=== PATIENT | female | born 1950 | race Caucasian/White ===

== ENCOUNTER 2018-01-30 15:59 | Inpatient (IN) | payer MEDICARE, BC ==
[2018-01-30] MEDS ORDERED: ALBUTEROL NEBULIZED 2.5 MG/3 ML INHALATION STA (16:13)
[2018-01-30] MEDS ORDERED: IPRATROPIUM 0.5 MG/2.5 ML NEBU INHALATION STA (16:13)
[2018-01-30] MEDS ORDERED: methylPREDNISolone SOD SUCCI 125 MG/2 ML VIAL IV STA (16:13)
--- NOTE | 2018-01-30 16:20 | ED ---
General Adult HPI - General Stated complaint: PANTERA Time Seen by Provider: 01/30/18 16:12 Source: patient, family, EMS, RN notes reviewed, old records reviewed - History of Present Illness Initial comments: 67-year-old female history of COPD on home oxygen. Patient has had worsening cough and dyspnea since this morning at approximately 4 AM. She's had a productive cough. According to her she's had a pulse ox in the high 70s low 80s throughout the day today. Patient denies chest pain. Denies fever or chills. Denies abdominal pain nausea vomit. Denies lower extremity swelling. - Related Data Home Medications Medication Instructions Recorded Confirmed Albuterol Nebulized [Ventolin 2.5 mg INHALATION RT-BID PRN 08/05/13 01/30/18 Nebulized] Albuterol Sulfate [Proair Hfa] 2 puff INHALATION RT-Q6H PRN 08/05/13 01/30/18 Pantoprazole Sodium [Protonix] 40 mg PO DAILY 08/05/13 01/30/18 Sertraline [Zoloft] 150 mg PO DAILY 08/05/13 01/30/18 ALPRAZolam [Xanax] 0.5 mg PO QID PRN 01/30/18 01/30/18 Budesonide/Formoterol Fumarate 2 puff INHALATION RT-DAILY 01/30/18 01/30/18 [Symbicort 160-4.5 Mcg Inhaler] Tiotropium [place] [Spiriva] 1 puff INHALATION RT-DAILY 01/30/18 01/30/18 Allergies Allergy/AdvReac Type Severity Reaction Status Date / Time adhesive AdvReac Unknown Verified 01/30/18 17:15 bupropion HCl AdvReac Unknown Verified 01/30/18 17:15 [From Wellbutrin] Review of Systems ROS Statement: Those systems with pertinent positive or pertinent negative responses have been documented in the HPI. ROS Other: All systems not noted in ROS Statement are negative. Past Medical History Past Medical History: COPD, Fibromyalgia, GERD/Reflux, Osteoarthritis (OA), Pneumonia, Thyroid Disorder Additional Past Medical History / Comment(s): history of empyema requiring VATS and surgical decorticationon the right side, INCONT OF URINE, HIATAL HERNIA, rheumatalgia, GE reflux,osteoarthritis, previous bouts of pneumonia isrequiring decorticationand the second bout of pneumonia in 2013 complicated by ARDS, compression fracture of the T-spine status post kyphoplasty. History of Any Multi-Drug Resistant Organisms: None Reported Past Surgical History: Back Surgery, Hysterectomy Additional Past Surgical History / Comment(s): X3 BACK SX -FUSIONS( HX FX VERTEBRE), SX TO REMOVE EMPYEMA via a VATS and decortication. She has also had multiple bronchoscopies in the past. She has also received lumbar epidural steroid injection under fluoroscopic guidance. Past Anesthesia/Blood Transfusion Reactions: Motion Sickness Additional Past Anesthesia/Blood Transfusion Reaction / Comment(s): BLOOD TRANSFUSION Past Psychological History: Anxiety, Depression Smoking Status: Former smoker Past Alcohol Use History: None Reported Additional Past Alcohol Use History / Comment(s): STARTED SMOKING AT AGE 15. SMOKED UPWARDS TO 2 PPD, QUIT 2011. NO ETOH OR DRUGS, HAS 02 AT HOME. PT LIVES WITH IN OWN HOME. Past Drug Use History: None Reported - Past Family History Father Family Medical History: Diabetes Mellitus Additional Family Medical History / Comment(s): AGE 61 THATS ALL PT KNOWS Mother Family Medical History: Cancer, Dementia Additional Family Medical History / Comment(s): AGE 80, RECTAL CA General Exam General appearance: alert, in no apparent distress Head exam: Present: atraumatic, normocephalic Eye exam: Present: normal appearance, PERRL ENT exam: Present: mucous membranes dry Neck exam: Present: normal inspection. Absent: tenderness, meningismus Respiratory exam: Present: respiratory distress. Absent: wheezes, decreased breath sounds, prolonged expiratory Cardiovascular Exam: Present: normal rhythm, tachycardia GI/Abdominal exam: Present: soft. Absent: distended, tenderness, guarding Extremities exam: Present: normal inspection, normal capillary refill. Absent: pedal edema, calf tenderness Neurological exam: Present: alert, oriented X3, CN II-XII intact. Absent: motor sensory deficit Psychiatric exam: Present: normal affect, normal mood Skin exam: Present: warm, dry, intact, pallor. Absent: cyanosis, diaphoretic Course Vital Signs 01/30/18 01/30/18 01/30/18 16:06 16:17 16:25 Temperature 98.8 F Pulse Rate 112 H 109 H Respiratory 32 H 30 H 32 H Rate Blood Pressure 100/61 O2 Sat by Pulse 83 L Oximetry 01/30/18 01/30/18 01/30/18 16:28 16:30 16:42 Temperature Pulse Rate 110 H 110 H 115 H Respiratory 26 H Rate Blood Pressure 100/61 O2 Sat by Pulse 95 Oximetry 01/30/18 01/30/18 01/30/18 16:50 17:00 17:30 Temperature Pulse Rate 116 H 118 H 109 H Respiratory Rate Blood Pressure 82/68 83/52 O2 Sat by Pulse 97 97 Oximetry EKG Findings - EKG Comments: EKG Findings:: EKG: Sinus tachycardia with PVC, rate of 110, CT interval 166, QRS duration 78, QTC 434 baseline secondary to tremor and artifact, no definitive signs of ischemia Medical Decision Making - Medical Decision Making 67-year-old female presenting with respiratory distress, history of COPD. Patient has bilateral wheezing, rhonchi and decreased breath sounds. Initial oxygen saturation is 79-82%. She is placed on BiPAP. Given albuterol, Atrovent , steroids, magnesium, and IV fluids. X-ray shows left lung pneumonia, this encompasses the entire left lung. Patient is significantly improved with BiPAP. Case is discussed with Dr. Sierra, and admitting physician Dr. Dinero. Dr. Sierra recommend CABG, patient will be placed in ICU for close monitoring. - Lab Data Result diagrams: 01/30/18 16:00 01/30/18 16:00 Lab Results 01/30/18 01/30/18 01/30/18 Range/Units 16:00 16:00 16:00 WBC 10.4 (3.8-10.6) k/uL RBC 3.48 L (3.80-5.40) m/uL Hgb 9.1 L (11.4-16.0) gm/dL Hct 29.3 L (34.0-46.0) % MCV 84.3 (80.0-100.0) fL MCH 26.3 (25.0-35.0) pg MCHC 31.2 (31.0-37.0) g/dL RDW 16.6 H (11.5-15.5) % Plt Count 216 (150-450) k/uL Neutrophils % (Manual) 67 % Band Neutrophils % 25 % Lymphocytes % (Manual) 8 % Neutrophils # (Manual) 9.50 H (1.3-7.7) k/uL Lymphocytes # (Manual) 0.83 L (1.0-4.8) k/uL Nucleated RBCs 0 (0-0) /100 WBC Manual Slide Review Performed Hypochromasia Moderate Anisocytosis Slight PT (9.0-12.0) sec INR (<1.2) APTT (22.0-30.0) sec Sodium 138 (137-145) mmol/L Potassium 4.9 (3.5-5.1) mmol/L Chloride 106 (98-107) mmol/L Carbon Dioxide 24 (22-30) mmol/L Anion Gap 8 mmol/L BUN 26 H (7-17) mg/dL Creatinine 1.14 H (0.52-1.04) mg/dL Est GFR (CKD-EPI)AfAm 57 (>60 ml/min/1.73 sqM) Est GFR (CKD-EPI)NonAf 50 (>60 ml/min/1.73 sqM) Glucose 122 H (74-99) mg/dL Plasma Lactic Acid [place] (0.7-2.0) mmol/L Calcium 8.9 (8.4-10.2) mg/dL Magnesium 1.9 (1.6-2.3) mg/dL Total Bilirubin 0.4 (0.2-1.3) mg/dL AST 24 (14-36) U/L ALT 8 L (9-52) U/L Alkaline Phosphatase 59 (38-126) U/L Total Creatine Kinase 71 (30-135) U/L CK-MB (CK-2) 1.4 (0.0-2.4) ng/mL CK-MB (CK-2) Rel Index 2.0 Troponin I <0.012 (0.000-0.034) ng/mL NT-Pro-B Natriuret Pep pg/mL Total Protein 7.0 (6.3-8.2) g/dL Albumin 3.8 (3.5-5.0) g/dL 01/30/18 01/30/18 01/30/18 Range/Units 16:00 16:00 16:00 WBC (3.8-10.6) k/uL RBC (3.80-5.40) m/uL Hgb (11.4-16.0) gm/dL Hct (34.0-46.0) % MCV (80.0-100.0) fL MCH (25.0-35.0) pg MCHC (31.0-37.0) g/dL RDW (11.5-15.5) % Plt Count (150-450) k/uL Neutrophils % (Manual) % Band Neutrophils % % Lymphocytes % (Manual) % Neutrophils # (Manual) (1.3-7.7) k/uL Lymphocytes # (Manual) (1.0-4.8) k/uL Nucleated RBCs (0-0) /100 WBC Manual Slide Review Hypochromasia Anisocytosis PT 10.5 (9.0-12.0) sec INR 1.1 (<1.2) APTT 23.2 (22.0-30.0) sec Sodium (137-145) mmol/L Potassium (3.5-5.1) mmol/L Chloride (98-107) mmol/L Carbon Dioxide (22-30) mmol/L Anion Gap mmol/L BUN (7-17) mg/dL Creatinine (0.52-1.04) mg/dL Est GFR (CKD-EPI)AfAm (>60 ml/min/1.73 sqM) Est GFR (CKD-EPI)NonAf (>60 ml/min/1.73 sqM) Glucose (74-99) mg/dL Plasma Lactic Acid [place] 3.4 H* (0.7-2.0) mmol/L Calcium (8.4-10.2) mg/dL Magnesium (1.6-2.3) mg/dL Total Bilirubin (0.2-1.3) mg/dL AST (14-36) U/L ALT (9-52) U/L Alkaline Phosphatase (38-126) U/L Total Creatine Kinase (30-135) U/L CK-MB (CK-2) (0.0-2.4) ng/mL CK-MB (CK-2) Rel Index Troponin I (0.000-0.034) ng/mL NT-Pro-B Natriuret Pep 651 pg/mL Total Protein (6.3-8.2) g/dL Albumin (3.5-5.0) g/dL Critical Care Time Critical Care Time: Yes Total Critical Care Time: 35 Disposition Clinical Impression: Acute exacerbation of chronic obstructive airways disease, Community acquired pneumonia Disposition: ADMITTED IP TO THIS HOSP Condition: Serious Is patient prescribed a controlled substance at d/c from ED?: No Referrals: Neri Bar DO [Primary Care Provider] - 1-2 days Time of Disposition: 17:48 Decision to Admit Reason: Admit from EC Decision Date: 01/30/18 Decision Time: 17:48
[2018-01-30] MEDS ORDERED: AZITHROMYCIN 500 MG in SODIUM CHLORIDE 0.9% 250 ML IVPB STA (16:34)
[2018-01-30 16:48] LABS: INR 1.1 (<1.2); Partial Thromboplastin Time 23.2 sec (22.0-30.0); Prothrombin Time 10.5 sec (9.0-12.0)
[2018-01-30 16:49] LABS: Albumin 3.8 g/dL (3.5-5.0); Calcium 8.9 mg/dL (8.4-10.2); Magnesium 1.9 mg/dL (1.6-2.3); Potassium 4.9 mmol/L (3.5-5.1); Total Bilirubin 0.4 mg/dL (0.2-1.3)
--- NOTE | 2018-01-30 16:49 | XR ---
EXAMINATION TYPE: XR chest 1V portable DATE OF EXAM: 01/30/2018 COMPARISON: 04/18/2017 HISTORY: Difficulty breathing TECHNIQUE: Single frontal view of the chest is obtained. FINDINGS: There is extensive coarse interstitial infiltrates throughout the lungs. This is worse on the left side. Heart is slightly enlarged. Pulmonary vascularity is difficult to evaluate because of extensive lung disease. IMPRESSION: Advanced pulmonary fibrosis. There is superimposed acute pneumonia in the left lung.
[2018-01-30 16:54] LABS: Creatine Kinase 71 U/L (30-135)
[2018-01-30 16:57] LABS: Anisocytosis Slight; HCT 29.3 % (34.0-46.0); HGB 9.1 gm/dL (11.4-16.0); Hypochromasia Moderate; MCH 26.3 pg (25.0-35.0); MCHC 31.2 g/dL (31.0-37.0); MCV 84.3 fL (80.0-100.0); Mean Platelet Volume 7.8; Platelet Count 216 k/uL (150-450); RBC 3.48 m/uL (3.80-5.40); RDW 16.6 % (11.5-15.5); WBC 10.4 k/uL (3.8-10.6)
[2018-01-30 17:05] LABS: Creatine Kinase MB 1.4 ng/mL (0.0-2.4); Troponin I <0.012 ng/mL (0.000-0.034)
[2018-01-30 17:19] LABS: Band Neutrophils % 25 %; Lymphocytes # (M) 0.83 k/uL (1.0-4.8); Neutrophils % (M) 67 %; Nucleated Red Blood Cells 0 /100 WBC (0-0); Total Cells Counted 100
[2018-01-30] MEDS ORDERED: MAGNESIUM SULFATE-D5W PMX 1 GM in DEXTROSE/WATER 1 100ML.BAG IVPB ONE (17:22)
[2018-01-30] MEDS ORDERED: SODIUM CHLORIDE 0.9% 1,000 ML IV ONE ×2 (17:22→17:41)
[2018-01-30] MEDS ORDERED: SODIUM CHLORIDE 0.9% 500 ML 500 ML IV ONE (17:38)
[2018-01-30] MEDS ORDERED: ALBUTEROL NEBULIZED 2.5 MG/3 ML INHALATION PRN (17:38)
[2018-01-30] MEDS ORDERED: IPRATROPIUM-ALBUTEROL 3 ML NEB INHALATION PRN (17:38)
[2018-01-30] MEDS ORDERED: cefTRIAXone 2,000 MG in SODIUM CHLORIDE 0.9% 100 ML IVPB SCH (19:00)
[2018-01-30 19:17] LABS: Glucose,Whole Blood 163 mg/dL (75-99)
[2018-01-30] MEDS ORDERED: IPRATROPIUM-ALBUTEROL 3 ML NEB INHALATION SCH (20:00)
[2018-01-30 20:03] LABS: ABG Base Excess -3.2 mmol/L; ABG HCO3 22 mmol/L (21-25); ABG Oxygen Saturation 92.7 % (94-97); ABG PCO2 39 mmHg (35-45); ABG PH 7.37 (7.35-7.45); ABG PO2 64 mmHg (83-108); ABG TCO2 23 mmol/L (19-24)
[2018-01-30] MEDS: SODIUM CHLORIDE 0.9% 1,000 ML IV SCH (20:29)
[2018-01-30] MEDS ORDERED: INSULIN ASPART 100 UNIT/ML 1 ML 10 ML VIAL SQ SCH (21:00)
[2018-01-30] MEDS: IPRATROPIUM-ALBUTEROL 3 ML NEB INHALATION SCH (21:04)
[2018-01-30] MEDS: guaiFENesin 600 MG TABLET.ER PO SCH (21:56)
[2018-01-30] MEDS: ENOXAPARIN 40 MG/0.4 ML SYRINGE SQ SCH (22:19)
[2018-01-30] MEDS ORDERED: NOREPINEPHRINE 4 MG in SODIUM CHLORIDE 0.9% 250 ML IV SCH (22:45)
--- NOTE | 2018-01-30 23:41 | HP ---
HISTORY AND PHYSICAL DATE OF ADMISSION: 01/30/2018 DATE OF SERVICE: 01/30/2018 PRESENTING COMPLAINT: Short of breath, cough. HISTORY OF PRESENTING COMPLAINT: This is a 67-year-old patient who follows with Dr. Bar as her family doctor and Dr. Sierra as her stores naval. Chronic stable medical conditions include fibromyalgia, GERD, osteoarthritis, hypothyroid, hiatal hernia, urinary incontinence. Patient has underlying COPD and is on home oxygen 4 L. For 2 days patient has been becoming increasingly short of breath, with cough and greenish yellow sputum, weak, tired, very short of breath. She presented to the ER, found to have multilobar pneumonia, was started on IV antibiotics, bronchodilators, and also put on a BiPAP. Patient's daughter is at the bedside. Patient is very short of breath at rest. REVIEW OF SYSTEMS: CONSTITUTIONAL: Weak, tired. HEENT: None. RESPIRATORY: As above. CARDIOVASCULAR: None. GASTROINTESTINAL: Heartburn. GENITOURINARY: Urinary incontinence. DERMATOLOGICAL: None. HEMATOLOGICAL: None. LYMPHATICS: None. PSYCHIATRY: Some anxiety, depression. NEUROLOGICAL: None. PAST MEDICAL HISTORY: 1. COPD. 2. Fibromyalgia. 3. GERD. 4. Osteoarthritis. 5. Pneumonia. 6. Hypothyroid. 7. Empyema requiring VATS and surgical decortication on the right side. 8. Urinary incontinence. 9. Hiatal hernia. 10.ARDS. 11.Compression fracture of T-spine followed by kyphoplasty. PAST SURGICAL HISTORY: 1. Back surgery. 2. Hysterectomy. 3. Vertebral fusion. 4. VATS procedure with empyema. PSYCH HISTORY: Anxiety, depression. SOCIAL HISTORY: Patient started smoking at the age of 15, smoked 1 to 2 packs a day, stopped in 2011. No alcohol. Has home oxygen at 3 to 4 L. . FAMILY HISTORY: Diabetes. HOME MEDICATIONS: 1. Symbicort 160/4.5 two puffs daily. 2. Xanax 0.5 p.o. q.i.d. p.r.n. 3. ProAir 2 puffs q.6 p.r.n. 4. Ventolin 2.5 b.i.d. p.r.n. 5. Spiriva 1 puff daily. 6. Zoloft 150 mg p.o. daily. 7. Protonix 40 mg p.o. daily. ALLERGIES: ADHESIVE, WELLBUTRIN. PHYSICAL EXAMINATION: Temperature 98.8, pulse 110, respiration 30, blood pressure 100/61, pulse ox 83% on BiPAP. GENERAL APPEARANCE: Average build. Lying in bed, very short of breath at rest. EYES: Pupils equal. Conjunctivae normal. HEENT: External appearance of nose and ears normal. Oral cavity unable to assess. Awaiting BiPAP. NECK: JVD unable to assess. Mass not palpable. RESPIRATORY: Effort increased. Accessory muscles are working. Patient is not able to speak in full sentences. LUNGS: Diminished breath sounds. Bilateral crackles and expiratory wheezing. CARDIOVASCULAR: First and second sounds normal. No edema. ABDOMEN: Soft, non-tender. Liver and spleen not palpable. LYMPHATIC: No lymph node palpable in neck or axillae. PSYCHIATRY: Alert and oriented x3. Mood and affect anxious-appearing. NEUROLOGICAL: Pupils equal. Cranial nerves grossly intact. Power and sensation grossly intact. INVESTIGATIONS: White count 10.4, hemoglobin 9.1, platelets 216, potassium 4.9, BUN 26, creatinine 1.14. Troponin negative. ProBNP 651. Chest x-ray shows multilobar infiltrates. ASSESSMENT: 1. Multilobar pneumonia. Suspect gram-negative organism causing acute hypoxic respiratory failure requiring BiPAP. 2. Chronic hypoxic respiratory failure from underlying chronic obstructive pulmonary disease. 3. Acute chronic obstructive pulmonary disease exacerbation in an ex-smoker. 4. Primary osteoarthritis in multiple joints, bilateral. 5. Gastroesophageal reflux disease. 6. Anxiety and depression not otherwise specified. PLAN: Patient is started on bronchodilators every 4 hours, inhaled steroids. Will add Perforomist, BiPAP. Will also add Mucinex. Sputum will be sent for Gram stain and culture. Patient is also put on IV ceftriaxone, IV steroids. Dr. Sierra was consulted. Care was discussed with the patient and her daughter at the bedside. Prognosis is guarded. Patient will be admitted to the intensive care unit. MMODL / IJN: [id number] /
[2018-01-30] MEDS: LEVOFLOXACIN 500MG-D5W PMX 500 MG in DEXTROSE/WATER 1 100ML.BAG IVPB SCH (23:48)
[2018-01-30] MEDS: methylPREDNISolone SOD SUCCI 125 MG/2 ML VIAL IV SCH (23:53)
[2018-01-31] MEDS: IPRATROPIUM-ALBUTEROL 3 ML NEB INHALATION SCH ×7 (00:37→23:02)
[2018-01-31] MEDS ORDERED: NALOXONE 0.4 MG/ML 1 ML VIAL IV PRN (02:07)
[2018-01-31 02:27] LABS: Glucose,Whole Blood 165 mg/dL (75-99)
[2018-01-31] MEDS: INSULIN ASPART 100 UNIT/ML 1 ML 10 ML VIAL SQ SCH ×5 (02:41→21:54)
[2018-01-31 05:03] LABS: Anion Gap 9 mmol/L; Blood Urea Nitrogen 25 mg/dL (7-17); Calcium 7.8 mg/dL (8.4-10.2); Carbon Dioxide 18 mmol/L (22-30); Chloride 111 mmol/L (98-107); Glucose 121 mg/dL (74-99); Magnesium 2.3 mg/dL (1.6-2.3); Phosphorus 3.2 mg/dL (2.5-4.5); Potassium 4.7 mmol/L (3.5-5.1); Sodium 138 mmol/L (137-145)
[2018-01-31 05:26] LABS: Anisocytosis Slight; Hypochromasia Marked; MCH 26.5 pg (25.0-35.0); MCHC 30.7 g/dL (31.0-37.0); MCV 86.4 fL (80.0-100.0); Mean Platelet Volume 7.8; Platelet Count 177 k/uL (150-450); RBC 2.78 m/uL (3.80-5.40); RDW 16.4 % (11.5-15.5); WBC 11.5 k/uL (3.8-10.6)
[2018-01-31 05:38] LABS: HGB 7.4 gm/dL (11.4-16.0)
[2018-01-31] MEDS: methylPREDNISolone SOD SUCCI 125 MG/2 ML VIAL IV SCH ×4 (05:53→23:09)
[2018-01-31] MEDS: SODIUM CHLORIDE 0.9% 1,000 ML IV SCH ×2 (05:55→20:43)
[2018-01-31] MEDS: BUDESONIDE 1 MG/2 ML NEBU INHALATION SCH ×2 (07:11→18:54)
[2018-01-31] MEDS: FORMOTEROL FUMARATE 20 MCG/2 ML NEBU INHALATION SCH ×2 (07:11→18:54)
[2018-01-31 07:12] LABS: Band Neutrophils % 51 %; Lymphocytes # (M) 0.12 k/uL (1.0-4.8); Metamyelocytes # (M) 0.12 k/uL (0); Metamyelocytes % 1 %; Monocytes # (M) 0.12 k/uL (0-1.0); Neutrophils % (M) 46 %; Nucleated Red Blood Cells 0 /100 WBC (0-0); Total Cells Counted 100
[2018-01-31 07:13] LABS: Large Platelets Present; Poikilocytosis (M) Present
[2018-01-31 07:38] LABS: Glucose,Whole Blood 135 mg/dL (75-99)
--- NOTE | 2018-01-31 08:27 | XR ---
EXAMINATION TYPE: XR chest 1V DATE OF EXAM: 01/31/2018 HISTORY: Shortness of breath. COMPARISON: 01/30/2018 TECHNIQUE: Single view of the chest is submitted. FINDINGS: Demonstrated are scattered senescent parenchymal change. Scattered reticulonodular infiltrates persist the left greater than right. Underlying pulmonary fibro sis. The heart is stable. Hilar and mediastinal structures are within normal limits. Degenerative changes are seen of the dorsal spine. IMPRESSION: 1. Stable chest
[2018-01-31] MEDS: ALPRAZolam 0.5 MG TAB PO PRN ×3 (08:45→21:43)
[2018-01-31 08:53] LABS: Glucose,Whole Blood 191 mg/dL (75-99)
[2018-01-31] MEDS: PANTOPRAZOLE 40 MG TABLET PO SCH (09:02)
[2018-01-31] MEDS: PIPERACILLIN-TAZOBACTAM 3.375 GM in SODIUM CHLORIDE 0.9% 100 ML IVPB SCH ×2 (09:09→21:37)
[2018-01-31] MEDS: ENOXAPARIN 40 MG/0.4 ML SYRINGE SQ SCH (09:19)
--- NOTE | 2018-01-31 09:58 | P.CNPUL ---
History of Present Illness Consult date: 01/31/18 Reason for consult: pneumonia History of present illness: 67-year-old female patient with known history of advanced COPD and chronic hypoxic respiratory failure, oxygen dependent, was feeling poorly over the past few days and the patient presented to the emergency department having worsening cough, shortness of breath and she was obviously desaturating and her pulse ox was in the low 70s at time of arrival to the emergency department. Denies having any pleuritic chest pain. Denies having any fever or chills. No nausea. No vomiting. No mentation. No swelling in lower extremities. In the ED, the patient a chest x-ray that showed extensive left lung pneumonia/ consolidation. The patient's was placed on a BiPAP. The patient was given a combination of bronchodilators and systemic steroids. She was given Rocephin and Zithromax. Following that the patient was admitted to the intensive care unit. Her white cell count was at 10.4. Creatinine was 1.1. The patient had lactic acid level of 3.4. In the ICU, the patient continued to be on a BiPAP. Her antibiotics were switched to a combination of Zosyn and Levaquin. He was kept on a combination of bronchodilators and systemic steroids. She also received IV fluids and currently she is on 75 mL an hour. She is on normal saline infusion. Her subsequent lactic acid level is up to 4.0. The patient was given a total of 2 and a half liters of IV fluid in the form of normal saline. The patient was placed on a BiPAP at a pressure of 10/5 with an FiO2 of 50%. She is also on 2 mics of the levo fed for hemodynamic support. She is producing good urine output in the order of 30-40 mL an hour. She is a bit anxious. An attempt was done to take her off the BiPAP this morning yet she failed due to desaturation the patient had a BiPAP back This patient has advanced oxygen-dependent COPD and she is typically on feeds of oxygen by nasal cannula. She has a complicated history of COPD and recurrent pneumonias. Back in 2010, the patient extensive right lung pneumonia that was Again by empyema requiring decortication. The patient another bout of pneumonia 2012 during which she was intubated and placed on a mechanical ventilator and she had ARDS. Since then she had quit smoking. She has been maintained on a combination of Spiriva, Symbicort and a distal solution as needed basis and she is also on prior rescue inhaler when necessary. She has chronic anxiety and depression. She is on a combination of Zoloft and Xanax in addition. Her condition is been progressively getting more debilitated. The patient's easily periodically in the office. She also has compression fractures of the thoracic spine and she has been seen by spine surgery and she is on a candidate for any surgical intervention this point in time. Review of Systems Constitutional: no fever, no night sweats, no significant weight gain, no significant weight loss, no exercise intolerance, lethargy (fatigued and sleepy) Eyes Eyes: no dry eyes, no vision change, no irritation ENMT Ears: no difficulty hearing, no ear pain Nose: no frequent nosebleeds, no nose problems, sinus problems (coongested) Mouth/Throat: no sore throat, no bleeding gums, no snoring, no mouth ulcers, no teeth problems, dry mouth Cardiovascular Cardiovascular: no chest pain, no arm pain on exertion, no shortness of breath when lying down, no palpitations, no known heart murmur, shortness of breath when walking Respiratory Respiratory: Increased shortness of breath, cough and congestion and hypoxemia as noted. The patient has also chronic exertional dyspnea and she is oxygen dependent. Gastrointestinal Gastrointestinal: no abdominal pain, no nausea, no vomiting, no constipation, normal appetite, no diarrhea, not vomiting blood, no dyspepsia, no GERD Genitourinary Genitourinary: no incontinence, no difficulty urinating, no hematuria, no increased frequency Musculoskeletal Musculoskeletal: no muscle aches, no muscle weakness, no swelling in the extremities, arthralgias/joint pain, back pain (compression fracture of the spine) Integumentary Skin: no abnormal mole, no jaundice, no rashes, no laceration Neurologic Neurologic: no loss of consciousness, no weakness, no numbness, no seizures, no dizziness, no migraines, no headaches, no tremor Psychiatric Psych: no depression, no sleep disturbances, feeling safe in a relationship, no alcohol abuse, no anxiety, no hallucinations, no suicidal thoughts Endocrine Endocrine: There is increased fatigue and tiredness and the patient's been feeling very sick. Hematologic/Lymphatic Hematologic/Lymphatic no swollen glands, no bruising, no excessive bleeding Allergic/Immunologic Allergy/Immunologic: no runny nose, no sinus pressure, no itching, no hives, no frequent sneezing Past Medical History Past Medical History: COPD, Fibromyalgia, GERD/Reflux, Osteoarthritis (OA), Pneumonia, Thyroid Disorder Additional Past Medical History / Comment(s): COPD, chronic hypoxic arrest 30 failure, fibromyalgia, acid reflux, hypothyroidism, osteoarthritis, compression fracture of the T-spine, previous kyphoplasty, previous history of recurrent pneumonias requiring decortication for empyema and previous history of ARDS secondary to pneumonia, hiatal hernia, generalized anxiety disorder/depression History of Any Multi-Drug Resistant Organisms: None Reported Past Surgical History: Back Surgery, Hysterectomy Additional Past Surgical History / Comment(s): X3 BACK SX -FUSIONS( HX FX VERTEBRE), SX TO REMOVE EMPYEMA via a VATS and decortication. She has also had multiple bronchoscopies in the past. She has also received lumbar epidural steroid injection under fluoroscopic guidance. Past Anesthesia/Blood Transfusion Reactions: Motion Sickness Additional Past Anesthesia/Blood Transfusion Reaction / Comment(s): BLOOD TRANSFUSION Past Psychological History: Anxiety, Depression Smoking Status: Former smoker Past Alcohol Use History: None Reported Additional Past Alcohol Use History / Comment(s): STARTED SMOKING AT AGE 15. SMOKED UPWARDS TO 2 PPD, QUIT 2011. NO ETOH OR DRUGS, HAS 02 AT HOME. PT LIVES WITH IN OWN HOME. Past Drug Use History: None Reported - Past Family History Father Family Medical History: Diabetes Mellitus Additional Family Medical History / Comment(s): AGE 61 THATS ALL PT KNOWS Mother Family Medical History: Cancer, Dementia Additional Family Medical History / Comment(s): AGE 80, RECTAL CA Medications and Allergies Home Medications Medication Instructions Recorded Confirmed Type Albuterol Nebulized [Ventolin 2.5 mg INHALATION RT-BID PRN 08/05/13 01/30/18 History Nebulized] Albuterol Sulfate [Proair Hfa] 2 puff INHALATION RT-Q6H PRN 08/05/13 01/30/18 History Pantoprazole Sodium [Protonix] 40 mg PO DAILY 08/05/13 01/30/18 History Sertraline [Zoloft] 150 mg PO DAILY 08/05/13 01/30/18 History ALPRAZolam [Xanax] 0.5 mg PO QID PRN 01/30/18 01/30/18 History Budesonide/Formoterol Fumarate 2 puff INHALATION RT-DAILY 01/30/18 01/30/18 History [Symbicort 160-4.5 Mcg Inhaler] Tiotropium [place] [Spiriva] 1 puff INHALATION RT-DAILY 01/30/18 01/30/18 History Allergies Allergy/AdvReac Type Severity Reaction Status Date / Time adhesive AdvReac Unknown Verified 01/30/18 17:15 bupropion HCl AdvReac Unknown Verified 01/30/18 17:15 [From Wellbutrin] Physical Exam Vitals: Vital Signs Temp Pulse Resp BP Pulse Ox 01/31/18 07:35 81 01/31/18 07:25 80 01/31/18 07:16 78 01/31/18 07:00 82 26 H 99/63 97 01/31/18 06:30 78 25 H 104/62 96 01/31/18 06:00 77 23 104/58 97 01/31/18 05:30 78 25 H 96/65 96 01/31/18 05:00 80 27 H 89/49 97 01/31/18 04:30 81 26 H 97/59 97 01/31/18 04:00 98.9 F 81 25 H 96/53 97 01/31/18 03:30 83 26 H 81/58 96 01/31/18 03:00 84 25 H 104/79 96 01/31/18 02:30 86 22 96/68 97 01/31/18 02:00 85 24 95/63 96 01/31/18 01:30 86 26 H 87/60 95 01/31/18 01:00 85 24 90/58 97 01/31/18 00:48 84 01/31/18 00:39 84 01/31/18 00:30 84 25 H 94/64 95 01/31/18 00:01 98.9 F 86 26 H 86/59 95 01/30/18 23:30 85 22 98/61 95 01/30/18 23:03 84 26 H 83/64 95 01/30/18 23:00 85 26 H 86/62 95 01/30/18 22:30 90 25 H 81/50 94 L 01/30/18 22:00 89 25 H 80/53 95 01/30/18 21:30 96 63 H 83/45 92 L 01/30/18 21:18 91 01/30/18 21:08 90 01/30/18 21:00 89 25 H 93 L 01/30/18 20:32 90 24 93 L 01/30/18 19:00 105 H 30 H 136/82 01/30/18 18:30 108 H 116/78 01/30/18 18:00 110 H 99/89 01/30/18 17:30 109 H 83/52 97 01/30/18 17:00 118 H 82/68 97 01/30/18 16:50 116 H 01/30/18 16:42 115 H 01/30/18 16:30 110 H 26 H 100/61 95 01/30/18 16:28 110 H 01/30/18 16:25 32 H 01/30/18 16:17 98.8 F 109 H 30 H 100/61 83 L 01/30/18 16:06 112 H 32 H Intake and Output 01/30/18 01/31/18 01/31/18 22:59 06:59 14:59 Intake Total 100 742.250 75 Output Total 190 395 40 Balance -90 347.250 35 Intake: IV 100 700 75 Levofloxacin 500Mg-D5w 100 Pmx 500 mg In Dextrose/ Water 1 100ml.bag @ 100 mls/hr IVPB Q24H [facility] Rx#: [id number] Sodium Chloride 0.9% 1, 600 75 000 ml @ 75 mls/hr IV . [id number] [facility] Rx#:[id number] cefTRIAXone 2,000 mg In 100 Sodium Chloride 0.9% 100 ml @ 100 mls/hr IVPB Q24HR [facility] Rx#:[id number] Intake, IV Titration 42.250 Amount Norepinephrine 4 mg In 42.250 Sodium Chloride 0.9% 250 ml @ Titrate IV .Q0M [facility] Rx#:[id number] Output: Urine 190 395 40 Other: Voiding Method Indwelling Catheter Indwelling Catheter Weight 59.2 kg 59.2 kg Constitutional General Appearance: well nourished, well developed, appears stated age Level of Distress: chronically ill, currently she is short of breath and she is having respiratory distress even at rest Ambulation: ambulating normally ENMT Nasal Mucosa: normal, no discharge, pink and moist (nasal septal deviation) Septum: deviated to the right Turbinates: normal turbinate Lips, Teeth, and Gums: normal lips, normal dentition, normal gums Oral Mucosa: no ulcer, no mass, no pallor, moist, no cyanosis, no inflammation, no swelling, no rash, no leukoplakia Tongue: no erythema, no lesions, no enlargement, no swelling, no deviation Posterior pharynx: no enlargement, no erythema, no exudate, no white patches, no ulcers, no mass Neck Neck: supple, trachea midline, no masses, Full ROM Thyroid: no enlargement, non-tender, no nodules Jugular Veins: normal jugular venous pressure Lungs Respiratory effort: dyspneic Inspection: normal chest wall expansion, normal curve, no deformity, no tenderness, no swelling Auscultation: no rales/crackles, no rhonchi, decreased breath sounds,bilateral, midlung uriostegui, wheezing,expiratory,bilaterally,midlung uriostegui Cardiovascular Precordial Exam: non displaced focal PMI, no heaves, no precordial thrills Heart Rate And Rhythm: normal heart rate and rhythm Heart Sounds: normal s1, no physiologically split S2, no pericardial friction rub, no gallop, no click Systolic Murmur: no systolic murmurs Observation/Palpation of peripheral vascular system: no cyanosis, no edema, normal dorsalis pedis, normal posterior tibialis Abdomen Inspection and Palpation: soft, non-distended, no tenderness, no masses Liver: non-tender, no hepatomegaly Spleen: non-tender, no splenomegaly Bowel Sounds: normal, no abdominal bruits Lymphatic: no cervical LAD, no supraclavicular LAD Musculoskeletal: Motor Strength and Tone: normal motor strength, normal bulk, normal tone Gait and Station: normal gait Joints, Bones, and Muscles: normal movement of all extremities, no bony abnormalities, no contractures, no malalignment, no tenderness Extremities Inspection/Palpation of digits and nails: no clubbing, no cyanosis, no petechiae , no infection, no nodular lesions, no ischemia, no edema Skin Inspection and palpation: no rash, no lesions, no jaundice, normal turgor Neurologic Mental Status/Orientation: oriented to person, oriented to place, oriented to problem/situation, oriented to time Mood/Affect: normal mood, normal affect Results - Laboratory Findings CBC and BMP: 01/31/18 04:31 01/31/18 04:31 ABG ABG pH 7.37 (7.35-7.45) 01/30/18 20:07 ABG pCO2 39 mmHg (35-45) 01/30/18 20:07 ABG pO2 64 mmHg (83-108) L 01/30/18 20:07 ABG O2 Saturation 92.7 % (94-97) L 01/30/18 20:07 PT/INR, D-dimer PT 10.5 sec (9.0-12.0) 01/30/18 16:00 INR 1.1 (<1.2) 01/30/18 16:00 Abnormal lab findings: Abnormal Labs 01/30/18 01/30/18 01/30/18 16:00 16:00 16:00 WBC RBC 3.48 L Hgb 9.1 L Hct 29.3 L MCHC RDW 16.6 H Neutrophils # (Manual) 9.50 H Lymphocytes # (Manual) 0.83 L Metamyelocytes # (Man) ABG pO2 ABG O2 Saturation Chloride Carbon Dioxide BUN 26 H Creatinine 1.14 H Glucose 122 H POC Glucose (mg/dL) Plasma Lactic Acid Kevyn 3.4 H* Calcium ALT 8 L 01/30/18 01/30/18 01/30/18 19:14 20:07 20:11 WBC RBC Hgb Hct MCHC RDW Neutrophils # (Manual) Lymphocytes # (Manual) Metamyelocytes # (Man) ABG pO2 64 L ABG O2 Saturation 92.7 L Chloride Carbon Dioxide BUN Creatinine Glucose POC Glucose (mg/dL) 163 H Plasma Lactic Acid Kevyn 3.9 H* Calcium ALT 01/31/18 01/31/18 01/31/18 02:02 04:31 04:31 WBC 11.5 H RBC 2.78 L Hgb 7.4 L D Hct 24.0 L MCHC 30.7 L RDW 16.4 H Neutrophils # (Manual) 11.10 H Lymphocytes # (Manual) 0.12 L Metamyelocytes # (Man) 0.12 H ABG pO2 ABG O2 Saturation Chloride Carbon Dioxide BUN Creatinine Glucose POC Glucose (mg/dL) 165 H Plasma Lactic Acid Kevyn 2.7 H* Calcium ALT 01/31/18 01/31/18 01/31/18 04:31 07:35 08:48 WBC RBC Hgb Hct MCHC RDW Neutrophils # (Manual) Lymphocytes # (Manual) Metamyelocytes # (Man) ABG pO2 ABG O2 Saturation Chloride 111 H Carbon Dioxide 18 L BUN 25 H Creatinine Glucose 121 H POC Glucose (mg/dL) 135 H Plasma Lactic Acid Kevyn 4.0 H* Calcium 7.8 L ALT 01/31/18 08:49 WBC RBC Hgb Hct MCHC RDW Neutrophils # (Manual) Lymphocytes # (Manual) Metamyelocytes # (Man) ABG pO2 ABG O2 Saturation Chloride Carbon Dioxide BUN Creatinine Glucose POC Glucose (mg/dL) 191 H Plasma Lactic Acid Kevyn Calcium ALT - Diagnostic Findings Chest x-ray: image reviewed Assessment and Plan Plan: Assessment 1 acute left lung pneumonia with secondary respiratory distress and hypoxic history failure. The patient is currently BiPAP dependent at the pressure of 10 /5 cm of water and FiO2 of 50%. She is also covered with broad-spectrum antibiotics. 2 hypotension, likely secondary to pneumonia/septic shock. 3 lactic acidosis secondary to pneumonia/septic shock 4 severe COPD with chronic hypoxic respiratory failure maintained on oxygen 3 L per minute nasal cannula 5 history of recurrent pneumonias with previous history of empyema and previous history of ARDS as complications of pneumonias 6 fibromyalgia 7 compression fracture of the thoracic spine previous kyphoplasty 8 chronic generalized anxiety disorder/depression 9 acute lactic acidosis secondary to pneumonia Plan Continue IV fluids. The patient is currently on 75 mL an hour. The patient has been resuscitated more than 3 L of IV fluids. The patient will be kept on norepinephrine infusion for now at 2 mics to support her blood pressure. Continue Zosyn and Levaquin. Influenza screen. Sputum Gram stain and culture. Blood culture. Daily chest x-rays. BiPAP for respiratory support at a pressure of 10/5 with an FiO2 of 50%. Monitor the lactic acid level. Monitored hemodynamics. Monitor gout, the patient because in ICU for now. Lovenox for DVT prophylaxis. We'll continue to follow.
[2018-01-31 12:05] LABS: Glucose,Whole Blood 120 mg/dL (75-99)
[2018-01-31] MEDS: guaiFENesin 600 MG TABLET.ER PO SCH ×2 (12:11→21:37)
[2018-01-31] MEDS: SERTRALINE 50 MG TAB PO SCH (12:23)
[2018-01-31 16:53] LABS: Glucose,Whole Blood 166 mg/dL (75-99)
[2018-01-31 17:06] LABS: Hemoglobin A1C 5.2 % (4.0-6.0)
[2018-01-31] MEDS ORDERED: ACETAMINOPHEN IV (For NPO) 1,000 MG in EMPTY BAG 1 BAG IVPB ONE (18:05)
[2018-01-31 21:54] LABS: Glucose,Whole Blood 190 mg/dL (75-99)
[2018-01-31] MEDS: SODIUM BICARBONATE TAB 650 MG TAB PO SCH (23:05)
[2018-01-31] MEDS: LEVOFLOXACIN 500MG-D5W PMX 500 MG in DEXTROSE/WATER 1 100ML.BAG IVPB SCH (23:09)
--- NOTE | 2018-02-01 01:03 | PN ---
PROGRESS NOTE DATE OF SERVICE: 01/31/2018. PRESENTING COMPLAINT: Short of breath. INTERVAL HISTORY: This patient was admitted with multilobar pneumonia, hypoxia, and acute COPD exacerbation. Remains on the BiPAP. Oral intake has been low. Remains in the ICU though does feel a shade better than yesterday. Tired and run down. at the bedside. Being followed by Pulmonary. The patient is in the ICU. Remains on IV antibiotics bronchodilators, steroids. Sputum production is coming down. REVIEW OF SYSTEMS: Done for constitutional, cardiovascular, GI, pulmonary; relevant findings as above. CURRENT MEDICATIONS: Reviewed that include DuoNeb, IV Levaquin, IV Solu-Medrol, IV Zosyn, did get Levophed. PHYSICAL EXAMINATION: Temperature 98.9, pulse 89, respirations 20, blood pressure 108/79, pulse ox 97% on BiPAP. GENERAL APPEARANCE: Lying in bed, tired-appearing, BiPAP in place. EYES: Pupils equal. Conjunctivae normal. NECK: JVD unable to assess. Mass not palpable. Respiratory effort increased. Accessory muscles are working. Not able to speak in full sentences. LUNGS: Diminished breath sounds, prolonged expiration and wheezing. Sounds no edema. ABDOMEN: Soft, nontender. Liver and spleen not palpable. PSYCHIATRY: Alert and oriented x3. Mood and affect anxious-appearing. NEUROLOGICAL: Moving all 4 limbs. INVESTIGATIONS: White count 9.5, hemoglobin 7.4, platelets 177,000, potassium 25, creatinine 0.76. Lactic acid 4. ASSESSMENT: 1. Multilobar pneumonia suspect gram-negative organism causing severe acute hypoxic respiratory failure requiring BiPAP, slow to respond. 2. Chronic hypoxic respiratory failure from underlying chronic obstructive pulmonary disease. 3. Acute chronic obstructive pulmonary disease exacerbation in an ex-smoker with pneumonia. 4. Primary osteoarthritis in multiple joints, bilateral. 5. Gastroesophageal reflux disease. 6. Anxiety, depression, not otherwise specified. 7. Lactic acidosis due to pneumonia. 8. Normocytic anemia cause undetermined. 9. Metabolic acidosis. PLAN: Continue patient on bronchodilators, IV steroids, IV antibiotics. Care was discussed with the at the bedside. Remains on a BiPAP. We will also add some sodium bicarb tablets. Prognosis guarded. Follow closely. MMODL / IJN: [id number] /
[2018-02-01 02:58] LABS: Glucose,Whole Blood 101 mg/dL (75-99)
[2018-02-01] MEDS: IPRATROPIUM-ALBUTEROL 3 ML NEB INHALATION SCH ×6 (03:03→23:03)
[2018-02-01] MEDS: INSULIN ASPART 100 UNIT/ML 1 ML 10 ML VIAL SQ SCH ×5 (03:09→21:04)
[2018-02-01 05:52] LABS: Anisocytosis Slight; Basophils % (A) 0 %; Eosinophils % (A) 0 %; HCT 21.9 % (34.0-46.0); Hypochromasia Marked; Lymphocytes # (A) 0.2 k/uL (1.0-4.8); Lymphocytes % (A) 3 %; MCH 27.2 pg (25.0-35.0); MCHC 31.5 g/dL (31.0-37.0); MCV 86.5 fL (80.0-100.0); Mean Platelet Volume 8.1; Monocytes # (A) 0.1 k/uL (0-1.0); Monocytes % (A) 2 %; Neutrophils # (A) 7.1 k/uL (1.3-7.7); Neutrophils % (A) 95 %; Platelet Count 164 k/uL (150-450); RBC 2.53 m/uL (3.80-5.40); RDW 17.1 % (11.5-15.5); WBC 7.5 k/uL (3.8-10.6)
[2018-02-01] MEDS: FORMOTEROL FUMARATE 20 MCG/2 ML NEBU INHALATION SCH ×2 (05:56→18:51)
[2018-02-01] MEDS: BUDESONIDE 1 MG/2 ML NEBU INHALATION SCH ×2 (05:56→18:51)
--- NOTE | 2018-02-01 06:02 | XR ---
EXAMINATION TYPE: XR chest 1V DATE OF EXAM: 02/01/2018 HISTORY: copd, pulmonary fibrosis. REFERENCE: Previous study dated 01/31/2018. FINDINGS: The lungs are overinflated. Heart size upper limits of normal. There are stable findings of pulmonary fibrosis. Patchy opacity at the left lung base is unchanged. I could not exclude superimpo sed pneumonia. IMPRESSION: 1. COPD. 2. PULMONARY FIBROSIS. 3. I COULD NOT EXCLUDE SOME SUPERIMPOSED LEFT BASILAR PNEUMONIA.
[2018-02-01] MEDS: methylPREDNISolone SOD SUCCI 125 MG/2 ML VIAL IV SCH ×4 (06:07→23:36)
[2018-02-01 06:13] LABS: HGB 6.9 gm/dL (11.4-16.0)
[2018-02-01 06:20] LABS: Anion Gap 7 mmol/L; Blood Urea Nitrogen 24 mg/dL (7-17); Calcium 8.5 mg/dL (8.4-10.2); Carbon Dioxide 20 mmol/L (22-30); Chloride 114 mmol/L (98-107); Glucose 99 mg/dL (74-99); Magnesium 2.5 mg/dL (1.6-2.3); Phosphorus 3.8 mg/dL (2.5-4.5); Potassium 4.3 mmol/L (3.5-5.1); Sodium 141 mmol/L (137-145)
[2018-02-01] MEDS: ALPRAZolam 0.5 MG TAB PO PRN (06:29)
[2018-02-01 06:36] LABS: Glucose,Whole Blood 133 mg/dL (75-99)
[2018-02-01 06:54] LABS: Glucose,Whole Blood 154 mg/dL (75-99)
[2018-02-01] MEDS: ENOXAPARIN 40 MG/0.4 ML SYRINGE SQ SCH (09:06)
[2018-02-01] MEDS: PANTOPRAZOLE 40 MG TABLET PO SCH (09:06)
[2018-02-01] MEDS: SODIUM BICARBONATE TAB 650 MG TAB PO SCH ×3 (09:06→21:15)
[2018-02-01] MEDS: PIPERACILLIN-TAZOBACTAM 3.375 GM in SODIUM CHLORIDE 0.9% 100 ML IVPB SCH ×2 (09:06→21:14)
[2018-02-01] MEDS: SERTRALINE 50 MG TAB PO SCH (09:06)
[2018-02-01] MEDS: guaiFENesin 600 MG TABLET.ER PO SCH ×2 (09:06→21:14)
[2018-02-01] MEDS: SODIUM CHLORIDE 0.9% 1,000 ML IV SCH ×2 (09:07→21:15)
[2018-02-01] MEDS ORDERED: ACETAMINOPHEN IV (For NPO) 1,000 MG in EMPTY BAG 1 BAG IVPB PRN (11:11)
[2018-02-01 11:38] LABS: Glucose,Whole Blood 108 mg/dL (75-99)
[2018-02-01] MEDS: ALPRAZolam 0.5 MG TAB PO SCH ×3 (11:58→21:15)
--- NOTE | 2018-02-01 16:31 | P.PN ---
Subjective Progress Note Date: 02/01/18 67-year-old female patient with known history of advanced COPD and chronic hypoxic respiratory failure, oxygen dependent, was feeling poorly over the past few days and the patient presented to the emergency department having worsening cough, shortness of breath and she was obviously desaturating and her pulse ox was in the low 70s at time of arrival to the emergency department. Denies having any pleuritic chest pain. Denies having any fever or chills. No nausea. No vomiting. No mentation. No swelling in lower extremities. In the ED, the patient a chest x-ray that showed extensive left lung pneumonia/ consolidation. The patient's was placed on a BiPAP. The patient was given a combination of bronchodilators and systemic steroids. She was given Rocephin and Zithromax. Following that the patient was admitted to the intensive care unit. Her white cell count was at 10.4. Creatinine was 1.1. The patient had lactic acid level of 3.4. In the ICU, the patient continued to be on a BiPAP. Her antibiotics were switched to a combination of Zosyn and Levaquin. He was kept on a combination of bronchodilators and systemic steroids. She also received IV fluids and currently she is on 75 mL an hour. She is on normal saline infusion. Her subsequent lactic acid level is up to 4.0. The patient was given a total of 2 and a half liters of IV fluid in the form of normal saline. The patient was placed on a BiPAP at a pressure of 10/5 with an FiO2 of 50%. She is also on 2 mics of the levo fed for hemodynamic support. She is producing good urine output in the order of 30-40 mL an hour. She is a bit anxious. An attempt was done to take her off the BiPAP this morning yet she failed due to desaturation the patient had a BiPAP back This patient has advanced oxygen-dependent COPD and she is typically on feeds of oxygen by nasal cannula. She has a complicated history of COPD and recurrent pneumonias. Back in 2010, the patient extensive right lung pneumonia that was Again by empyema requiring decortication. The patient another bout of pneumonia 2012 during which she was intubated and placed on a mechanical ventilator and she had ARDS. Since then she had quit smoking. She has been maintained on a combination of Spiriva, Symbicort and a distal solution as needed basis and she is also on prior rescue inhaler when necessary. She has chronic anxiety and depression. She is on a combination of Zoloft and Xanax in addition. Her condition is been progressively getting more debilitated. The patient's easily periodically in the office. She also has compression fractures of the thoracic spine and she has been seen by spine surgery and she is on a candidate for any surgical intervention this point in time. On 02/01/2018 the patient's condition essentially unchanged compared to yesterday. She still short of breath via much BiPAP dependent at a pressure of 10/5 with an FiO2 of 50%. Earlier this morning she was tried on a nasal cannula however she became quite anxious and panicky. Based on that she was placed back on the BiPAP machine. Her chest x-ray still unchanged with bilateral pulmonary infiltrates left more than right. She remains in the same antibiotic coverage. She is on examination Zosyn and Levaquin. She'll IV Solu- Medrol. She is also on bronchodilators around the clock. As for the anxiety treatment, the patient a combination of Zoloft and Xanax and she is less panicky and anxious compared to yesterday. No fever. No chills. The white cell count was at 7.5. Earlier this morning her hemoglobin came back at 6.9 and she did not demonstrate any signs of bleeding. She was given a unit of packed RBC. Renal function is within normal limits. Objective - Vital Signs Vital signs: Vital Signs Temp 98.1 F 02/01/18 13:33 Pulse 83 02/01/18 16:07 Resp 29 H 02/01/18 15:00 BP 136/53 02/01/18 15:00 Pulse Ox 94 L 02/01/18 15:00 Intake & Output 01/31/18 02/01/18 02/01/18 18:59 06:59 18:59 Intake Total 829.561 703 4529 Output Total 495 620 402 Balance 334.125 355 608 Weight 65.8 kg Intake: IV 630.0 975 600 Levofloxacin 500Mg-D5w 330.0 75 Pmx 500 mg In Dextrose/ Water 1 100ml.bag @ 100 mls/hr IVPB Q24H [facility] Rx#: [id number] Sodium Chloride 0.9% 1, 300 975 525 000 ml @ 75 mls/hr IV . [id number] [facility] Rx#:[id number] Intake, IV Titration 169.125 100 Amount Norepinephrine 4 mg In 86.625 Sodium Chloride 0.9% 250 ml @ Titrate IV .Q0M [facility] Rx#:[id number] Piperacillin-Tazobactam 3 82.5 100 .375 gm In Sodium Chloride 0.9% 100 ml @ 25 mls/hr IVPB Q12HR [facility] Rx #:[id number] Oral 30 Blood Product 310 Rc As-1 Unit 310 [id number] Output: Urine 495 620 402 Other: Voiding Method Indwelling Catheter Indwelling Catheter Indwelling Catheter - Exam Constitutional General Appearance: well nourished, well developed, appears stated age Level of Distress: chronically ill, currently she is short of breath and she is having respiratory distress even at rest Ambulation: ambulating normally ENMT Nasal Mucosa: normal, no discharge, pink and moist (nasal septal deviation) Septum: deviated to the right Turbinates: normal turbinate Lips, Teeth, and Gums: normal lips, normal dentition, normal gums Oral Mucosa: no ulcer, no mass, no pallor, moist, no cyanosis, no inflammation, no swelling, no rash, no leukoplakia Tongue: no erythema, no lesions, no enlargement, no swelling, no deviation Posterior pharynx: no enlargement, no erythema, no exudate, no white patches, no ulcers, no mass Neck Neck: supple, trachea midline, no masses, Full ROM Thyroid: no enlargement, non-tender, no nodules Jugular Veins: normal jugular venous pressure Lungs Respiratory effort: dyspneic Inspection: normal chest wall expansion, normal curve, no deformity, no tenderness, no swelling Auscultation: no rales/crackles, no rhonchi, decreased breath sounds,bilateral, midlung uriostegui, wheezing,expiratory,bilaterally,midlung uriostegui Cardiovascular Precordial Exam: non displaced focal PMI, no heaves, no precordial thrills Heart Rate And Rhythm: normal heart rate and rhythm Heart Sounds: normal s1, no physiologically split S2, no pericardial friction rub, no gallop, no click Systolic Murmur: no systolic murmurs Observation/Palpation of peripheral vascular system: no cyanosis, no edema, normal dorsalis pedis, normal posterior tibialis Abdomen Inspection and Palpation: soft, non-distended, no tenderness, no masses Liver: non-tender, no hepatomegaly Spleen: non-tender, no splenomegaly Bowel Sounds: normal, no abdominal bruits Lymphatic: no cervical LAD, no supraclavicular LAD Musculoskeletal: Motor Strength and Tone: normal motor strength, normal bulk, normal tone Gait and Station: normal gait Joints, Bones, and Muscles: normal movement of all extremities, no bony abnormalities, no contractures, no malalignment, no tenderness Extremities Inspection/Palpation of digits and nails: no clubbing, no cyanosis, no petechiae , no infection, no nodular lesions, no ischemia, no edema Skin Inspection and palpation: no rash, no lesions, no jaundice, normal turgor - Labs CBC & Chem 7: 02/01/18 04:52 02/01/18 04:52 Labs: Abnormal Lab Results - Last 24 Hours (Table) 01/31/18 01/31/18 02/01/18 Range/Units 16:50 21:51 02:54 RBC (3.80-5.40) m/uL Hgb (11.4-16.0) gm/dL Hct (34.0-46.0) % RDW (11.5-15.5) % Lymphocytes # (1.0-4.8) k/uL Chloride (98-107) mmol/L Carbon Dioxide (22-30) mmol/L BUN (7-17) mg/dL POC Glucose (mg/dL) 166 H 190 H 101 H (75-99) mg/dL Magnesium (1.6-2.3) mg/dL Crossmatch 02/01/18 02/01/18 02/01/18 Range/Units 04:52 04:52 06:33 RBC 2.53 L (3.80-5.40) m/uL Hgb 6.9 L* (11.4-16.0) gm/dL Hct 21.9 L (34.0-46.0) % RDW 17.1 H (11.5-15.5) % Lymphocytes # 0.2 L (1.0-4.8) k/uL Chloride 114 H (98-107) mmol/L Carbon Dioxide 20 L (22-30) mmol/L BUN 24 H (7-17) mg/dL POC Glucose (mg/dL) 133 H (75-99) mg/dL Magnesium 2.5 H (1.6-2.3) mg/dL Crossmatch 02/01/18 02/01/18 02/01/18 Range/Units 06:51 07:45 11:33 RBC (3.80-5.40) m/uL Hgb (11.4-16.0) gm/dL Hct (34.0-46.0) % RDW (11.5-15.5) % Lymphocytes # (1.0-4.8) k/uL Chloride (98-107) mmol/L Carbon Dioxide (22-30) mmol/L BUN (7-17) mg/dL POC Glucose (mg/dL) 154 H 108 H (75-99) mg/dL Magnesium (1.6-2.3) mg/dL Crossmatch See Detail Microbiology - Last 24 Hours (Table) 01/30/18 16:00 Blood Culture - Preliminary Blood No Growth after 24 hours Assessment and Plan Plan: Assessment 1 acute left lung pneumonia with secondary respiratory distress and hypoxic history failure. The patient is currently BiPAP dependent at the pressure of 10 /5 cm of water and FiO2 of 50%. She is also covered with broad-spectrum antibiotics. Over the past 24 hours, there is limited improvement in her condition. She remains BiPAP dependent. Chest x-ray shows no significant improvement and the patient is still better pulmonary infiltrates. She remains on a combination of Zosyn and Levaquin addition to IV Solu-Medrol and she is BiPAP dependent at this point. She is hemodynamically stable and she is off pressors. Hemoglobin has dropped down to 6.9 and the patient be given a unit of packed RBC. 2 hypotension, likely secondary to pneumonia/septic shock, was resuscitated and she is currently off pressors 3 lactic acidosis secondary to pneumonia/septic shock, most recent lactic acid level is at 4.0 and a follow-up will be obtained. 4 severe COPD with chronic hypoxic respiratory failure maintained on oxygen 3 L per minute nasal cannula 5 history of recurrent pneumonias with previous history of empyema and previous history of ARDS as complications of pneumonias 6 fibromyalgia 7 compression fracture of the thoracic spine previous kyphoplasty 8 chronic generalized anxiety disorder/depression 9 acute lactic acidosis secondary to pneumonia 8 acute anemia on top of chronic anemia/anemia of chronic disease. There is no evidence of any bleeding in hemoglobin from today is down to 6.9, probably dilutional. We'll proceed with a transfusion with 2 units of packed RBC. Plan Continue IV fluids. The patient is currently on 75 mL an hour. The patient has been resuscitated more than 3 L of IV fluids. Continue same antibiotic coverage. Transfused with a unit of packed RBC. The patient is currently off pressors. Continue the BiPAP for respiratory support. Influenza screen is negative. Legionella urine antigen has been sent. We'll continue to follow. She is quite anxious. Continue Zoloft. Continue Xanax. We'll continue to follow and will consider weaning her down to high flow oxygen with the next 24 hours.
[2018-02-01 16:37] LABS: Glucose,Whole Blood 118 mg/dL (75-99)
[2018-02-01] MEDS: HYDROcodone/APAP 5-325MG 1 EACH TAB PO PRN (18:29)
[2018-02-01 21:05] LABS: Glucose,Whole Blood 116 mg/dL (75-99)
[2018-02-01] MEDS: ZOLPIDEM 10 MG TAB PO SCH (21:15)
[2018-02-01] MEDS: LEVOFLOXACIN 500MG-D5W PMX 500 MG in DEXTROSE/WATER 1 100ML.BAG IVPB SCH (23:36)
[2018-02-02] MEDS: IPRATROPIUM-ALBUTEROL 3 ML NEB INHALATION SCH ×6 (03:05→23:33)
[2018-02-02 04:24] LABS: Anisocytosis Slight; Basophils % (A) 0 %; Eosinophils % (A) 0 %; HCT 24.4 % (34.0-46.0); HGB 7.7 gm/dL (11.4-16.0); Hypochromasia Marked; Lymphocytes # (A) 0.3 k/uL (1.0-4.8); Lymphocytes % (A) 5 %; MCH 26.5 pg (25.0-35.0); MCHC 31.7 g/dL (31.0-37.0); MCV 83.6 fL (80.0-100.0); Monocytes # (A) 0.1 k/uL (0-1.0); Monocytes % (A) 2 %; Neutrophils # (A) 5.2 k/uL (1.3-7.7); Neutrophils % (A) 92 %; Platelet Count 153 k/uL (150-450); Poikilocytosis Slight; RBC 2.92 m/uL (3.80-5.40); RDW 18.3 % (11.5-15.5); WBC 5.7 k/uL (3.8-10.6)
[2018-02-02] MEDS: INSULIN ASPART 100 UNIT/ML 1 ML 10 ML VIAL SQ SCH ×5 (04:25→20:56)
[2018-02-02 04:41] LABS: Anion Gap 7 mmol/L; Blood Urea Nitrogen 29 mg/dL (7-17); Calcium 8.4 mg/dL (8.4-10.2); Carbon Dioxide 21 mmol/L (22-30); Chloride 116 mmol/L (98-107); Glucose 106 mg/dL (74-99); Magnesium 2.3 mg/dL (1.6-2.3); Phosphorus 3.7 mg/dL (2.5-4.5); Potassium 3.9 mmol/L (3.5-5.1); Sodium 144 mmol/L (137-145)
[2018-02-02 05:42] LABS: Glucose,Whole Blood 119 mg/dL (75-99)
--- NOTE | 2018-02-02 06:18 | XR ---
EXAMINATION TYPE: XR chest 1V DATE OF EXAM: 02/02/2018 HISTORY: copd, pulmonary fibrosis. REFERENCE: Previous study dated 02/01/2018. FINDINGS: There are coarse interstitial markings present bilaterally. The heart is mildly enlarged. T here is a small right pleural effusion. There is some confluent airspace disease in the left lung bas e. IMPRESSION: 1. NO SIGNIFICANT INTERVAL CHANGE IN THE APPEARANCE OF THE CHEST. 2. MILD CARDIOMEGALY. 3. COARSE INTERSTITIAL FIBROSIS. 4. I COULD NOT EXCLUDE SOME DEGREE OF SUPERIMPOSED PULMONARY EDEMA.
[2018-02-02] MEDS ORDERED: Potassium Replacement Protocol 1 EACH MISC MISCELLANE PRN ×2 (06:36→17:01)
[2018-02-02] MEDS: methylPREDNISolone SOD SUCCI 125 MG/2 ML VIAL IV SCH ×3 (06:52→17:09)
[2018-02-02] MEDS ORDERED: POTASSIUM CHLORIDE ER 20 MEQ TAB.ER PO SCH ×2 (07:00→18:00)
[2018-02-02 07:20] LABS: Glucose,Whole Blood 114 mg/dL (75-99)
--- NOTE | 2018-02-02 07:53 | PN ---
PROGRESS NOTE DATE OF SERVICE: 02/01/18. PRESENTING COMPLAINT: Short of breath. INTERVAL HISTORY: Patient admitted with multilobar pneumonia, septic shock, hypoxia, COPD exacerbation. The patient is now off pressors. Remains on the BiPAP. Feels a teeny mini better she states. at the bedside. Remains in the ICU. Weak, tired. REVIEW OF SYSTEMS: Done for constitutional, cardiovascular, GI, pulmonary; relevant findings as above. CURRENT MEDICATIONS: Reviewed that include DuoNeb, IV Levaquin, IV Solu-Medrol, off pressors, IV Zosyn, IV fluids. PHYSICAL EXAMINATION: Temperature 98.1, pulse 56, respirations 26, blood pressure 120/80, pulse ox 95% on BiPAP 50%. GENERAL APPEARANCE: Lying in bed, tired-appearing, short of breath. EYES: Pupils equal. Conjunctivae normal. HEENT: External appearance of nose and ears normal. Oral cavity unable to assess. NECK: JVD unable to assess. Mass not palpable. RESPIRATORY: Effort increased. Accessory muscles are working. Not able to speak in full sentences. LUNGS: Diminished breath sounds, prolonged expiration wheezing. CARDIOVASCULAR: First and second sounds, no edema. ABDOMEN: Soft, nontender. Liver and spleen not palpable. PSYCHIATRY: Alert and oriented x3. Mood and affect anxious. INVESTIGATIONS: White count 7.5, hemoglobin 6.9, potassium 4.3, BUN 24, creatinine 0.73. Chest x-ray film, personally reviewed by me shows bilateral infiltrates. ASSESSMENT: 1. Multilobar pneumonia suspect gram-negative organism causing severe acute hypoxic respiratory failure requiring BiPAP, slow to respond. 2. Chronic hypoxic respiratory failure from underlying chronic obstructive pulmonary disease. 3. Hypertensive shock requiring pressors on presentation. 4. Acute chronic obstructive pulmonary disease exacerbation in an ex-smoker with pneumonia. 5. Primary osteoarthritis multiple joints bilateral. 6. Gastroesophageal reflux disease. 7. Anxiety, depression, not otherwise specified. 8. Lactic acidosis due to pneumonia. 9. Normocytic anemia cause undetermined. 10.Metabolic acidosis. 11.Further drop of hemoglobin, dropped to below 7 with one unit of blood. No evidence of gastrointestinal bleed except for blood draws. Care was discussed with the . The patient has remained significantly short of breath. Continue with antibiotics, steroids. Follow. MMODL / IJN: [id number] /
[2018-02-02] MEDS: BUDESONIDE 1 MG/2 ML NEBU INHALATION SCH ×2 (07:54→20:16)
[2018-02-02] MEDS: FORMOTEROL FUMARATE 20 MCG/2 ML NEBU INHALATION SCH ×2 (07:54→20:16)
[2018-02-02] MEDS: SERTRALINE 50 MG TAB PO SCH (08:33)
[2018-02-02] MEDS: PANTOPRAZOLE 40 MG TABLET PO SCH (08:34)
[2018-02-02] MEDS: guaiFENesin 600 MG TABLET.ER PO SCH ×2 (08:34→20:48)
[2018-02-02] MEDS: SODIUM BICARBONATE TAB 650 MG TAB PO SCH ×3 (08:34→20:49)
[2018-02-02] MEDS: ALPRAZolam 0.5 MG TAB PO SCH ×4 (08:34→20:49)
[2018-02-02] MEDS: HYDROcodone/APAP 5-325MG 1 EACH TAB PO PRN ×2 (08:34→14:31)
[2018-02-02] MEDS: ENOXAPARIN 40 MG/0.4 ML SYRINGE SQ SCH (08:38)
[2018-02-02] MEDS ORDERED: FUROSEMIDE 10 MG/ML 2 ML VIAL IV ONE (09:38)
[2018-02-02] MEDS: PIPERACILLIN-TAZOBACTAM 3.375 GM in SODIUM CHLORIDE 0.9% 100 ML IVPB SCH ×2 (09:51→20:49)
--- NOTE | 2018-02-02 10:44 | CT ---
EXAMINATION TYPE: CT angio chest DATE OF EXAM: 02/02/2018 10:35 AM COMPARISON: Previous study dated 03/03/2013 at HISTORY: PANTERA, COPD CT DLP: 231.9 mGycm Automated exposure control for dose reduction was used. CONTRAST: CTA scan of the thorax is performed with IV Contrast, patient injected with 100 mL of Isovue 370, pul monary embolism protocol. . FINDINGS: There are severe changes of emphysema throughout both lungs. There is honeycombing present in the lower lobes bilaterally and there is coarse interstitial fibrosis. There is no significant axi llary or internal mammary adenopathy. There is some minimal mediastinal and hilar adenopathy. No path ologically enlarged lymph nodes are seen. There is no evidence of pulmonary embolus. The aorta is normal in size without evidence of dissection. The heart is not enlarged. There is a moderate to large sliding hiatal hernia present. Visualized portions of the upper abdomen are unremarkable. There are multiple old wedge compression fractures in the mid dorsal spine and there have been previo us kyphoplasties. IMPRESSION: 1. THIS EXAMINATION IS NEGATIVE FOR PULMONARY EMBOLUS. 2. FINDINGS CONSISTENT WITH END-STAGE LUNG. 3. MODERATE TO LARGE SLIDING HIATAL HERNIA. 4. DEGENERATIVE CHANGE WITHIN THE SPINE AND MULTIPLE WEDGE COMPRESSION FRACTURES WHICH APPEAR OLD.
[2018-02-02 12:21] LABS: Glucose,Whole Blood 111 mg/dL (75-99)
[2018-02-02] MEDS: SODIUM CHLORIDE 0.9% 1,000 ML IV SCH (13:13)
--- NOTE | 2018-02-02 13:47 | P.PN ---
Subjective Progress Note Date: 02/02/18 67-year-old female patient with known history of advanced COPD and chronic hypoxic respiratory failure, oxygen dependent, was feeling poorly over the past few days and the patient presented to the emergency department having worsening cough, shortness of breath and she was obviously desaturating and her pulse ox was in the low 70s at time of arrival to the emergency department. Denies having any pleuritic chest pain. Denies having any fever or chills. No nausea. No vomiting. No mentation. No swelling in lower extremities. In the ED, the patient a chest x-ray that showed extensive left lung pneumonia/ consolidation. The patient's was placed on a BiPAP. The patient was given a combination of bronchodilators and systemic steroids. She was given Rocephin and Zithromax. Following that the patient was admitted to the intensive care unit. Her white cell count was at 10.4. Creatinine was 1.1. The patient had lactic acid level of 3.4. In the ICU, the patient continued to be on a BiPAP. Her antibiotics were switched to a combination of Zosyn and Levaquin. He was kept on a combination of bronchodilators and systemic steroids. She also received IV fluids and currently she is on 75 mL an hour. She is on normal saline infusion. Her subsequent lactic acid level is up to 4.0. The patient was given a total of 2 and a half liters of IV fluid in the form of normal saline. The patient was placed on a BiPAP at a pressure of 10/5 with an FiO2 of 50%. She is also on 2 mics of the levo fed for hemodynamic support. She is producing good urine output in the order of 30-40 mL an hour. She is a bit anxious. An attempt was done to take her off the BiPAP this morning yet she failed due to desaturation the patient had a BiPAP back This patient has advanced oxygen-dependent COPD and she is typically on feeds of oxygen by nasal cannula. She has a complicated history of COPD and recurrent pneumonias. Back in 2010, the patient extensive right lung pneumonia that was Again by empyema requiring decortication. The patient another bout of pneumonia 2012 during which she was intubated and placed on a mechanical ventilator and she had ARDS. Since then she had quit smoking. She has been maintained on a combination of Spiriva, Symbicort and a distal solution as needed basis and she is also on prior rescue inhaler when necessary. She has chronic anxiety and depression. She is on a combination of Zoloft and Xanax in addition. Her condition is been progressively getting more debilitated. The patient's easily periodically in the office. She also has compression fractures of the thoracic spine and she has been seen by spine surgery and she is on a candidate for any surgical intervention this point in time. On 02/01/2018 the patient's condition essentially unchanged compared to yesterday. She still short of breath via much BiPAP dependent at a pressure of 10/5 with an FiO2 of 50%. Earlier this morning she was tried on a nasal cannula however she became quite anxious and panicky. Based on that she was placed back on the BiPAP machine. Her chest x-ray still unchanged with bilateral pulmonary infiltrates left more than right. She remains in the same antibiotic coverage. She is on examination Zosyn and Levaquin. She'll IV Solu- Medrol. She is also on bronchodilators around the clock. As for the anxiety treatment, the patient a combination of Zoloft and Xanax and she is less panicky and anxious compared to yesterday. No fever. No chills. The white cell count was at 7.5. Earlier this morning her hemoglobin came back at 6.9 and she did not demonstrate any signs of bleeding. She was given a unit of packed RBC. Renal function is within normal limits. On 02/03/2008 and a significant lesion for a follow-up. No major improvement in her overall pulmonary status. Still on BiPAP at a pressure of 10/5 cm of water and FiO2 of 50%. Unable to get her off the BiPAP. Chest x-ray findings are essentially unchanged. Based on that, I ordered a CT angios the chest in reviewing the films shows no evidence of any pulmonary embolism. The patient has end-stage lung disease with severe emphysema throughout the lung uriostegui bilaterally and chronic scarring in the lung bases with some limited honeycombing. There may be some areas of interstitial pneumonias superimposed on top of chronic lung disease. Today's level is at 7.7. She is afebrile. She is hemodynamically stable. No signs of any significant fluid overload. No altered mentation. She remains on examination Zosyn and Levaquin. She is on IV Solu Medrol. She is on DuoNeb nebulized treatments on the clock. No nausea. No vomiting. She is anxious and she is on a combination of Zoloft and Xanax. The patient was started also on Mccune for chronic pain and compression fracture of the spine. No agitation. is at the bedside. Objective - Vital Signs Vital signs: Vital Signs Temp 98.4 F 02/02/18 12:00 Pulse 87 02/02/18 13:00 Resp 21 02/02/18 13:00 BP 128/84 02/02/18 13:00 Pulse Ox 92 L 02/02/18 13:00 Intake & Output 02/01/18 02/02/18 02/02/18 18:59 06:59 18:59 Intake Total 1310 1125 385 Output Total 040 524 5620 Balance 743 685 -1315 Weight 67.4 kg Intake: IV 900 1025 385 Levofloxacin 500Mg-D5w 75 100 Pmx 500 mg In Dextrose/ Water 1 100ml.bag @ 100 mls/hr IVPB Q24H [facility] Rx#: [id number] Piperacillin-Tazobactam 3 100 100 .375 gm In Sodium Chloride 0.9% 100 ml @ 25 mls/hr IVPB Q12HR [facility] Rx #:[id number] Sodium Chloride 0.9% 1, 825 825 285 000 ml @ 20 mls/hr IV . Q24H [facility] Rx#:[id number] Intake, IV Titration 100 Amount Piperacillin-Tazobactam 3 100 .375 gm In Sodium Chloride 0.9% 100 ml @ 25 mls/hr IVPB Q12HR [facility] Rx #:[id number] Oral 100 Blood Product 310 Rc As-1 Unit 310 [id number] Output: Urine 453 949 3177 Other: Voiding Method Indwelling Catheter Indwelling Catheter Indwelling Catheter - Exam Constitutional General Appearance: well nourished, well developed, appears stated age Level of Distress: chronically ill, currently she is short of breath and she is having respiratory distress even at rest Ambulation: ambulating normally ENMT Nasal Mucosa: normal, no discharge, pink and moist (nasal septal deviation) Septum: deviated to the right Turbinates: normal turbinate Lips, Teeth, and Gums: normal lips, normal dentition, normal gums Oral Mucosa: no ulcer, no mass, no pallor, moist, no cyanosis, no inflammation, no swelling, no rash, no leukoplakia Tongue: no erythema, no lesions, no enlargement, no swelling, no deviation Posterior pharynx: no enlargement, no erythema, no exudate, no white patches, no ulcers, no mass Neck Neck: supple, trachea midline, no masses, Full ROM Thyroid: no enlargement, non-tender, no nodules Jugular Veins: normal jugular venous pressure Lungs Respiratory effort: dyspneic Inspection: normal chest wall expansion, normal curve, no deformity, no tenderness, no swelling Auscultation: no rales/crackles, no rhonchi, decreased breath sounds,bilateral, midlung uriostegui, wheezing,expiratory,bilaterally,midlung uriostegui Cardiovascular Precordial Exam: non displaced focal PMI, no heaves, no precordial thrills Heart Rate And Rhythm: normal heart rate and rhythm Heart Sounds: normal s1, no physiologically split S2, no pericardial friction rub, no gallop, no click Systolic Murmur: no systolic murmurs Observation/Palpation of peripheral vascular system: no cyanosis, no edema, normal dorsalis pedis, normal posterior tibialis Abdomen Inspection and Palpation: soft, non-distended, no tenderness, no masses Liver: non-tender, no hepatomegaly Spleen: non-tender, no splenomegaly Bowel Sounds: normal, no abdominal bruits Lymphatic: no cervical LAD, no supraclavicular LAD Musculoskeletal: Motor Strength and Tone: normal motor strength, normal bulk, normal tone Gait and Station: normal gait Joints, Bones, and Muscles: normal movement of all extremities, no bony abnormalities, no contractures, no malalignment, no tenderness Extremities Inspection/Palpation of digits and nails: no clubbing, no cyanosis, no petechiae , no infection, no nodular lesions, no ischemia, no edema Skin Inspection and palpation: no rash, no lesions, no jaundice, normal turgor - Labs CBC & Chem 7: 02/02/18 04:05 02/02/18 04:05 Labs: Abnormal Lab Results - Last 24 Hours (Table) 02/01/18 02/01/18 02/02/18 Range/Units 16:23 21:03 04:05 RBC 2.92 L (3.80-5.40) m/uL Hgb 7.7 L (11.4-16.0) gm/dL Hct 24.4 L (34.0-46.0) % RDW 18.3 H (11.5-15.5) % Lymphocytes # 0.3 L (1.0-4.8) k/uL Chloride (98-107) mmol/L Carbon Dioxide (22-30) mmol/L BUN (7-17) mg/dL Glucose (74-99) mg/dL POC Glucose (mg/dL) 118 H 116 H (75-99) mg/dL 02/02/18 02/02/18 02/02/18 Range/Units 04:05 05:40 07:18 RBC (3.80-5.40) m/uL Hgb (11.4-16.0) gm/dL Hct (34.0-46.0) % RDW (11.5-15.5) % Lymphocytes # (1.0-4.8) k/uL Chloride 116 H (98-107) mmol/L Carbon Dioxide 21 L (22-30) mmol/L BUN 29 H (7-17) mg/dL Glucose 106 H (74-99) mg/dL POC Glucose (mg/dL) 119 H 114 H (75-99) mg/dL 02/02/18 Range/Units 12:18 RBC (3.80-5.40) m/uL Hgb (11.4-16.0) gm/dL Hct (34.0-46.0) % RDW (11.5-15.5) % Lymphocytes # (1.0-4.8) k/uL Chloride (98-107) mmol/L Carbon Dioxide (22-30) mmol/L BUN (7-17) mg/dL Glucose (74-99) mg/dL POC Glucose (mg/dL) 111 H (75-99) mg/dL Microbiology - Last 24 Hours (Table) 01/30/18 16:00 Blood Culture - Preliminary Blood No Growth after 48 hours Assessment and Plan Plan: Assessment 1 acute left lung pneumonia with secondary respiratory distress and hypoxic history failure. This patient has severe end-stage lung disease with diffuse emphysema and chronic scarring in lung bases bilaterally related to a previous ARDS. There is also a superimposed interstitial pneumonia mainly in the left lung. The patient is currently in acute respiratory failure requiring BiPAP on a continuous basis for respiratory support. Cultures of been negative. The patient on broad-spectrum antibiotics and steroids. The patient is also on bronchodilators. 2 hypotension, likely secondary to pneumonia/septic shock, was resuscitated and she is currently off pressors 3 lactic acidosis secondary to pneumonia/septic shock, most recent lactic acid level is at 4.0 and a lactic acid has normalized. 4 severe COPD with chronic hypoxic respiratory failure maintained on oxygen 3-4 L per minute nasal cannula 5 history of recurrent pneumonias with previous history of empyema and previous history of ARDS as complications of pneumonias 6 fibromyalgia 7 compression fracture of the thoracic spine previous kyphoplasty, currently on Mccune 8 chronic generalized anxiety disorder/depression, currently on a combination of Zoloft and Xanax 9 acute lactic acidosis secondary to pneumonia, improved and lactic acid level of normalized 8 acute anemia on top of chronic anemia/anemia of chronic disease. There is no evidence of any bleeding in hemoglobin from today is down to 7.7 Plan The patient will be kept on the same treatment. CAT scan of the chest was noted. This may take a long time and the patient may have a prolonged and slow wean off the BiPAP. I am concerned that she may also get worse and she may end up being intubated on mechanical ventilator. We'll continue the same treatment course with the understanding that her long-term prognosis poor. We'll monitor the hemoglobin. Continue BiPAP for respiratory support. May try high flow oxygen and later stage.
[2018-02-02 17:23] LABS: Glucose,Whole Blood 170 mg/dL (75-99)
[2018-02-02] MEDS: ZOLPIDEM 10 MG TAB PO SCH (20:49)
[2018-02-02 20:51] LABS: Glucose,Whole Blood 100 mg/dL (75-99)
--- NOTE | 2018-02-03 00:02 | PN ---
PROGRESS NOTE DATE OF SERVICE: 02/02/2018. PRESENT COMPLAINT: Short of breath. INTERVAL HISTORY: This is a patient admitted with multilobar pneumonitis, pneumonia, septic shock, hypoxia, COPD exacerbation, remains on a BiPAP. A bit anxious. CT scan was ordered earlier today. I did discuss with the patient and the at the bedside. I told the patient to prop herself, which is better for breathing next. REVIEW OF SYSTEMS: Done for constitutional, cardiovascular, GI, pulmonary; relevant findings as above. CURRENT MEDICATIONS: Reviewed, include DuoNeb, Levaquin, IV Solu-Medrol, IV Zosyn. PHYSICAL EXAMINATION: Temperature 97.6, pulse 80, respiratory rate 23, blood pressure 108/93, pulse ox 96% on BiPAP. GENERAL APPEARANCE: Lying in bed, short of breath. EYES: Pupils equal. Conjunctivae normal. HEENT: External nose and ears normal. Oral cavity unable to assess. NECK: JVD unable to assess. Mass not palpable. RESPIRATORY: Effort increased. Accessory muscles are working. Patient not able to speak in full sentences. LUNGS: Diminished breath sounds, bilateral crackles. CARDIOVASCULAR: 1st and 2nd sounds normal. No edema. ABDOMEN: Soft, nontender. Liver and spleen not palpable. PSYCHIATRY: Alert and oriented x3. Mood and affect anxious-appearing. INVESTIGATIONS: White count 5.7, hemoglobin 7.7, potassium 3.9, BUN 29, creatinine 0.73. CT scan of the chest reviewed with Dr. Sierra, there is fibrosis and honeycombing. ASSESSMENT: 1. Multilobar pneumonia, suspect gram-negative organism causing acute hypoxic respiratory failure requiring BiPAP, slow to respond. 2. Bilateral honeycombing and pulmonary fibrosis, probably from prior ARDS. 3. Chronic hypoxic respiratory failure, underlying chronic obstructive pulmonary disease and pulmonary fibrosis. 4. Hypotensive shock requiring pressors on presentation. 5. Acute chronic obstructive pulmonary disease exacerbation in an ex-smoker with pneumonitis. 6. Primary osteoarthritis multiple joints bilateral. 7. Gastroesophageal reflux disease. 8. Anxiety and depression not otherwise specified. 9. Lactic acidosis due to pneumonia. 10.Normocytic anemia, cause undetermined. 11.Metabolic acidosis. PLAN: Care was discussed with the . Then discussed the CT scan with Dr. Sierra. Prognosis guarded. Hopefully patient is able to be switched to oral antibiotics by tomorrow and steroids can be cut back. His prognosis is guarded. MMODL / IJN: [id number] /
[2018-02-03] MEDS: methylPREDNISolone SOD SUCCI 125 MG/2 ML VIAL IV SCH ×4 (01:12→17:39)
[2018-02-03] MEDS: LEVOFLOXACIN 500MG-D5W PMX 500 MG in DEXTROSE/WATER 1 100ML.BAG IVPB SCH (01:12)
[2018-02-03 01:45] LABS: Glucose,Whole Blood 129 mg/dL (75-99)
[2018-02-03] MEDS: INSULIN ASPART 100 UNIT/ML 1 ML 10 ML VIAL SQ SCH ×5 (02:07→22:08)
[2018-02-03] MEDS: IPRATROPIUM-ALBUTEROL 3 ML NEB INHALATION SCH ×6 (03:24→23:06)
[2018-02-03] MEDS: HYDROcodone/APAP 5-325MG 1 EACH TAB PO PRN ×4 (04:01→22:10)
[2018-02-03 05:58] LABS: Anisocytosis Slight; Basophils % (A) 0 %; Eosinophils % (A) 0 %; HCT 24.7 % (34.0-46.0); HGB 7.9 gm/dL (11.4-16.0); Hypochromasia Moderate; Lymphocytes # (A) 0.4 k/uL (1.0-4.8); Lymphocytes % (A) 8 %; MCH 26.4 pg (25.0-35.0); MCHC 32.1 g/dL (31.0-37.0); MCV 82.3 fL (80.0-100.0); Microcytosis Slight; Monocytes # (A) 0.2 k/uL (0-1.0); Monocytes % (A) 4 %; Neutrophils # (A) 3.7 k/uL (1.3-7.7); Neutrophils % (A) 86 %; Platelet Count 165 k/uL (150-450); Poikilocytosis Slight; RDW 18.3 % (11.5-15.5); WBC 4.2 k/uL (3.8-10.6)
[2018-02-03 06:12] LABS: Anion Gap 7 mmol/L; Blood Urea Nitrogen 29 mg/dL (7-17); Calcium 8.6 mg/dL (8.4-10.2); Carbon Dioxide 26 mmol/L (22-30); Chloride 108 mmol/L (98-107); Glucose 104 mg/dL (74-99); Magnesium 2.1 mg/dL (1.6-2.3); Phosphorus 4.1 mg/dL (2.5-4.5); Potassium 3.9 mmol/L (3.5-5.1); Sodium 141 mmol/L (137-145)
[2018-02-03] MEDS ORDERED: POTASSIUM CHLORIDE ER 20 MEQ TAB.ER PO SCH (07:00)
[2018-02-03] MEDS: ALPRAZolam 0.5 MG TAB PO SCH ×4 (07:19→22:10)
[2018-02-03] MEDS: FORMOTEROL FUMARATE 20 MCG/2 ML NEBU INHALATION SCH ×2 (07:30→19:19)
[2018-02-03] MEDS: BUDESONIDE 1 MG/2 ML NEBU INHALATION SCH ×2 (07:30→19:19)
[2018-02-03 07:32] LABS: Glucose,Whole Blood 122 mg/dL (75-99)
--- NOTE | 2018-02-03 08:18 | XR ---
EXAMINATION TYPE: XR chest 1V DATE OF EXAM: 02/03/2018 HISTORY: Shortness of breath. COMPARISON: None. TECHNIQUE: Single view of the chest is submitted. FINDINGS: Demonstrated are scattered senescent parenchymal change. There is no evidence for focal infiltrate. Pulmonary fibrosis again noted. Small right-sided pleural effusion. Linear atelectasis noted. The heart is stable. Hilar and mediastinal structures are within normal limits. Degenerative changes are seen of the dorsal spine. IMPRESSION: 1. Pulmonary fibrosis without evidence for focal consolidation at this time. Small right-sided pleur al effusion identified.
[2018-02-03] MEDS: SERTRALINE 50 MG TAB PO SCH (08:59)
[2018-02-03] MEDS: guaiFENesin 600 MG TABLET.ER PO SCH ×2 (09:00→20:14)
[2018-02-03] MEDS: PANTOPRAZOLE 40 MG TABLET PO SCH (09:00)
[2018-02-03] MEDS: ENOXAPARIN 40 MG/0.4 ML SYRINGE SQ SCH (09:00)
[2018-02-03] MEDS: PIPERACILLIN-TAZOBACTAM 3.375 GM in SODIUM CHLORIDE 0.9% 100 ML IVPB SCH (09:01)
[2018-02-03 11:58] LABS: Glucose,Whole Blood 135 mg/dL (75-99)
[2018-02-03] MEDS: SODIUM BICARBONATE TAB 650 MG TAB PO SCH ×3 (12:06→22:10)
[2018-02-03] MEDS: METHYL SALICYLATE/MENTHOL CREAM 5 OZ TOPICAL SCH ×3 (12:13→22:10)
--- NOTE | 2018-02-03 12:33 | P.PN ---
Subjective Progress Note Date: 02/03/18 Principal diagnosis: Acute on chronic hypoxic respiratory failure secondary to acute left lung pneumonia superimposed on interstitial lung disease/pulmonary fibrosis. 67-year-old female patient with known history of advanced COPD and chronic hypoxic respiratory failure, oxygen dependent, was feeling poorly over the past few days and the patient presented to the emergency department having worsening cough, shortness of breath and she was obviously desaturating and her pulse ox was in the low 70s at time of arrival to the emergency department. Denies having any pleuritic chest pain. Denies having any fever or chills. No nausea. No vomiting. No mentation. No swelling in lower extremities. In the ED, the patient a chest x-ray that showed extensive left lung pneumonia/ consolidation. The patient's was placed on a BiPAP. The patient was given a combination of bronchodilators and systemic steroids. She was given Rocephin and Zithromax. Following that the patient was admitted to the intensive care unit. Her white cell count was at 10.4. Creatinine was 1.1. The patient had lactic acid level of 3.4. In the ICU, the patient continued to be on a BiPAP. Her antibiotics were switched to a combination of Zosyn and Levaquin. He was kept on a combination of bronchodilators and systemic steroids. She also received IV fluids and currently she is on 75 mL an hour. She is on normal saline infusion. Her subsequent lactic acid level is up to 4.0. The patient was given a total of 2 and a half liters of IV fluid in the form of normal saline. The patient was placed on a BiPAP at a pressure of 10/5 with an FiO2 of 50%. She is also on 2 mics of the levo fed for hemodynamic support. She is producing good urine output in the order of 30-40 mL an hour. She is a bit anxious. An attempt was done to take her off the BiPAP this morning yet she failed due to desaturation the patient had a BiPAP back This patient has advanced oxygen-dependent COPD and she is typically on feeds of oxygen by nasal cannula. She has a complicated history of COPD and recurrent pneumonias. Back in 2010, the patient extensive right lung pneumonia that was Again by empyema requiring decortication. The patient another bout of pneumonia 2012 during which she was intubated and placed on a mechanical ventilator and she had ARDS. Since then she had quit smoking. She has been maintained on a combination of Spiriva, Symbicort and a distal solution as needed basis and she is also on prior rescue inhaler when necessary. She has chronic anxiety and depression. She is on a combination of Zoloft and Xanax in addition. Her condition is been progressively getting more debilitated. The patient's easily periodically in the office. She also has compression fractures of the thoracic spine and she has been seen by spine surgery and she is on a candidate for any surgical intervention this point in time. On 02/01/2018 the patient's condition essentially unchanged compared to yesterday. She still short of breath via much BiPAP dependent at a pressure of 10/5 with an FiO2 of 50%. Earlier this morning she was tried on a nasal cannula however she became quite anxious and panicky. Based on that she was placed back on the BiPAP machine. Her chest x-ray still unchanged with bilateral pulmonary infiltrates left more than right. She remains in the same antibiotic coverage. She is on examination Zosyn and Levaquin. She'll IV Solu- Medrol. She is also on bronchodilators around the clock. As for the anxiety treatment, the patient a combination of Zoloft and Xanax and she is less panicky and anxious compared to yesterday. No fever. No chills. The white cell count was at 7.5. Earlier this morning her hemoglobin came back at 6.9 and she did not demonstrate any signs of bleeding. She was given a unit of packed RBC. Renal function is within normal limits. On 02/03/2008 and a significant lesion for a follow-up. No major improvement in her overall pulmonary status. Still on BiPAP at a pressure of 10/5 cm of water and FiO2 of 50%. Unable to get her off the BiPAP. Chest x-ray findings are essentially unchanged. Based on that, I ordered a CT angios the chest in reviewing the films shows no evidence of any pulmonary embolism. The patient has end-stage lung disease with severe emphysema throughout the lung uriostegui bilaterally and chronic scarring in the lung bases with some limited honeycombing. There may be some areas of interstitial pneumonias superimposed on top of chronic lung disease. Today's level is at 7.7. She is afebrile. She is hemodynamically stable. No signs of any significant fluid overload. No altered mentation. She remains on examination Zosyn and Levaquin. She is on IV Solu Medrol. She is on DuoNeb nebulized treatments on the clock. No nausea. No vomiting. She is anxious and she is on a combination of Zoloft and Xanax. The patient was started also on [place] for chronic pain and compression fracture of the spine. No agitation. is at the bedside. Reevaluated again on 02/03/2018, patient remains on high flow airvo, felt better with high flow rather than BiPAP. Chest x-ray continues to show significant lung disease, and again suspect some component of pneumonitis involving the left lung. Patient is known to have end-stage COPD plus pulmonary fibrosis related to previous ARDS, and in addition to all of this were dealing with extensive left-sided pneumonia. Remains on antibiotics in the form of Zosyn and Levaquin, she is also on IV Solu-Medrol, and updrafts. He has mostly significant pain related to her compression fractures. is at bedside, touch bases on CODE STATUS, patient does not want to be on life support machine. Hence she is DO NOT RESUSCITATE, DO NOT INTUBATE. CBC continues to show relatively low hemoglobin of 7.9. Electrolytes and the a profile are normal. Objective - Vital Signs Vital signs: Vital Signs Temp 98.0 F 02/03/18 08:00 Pulse 74 02/03/18 12:14 Resp 19 02/03/18 10:00 BP 135/82 02/03/18 10:00 Pulse Ox 91 L 02/03/18 10:00 Intake & Output 02/02/18 02/03/18 02/03/18 18:59 06:59 18:59 Intake Total 485 960 135 Output Total 2111 1034 400 Balance -1626 -74 -265 Weight 67.8 kg 67.8 kg Intake: IV 485 460 75 Levofloxacin 500Mg-D5w 100 Pmx 500 mg In Dextrose/ Water 1 100ml.bag @ 100 mls/hr IVPB Q24H [facility] Rx#: [id number] Piperacillin-Tazobactam 3 100 100 75 .375 gm In Sodium Chloride 0.9% 100 ml @ 25 mls/hr IVPB Q12HR [facility] Rx #:[id number] Sodium Chloride 0.9% 1, 385 260 000 ml @ 20 mls/hr IV . Q24H [facility] Rx#:[id number] Oral 500 60 Output: Urine 2111 1034 400 Other: Voiding Method Indwelling Catheter Indwelling Catheter Indwelling Catheter - Exam Physical Exam: Revealed a 67-year-old, frail looking, chronically ill, on airvo flow is at 60 L/m. Head: Slightly cushingoid, atraumatic, normocephalic. HEENT:[Neck is supple.] [No neck masses.] [No thyromegaly.] [No JVD.] Chest: [Crackles at the bases, no rhonchi no wheezes. More so on the left side..] Cardiac Exam: [Normal S1 and S2, no S3 gallop, no murmur.] Abdomen: [Soft, nontender, no megaly, no rebound, no guarding, normal bowel sounds.] Extremities: [No clubbing, no edema, no cyanosis.] Neurological Exam: [No focal neurologic deficit.] Psychiatric: Normal mood, affect and mental status examination. Skin: No rashes. - Labs CBC & Chem 7: 02/03/18 05:28 02/03/18 05:28 Labs: Abnormal Lab Results - Last 24 Hours (Table) 02/02/18 02/02/18 02/03/18 Range/Units 17:20 20:50 01:41 RBC (3.80-5.40) m/uL Hgb (11.4-16.0) gm/dL Hct (34.0-46.0) % RDW (11.5-15.5) % Lymphocytes # (1.0-4.8) k/uL Chloride (98-107) mmol/L BUN (7-17) mg/dL Glucose (74-99) mg/dL POC Glucose (mg/dL) 170 H 100 H 129 H (75-99) mg/dL 02/03/18 02/03/18 02/03/18 Range/Units 05:28 05:28 07:16 RBC 3.00 L (3.80-5.40) m/uL Hgb 7.9 L (11.4-16.0) gm/dL Hct 24.7 L (34.0-46.0) % RDW 18.3 H (11.5-15.5) % Lymphocytes # 0.4 L (1.0-4.8) k/uL Chloride 108 H (98-107) mmol/L BUN 29 H (7-17) mg/dL Glucose 104 H (74-99) mg/dL POC Glucose (mg/dL) 122 H (75-99) mg/dL 02/03/18 Range/Units 11:55 RBC (3.80-5.40) m/uL Hgb (11.4-16.0) gm/dL Hct (34.0-46.0) % RDW (11.5-15.5) % Lymphocytes # (1.0-4.8) k/uL Chloride (98-107) mmol/L BUN (7-17) mg/dL Glucose (74-99) mg/dL POC Glucose (mg/dL) 135 H (75-99) mg/dL Microbiology - Last 24 Hours (Table) 01/30/18 16:00 Blood Culture - Preliminary Blood No Growth after 72 hours Assessment and Plan Assessment: Impression: 1 acute on chronic hypoxic respiratory failure, multifactorial, secondary to end -stage COPD, chronic interstitial lung disease, related to previous ARDS, left sided pneumonia/community-acquired, 2 acute septic shock secondary to pneumonia off pressors at present. 3 severe underlying COPD and chronic hypoxic respiratory failure. 4 lactic acidosis secondary to sepsis and septic shock 5 fibromyalgia 6 compression fracture of thoracic spine had previous kyphoplasty, remains on narcotics for pain control. 7 chronic anemia secondary to chronic disease. 8 generalized anxiety disorder and history of depression. Recommendation: Continue present supportive care measures, discussed and reviewed with the patient and her the CT of the chest, discussed the oxygen flow, discussed CODE STATUS, and clearly both wish no intubation and no mechanical ventilation. In the meantime the patient could be transferred to medical surgical floor, no need for telemetry, will continue to follow. Overall prognosis remains extremely poor and guarded. In the meantime continue antibiotics, steroids, bronchodilators, GI and DVT prophylaxis. Patient is presently on Zosyn, and Levaquin. She is also on methylprednisolone 60 every 6. And on updrafts. He remains on Lovenox, living is on Protonix, and all her meds were reviewed and discussed. Time with Patient: Less than 30
[2018-02-03 17:25] LABS: Glucose,Whole Blood 173 mg/dL (75-99)
[2018-02-03] MEDS: SODIUM CHLORIDE 0.9% 1,000 ML IV SCH (17:38)
[2018-02-03] MEDS: ZOLPIDEM 10 MG TAB PO SCH (20:15)
--- NOTE | 2018-02-03 20:57 | PN ---
PROGRESS NOTE DATE OF SERVICE: February 03, 2018. PRESENTING COMPLAINT: Short of breath. INTERVAL HISTORY: The patient admitted with multilobar pneumonitis, pneumonia, septic shock, hypoxia, COPD exacerbation. Has been on BiPAP, though. Overall feeling a bit better. CT scan did confirm honeycomb and pulmonary fibrosis. at the bedside. Was in ICU this morning when I saw her. REVIEW OF SYSTEMS: Done for constitutional, cardiovascular, GI, pulmonary, relevant findings as above. CURRENT MEDICATIONS: Reviewed that include DuoNeb, Levaquin, IV Zosyn, IV Solu-Medrol. PHYSICAL EXAMINATION: VITAL SIGNS: Temperature 98, pulse 54, respiration 19, blood pressure 138/87, pulse ox 96 percent on high-flow nasal cannula. GENERAL APPEARANCE: Lying in bed, less short of breath. EYES: Pupils equal. Conjunctivae normal. HEENT: External appearance of nose and ears normal. Oral cavity unable to assess. NECK: JVD unable to assess. Mass not palpable. LUNGS: Decreased breath sounds. Some crackles. CARDIOVASCULAR: First and second sounds normal. No edema. ABDOMEN: Soft, nontender. Liver and spleen not palpable. PSYCHIATRY: Alert and oriented x3. Mood and affect less anxious-appearing. INVESTIGATIONS: White count 4.2, hemoglobin 7.9, potassium 3.9, BUN 29, creatinine 0.75. ASSESSMENT: 1. Multilobar pneumonia suspect gram-negative organism causing acute hypoxic respiratory failure requiring BiPAP. 2. Bilateral honeycombing and pulmonary fibrosis, probably from prior ARDS. 3. Chronic hypoxic respiratory failure underlying chronic obstructive pulmonary disease and pulmonary fibrosis. 4. Hypertensive shock requiring pressors on presentation. 5. Acute chronic obstructive pulmonary disease exacerbation in an ex-smoker pneumonitis. 6. Primary osteoarthritis multiple joints bilateral. 7. Gastroesophageal reflux disease. 8. Anxiety, depression not otherwise specified. 9. Lactic acid related to pneumonia. 10.Normocytic anemia, cause undetermined. 11.Metabolic acidosis. 12.CODE STATUS: DNR. PLAN: Did discuss the care with the patient's . Do understand the lung function is rather deteriorated. The patient has responded from initial presentation. The patient will cut back on the steroids. The patient has been afebrile and can be switched over to p.o. antibiotics. MMODL / IJN: [id number] /
[2018-02-03 21:12] LABS: Glucose,Whole Blood 104 mg/dL (75-99)
[2018-02-03] MEDS: LEVOFLOXACIN 750 MG TAB PO SCH (22:10)
[2018-02-04] MEDS: methylPREDNISolone SOD SUCCI 40 MG/ML 1 ML VIAL IV SCH ×4 (01:30→23:01)
[2018-02-04] MEDS: IPRATROPIUM-ALBUTEROL 3 ML NEB INHALATION SCH ×5 (03:24→20:34)
[2018-02-04 05:41] LABS: Anisocytosis Slight; Basophils % (A) 0 %; Eosinophils % (A) 1 %; HCT 25.6 % (34.0-46.0); HGB 8.3 gm/dL (11.4-16.0); Hypochromasia Slight; Lymphocytes # (A) 0.4 k/uL (1.0-4.8); Lymphocytes % (A) 9 %; MCH 26.5 pg (25.0-35.0); MCHC 32.6 g/dL (31.0-37.0); MCV 81.4 fL (80.0-100.0); Mean Platelet Volume 8.1; Microcytosis Slight; Monocytes # (A) 0.3 k/uL (0-1.0); Monocytes % (A) 7 %; Neutrophils # (A) 3.3 k/uL (1.3-7.7); Neutrophils % (A) 81 %; Platelet Count 148 k/uL (150-450); RBC 3.14 m/uL (3.80-5.40); RDW 17.5 % (11.5-15.5)
[2018-02-04] MEDS: INSULIN ASPART 100 UNIT/ML 1 ML 10 ML VIAL SQ SCH ×4 (05:50→22:50)
[2018-02-04 05:58] LABS: Anion Gap 8 mmol/L; Blood Urea Nitrogen 30 mg/dL (7-17); Calcium 8.4 mg/dL (8.4-10.2); Carbon Dioxide 27 mmol/L (22-30); Chloride 105 mmol/L (98-107); Glucose 95 mg/dL (74-99); Phosphorus 4.2 mg/dL (2.5-4.5); Sodium 140 mmol/L (137-145)
[2018-02-04] MEDS: BUDESONIDE 1 MG/2 ML NEBU INHALATION SCH ×2 (06:54→20:34)
[2018-02-04] MEDS: FORMOTEROL FUMARATE 20 MCG/2 ML NEBU INHALATION SCH ×2 (06:54→20:34)
[2018-02-04 06:59] LABS: Glucose,Whole Blood 118 mg/dL (75-99)
[2018-02-04] MEDS: ALPRAZolam 0.5 MG TAB PO SCH ×3 (07:35→18:47)
[2018-02-04] MEDS: HYDROcodone/APAP 5-325MG 1 EACH TAB PO PRN ×3 (07:35→22:54)
[2018-02-04] MEDS: SERTRALINE 50 MG TAB PO SCH (07:37)
[2018-02-04] MEDS: guaiFENesin 600 MG TABLET.ER PO SCH ×2 (07:37→22:49)
[2018-02-04] MEDS: PANTOPRAZOLE 40 MG TABLET PO SCH (07:37)
[2018-02-04] MEDS: ENOXAPARIN 40 MG/0.4 ML SYRINGE SQ SCH (07:39)
--- NOTE | 2018-02-04 07:43 | XR ---
EXAMINATION TYPE: XR chest 1V DATE OF EXAM: 02/04/2018 CLINICAL HISTORY: Difficulty breathing progress study. COPD and pulmonary fibrosis. TECHNIQUE: Single AP portable upright view of the chest is obtained. COMPARISON: Chest x-ray from one day earlier and older chest x-rays. CTA chest from 2 days ago. FINDINGS: There is background advanced chronic emphysematous change with bilateral chronic interstit ial fibrosis redemonstrated. Increasing reticular opacity left suprahilar region is felt to reflect d eveloping interstitial edema background chronic fibrosis. No large pleural effusion or pneumothorax i s seen bilaterally. Cardiac silhouette size is stable and enlarged. Retrocardiac opacity consistent w ith moderate to large size hiatal hernia is redemonstrated. Osseous structures are intact. IMPRESSION: Suspect developing mild interstitial edema on background of cardiomegaly and advanced chr onic emphysematous change and bilateral pulmonary parenchymal fibrosis. Correlate for developing CHF exacerbation.
[2018-02-04] MEDS: SODIUM BICARBONATE TAB 650 MG TAB PO SCH ×3 (09:00→22:50)
[2018-02-04] MEDS: METHYL SALICYLATE/MENTHOL CREAM 5 OZ TOPICAL SCH ×3 (09:00→17:59)
[2018-02-04 11:38] LABS: Glucose,Whole Blood 102 mg/dL (75-99)
--- NOTE | 2018-02-04 12:05 | P.PN ---
Subjective Progress Note Date: 02/04/18 Principal diagnosis: Acute on chronic hypoxic respiratory failure secondary to acute left lung pneumonia superimposed on interstitial lung disease/pulmonary fibrosis. 67-year-old female patient with known history of advanced COPD and chronic hypoxic respiratory failure, oxygen dependent, was feeling poorly over the past few days and the patient presented to the emergency department having worsening cough, shortness of breath and she was obviously desaturating and her pulse ox was in the low 70s at time of arrival to the emergency department. Denies having any pleuritic chest pain. Denies having any fever or chills. No nausea. No vomiting. No mentation. No swelling in lower extremities. In the ED, the patient a chest x-ray that showed extensive left lung pneumonia/ consolidation. The patient's was placed on a BiPAP. The patient was given a combination of bronchodilators and systemic steroids. She was given Rocephin and Zithromax. Following that the patient was admitted to the intensive care unit. Her white cell count was at 10.4. Creatinine was 1.1. The patient had lactic acid level of 3.4. In the ICU, the patient continued to be on a BiPAP. Her antibiotics were switched to a combination of Zosyn and Levaquin. He was kept on a combination of bronchodilators and systemic steroids. She also received IV fluids and currently she is on 75 mL an hour. She is on normal saline infusion. Her subsequent lactic acid level is up to 4.0. The patient was given a total of 2 and a half liters of IV fluid in the form of normal saline. The patient was placed on a BiPAP at a pressure of 10/5 with an FiO2 of 50%. She is also on 2 mics of the levo fed for hemodynamic support. She is producing good urine output in the order of 30-40 mL an hour. She is a bit anxious. An attempt was done to take her off the BiPAP this morning yet she failed due to desaturation the patient had a BiPAP back This patient has advanced oxygen-dependent COPD and she is typically on feeds of oxygen by nasal cannula. She has a complicated history of COPD and recurrent pneumonias. Back in 2010, the patient extensive right lung pneumonia that was Again by empyema requiring decortication. The patient another bout of pneumonia 2012 during which she was intubated and placed on a mechanical ventilator and she had ARDS. Since then she had quit smoking. She has been maintained on a combination of Spiriva, Symbicort and a distal solution as needed basis and she is also on prior rescue inhaler when necessary. She has chronic anxiety and depression. She is on a combination of Zoloft and Xanax in addition. Her condition is been progressively getting more debilitated. The patient's easily periodically in the office. She also has compression fractures of the thoracic spine and she has been seen by spine surgery and she is on a candidate for any surgical intervention this point in time. On 02/01/2018 the patient's condition essentially unchanged compared to yesterday. She still short of breath via much BiPAP dependent at a pressure of 10/5 with an FiO2 of 50%. Earlier this morning she was tried on a nasal cannula however she became quite anxious and panicky. Based on that she was placed back on the BiPAP machine. Her chest x-ray still unchanged with bilateral pulmonary infiltrates left more than right. She remains in the same antibiotic coverage. She is on examination Zosyn and Levaquin. She'll IV Solu- Medrol. She is also on bronchodilators around the clock. As for the anxiety treatment, the patient a combination of Zoloft and Xanax and she is less panicky and anxious compared to yesterday. No fever. No chills. The white cell count was at 7.5. Earlier this morning her hemoglobin came back at 6.9 and she did not demonstrate any signs of bleeding. She was given a unit of packed RBC. Renal function is within normal limits. On 02/03/2008 and a significant lesion for a follow-up. No major improvement in her overall pulmonary status. Still on BiPAP at a pressure of 10/5 cm of water and FiO2 of 50%. Unable to get her off the BiPAP. Chest x-ray findings are essentially unchanged. Based on that, I ordered a CT angios the chest in reviewing the films shows no evidence of any pulmonary embolism. The patient has end-stage lung disease with severe emphysema throughout the lung uriostegui bilaterally and chronic scarring in the lung bases with some limited honeycombing. There may be some areas of interstitial pneumonias superimposed on top of chronic lung disease. Today's level is at 7.7. She is afebrile. She is hemodynamically stable. No signs of any significant fluid overload. No altered mentation. She remains on examination Zosyn and Levaquin. She is on IV Solu Medrol. She is on DuoNeb nebulized treatments on the clock. No nausea. No vomiting. She is anxious and she is on a combination of Zoloft and Xanax. The patient was started also on [place] for chronic pain and compression fracture of the spine. No agitation. is at the bedside. Reevaluated again on 02/03/2018, patient remains on high flow airvo, felt better with high flow rather than BiPAP. Chest x-ray continues to show significant lung disease, and again suspect some component of pneumonitis involving the left lung. Patient is known to have end-stage COPD plus pulmonary fibrosis related to previous ARDS, and in addition to all of this were dealing with extensive left-sided pneumonia. Remains on antibiotics in the form of Zosyn and Levaquin, she is also on IV Solu-Medrol, and updrafts. He has mostly significant pain related to her compression fractures. is at bedside, touch bases on CODE STATUS, patient does not want to be on life support machine. Hence she is DO NOT RESUSCITATE, DO NOT INTUBATE. CBC continues to show relatively low hemoglobin of 7.9. Electrolytes and the a profile are normal. Reevaluated today on 02/04/2018, remains on high flow oxygen, airvo at 5 0 L/m. Patient is feeling better clinically, and her chest x-ray is surprisingly showing some improvement in her left sided pneumonia. However she continues to have significant fibrotic changes in both lungs especially in the left lung. Symptoms [place] the patient is feeling better. All labs were reviewed including basic metabolic profile and CBC. Hemoglobin is 8.3. Patient remains on antibiotics, steroids, and bronchodilators. Pain seems to be also better controlled from her compression fracture of the spine. is at bedside, and discussed her condition again. Patient clearly wishes to be DO NOT RESUSCITATE. Objective - Vital Signs Vital signs: Vital Signs Temp 98.0 F 02/03/18 20:00 Pulse 70 02/04/18 11:03 Resp 15 02/04/18 05:00 BP 154/96 02/04/18 05:00 Pulse Ox 95 02/04/18 05:11 Intake & Output 02/03/18 02/04/18 02/04/18 18:59 06:59 18:59 Intake Total 260 80 Output Total 1050 800 Balance -790 -720 Weight 67.8 kg Intake: IV 200 80 Piperacillin-Tazobactam 3 100 .375 gm In Sodium Chloride 0.9% 100 ml @ 25 mls/hr IVPB Q12HR [facility] Rx #:[id number] Sodium Chloride 0.9% 1, 100 80 000 ml @ 20 mls/hr IV . Q24H [facility] Rx#:[id number] Oral 60 Output: Urine 1050 800 Other: Voiding Method Indwelling Catheter Indwelling Catheter Indwelling Catheter - Exam Physical Exam: Revealed a 67-year-old, frail looking, chronically ill, on airvo flow is at 60 L/m. Head: Slightly cushingoid, atraumatic, normocephalic. HEENT:[Neck is supple.] [No neck masses.] [No thyromegaly.] [No JVD.] Chest: [Crackles at the bases, no rhonchi no wheezes. More so on the left side..] Cardiac Exam: [Normal S1 and S2, no S3 gallop, no murmur.] Abdomen: [Soft, nontender, no megaly, no rebound, no guarding, normal bowel sounds.] Extremities: [Positive clubbing, no edema, no cyanosis.] Neurological Exam: [No focal neurologic deficit.] Psychiatric: Normal mood, affect and mental status examination. Skin: No rashes. - Labs CBC & Chem 7: 02/04/18 04:22 02/04/18 04:22 Labs: Abnormal Lab Results - Last 24 Hours (Table) 02/03/18 02/03/18 02/04/18 Range/Units 17:04 21:11 04:22 RBC 3.14 L (3.80-5.40) m/uL Hgb 8.3 L (11.4-16.0) gm/dL Hct 25.6 L (34.0-46.0) % RDW 17.5 H (11.5-15.5) % Plt Count 148 L (150-450) k/uL Lymphocytes # 0.4 L (1.0-4.8) k/uL BUN (7-17) mg/dL POC Glucose (mg/dL) 173 H 104 H (75-99) mg/dL 02/04/18 02/04/1802/04/18 Range/Units 04:22 06:57 11:37 RBC (3.80-5.40) m/uL Hgb (11.4-16.0) gm/dL Hct (34.0-46.0) % RDW (11.5-15.5) % Plt Count (150-450) k/uL Lymphocytes # (1.0-4.8) k/uL BUN 30 H (7-17) mg/dL POC Glucose (mg/dL) 118 H 102 H (75-99) mg/dL Microbiology - Last 24 Hours (Table) 01/30/18 16:00 Blood Culture - Preliminary Blood No Growth after 96 hours Assessment and Plan Assessment: Impression: 1 acute on chronic hypoxic respiratory failure, multifactorial, secondary to end -stage COPD, chronic interstitial lung disease, related to previous ARDS, left sided pneumonia/community-acquired, 2 acute septic shock secondary to pneumonia off pressors at present. 3 severe underlying COPD and chronic hypoxic respiratory failure. 4 lactic acidosis secondary to sepsis and septic shock 5 fibromyalgia 6 compression fracture of thoracic spine had previous kyphoplasty, remains on narcotics for pain control. 7 chronic anemia secondary to chronic disease. 8 generalized anxiety disorder and history of depression. Recommendation: Continue present supportive care measures, continue antibiotics , bronchodilators, steroids, GI and DVT prophylaxis, will transfer are the ICU to a medical bed, continue oxygen at a high flow, patient wishes to be DO NOT RESUSCITATE CODE STATUS. feels also the same. Time with Patient: Less than 30
[2018-02-04 17:12] LABS: Glucose,Whole Blood 88 mg/dL (75-99)
[2018-02-04 20:03] LABS: Glucose,Whole Blood 137 mg/dL (75-99)
[2018-02-04] MEDS: LEVOFLOXACIN 750 MG TAB PO SCH (22:50)
[2018-02-04] MEDS: ZOLPIDEM 10 MG TAB PO SCH (22:50)
--- NOTE | 2018-02-04 23:57 | PN ---
PROGRESS NOTE DATE OF SERVICE: 02/04/2018. PRESENTING COMPLAINT: Short of breath. INTERVAL HISTORY: The patient with multilobar pneumonitis/pneumonia, septic shock, hypoxia, COPD exacerbation, had been on BiPAP, now on high-flow oxygen. Breathing is better. Tolerating a diet better. Patient has underlying honeycombing and pulmonary fibrosis with poor pulmonary reserve. The patient remains in the ICU this morning. Did tolerate some diet. Has been reluctant to be out of bed. REVIEW OF SYSTEMS: Done for constitutional, cardiovascular, GI, pulmonary; relevant findings as above. CURRENT MEDICATIONS: Reviewed, that include p.o. Levaquin, IV Solu-Medrol. PHYSICAL EXAMINATION: Temperature 97.8, pulse 55, respirations 18, blood pressure 115/82, pulse ox 95 percent on high-flow nasal cannula. GENERAL: Lying in bed, more perky today. EYES: Pupils equal. Conjunctivae normal. HEENT: External nose and ears normal. Oral cavity unable to assess. NECK: JVD unable to assess. Mass not palpable. Respiratory effort increased. LUNGS: Some crackles. CARDIOVASCULAR: 1st and 2nd heart sounds. No edema. ABDOMEN: Soft, nontender. Liver and spleen not palpable. PSYCHIATRY: Alert and oriented x3. Mood and affect slightly anxious-appearing. INVESTIGATIONS: White count 4, hemoglobin 8.3, potassium 4, BUN 30, creatinine 0.70. ASSESSMENT: 1. Multilobar pneumonia suspect gram-negative organism causing acute hypoxic respiratory failure. Patient requiring BiPAP, now on high-flow oxygen, with clinical response. 2. Bilateral honeycombing and pulmonary fibrosis, probably from prior ARDS. 3. Chronic hypoxic respiratory failure, underlying chronic obstructive pulmonary disease and pulmonary fibrosis. 4. Hypotensive shock requiring pressors on presentation. 5. Acute chronic obstructive pulmonary disease exacerbation in an ex-smoker. 6. Primary osteoarthritis multiple joints bilateral. 7. Gastroesophageal reflux disease. 8. Anxiety and depression, not otherwise specified with anxiety somewhat uncontrolled. 9. Lactic acid-related pneumonia. 10.Normocytic anemia, cause undetermined. 11.Metabolic acidosis. 12.CODE STATUS: DNR. PLAN: I had a lengthy talk with the patient and . I explained that the patient has to be out of bed at least and sit up. The patient has very poor pulmonary reserve. Overall prognosis is guarded. They do understand the same. Continue current medication and treatment plan. For patient anxiety, we will stop the Zoloft, start the patient on Paxil. Also give a heating pad for the back pain. Did speak with nurse to get the patient up in the bed and hopefully sit up in a chair. KATALINA / REMI: [id number] /
[2018-02-05] MEDS: IPRATROPIUM-ALBUTEROL 3 ML NEB INHALATION SCH ×7 (00:27→23:39)
[2018-02-05 02:02] LABS: Glucose,Whole Blood 107 mg/dL (75-99)
[2018-02-05] MEDS: ALPRAZolam 0.5 MG TAB PO SCH ×5 (04:15→21:14)
[2018-02-05] MEDS: INSULIN ASPART 100 UNIT/ML 1 ML 10 ML VIAL SQ SCH ×5 (04:25→21:09)
[2018-02-05] MEDS: METHYL SALICYLATE/MENTHOL CREAM 5 OZ TOPICAL SCH ×6 (04:25→21:25)
[2018-02-05] MEDS: HYDROcodone/APAP 5-325MG 1 EACH TAB PO PRN ×2 (05:05→18:34)
[2018-02-05 06:59] LABS: Glucose,Whole Blood 122 mg/dL (75-99)
[2018-02-05] MEDS: FORMOTEROL FUMARATE 20 MCG/2 ML NEBU INHALATION SCH ×2 (07:44→19:02)
[2018-02-05] MEDS: BUDESONIDE 1 MG/2 ML NEBU INHALATION SCH ×2 (07:44→19:02)
[2018-02-05] MEDS: ENOXAPARIN 40 MG/0.4 ML SYRINGE SQ SCH (08:21)
[2018-02-05] MEDS: methylPREDNISolone SOD SUCCI 40 MG/ML 1 ML VIAL IV SCH ×3 (08:21→21:17)
[2018-02-05] MEDS: guaiFENesin 600 MG TABLET.ER PO SCH ×2 (08:21→21:16)
[2018-02-05] MEDS: PANTOPRAZOLE 40 MG TABLET PO SCH (08:21)
[2018-02-05] MEDS: PARoxetine 20 MG TAB PO SCH (08:21)
[2018-02-05] MEDS: SODIUM BICARBONATE TAB 650 MG TAB PO SCH ×2 (08:21→17:13)
[2018-02-05] MEDS: SODIUM CHLORIDE 0.9% 1,000 ML IV SCH (08:22)
[2018-02-05 11:23] LABS: Glucose,Whole Blood 103 mg/dL (75-99)
--- NOTE | 2018-02-05 13:24 | P.PN ---
Subjective Progress Note Date: 02/05/18 Principal diagnosis: Acute on chronic hypoxic respiratory failure secondary to acute left lung pneumonia imposed on interstitial lung disease/pulmonary fibrosis 67-year-old female patient with known history of advanced COPD and chronic hypoxic respiratory failure, oxygen dependent, was feeling poorly over the past few days and the patient presented to the emergency department having worsening cough, shortness of breath and she was obviously desaturating and her pulse ox was in the low 70s at time of arrival to the emergency department. Denies having any pleuritic chest pain. Denies having any fever or chills. No nausea. No vomiting. No mentation. No swelling in lower extremities. In the ED, the patient a chest x-ray that showed extensive left lung pneumonia/ consolidation. The patient's was placed on a BiPAP. The patient was given a combination of bronchodilators and systemic steroids. She was given Rocephin and Zithromax. Following that the patient was admitted to the intensive care unit. Her white cell count was at 10.4. Creatinine was 1.1. The patient had lactic acid level of 3.4. In the ICU, the patient continued to be on a BiPAP. Her antibiotics were switched to a combination of Zosyn and Levaquin. He was kept on a combination of bronchodilators and systemic steroids. She also received IV fluids and currently she is on 75 mL an hour. She is on normal saline infusion. Her subsequent lactic acid level is up to 4.0. The patient was given a total of 2 and a half liters of IV fluid in the form of normal saline. The patient was placed on a BiPAP at a pressure of 10/5 with an FiO2 of 50%. She is also on 2 mics of the levo fed for hemodynamic support. She is producing good urine output in the order of 30-40 mL an hour. She is a bit anxious. An attempt was done to take her off the BiPAP this morning yet she failed due to desaturation the patient had a BiPAP back This patient has advanced oxygen-dependent COPD and she is typically on feeds of oxygen by nasal cannula. She has a complicated history of COPD and recurrent pneumonias. Back in 2010, the patient extensive right lung pneumonia that was Again by empyema requiring decortication. The patient another bout of pneumonia 2012 during which she was intubated and placed on a mechanical ventilator and she had ARDS. Since then she had quit smoking. She has been maintained on a combination of Spiriva, Symbicort and a distal solution as needed basis and she is also on prior rescue inhaler when necessary. She has chronic anxiety and depression. She is on a combination of Zoloft and Xanax in addition. Her condition is been progressively getting more debilitated. The patient's easily periodically in the office. She also has compression fractures of the thoracic spine and she has been seen by spine surgery and she is on a candidate for any surgical intervention this point in time. On 02/01/2018 the patient's condition essentially unchanged compared to yesterday. She still short of breath via much BiPAP dependent at a pressure of 10/5 with an FiO2 of 50%. Earlier this morning she was tried on a nasal cannula however she became quite anxious and panicky. Based on that she was placed back on the BiPAP machine. Her chest x-ray still unchanged with bilateral pulmonary infiltrates left more than right. She remains in the same antibiotic coverage. She is on examination Zosyn and Levaquin. She'll IV Solu- Medrol. She is also on bronchodilators around the clock. As for the anxiety treatment, the patient a combination of Zoloft and Xanax and she is less panicky and anxious compared to yesterday. No fever. No chills. The white cell count was at 7.5. Earlier this morning her hemoglobin came back at 6.9 and she did not demonstrate any signs of bleeding. She was given a unit of packed RBC. Renal function is within normal limits. On 02/03/2008 and a significant lesion for a follow-up. No major improvement in her overall pulmonary status. Still on BiPAP at a pressure of 10/5 cm of water and FiO2 of 50%. Unable to get her off the BiPAP. Chest x-ray findings are essentially unchanged. Based on that, I ordered a CT angios the chest in reviewing the films shows no evidence of any pulmonary embolism. The patient has end-stage lung disease with severe emphysema throughout the lung uriostegui bilaterally and chronic scarring in the lung bases with some limited honeycombing. There may be some areas of interstitial pneumonias superimposed on top of chronic lung disease. Today's level is at 7.7. She is afebrile. She is hemodynamically stable. No signs of any significant fluid overload. No altered mentation. She remains on examination Zosyn and Levaquin. She is on IV Solu Medrol. She is on DuoNeb nebulized treatments on the clock. No nausea. No vomiting. She is anxious and she is on a combination of Zoloft and Xanax. The patient was started also on [place] for chronic pain and compression fracture of the spine. No agitation. is at the bedside. Reevaluated again on 02/03/2018, patient remains on high flow airvo, felt better with high flow rather than BiPAP. Chest x-ray continues to show significant lung disease, and again suspect some component of pneumonitis involving the left lung. Patient is known to have end-stage COPD plus pulmonary fibrosis related to previous ARDS, and in addition to all of this were dealing with extensive left-sided pneumonia. Remains on antibiotics in the form of Zosyn and Levaquin, she is also on IV Solu-Medrol, and updrafts. He has mostly significant pain related to her compression fractures. is at bedside, touch bases on CODE STATUS, patient does not want to be on life support machine. Hence she is DO NOT RESUSCITATE, DO NOT INTUBATE. CBC continues to show relatively low hemoglobin of 7.9. Electrolytes and the a profile are normal. Reevaluated today on 02/04/2018, remains on high flow oxygen, airvo at 5 0 L/m. Patient is feeling better clinically, and her chest x-ray is surprisingly showing some improvement in her left sided pneumonia. However she continues to have significant fibrotic changes in both lungs especially in the left lung. Symptoms [place] the patient is feeling better. All labs were reviewed including basic metabolic profile and CBC. Hemoglobin is 8.3. Patient remains on antibiotics, steroids, and bronchodilators. Pain seems to be also better controlled from her compression fracture of the spine. is at bedside, and discussed her condition again. Patient clearly wishes to be DO NOT RESUSCITATE. On 02/05/2018 patient remains on AIRVO at 55 liters, and FiO2 of 50%. Lung sounds reveal scattered crackles, significant chest congestion, no cough, or phlegm production. No fever or chills, blood cultures are negative. Yesterday' s chest x-ray showed some mild interstitial edema, chronic emphysematous changes , and bilateral pulmonary parenchymal fibrosis. Patient continues on antibiotic coverage in the form of Levaquin. She is on IV steroids, and nebulized bronchodilators. Try to wean the oxygen Objective - Vital Signs Vital signs: Vital Signs Temp 97.4 F L 02/05/18 12:16 Pulse 73 02/05/18 12:16 Resp 20 02/05/18 12:16 BP 134/80 02/05/18 12:16 Pulse Ox 93 L 02/05/18 12:16 Intake & Output 02/04/18 02/05/18 02/05/18 18:59 06:59 18:59 Intake Total 1240 240 Output Total 500 600 Balance 740 -360 Weight 62.6 kg 62.6 kg Intake: IV 240 Sodium Chloride 0.9% 1, 240 000 ml @ 20 mls/hr IV . Q24H [facility] Rx#:[id number] Oral 1000 240 Output: Urine 500 600 Other: Voiding Method Indwelling Catheter Indwelling Catheter # Bowel Movements 1 - Exam Physical Exam: Revealed a 67-year-old, frail looking, chronically ill, on airvo flow is at 60 L/m. Head: Slightly cushingoid, atraumatic, normocephalic. HEENT:[Neck is supple.] [No neck masses.] [No thyromegaly.] [No JVD.] Chest: [Crackles at the bases, no rhonchi no wheezes. More so on the left side..] Cardiac Exam: [Normal S1 and S2, no S3 gallop, no murmur.] Abdomen: [Soft, nontender, no megaly, no rebound, no guarding, normal bowel sounds.] Extremities: [Positive clubbing, no edema, no cyanosis.] Neurological Exam: [No focal neurologic deficit.] Psychiatric: Normal mood, affect and mental status examination. Skin: No rashes. - Labs CBC & Chem 7: 02/04/18 04:22 02/04/18 04:22 Labs: Abnormal Lab Results - Last 24 Hours (Table) 02/04/18 02/05/18 02/05/18 Range/Units 20:01 02:00 06:57 POC Glucose (mg/dL) 137 H 107 H 122 H (75-99) mg/dL 02/05/18 Range/Units 11:23 POC Glucose (mg/dL) 103 H (75-99) mg/dL Microbiology - Last 24 Hours (Table) 01/30/18 16:00 Blood Culture - Preliminary Blood No Growth after 120 hours Assessment and Plan Plan: 1 acute on chronic hypoxic respiratory failure, multifactorial, secondary to end -stage COPD, chronic interstitial lung disease, related to previous ARDS, left sided pneumonia/community-acquired, 2 acute septic shock secondary to pneumonia off pressors at present. 3 severe underlying COPD and chronic hypoxic respiratory failure. 4 lactic acidosis secondary to sepsis and septic shock 5 fibromyalgia 6 compression fracture of thoracic spine had previous kyphoplasty, remains on narcotics for pain control. 7 chronic anemia secondary to chronic disease. 8 generalized anxiety disorder and history of depression. Plan: Continue current medical treatment, continue IV steroids, antibiotics, nebulized bronchodilators. Wean FiO2, increase activity as tolerated, certainly negative, patient is afebrile, satting dyspnea, she was able to get up and walk to the bathroom with assistance. we'll continue to follow I performed a history & physical examination of the patient and discussed their management with my nurse practitioner, Daphne Flower. I reviewed the nurse practitioner's note and agree with the documented findings and plan of care. Lung sounds are positive for diffuse crackles. The findings and the impression was discussed with the patient. I attest to the documentation by the nurse practitioner. Time with Patient: Less than 30
[2018-02-05 13:57] VITALS: BMI 26.0
[2018-02-05 17:25] LABS: Glucose,Whole Blood 126 mg/dL (75-99)
--- NOTE | 2018-02-05 19:32 | PN ---
PROGRESS NOTE DATE OF SERVICE: 02/05/2018. PRESENTING COMPLAINT: Shortness of breath. INTERVAL HISTORY: Patient admitted with multilobar pneumonitis/pneumonia, septic shock, hypoxia, COPD exacerbation. Was on BiPAP, now is on high-flow oxygen. Continues to feel better, sitting up on a chair. Had been very anxious. Her Zoloft was switched to Paxil. Patient is tolerating some diet. Patient also has underlying honeycombing and pulmonary fibrosis. More chirpy. The patient's brother is visiting him. Sitting up on a chair. REVIEW OF SYSTEMS: Done for constitutional, cardiovascular, GI, pulmonary; relevant findings as above. CURRENT MEDICATIONS: Reviewed that include DuoNeb, p.o. Levaquin and IV Solu-Medrol. PHYSICAL EXAMINATION: VITAL SIGNS: Temperature 97.4, pulse 93, respiratory 20, blood pressure 132/80, pulse ox 93 percent on high-flow oxygen. GENERAL APPEARANCE: Sitting up in a chair, more awake. EYES: Pupils equal. Conjunctivae normal. HEENT: External appearance of nose and ears normal. Oral cavity normal. NECK: JVD unable to assess. Mass not palpable. PULMONARY: Respiratory effort increased. LUNGS: Bilateral crackles. CARDIOVASCULAR: First and second sounds. No edema. ABDOMEN: Soft, nontender. Liver and spleen not palpable. PSYCHIATRY: Alert and oriented x3. Mood and affect slightly anxious. INVESTIGATIONS: Accu-Cheks are noted. ASSESSMENT: 1. Multilobar pneumonia suspect gram-negative organism causing acute hypoxic respiratory failure. The patient on the BiPAP on high-flow oxygen with clinical response. 2. Bilateral honeycombing and pulmonary fibrosis from prior history of ARDS. 3. Chronic hypoxic respiratory failure, underlying COPD and pulmonary fibrosis. 4. Hypertensive shock requiring pressors on presentation. 5. Acute chronic obstructive pulmonary disease exacerbation in an ex-smoker. 6. Primary osteoarthritis multiple joints bilateral. 7. Gastroesophageal reflux disease. 8. Anxiety, depression not otherwise specified. 9. Lactic acid from pneumonia. 10.Normocytic anemia cause unknown. 11.Metabolic acidosis. 12.CODE STATUS: DNR. PLAN: Overall patient doing better. Prognosis is guarded because of advanced pulmonary fibrosis and poorly pulmonary reserves. Prognosis is guarded. Therefore, attempts are being made to bring down the patient's oxygenation. The patient is able to take a few steps. Follow. MMODL / IJN: [id number] /
[2018-02-05 20:54] LABS: Glucose,Whole Blood 89 mg/dL (75-99)
[2018-02-05] MEDS: ZOLPIDEM 5 MG TAB PO SCH (21:15)
[2018-02-05] MEDS: LEVOFLOXACIN 750 MG TAB PO SCH (21:16)
[2018-02-06] MEDS: SODIUM BICARBONATE TAB 650 MG TAB PO SCH ×4 (01:22→20:44)
[2018-02-06 02:04] LABS: Glucose,Whole Blood 104 mg/dL (75-99)
[2018-02-06] MEDS: IPRATROPIUM-ALBUTEROL 3 ML NEB INHALATION SCH ×5 (03:52→20:03)
[2018-02-06] MEDS: INSULIN ASPART 100 UNIT/ML 1 ML 10 ML VIAL SQ SCH ×5 (04:33→20:39)
[2018-02-06 07:19] LABS: Glucose,Whole Blood 93 mg/dL (75-99)
[2018-02-06] MEDS: BUDESONIDE 1 MG/2 ML NEBU INHALATION SCH ×2 (07:40→20:03)
[2018-02-06] MEDS: FORMOTEROL FUMARATE 20 MCG/2 ML NEBU INHALATION SCH ×2 (07:40→20:03)
[2018-02-06 07:51] LABS: Anion Gap 6 mmol/L; Blood Urea Nitrogen 21 mg/dL (7-17); Calcium 8.2 mg/dL (8.4-10.2); Carbon Dioxide 33 mmol/L (22-30); Chloride 103 mmol/L (98-107); Glucose 84 mg/dL (74-99); Potassium 4.1 mmol/L (3.5-5.1); Sodium 142 mmol/L (137-145)
[2018-02-06] MEDS: ALPRAZolam 0.5 MG TAB PO SCH ×4 (08:17→20:38)
[2018-02-06] MEDS: HYDROcodone/APAP 5-325MG 1 EACH TAB PO PRN ×2 (08:17→16:46)
[2018-02-06] MEDS: guaiFENesin 600 MG TABLET.ER PO SCH ×2 (08:18→20:38)
[2018-02-06] MEDS: PANTOPRAZOLE 40 MG TABLET PO SCH (08:18)
[2018-02-06] MEDS: PARoxetine 20 MG TAB PO SCH (08:18)
[2018-02-06] MEDS: ENOXAPARIN 40 MG/0.4 ML SYRINGE SQ SCH (08:19)
[2018-02-06] MEDS: methylPREDNISolone SOD SUCCI 40 MG/ML 1 ML VIAL IV SCH ×2 (08:19→20:38)
[2018-02-06] MEDS: METHYL SALICYLATE/MENTHOL CREAM 5 OZ TOPICAL SCH ×4 (08:19→20:44)
[2018-02-06 11:16] LABS: Glucose,Whole Blood 113 mg/dL (75-99)
--- NOTE | 2018-02-06 13:49 | P.PN ---
Subjective Progress Note Date: 02/06/18 Principal diagnosis: Acute on chronic hypoxic respiratory failure secondary to an acute left lung pneumonia superimposed on interstitial lung disease/pulmonary fibrosis 67-year-old female patient with known history of advanced COPD and chronic hypoxic respiratory failure, oxygen dependent, was feeling poorly over the past few days and the patient presented to the emergency department having worsening cough, shortness of breath and she was obviously desaturating and her pulse ox was in the low 70s at time of arrival to the emergency department. Denies having any pleuritic chest pain. Denies having any fever or chills. No nausea. No vomiting. No mentation. No swelling in lower extremities. In the ED, the patient a chest x-ray that showed extensive left lung pneumonia/ consolidation. The patient's was placed on a BiPAP. The patient was given a combination of bronchodilators and systemic steroids. She was given Rocephin and Zithromax. Following that the patient was admitted to the intensive care unit. Her white cell count was at 10.4. Creatinine was 1.1. The patient had lactic acid level of 3.4. In the ICU, the patient continued to be on a BiPAP. Her antibiotics were switched to a combination of Zosyn and Levaquin. He was kept on a combination of bronchodilators and systemic steroids. She also received IV fluids and currently she is on 75 mL an hour. She is on normal saline infusion. Her subsequent lactic acid level is up to 4.0. The patient was given a total of 2 and a half liters of IV fluid in the form of normal saline. The patient was placed on a BiPAP at a pressure of 10/5 with an FiO2 of 50%. She is also on 2 mics of the levo fed for hemodynamic support. She is producing good urine output in the order of 30-40 mL an hour. She is a bit anxious. An attempt was done to take her off the BiPAP this morning yet she failed due to desaturation the patient had a BiPAP back This patient has advanced oxygen-dependent COPD and she is typically on feeds of oxygen by nasal cannula. She has a complicated history of COPD and recurrent pneumonias. Back in 2010, the patient extensive right lung pneumonia that was Again by empyema requiring decortication. The patient another bout of pneumonia 2012 during which she was intubated and placed on a mechanical ventilator and she had ARDS. Since then she had quit smoking. She has been maintained on a combination of Spiriva, Symbicort and a distal solution as needed basis and she is also on prior rescue inhaler when necessary. She has chronic anxiety and depression. She is on a combination of Zoloft and Xanax in addition. Her condition is been progressively getting more debilitated. The patient's easily periodically in the office. She also has compression fractures of the thoracic spine and she has been seen by spine surgery and she is on a candidate for any surgical intervention this point in time. On 02/01/2018 the patient's condition essentially unchanged compared to yesterday. She still short of breath via much BiPAP dependent at a pressure of 10/5 with an FiO2 of 50%. Earlier this morning she was tried on a nasal cannula however she became quite anxious and panicky. Based on that she was placed back on the BiPAP machine. Her chest x-ray still unchanged with bilateral pulmonary infiltrates left more than right. She remains in the same antibiotic coverage. She is on examination Zosyn and Levaquin. She'll IV Solu- Medrol. She is also on bronchodilators around the clock. As for the anxiety treatment, the patient a combination of Zoloft and Xanax and she is less panicky and anxious compared to yesterday. No fever. No chills. The white cell count was at 7.5. Earlier this morning her hemoglobin came back at 6.9 and she did not demonstrate any signs of bleeding. She was given a unit of packed RBC. Renal function is within normal limits. On 02/03/2008 and a significant lesion for a follow-up. No major improvement in her overall pulmonary status. Still on BiPAP at a pressure of 10/5 cm of water and FiO2 of 50%. Unable to get her off the BiPAP. Chest x-ray findings are essentially unchanged. Based on that, I ordered a CT angios the chest in reviewing the films shows no evidence of any pulmonary embolism. The patient has end-stage lung disease with severe emphysema throughout the lung uriostegui bilaterally and chronic scarring in the lung bases with some limited honeycombing. There may be some areas of interstitial pneumonias superimposed on top of chronic lung disease. Today's level is at 7.7. She is afebrile. She is hemodynamically stable. No signs of any significant fluid overload. No altered mentation. She remains on examination Zosyn and Levaquin. She is on IV Solu Medrol. She is on DuoNeb nebulized treatments on the clock. No nausea. No vomiting. She is anxious and she is on a combination of Zoloft and Xanax. The patient was started also on [place] for chronic pain and compression fracture of the spine. No agitation. is at the bedside. Reevaluated again on 02/03/2018, patient remains on high flow airvo, felt better with high flow rather than BiPAP. Chest x-ray continues to show significant lung disease, and again suspect some component of pneumonitis involving the left lung. Patient is known to have end-stage COPD plus pulmonary fibrosis related to previous ARDS, and in addition to all of this were dealing with extensive left-sided pneumonia. Remains on antibiotics in the form of Zosyn and Levaquin, she is also on IV Solu-Medrol, and updrafts. He has mostly significant pain related to her compression fractures. is at bedside, touch bases on CODE STATUS, patient does not want to be on life support machine. Hence she is DO NOT RESUSCITATE, DO NOT INTUBATE. CBC continues to show relatively low hemoglobin of 7.9. Electrolytes and the a profile are normal. Reevaluated today on 02/04/2018, remains on high flow oxygen, airvo at 5 0 L/m. Patient is feeling better clinically, and her chest x-ray is surprisingly showing some improvement in her left sided pneumonia. However she continues to have significant fibrotic changes in both lungs especially in the left lung. Symptoms [place]te the patient is feeling better. All labs were reviewed including basic metabolic profile and CBC. Hemoglobin is 8.3. Patient remains on antibiotics, steroids, and bronchodilators. Pain seems to be also better controlled from her compression fracture of the spine. is at bedside, and discussed her condition again. Patient clearly wishes to be DO NOT RESUSCITATE. On 02/05/2018 patient remains on AIRVO at 55 liters, and FiO2 of 50%. Lung sounds reveal scattered crackles, significant chest congestion, no cough, or phlegm production. No fever or chills, blood cultures are negative. Yesterday' s chest x-ray showed some mild interstitial edema, chronic emphysematous changes , and bilateral pulmonary parenchymal fibrosis. Patient continues on antibiotic coverage in the form of Levaquin. She is on IV steroids, and nebulized bronchodilators. Try to wean the oxygen The patient is seen again today 02/06/2018 in follow-up on the oncology unit. She is currently awake and alert in no acute distress. She's getting stronger each day. She is still requiring the AirVo currently at 45 L and FiO2 of 45%. She does get tired at times and intermittently is using the BiPAP as well. Blood cultures reveal no growth. Sodium 142. Potassium 4.1. Bicarb 33. Creatinine 0.69. Objective - Vital Signs Vital signs: Vital Signs Temp 97 F L 02/06/18 12:51 Pulse 75 02/06/18 12:51 Resp 20 02/06/18 12:51 BP 109/66 02/06/18 12:51 Pulse Ox 96 02/06/18 12:51 Intake & Output 02/05/18 02/06/18 02/06/18 18:59 06:59 18:59 Intake Total 150 Balance 150 Weight 62.6 kg 62.6 kg Intake: Oral 150 Other: Voiding Method Bedside Commode Bedside Commode Bedside Commode # Voids 1 1 # Bowel Movements 1 - Exam GENERAL EXAM: Alert, fairly comfortable in no apparent distress. Continues to alternate between the AirVo and the BiPAP. HEAD: Normocephalic. EYES: Normal reaction of pupils, equal size. NOSE: Clear with pink turbinates. THROAT: No erythema or exudates. NECK: No masses, no JVD. CHEST: No chest wall deformity. LUNGS: Equal air entry with bilateral end expiratory wheeze, diminished throughout.. CVS: S1 and S2 normal with no audible murmur, regular rhythm. ABDOMEN: No hepatosplenomegaly, normal bowel sounds, no guarding or rigidity. SPINE: No scoliosis or deformity SKIN: No rashes CENTRAL NERVOUS SYSTEM: No focal deficits, tone is normal in all 4 extremities. EXTREMITIES: There is no peripheral edema. No clubbing, no cyanosis. Peripheral pulses are intact. - Labs CBC & Chem 7: 02/04/18 04:22 02/06/18 07:23 Labs: Abnormal Lab Results - Last 24 Hours (Table) 02/05/18 02/06/18 02/06/18 Range/Units 17:23 02:03 07:23 Carbon Dioxide 33 H (22-30) mmol/L BUN 21 H (7-17) mg/dL POC Glucose (mg/dL) 126 H 104 H (75-99) mg/dL Calcium 8.2 L (8.4-10.2) mg/dL 02/06/18 Range/Units 11:15 Carbon Dioxide (22-30) mmol/L BUN (7-17) mg/dL POC Glucose (mg/dL) 113 H (75-99) mg/dL Calcium (8.4-10.2) mg/dL Microbiology - Last 24 Hours (Table) 01/30/18 16:00 Blood Culture - Final Blood No Growth after 144 hours Assessment and Plan Assessment: Impression: 1 acute on chronic hypoxic respiratory failure, multifactorial, secondary to end -stage COPD, chronic interstitial lung disease, related to previous ARDS, left sided pneumonia/community-acquired, 2 acute septic shock secondary to pneumonia off pressors at present. 3 severe underlying COPD and chronic hypoxic respiratory failure. 4 lactic acidosis secondary to sepsis and septic shock 5 fibromyalgia 6 compression fracture of thoracic spine had previous kyphoplasty, remains on narcotics for pain control. 7 chronic anemia secondary to chronic disease. 8 generalized anxiety disorder and history of depression. Plan: The patient was seen and evaluated by Dr. Plaza. She is improving slowly. Continuing to decrease the FiO2 as tolerated. Increase her activity as tolerated. Continue current medications. We'll continue to follow. I, the cosigning physician, performed a history & physical examination of the patient. Lungs sounds with bilateral end expiratory wheeze diminished. Maintaining good O2 saturations in the 90s on 45% FiO2 at 40 L per AirVo. I discussed the assessment and plan of care with my nurse practitioner, Kendra Kamara. I attest to the above note as dictated by her.
[2018-02-06] MEDS ORDERED: FUROSEMIDE 10 MG/ML 4 ML VIAL IV STA (15:55)
[2018-02-06 16:50] LABS: Glucose,Whole Blood 111 mg/dL (75-99)
[2018-02-06] MEDS: LEVOFLOXACIN 750 MG TAB PO SCH (20:38)
[2018-02-06] MEDS: ZOLPIDEM 5 MG TAB PO SCH (20:38)
[2018-02-06 21:07] LABS: Glucose,Whole Blood 77 mg/dL (75-99)
--- NOTE | 2018-02-06 23:18 | PN ---
PROGRESS NOTE DATE OF SERVICE: 02/06/2018 This 67-year-old woman who was admitted with shortness of breath and multilobar pneumonia. The patient is being closely monitored at this time. The patient is on broad IV antibiotics. The most recent chest x-ray which was done yesterday showed suspected changes edema and background cardiomegaly. also an issue. PAST MEDICAL HISTORY: Past medical reviewed. REVIEW OF SYSTEMS: CARDIOVASCULAR: No angina. RESPIRATORY: As mentioned earlier. GI: As mentioned earlier. CURRENT MEDICATIONS: 1. [place] 5 mg. 2. Ventolin. 3. DuoNeb q.i.d. and p.r.n. 4. Pulmicort. 5. Lovenox. 6. Perforomist. 7. Mucinex. 8. Low-dose Levaquin. 9. Solu-Medrol 40 IV. 10.Narcan. 11.Protonix. 12.Multivitamins. 13.Ambien. PHYSICAL EXAMINATION: Alert and oriented. Pulse 75, blood pressure 109/67, respirations 20, temperature 97.7, pulse ox 96% on BiPAP. HEENT: Conjunctivae normal. Oral mucosa. NECK: No jugular venous distention. No lymph node enlargement. CARDIOVASCULAR: S1, S2. RESPIRATORY: Diminished breath sounds at the bases. Bilateral scattered rhonchi , no crackles. ABDOMEN: Soft, nontender. LEGS: No swelling. NERVOUS SYSTEM: No focal deficits. LAB STUDIES: At this time shows WBC 4, hemoglobin is 8.2, sodium 142, potassium 4.1. ASSESSMENT: 1. Multilobar pneumonia with possibly gram-negative organisms with acute hypoxic respiratory failure on BiPAP and also on high-flow oxygen. 2. Rule out congestive heart failure. 3. Bilateral honeycombing and pulmonary fibrosis and prior history of ARDS. 4. Chronic hypoxic respiratory failure. 5. Underlying COPD, pulmonary fibrosis. 6. Hypotensive shock, recurrent process on presentation. 7. Chronic obstructive pulmonary disease acute exacerbation. 8. Primary DJD of multiple joints. 9. GERD. 10.Anxiety, depression. 11.Lactic acidosis. 12.Normocytic anemia. 13.NO CODE, NO CPR, NO VENT. RECOMMENDATION: Recommend to continue current management, continue symptomatic treatment. Otherwise, we will monitor the patient closely. Continue with current medications. I would also order a BNP and 2D echo if it is not done previously. Otherwise continue to monitor. The prognosis is guarded because of multiple complex medical issues. See orders for details. Continue the rest of medications including antibiotics, steroids and bronchodilators. MMODL / IJN: [id number] / SCOTT
[2018-02-07] MEDS: IPRATROPIUM-ALBUTEROL 3 ML NEB INHALATION SCH ×7 (02:01→23:08)
[2018-02-07] MEDS: INSULIN ASPART 100 UNIT/ML 1 ML 10 ML VIAL SQ SCH ×5 (02:57→23:25)
[2018-02-07 02:59] LABS: Glucose,Whole Blood 125 mg/dL (75-99)
[2018-02-07] MEDS: ALPRAZolam 0.5 MG TAB PO SCH ×5 (03:24→21:25)
[2018-02-07] MEDS: HYDROcodone/APAP 5-325MG 1 EACH TAB PO PRN ×2 (03:26→17:52)
[2018-02-07 07:04] LABS: Glucose,Whole Blood 99 mg/dL (75-99)
[2018-02-07] MEDS: FORMOTEROL FUMARATE 20 MCG/2 ML NEBU INHALATION SCH ×2 (07:37→19:12)
[2018-02-07] MEDS: BUDESONIDE 1 MG/2 ML NEBU INHALATION SCH ×2 (07:37→19:12)
[2018-02-07 07:47] LABS: Anisocytosis Slight; Basophils % (A) 0 %; Eosinophils % (A) 1 %; HGB 10.4 gm/dL (11.4-16.0); Hypochromasia Slight; Lymphocytes # (A) 1.1 k/uL (1.0-4.8); Lymphocytes % (A) 24 %; MCH 26.3 pg (25.0-35.0); MCHC 31.6 g/dL (31.0-37.0); MCV 83.3 fL (80.0-100.0); Mean Platelet Volume 8.1; Monocytes # (A) 0.3 k/uL (0-1.0); Monocytes % (A) 6 %; Neutrophils # (A) 3.1 k/uL (1.3-7.7); Neutrophils % (A) 67 %; Platelet Count 171 k/uL (150-450); RBC 3.96 m/uL (3.80-5.40); WBC 4.6 k/uL (3.8-10.6)
[2018-02-07 08:01] LABS: Anion Gap 7 mmol/L; Blood Urea Nitrogen 22 mg/dL (7-17); Calcium 8.3 mg/dL (8.4-10.2); Carbon Dioxide 32 mmol/L (22-30); Chloride 100 mmol/L (98-107); Glucose 75 mg/dL (74-99); Potassium 3.9 mmol/L (3.5-5.1); Sodium 139 mmol/L (137-145)
[2018-02-07] MEDS: SODIUM BICARBONATE TAB 650 MG TAB PO SCH ×3 (08:22→21:24)
[2018-02-07] MEDS: PANTOPRAZOLE 40 MG TABLET PO SCH (08:22)
[2018-02-07] MEDS: ENOXAPARIN 40 MG/0.4 ML SYRINGE SQ SCH (08:22)
[2018-02-07] MEDS: guaiFENesin 600 MG TABLET.ER PO SCH ×2 (08:22→21:24)
[2018-02-07] MEDS: PARoxetine 20 MG TAB PO SCH (08:22)
[2018-02-07] MEDS: METHYL SALICYLATE/MENTHOL CREAM 5 OZ TOPICAL SCH ×4 (08:23→21:25)
[2018-02-07] MEDS: methylPREDNISolone SOD SUCCI 40 MG/ML 1 ML VIAL IV SCH ×2 (08:23→21:24)
[2018-02-07 11:19] LABS: Glucose,Whole Blood 148 mg/dL (75-99)
--- NOTE | 2018-02-07 15:52 | P.PN ---
Subjective Progress Note Date: 02/07/18 Principal diagnosis: Acute on chronic hypoxic respiratory failure secondary to acute left lung pneumonia imposed on interstitial lung disease/pulmonary fibrosis 67-year-old female patient with known history of advanced COPD and chronic hypoxic respiratory failure, oxygen dependent, was feeling poorly over the past few days and the patient presented to the emergency department having worsening cough, shortness of breath and she was obviously desaturating and her pulse ox was in the low 70s at time of arrival to the emergency department. Denies having any pleuritic chest pain. Denies having any fever or chills. No nausea. No vomiting. No mentation. No swelling in lower extremities. In the ED, the patient a chest x-ray that showed extensive left lung pneumonia/ consolidation. The patient's was placed on a BiPAP. The patient was given a combination of bronchodilators and systemic steroids. She was given Rocephin and Zithromax. Following that the patient was admitted to the intensive care unit. Her white cell count was at 10.4. Creatinine was 1.1. The patient had lactic acid level of 3.4. In the ICU, the patient continued to be on a BiPAP. Her antibiotics were switched to a combination of Zosyn and Levaquin. He was kept on a combination of bronchodilators and systemic steroids. She also received IV fluids and currently she is on 75 mL an hour. She is on normal saline infusion. Her subsequent lactic acid level is up to 4.0. The patient was given a total of 2 and a half liters of IV fluid in the form of normal saline. The patient was placed on a BiPAP at a pressure of 10/5 with an FiO2 of 50%. She is also on 2 mics of the levo fed for hemodynamic support. She is producing good urine output in the order of 30-40 mL an hour. She is a bit anxious. An attempt was done to take her off the BiPAP this morning yet she failed due to desaturation the patient had a BiPAP back This patient has advanced oxygen-dependent COPD and she is typically on feeds of oxygen by nasal cannula. She has a complicated history of COPD and recurrent pneumonias. Back in 2010, the patient extensive right lung pneumonia that was Again by empyema requiring decortication. The patient another bout of pneumonia 2012 during which she was intubated and placed on a mechanical ventilator and she had ARDS. Since then she had quit smoking. She has been maintained on a combination of Spiriva, Symbicort and a distal solution as needed basis and she is also on prior rescue inhaler when necessary. She has chronic anxiety and depression. She is on a combination of Zoloft and Xanax in addition. Her condition is been progressively getting more debilitated. The patient's easily periodically in the office. She also has compression fractures of the thoracic spine and she has been seen by spine surgery and she is on a candidate for any surgical intervention this point in time. On 02/01/2018 the patient's condition essentially unchanged compared to yesterday. She still short of breath via much BiPAP dependent at a pressure of 10/5 with an FiO2 of 50%. Earlier this morning she was tried on a nasal cannula however she became quite anxious and panicky. Based on that she was placed back on the BiPAP machine. Her chest x-ray still unchanged with bilateral pulmonary infiltrates left more than right. She remains in the same antibiotic coverage. She is on examination Zosyn and Levaquin. She'll IV Solu- Medrol. She is also on bronchodilators around the clock. As for the anxiety treatment, the patient a combination of Zoloft and Xanax and she is less panicky and anxious compared to yesterday. No fever. No chills. The white cell count was at 7.5. Earlier this morning her hemoglobin came back at 6.9 and she did not demonstrate any signs of bleeding. She was given a unit of packed RBC. Renal function is within normal limits. On 02/03/2008 and a significant lesion for a follow-up. No major improvement in her overall pulmonary status. Still on BiPAP at a pressure of 10/5 cm of water and FiO2 of 50%. Unable to get her off the BiPAP. Chest x-ray findings are essentially unchanged. Based on that, I ordered a CT angios the chest in reviewing the films shows no evidence of any pulmonary embolism. The patient has end-stage lung disease with severe emphysema throughout the lung uriostegui bilaterally and chronic scarring in the lung bases with some limited honeycombing. There may be some areas of interstitial pneumonias superimposed on top of chronic lung disease. Today's level is at 7.7. She is afebrile. She is hemodynamically stable. No signs of any significant fluid overload. No altered mentation. She remains on examination Zosyn and Levaquin. She is on IV Solu Medrol. She is on DuoNeb nebulized treatments on the clock. No nausea. No vomiting. She is anxious and she is on a combination of Zoloft and Xanax. The patient was started also on [place] for chronic pain and compression fracture of the spine. No agitation. is at the bedside. Reevaluated again on 02/03/2018, patient remains on high flow airvo, felt better with high flow rather than BiPAP. Chest x-ray continues to show significant lung disease, and again suspect some component of pneumonitis involving the left lung. Patient is known to have end-stage COPD plus pulmonary fibrosis related to previous ARDS, and in addition to all of this were dealing with extensive left-sided pneumonia. Remains on antibiotics in the form of Zosyn and Levaquin, she is also on IV Solu-Medrol, and updrafts. He has mostly significant pain related to her compression fractures. is at bedside, touch bases on CODE STATUS, patient does not want to be on life support machine. Hence she is DO NOT RESUSCITATE, DO NOT INTUBATE. CBC continues to show relatively low hemoglobin of 7.9. Electrolytes and the a profile are normal. Reevaluated today on 02/04/2018, remains on high flow oxygen, airvo at 5 0 L/m. Patient is feeling better clinically, and her chest x-ray is surprisingly showing some improvement in her left sided pneumonia. However she continues to have significant fibrotic changes in both lungs especially in the left lung. Symptoms [place] the patient is feeling better. All labs were reviewed including basic metabolic profile and CBC. Hemoglobin is 8.3. Patient remains on antibiotics, steroids, and bronchodilators. Pain seems to be also better controlled from her compression fracture of the spine. is at bedside, and discussed her condition again. Patient clearly wishes to be DO NOT RESUSCITATE. On 02/05/2018 patient remains on AIRVO at 55 liters, and FiO2 of 50%. Lung sounds reveal scattered crackles, significant chest congestion, no cough, or phlegm production. No fever or chills, blood cultures are negative. Yesterday' s chest x-ray showed some mild interstitial edema, chronic emphysematous changes , and bilateral pulmonary parenchymal fibrosis. Patient continues on antibiotic coverage in the form of Levaquin. She is on IV steroids, and nebulized bronchodilators. Try to wean the oxygen On 02/07/2018 patient seen in follow-up on medical surgical floor. In no acute distress, still requiring AIRVO, currently at 30 l/min, and Fio2 40%. Afebrile , hemodynamically stable, no worsening dyspnea, remains on IV Solu-Medrol 40 mg every 12 hours, and antibiotics. Clinically she is improving, we'll continue to wean FiO2, cultures remain negative. Today's blood work has been reviewed, showed a PVC of 4.6, hemoglobin of 10.4, electrolytes and renal profile are relatively unremarkable. Objective - Vital Signs Vital signs: Vital Signs Temp 97.4 F L 02/07/18 13:20 Pulse 100 02/07/18 13:20 Resp 20 02/07/18 13:20 BP 113/58 02/07/18 13:20 Pulse Ox 100 02/07/18 13:20 Intake & Output 02/06/18 02/07/18 02/07/18 18:59 06:59 18:59 Intake Total 300 450 Balance 300 450 Weight 62.6 kg Intake: Oral 300 450 Other: Voiding Method Bedside Commode Bedside Commode Bedside Commode # Voids 2 2 2 # Bowel Movements 1 - Exam Physical Exam: Revealed a 67-year-old, frail looking, chronically ill, on airvo flow is at 60 L/m. Head: Slightly cushingoid, atraumatic, normocephalic. HEENT:[Neck is supple.] [No neck masses.] [No thyromegaly.] [No JVD.] Chest: [Crackles at the bases, no rhonchi no wheezes. More so on the left side..] Cardiac Exam: [Normal S1 and S2, no S3 gallop, no murmur.] Abdomen: [Soft, nontender, no megaly, no rebound, no guarding, normal bowel sounds.] Extremities: [Positive clubbing, no edema, no cyanosis.] Neurological Exam: [No focal neurologic deficit.] Psychiatric: Normal mood, affect and mental status examination. Skin: No rashes. - Labs CBC & Chem 7: 02/07/18 07:18 02/07/18 07:18 Labs: Abnormal Lab Results - Last 24 Hours (Table) 02/06/18 02/07/1818 Range/Units 16:48 02:56 07:18 Hgb 10.4 L (11.4-16.0) gm/dL Hct 33.0 L (34.0-46.0) % RDW 18.0 H (11.5-15.5) % Carbon Dioxide (22-30) mmol/L BUN (7-17) mg/dL POC Glucose (mg/dL) 111 H 125 H (75-99) mg/dL Calcium (8.4-10.2) mg/dL 02/07/18 02/07/18 Range/Units 07:18 11:16 Hgb (11.4-16.0) gm/dL Hct (34.0-46.0) % RDW (11.5-15.5) % Carbon Dioxide 32 H (22-30) mmol/L BUN 22 H (7-17) mg/dL POC Glucose (mg/dL) 148 H (75-99) mg/dL Calcium 8.3 L (8.4-10.2) mg/dL Assessment and Plan Plan: 1 acute on chronic hypoxic respiratory failure, multifactorial, secondary to end -stage COPD, chronic interstitial lung disease, related to previous ARDS, left sided pneumonia/community-acquired, 2 acute septic shock secondary to pneumonia off pressors at present. 3 severe underlying COPD and chronic hypoxic respiratory failure. 4 lactic acidosis secondary to sepsis and septic shock 5 fibromyalgia 6 compression fracture of thoracic spine had previous kyphoplasty, remains on narcotics for pain control. 7 chronic anemia secondary to chronic disease. 8 generalized anxiety disorder and history of depression. Plan: Continue current medical treatment, continue IV steroids, antibiotics, nebulized bronchodilators. No fever, no chills, no worsening dyspnea, no chest pain no chest congestion or chest wall tenderness. Increase activity as tolerated, a switch to 15 L high flow later on today, continue to follow. I performed a history & physical examination of the patient and discussed their management with my nurse practitioner, diminished breath sounds. The findings and the impression was discussed with the patient. I attest to the documentation by the nurse practitioner. Time with Patient: Less than 30
--- NOTE | 2018-02-07 17:06 | ECHOF ---
Referral Reason:chf MEASUREMENTS -------- HEIGHT: 154.9 cm WEIGHT: 62.6 kg BP: 102/63 IVSd: 1.1 cm (0.6 - 1.1) LVIDd: 3.2 cm (3.9 - 5.3) LVPWd: 1.1 cm (0.6 - 1.1) IVSs: 1.1 cm LVIDs: 1.9 cm LVPWs: 1.1 cm LAESV Index (A-L): 21.22 ml/m Ao Diam: 3.1 cm (2.0 - 3.7) AV Cusp: 1.5 cm (1.5 - 2.6) LA Diam: 2.6 cm (2.7 - 3.8) MV E Dom: 0.84 m/s MV DecT: 299 ms MV A Dom: 0.89 m/s MV E/A Ratio: 0.93 RAP: 5.00 mmHg RVSP: 9.45 mmHg FINDINGS -------- Sinus rhythm. This was a technically adequate study. The left ventricular size is normal. There is borderline concentric left ventricular hypertrophy. Overall left ventricular systolic function is normal with, an EF between 55 - 60 %. The right ventricle is normal in size and function. Normal LA size by volume 22+/-6 ml/m2. The right atrium is normal in size. The aortic valve is trileaflet, and appears structurally normal. No aortic stenosis or regurgitation. The mitral valve is normal. Mild mitral regurgitation is present. Trace tricuspid regurgitation present. Right ventricular systolic pressure is normal at < 35 mmHg. The pulmonic valve was not well visualized. The aortic root size is normal. Normal inferior vena cava with normal inspiratory collapse consistent with estimated right atrial pre ssure of 5 mmHg. There is no pericardial effusion. CONCLUSIONS -------- 1. Sinus rhythm. 2. This was a technically adequate study. 3. The left ventricular size is normal. 4. There is borderline concentric left ventricular hypertrophy. 5. Overall left ventricular systolic function is normal with, an EF between 55 - 60 %. 6. Normal LA size by volume 22+/-6 ml/m2. 7. The aortic valve is trileaflet, and appears structurally normal. No aortic stenosis or regurgitati on. 8. Mild mitral regurgitation is present. 9. Trace tricuspid regurgitation present. 10. Right ventricular systolic pressure is normal at < 35 mmHg. 11. The pulmonic valve was not well visualized. 12. The aortic root size is normal. 13. There is no pericardial effusion. WARE SERVER: Wilmer Pichardo RDCS
[2018-02-07 17:42] LABS: Glucose,Whole Blood 103 mg/dL (75-99)
--- NOTE | 2018-02-07 20:04 | PN ---
PROGRESS NOTE DATE OF SERVICE: 02/07/2018 This 67-year-old woman was admitted with shortness of breath and multilobar pneumonia. She is being closely monitored. The patient is on high-flow oxygen at this time. A 2D echo with Doppler was done which showed ejection fraction about 55% to 60% and no significant valvular abnormalities. No chest pain. No palpitations. No fever. On exam, alert and oriented x3. The pulse is 80, blood pressure 113/58, respiration 20, temperature 97.4, pulse ox 100% on high-flow nasal cannula. HEENT: Conjunctivae normal. Oral mucosa moist. NECK: No jugular venous distention. No carotid bruit. No lymph node enlargement. CARDIOVASCULAR SYSTEM: S1, S2 muffled. RESPIRATORY SYSTEM: Breath sounds diminished at the bases. A few scattered rhonchi and crackles. ABDOMEN: Soft, non-tender. NERVOUS SYSTEM: No focal deficit. LABS: WBC 4.6, hemoglobin 10.4, glucose 148. ASSESSMENT: 1. Multilobar pneumonia with possibly gram-negative organisms with acute hypoxic respiratory failure, on BiPAP and also on high-flow oxygen. 2. Bilateral honeycombing and pulmonary fibrosis with prior history of acute respiratory distress syndrome. 3. Congestive heart failure unlikely. 4. Chronic hypoxic respiratory failure. 5. Underlying chronic obstructive pulmonary disease, pulmonary fibrosis. 6. Hypotensive shock on presentation. 7. Chronic obstructive pulmonary disease, acute exacerbation. 8. History of degenerative joint disease in multiple joints. 9. Gastroesophageal reflux disease. 10.Anxiety, depression. 11.Lactic acidosis. 12.Normocytic anemia. 13.NO CODE, NO CPR, NO VENT. RECOMMENDATIONS AND DISCUSSION: I recommend to continue current medications, continue with the monitoring, symptomatic treatment. Otherwise, 2D echo noted. Ejection fraction is normal. The patient is feeling much better at this time. I would recommend continuing with current medication. BNP is only 1800. Further recommendations to follow. I will repeat a chest x-ray in the morning and re-evaluate. MMODL / IJN: [id number] /
[2018-02-07 20:33] LABS: Glucose,Whole Blood 123 mg/dL (75-99)
[2018-02-07] MEDS: LEVOFLOXACIN 750 MG TAB PO SCH (21:24)
[2018-02-07] MEDS: ZOLPIDEM 5 MG TAB PO SCH (21:25)
[2018-02-08] MEDS: IPRATROPIUM-ALBUTEROL 3 ML NEB INHALATION SCH ×5 (03:34→20:15)
[2018-02-08 03:51] LABS: Glucose,Whole Blood 118 mg/dL (75-99)
[2018-02-08] MEDS: INSULIN ASPART 100 UNIT/ML 1 ML 10 ML VIAL SQ SCH ×5 (04:00→21:30)
[2018-02-08] MEDS: HYDROcodone/APAP 5-325MG 1 EACH TAB PO PRN (06:40)
[2018-02-08] MEDS: ALPRAZolam 0.5 MG TAB PO SCH ×4 (06:42→21:31)
[2018-02-08 07:27] LABS: Anisocytosis Slight; Basophils % (A) 0 %; Eosinophils % (A) 0 %; HCT 33.7 % (34.0-46.0); HGB 10.5 gm/dL (11.4-16.0); Hypochromasia Slight; Lymphocytes # (A) 0.8 k/uL (1.0-4.8); Lymphocytes % (A) 18 %; MCHC 31.1 g/dL (31.0-37.0); MCV 83.6 fL (80.0-100.0); Mean Platelet Volume 8.1; Monocytes # (A) 0.3 k/uL (0-1.0); Monocytes % (A) 6 %; Neutrophils # (A) 3.2 k/uL (1.3-7.7); Neutrophils % (A) 74 %; Platelet Count 154 k/uL (150-450); RBC 4.03 m/uL (3.80-5.40); RDW 18.3 % (11.5-15.5); WBC 4.4 k/uL (3.8-10.6)
[2018-02-08 07:30] LABS: Glucose,Whole Blood 105 mg/dL (75-99)
--- NOTE | 2018-02-08 07:32 | XR ---
EXAMINATION TYPE: XR chest 1V portable DATE OF EXAM: 02/08/2018 CLINICAL HISTORY: Difficulty breathing and CHF progress study. TECHNIQUE: Single AP portable upright view of the chest is obtained. COMPARISON: Chest x-ray from 4 days earlier and older studies. CTA chest from 6 days ago. FINDINGS: Cardiac silhouette size is stable and within normal limits. Retrocardiac opacity consisten t with moderate size hiatal hernia is again seen. Chronic emphysematous change with reticular interst itial fibrosis bilaterally is redemonstrated bilaterally. Improved reticular interstitial opacities b ilaterally are present. No new suspicious focal airspace opacity, pleural effusion, or pneumothorax i s present. Osseous structures remain demineralized. Right-sided volume loss with mediastinal shift is redemonstrated. IMPRESSION: Advanced emphysematous change and bilateral parenchymal fibrosis without acute infiltrate . Interval resolution of mild bilateral interstitial edema noted.
[2018-02-08 07:51] LABS: Anion Gap 7 mmol/L; Blood Urea Nitrogen 22 mg/dL (7-17); Calcium 8.6 mg/dL (8.4-10.2); Carbon Dioxide 32 mmol/L (22-30); Chloride 101 mmol/L (98-107); Glucose 95 mg/dL (74-99); Potassium 4.2 mmol/L (3.5-5.1); Sodium 140 mmol/L (137-145)
[2018-02-08] MEDS: BUDESONIDE 1 MG/2 ML NEBU INHALATION SCH ×2 (09:19→20:15)
[2018-02-08] MEDS: FORMOTEROL FUMARATE 20 MCG/2 ML NEBU INHALATION SCH ×2 (09:20→20:15)
[2018-02-08] MEDS: SODIUM BICARBONATE TAB 650 MG TAB PO SCH ×3 (10:21→21:32)
[2018-02-08] MEDS: guaiFENesin 600 MG TABLET.ER PO SCH ×2 (10:21→21:30)
[2018-02-08] MEDS: PARoxetine 20 MG TAB PO SCH (10:21)
[2018-02-08] MEDS: ENOXAPARIN 40 MG/0.4 ML SYRINGE SQ SCH (10:21)
[2018-02-08] MEDS: PANTOPRAZOLE 40 MG TABLET PO SCH (10:21)
[2018-02-08] MEDS: methylPREDNISolone SOD SUCCI 40 MG/ML 1 ML VIAL IV SCH ×2 (10:22→21:31)
[2018-02-08] MEDS: METHYL SALICYLATE/MENTHOL CREAM 5 OZ TOPICAL SCH ×4 (10:22→21:32)
[2018-02-08 11:30] LABS: Glucose,Whole Blood 100 mg/dL (75-99)
--- NOTE | 2018-02-08 14:27 | P.PN ---
Subjective Progress Note Date: 02/08/18 Principal diagnosis: Acute on chronic hypoxic respiratory failure secondary to an acute left lung pneumonia superimposed on interstitial lung disease/pulmonary fibrosis 67-year-old female patient with known history of advanced COPD and chronic hypoxic respiratory failure, oxygen dependent, was feeling poorly over the past few days and the patient presented to the emergency department having worsening cough, shortness of breath and she was obviously desaturating and her pulse ox was in the low 70s at time of arrival to the emergency department. Denies having any pleuritic chest pain. Denies having any fever or chills. No nausea. No vomiting. No mentation. No swelling in lower extremities. In the ED, the patient a chest x-ray that showed extensive left lung pneumonia/ consolidation. The patient's was placed on a BiPAP. The patient was given a combination of bronchodilators and systemic steroids. She was given Rocephin and Zithromax. Following that the patient was admitted to the intensive care unit. Her white cell count was at 10.4. Creatinine was 1.1. The patient had lactic acid level of 3.4. In the ICU, the patient continued to be on a BiPAP. Her antibiotics were switched to a combination of Zosyn and Levaquin. He was kept on a combination of bronchodilators and systemic steroids. She also received IV fluids and currently she is on 75 mL an hour. She is on normal saline infusion. Her subsequent lactic acid level is up to 4.0. The patient was given a total of 2 and a half liters of IV fluid in the form of normal saline. The patient was placed on a BiPAP at a pressure of 10/5 with an FiO2 of 50%. She is also on 2 mics of the levo fed for hemodynamic support. She is producing good urine output in the order of 30-40 mL an hour. She is a bit anxious. An attempt was done to take her off the BiPAP this morning yet she failed due to desaturation the patient had a BiPAP back This patient has advanced oxygen-dependent COPD and she is typically on feeds of oxygen by nasal cannula. She has a complicated history of COPD and recurrent pneumonias. Back in 2010, the patient extensive right lung pneumonia that was Again by empyema requiring decortication. The patient another bout of pneumonia 2012 during which she was intubated and placed on a mechanical ventilator and she had ARDS. Since then she had quit smoking. She has been maintained on a combination of Spiriva, Symbicort and a distal solution as needed basis and she is also on prior rescue inhaler when necessary. She has chronic anxiety and depression. She is on a combination of Zoloft and Xanax in addition. Her condition is been progressively getting more debilitated. The patient's easily periodically in the office. She also has compression fractures of the thoracic spine and she has been seen by spine surgery and she is on a candidate for any surgical intervention this point in time. On 02/01/2018 the patient's condition essentially unchanged compared to yesterday. She still short of breath via much BiPAP dependent at a pressure of 10/5 with an FiO2 of 50%. Earlier this morning she was tried on a nasal cannula however she became quite anxious and panicky. Based on that she was placed back on the BiPAP machine. Her chest x-ray still unchanged with bilateral pulmonary infiltrates left more than right. She remains in the same antibiotic coverage. She is on examination Zosyn and Levaquin. She'll IV Solu- Medrol. She is also on bronchodilators around the clock. As for the anxiety treatment, the patient a combination of Zoloft and Xanax and she is less panicky and anxious compared to yesterday. No fever. No chills. The white cell count was at 7.5. Earlier this morning her hemoglobin came back at 6.9 and she did not demonstrate any signs of bleeding. She was given a unit of packed RBC. Renal function is within normal limits. On 02/03/2008 and a significant lesion for a follow-up. No major improvement in her overall pulmonary status. Still on BiPAP at a pressure of 10/5 cm of water and FiO2 of 50%. Unable to get her off the BiPAP. Chest x-ray findings are essentially unchanged. Based on that, I ordered a CT angios the chest in reviewing the films shows no evidence of any pulmonary embolism. The patient has end-stage lung disease with severe emphysema throughout the lung uriostegui bilaterally and chronic scarring in the lung bases with some limited honeycombing. There may be some areas of interstitial pneumonias superimposed on top of chronic lung disease. Today's level is at 7.7. She is afebrile. She is hemodynamically stable. No signs of any significant fluid overload. No altered mentation. She remains on examination Zosyn and Levaquin. She is on IV Solu Medrol. She is on DuoNeb nebulized treatments on the clock. No nausea. No vomiting. She is anxious and she is on a combination of Zoloft and Xanax. The patient was started also on [place] for chronic pain and compression fracture of the spine. No agitation. is at the bedside. Reevaluated again on 02/03/2018, patient remains on high flow airvo, felt better with high flow rather than BiPAP. Chest x-ray continues to show significant lung disease, and again suspect some component of pneumonitis involving the left lung. Patient is known to have end-stage COPD plus pulmonary fibrosis related to previous ARDS, and in addition to all of this were dealing with extensive left-sided pneumonia. Remains on antibiotics in the form of Zosyn and Levaquin, she is also on IV Solu-Medrol, and updrafts. He has mostly significant pain related to her compression fractures. is at bedside, touch bases on CODE STATUS, patient does not want to be on life support machine. Hence she is DO NOT RESUSCITATE, DO NOT INTUBATE. CBC continues to show relatively low hemoglobin of 7.9. Electrolytes and the a profile are normal. Reevaluated today on 02/04/2018, remains on high flow oxygen, airvo at 5 0 L/m. Patient is feeling better clinically, and her chest x-ray is surprisingly showing some improvement in her left sided pneumonia. However she continues to have significant fibrotic changes in both lungs especially in the left lung. Symptoms [place] the patient is feeling better. All labs were reviewed including basic metabolic profile and CBC. Hemoglobin is 8.3. Patient remains on antibiotics, steroids, and bronchodilators. Pain seems to be also better controlled from her compression fracture of the spine. is at bedside, and discussed her condition again. Patient clearly wishes to be DO NOT RESUSCITATE. On 02/05/2018 patient remains on AIRVO at 55 liters, and FiO2 of 50%. Lung sounds reveal scattered crackles, significant chest congestion, no cough, or phlegm production. No fever or chills, blood cultures are negative. Yesterday' s chest x-ray showed some mild interstitial edema, chronic emphysematous changes , and bilateral pulmonary parenchymal fibrosis. Patient continues on antibiotic coverage in the form of Levaquin. She is on IV steroids, and nebulized bronchodilators. Try to wean the oxygen The patient is seen again today 02/06/2018 in follow-up on the oncology unit. She is currently awake and alert in no acute distress. She's getting stronger each day. She is still requiring the AirVo currently at 45 L and FiO2 of 45%. She does get tired at times and intermittently is using the BiPAP as well. Blood cultures reveal no growth. Sodium 142. Potassium 4.1. Bicarb 33. Creatinine 0.69. On 02/07/2018 patient seen in follow-up on medical surgical floor. In no acute distress, still requiring AIRVO, currently at 30 l/min, and Fio2 40%. Afebrile , hemodynamically stable, no worsening dyspnea, remains on IV Solu-Medrol 40 mg every 12 hours, and antibiotics. Clinically she is improving, we'll continue to wean FiO2, cultures remain negative. Today's blood work has been reviewed, showed a PVC of 4.6, hemoglobin of 10.4, electrolytes and renal profile are relatively unremarkable. The patient is seen again today 02/08/2018 in follow-up on the oncology unit. She is awake and alert in no acute distress. She is getting stronger every day. She's been up ambulating with assistance. She is now down to 10 L high flow nasal cannula. Currently off the AirVo. Today's chest x-ray shows advanced emphysematous change and bilateral parenchymal fibrosis without acute infiltrate. There is been interval resolution of the mild bilateral interstitial edema. Blood culture reveals no growth. White count 4.4. Hemoglobin 10.5. Creatinine 0.76. Objective - Vital Signs Vital signs: Vital Signs Temp 98 F 02/08/18 12:45 Pulse 85 02/08/18 13:10 Resp 17 02/08/18 12:45 BP 115/64 02/08/18 12:45 Pulse Ox 98 02/08/18 12:45 Intake & Output 02/07/18 02/08/18 02/08/18 18:59 06:59 18:59 Intake Total 450 Balance 450 Weight 62.6 kg Intake: Oral 450 Other: Voiding Method Bedside Commode # Voids 2 3 2 # Bowel Movements 1 - Exam GENERAL EXAM: Alert, fairly comfortable in no apparent distress. Currently off the AirVo and the BiPAP. On 10 L high flow nasal cannula now. HEAD: Normocephalic. EYES: Normal reaction of pupils, equal size. NOSE: Clear with pink turbinates. THROAT: No erythema or exudates. NECK: No masses, no JVD. CHEST: No chest wall deformity. LUNGS: Equal air entry with bilateral end expiratory wheeze, diminished throughout. CVS: S1 and S2 normal with no audible murmur, regular rhythm. ABDOMEN: No hepatosplenomegaly, normal bowel sounds, no guarding or rigidity. SPINE: No scoliosis or deformity SKIN: No rashes CENTRAL NERVOUS SYSTEM: No focal deficits, tone is normal in all 4 extremities. EXTREMITIES: There is no peripheral edema. No clubbing, no cyanosis. Peripheral pulses are intact. - Labs CBC & Chem 7: 02/08/18 06:25 02/08/18 06:25 Labs: Abnormal Lab Results - Last 24 Hours (Table) 02/07/18 02/07/18 02/08/18 Range/Units 17:30 20:28 03:40 Hgb (11.4-16.0) gm/dL Hct (34.0-46.0) % RDW (11.5-15.5) % Lymphocytes # (1.0-4.8) k/uL Carbon Dioxide (22-30) mmol/L BUN (7-17) mg/dL POC Glucose (mg/dL) 103 H 123 H 118 H (75-99) mg/dL 02/08/18 02/08/18 02/08/18 Range/Units 06:25 06:25 07:29 Hgb 10.5 L (11.4-16.0) gm/dL Hct 33.7 L (34.0-46.0) % RDW 18.3 H (11.5-15.5) % Lymphocytes # 0.8 L (1.0-4.8) k/uL Carbon Dioxide 32 H (22-30) mmol/L BUN 22 H (7-17) mg/dL POC Glucose (mg/dL) 105 H (75-99) mg/dL 02/08/18 Range/Units 11:29 Hgb (11.4-16.0) gm/dL Hct (34.0-46.0) % RDW (11.5-15.5) % Lymphocytes # (1.0-4.8) k/uL Carbon Dioxide (22-30) mmol/L BUN (7-17) mg/dL POC Glucose (mg/dL) 100 H (75-99) mg/dL Assessment and Plan Assessment: Impression: 1 acute on chronic hypoxic respiratory failure, multifactorial, secondary to end -stage COPD, chronic interstitial lung disease, related to previous ARDS, left sided pneumonia/community-acquired, 2 acute septic shock secondary to pneumonia off pressors at present. 3 severe underlying COPD and chronic hypoxic respiratory failure. 4 lactic acidosis secondary to sepsis and septic shock 5 fibromyalgia 6 compression fracture of thoracic spine had previous kyphoplasty, remains on narcotics for pain control. 7 chronic anemia secondary to chronic disease. 8 generalized anxiety disorder and history of depression. Plan: The patient was seen and evaluated by Dr. Plaza. Chest x-ray and labs reviewed. X-ray is improving. Clinically she is improving. Continuing to decrease the FiO2 as tolerated and she is currently at 10 L high flow nasal cannula. Increase her activity as tolerated. Continue current medications. We 'll continue to follow. I, the cosigning physician, performed a history & physical examination of the patient. Lungs sounds with bilateral end expiratory wheeze diminished. Maintaining good O2 saturations in the 90s on 10 L high flow nasal cannula. I discussed the assessment and plan of care with my nurse practitioner, Kendra Kamara. I attest to the above note as dictated by her.
[2018-02-08 17:12] LABS: Glucose,Whole Blood 145 mg/dL (75-99)
[2018-02-08 20:15] LABS: Glucose,Whole Blood 142 mg/dL (75-99)
--- NOTE | 2018-02-08 20:47 | PN ---
PROGRESS NOTE DATE OF SERVICE: 02/08/2018 This 67-year-old woman was admitted with multilobar pneumonia, also is on high- flow oxygen. The oxygen has been tapered. No chest pain. No palpitations. No fever. EXAM: Alert and oriented x3. Pulse is 84, blood pressure 170/81, respiration 17, temperature 97.4, pulse ox 98% on 2 L high flow nasal cannula. HEENT: Conjunctivae normal. Oral mucosa moist. NECK: No jugular venous distention. No carotid bruit. No lymph node enlargement. Cardiovascular: S1, S2 muffled. Respiratory: Breath sounds diminished in the bases. A few scattered rhonchi and crackles. Abdomen is soft, nontender. No mass palpable. Legs are no edema. No swelling. Central nervous system: No focal deficits. LABS: WBC 4.2, hemoglobin 10.5. Glucose is 145. ASSESSMENT: 1. Multilobar pneumonia with possibly gram-negative organisms with acute hypoxic respiratory failure on BiPAP, also on high-flow oxygen. 2. Bilateral honeycombing and pulmonary fibrosis with prior history of ARDS. 3. Congestive heart failure, unlikely. 4. Chronic hypoxic respiratory failure. 5. Underlying chronic obstructive pulmonary disease, pulmonary fibrosis, hypovolemic shock on presentation. 6. Chronic obstructive pulmonary disease acute exacerbation. 7. History of degenerative joint disease. 8. History of gastroesophageal reflux disease. 9. History of anxiety, depression. 10.Lactic acidosis. 11.Normocytic anemia. 12.NO CODE, NO CPR, NO VENT. RECOMMENDATIONS AND DISCUSSION: Recommend to continue current medications, continue to monitor. Symptomatic treatment. Otherwise at this time, we will continue to monitor. 2D echo with Doppler is reported as normal. Ejection fraction 50-60 percent. We will continue to monitor and once the oxygen is tapered off the patient could be discharged home. We will follow closely with Dr. Plaza. Further recommendations to follow. MMODL / IJN: [id number] / MTDD
[2018-02-08 21:23] VITALS: RESP 16
[2018-02-08] MEDS: LEVOFLOXACIN 750 MG TAB PO SCH (21:31)
[2018-02-08] MEDS: ZOLPIDEM 5 MG TAB PO SCH (21:31)
[2018-02-09] MEDS: IPRATROPIUM-ALBUTEROL 3 ML NEB INHALATION SCH ×4 (00:18→11:30)
[2018-02-09 02:05] LABS: Glucose,Whole Blood 154 mg/dL (75-99)
[2018-02-09] MEDS: INSULIN ASPART 100 UNIT/ML 1 ML 10 ML VIAL SQ SCH ×3 (02:08→11:54)
[2018-02-09 06:29] VITALS: BP 99/67; TEMP 97.8
[2018-02-09 07:23] LABS: Glucose,Whole Blood 103 mg/dL (75-99)
[2018-02-09] MEDS: FORMOTEROL FUMARATE 20 MCG/2 ML NEBU INHALATION SCH (07:49)
[2018-02-09] MEDS: BUDESONIDE 1 MG/2 ML NEBU INHALATION SCH (07:49)
[2018-02-09] MEDS: METHYL SALICYLATE/MENTHOL CREAM 5 OZ TOPICAL SCH ×2 (08:09→11:59)
[2018-02-09] MEDS: PANTOPRAZOLE 40 MG TABLET PO SCH (08:14)
[2018-02-09] MEDS: PARoxetine 20 MG TAB PO SCH (08:14)
[2018-02-09] MEDS: guaiFENesin 600 MG TABLET.ER PO SCH (08:14)
[2018-02-09] MEDS: SODIUM BICARBONATE TAB 650 MG TAB PO SCH (08:14)
[2018-02-09] MEDS: ENOXAPARIN 40 MG/0.4 ML SYRINGE SQ SCH (08:14)
[2018-02-09] MEDS: methylPREDNISolone SOD SUCCI 40 MG/ML 1 ML VIAL IV SCH (08:15)
[2018-02-09] MEDS: ALPRAZolam 0.5 MG TAB PO SCH ×2 (08:17→12:13)
[2018-02-09 08:31] LABS: Anisocytosis Slight; Basophils % (A) 0 %; Eosinophils % (A) 0 %; HCT 34.5 % (34.0-46.0); HGB 10.8 gm/dL (11.4-16.0); Hypochromasia Marked; Lymphocytes # (A) 1.2 k/uL (1.0-4.8); Lymphocytes % (A) 19 %; MCH 26.8 pg (25.0-35.0); MCHC 31.4 g/dL (31.0-37.0); MCV 85.4 fL (80.0-100.0); Monocytes # (A) 0.5 k/uL (0-1.0); Monocytes % (A) 7 %; Neutrophils # (A) 4.7 k/uL (1.3-7.7); Neutrophils % (A) 72 %; Platelet Count 166 k/uL (150-450); RBC 4.04 m/uL (3.80-5.40); RDW 18.1 % (11.5-15.5); WBC 6.6 k/uL (3.8-10.6)
[2018-02-09 09:14] LABS: Anion Gap 10 mmol/L; Blood Urea Nitrogen 19 mg/dL (7-17); Calcium 8.8 mg/dL (8.4-10.2); Carbon Dioxide 27 mmol/L (22-30); Chloride 104 mmol/L (98-107); Glucose 83 mg/dL (74-99); Potassium 4.4 mmol/L (3.5-5.1); Sodium 141 mmol/L (137-145)
[2018-02-09 11:26] LABS: Glucose,Whole Blood 101 mg/dL (75-99)
[2018-02-09 11:33] VITALS: PULSE 82
[2018-02-09] MEDS ORDERED: predniSONE 10 MG TAB PO SCH (11:45)
--- NOTE | 2018-02-09 14:31 | P.PN ---
Subjective Progress Note Date: 02/09/18 Principal diagnosis: Acute on chronic hypoxic respiratory failure secondary to acute left lung pneumonia superimposed on interstitial lung disease/pulmonary fibrosis. 67-year-old female patient with known history of advanced COPD and chronic hypoxic respiratory failure, oxygen dependent, was feeling poorly over the past few days and the patient presented to the emergency department having worsening cough, shortness of breath and she was obviously desaturating and her pulse ox was in the low 70s at time of arrival to the emergency department. Denies having any pleuritic chest pain. Denies having any fever or chills. No nausea. No vomiting. No mentation. No swelling in lower extremities. In the ED, the patient a chest x-ray that showed extensive left lung pneumonia/ consolidation. The patient's was placed on a BiPAP. The patient was given a combination of bronchodilators and systemic steroids. She was given Rocephin and Zithromax. Following that the patient was admitted to the intensive care unit. Her white cell count was at 10.4. Creatinine was 1.1. The patient had lactic acid level of 3.4. In the ICU, the patient continued to be on a BiPAP. Her antibiotics were switched to a combination of Zosyn and Levaquin. He was kept on a combination of bronchodilators and systemic steroids. She also received IV fluids and currently she is on 75 mL an hour. She is on normal saline infusion. Her subsequent lactic acid level is up to 4.0. The patient was given a total of 2 and a half liters of IV fluid in the form of normal saline. The patient was placed on a BiPAP at a pressure of 10/5 with an FiO2 of 50%. She is also on 2 mics of the levo fed for hemodynamic support. She is producing good urine output in the order of 30-40 mL an hour. She is a bit anxious. An attempt was done to take her off the BiPAP this morning yet she failed due to desaturation the patient had a BiPAP back This patient has advanced oxygen-dependent COPD and she is typically on feeds of oxygen by nasal cannula. She has a complicated history of COPD and recurrent pneumonias. Back in 2010, the patient extensive right lung pneumonia that was Again by empyema requiring decortication. The patient another bout of pneumonia 2012 during which she was intubated and placed on a mechanical ventilator and she had ARDS. Since then she had quit smoking. She has been maintained on a combination of Spiriva, Symbicort and a distal solution as needed basis and she is also on prior rescue inhaler when necessary. She has chronic anxiety and depression. She is on a combination of Zoloft and Xanax in addition. Her condition is been progressively getting more debilitated. The patient's easily periodically in the office. She also has compression fractures of the thoracic spine and she has been seen by spine surgery and she is on a candidate for any surgical intervention this point in time. On 02/09/2018, patient is doing well, she is done on 5 L nasal cannula, and this is basically what she takes at home. Her saturations are in the high 90s on 5 L, patient would like to go home. Hence I have cleared the patient to be discharged home today. Patient is relatively asymptomatic and she tells me that she is definitely back and may be better than her baseline. Objective - Vital Signs Vital signs: Vital Signs Temp 97.8 F 02/09/18 05:00 Pulse 82 02/09/18 11:41 Resp 16 02/09/18 05:00 BP 99/67 02/09/18 05:00 Pulse Ox 95 02/09/18 05:00 Intake & Output 02/08/18 02/09/18 02/09/18 18:59 06:59 18:59 Intake Total 75 Balance 75 Intake: Oral 75 Other: Voiding Method Bedside Commode Bedside Commode Bedside Commode # Voids 2 1 4 - Exam Physical Exam: Revealed a 67-year-old, frail looking, on 5 L nasal cannula, in no distress. Head: Slightly cushingoid, atraumatic, normocephalic. HEENT:[Neck is supple.] [No neck masses.] [No thyromegaly.] [No JVD.] Chest: [Clear breath sounds bilaterally, minimal crackles at the left base, no rhonchi no wheezes. Cardiac Exam: [Normal S1 and S2, no S3 gallop, no murmur.] Abdomen: [Soft, nontender, no megaly, no rebound, no guarding, normal bowel sounds.] Extremities: [Positive clubbing, no edema, no cyanosis.] Neurological Exam: [No focal neurologic deficit.] Psychiatric: Normal mood, affect and mental status examination. Skin: No rashes. - Labs CBC & Chem 7: 02/09/18 07:45 02/09/18 07:45 Labs: Abnormal Lab Results - Last 24 Hours (Table) 02/08/18 02/08/18 02/09/18 Range/Units 17:11 20:14 02:02 Hgb (11.4-16.0) gm/dL RDW (11.5-15.5) % BUN (7-17) mg/dL POC Glucose (mg/dL) 145 H 142 H 154 H (75-99) mg/dL 02/09/18 02/09/18 02/09/18 Range/Units 07:22 07:45 07:45 Hgb 10.8 L (11.4-16.0) gm/dL RDW 18.1 H (11.5-15.5) % BUN 19 H (7-17) mg/dL POC Glucose (mg/dL) 103 H (75-99) mg/dL 02/09/18 Range/Units 11:24 Hgb (11.4-16.0) gm/dL RDW (11.5-15.5) % BUN (7-17) mg/dL POC Glucose (mg/dL) 101 H (75-99) mg/dL Assessment and Plan Assessment: 1 acute on chronic hypoxic respiratory failure, multifactorial, secondary to end -stage COPD, chronic interstitial lung disease, related to previous ARDS, left sided pneumonia/community-acquired, 2 acute septic shock secondary to pneumonia off pressors at present. 3 severe underlying COPD and chronic hypoxic respiratory failure. 4 lactic acidosis secondary to sepsis and septic shock 5 fibromyalgia 6 compression fracture of thoracic spine had previous kyphoplasty, remains on narcotics for pain control. 7 chronic anemia secondary to chronic disease. 8 generalized anxiety disorder and history of depression. Recommendation: Patient is doing much better today, she is back to her baseline on 5 L of oxygen, asymptomatic, O2 saturation is in the mid 90s, hence I will clear the patient for discharge today and follow-up with Dr. Sierra next week. Time with Patient: Less than 30
--- NOTE | 2018-02-09 14:42 | DS ---
DISCHARGE SUMMARY DATE OF SERVICE: 02/09/2018 FINAL DIAGNOSES: 1. Multilobar pneumonia with possibly gram-negative organisms with acute hypoxic respiratory failure status post BiPAP and also high-flow oxygen. 2. Bilateral honeycombing and pulmonary fibrosis with prior history of ARDS. 3. Congestive heart failure, unlikely. 4. Chronic hypoxic respiratory failure. 5. Underlying COPD, pulmonary fibrosis, and hypovolemic shock on presentation. 6. Chronic obstructive pulmonary disease acute exacerbation. 7. History of degenerative joint disease. 8. History of gastroesophageal reflux disease. 9. History of anxiety, depression. 10.Lactic acidosis. 11.Normocytic anemia. 12.NO CODE, NO CPR, NO VENT. DISCHARGE DISPOSITION: The patient will be discharged in stable condition with guarded prognosis. HISTORY OF PRESENT ILLNESS: This 67-year-old woman with a past multiple medical problems, being followed by Dr. Bar in the outpatient setting was admitted with multilobar pneumonia, respiratory failure, multiple medical issues as mentioned, treated with bronchodilators, antibiotics. Patient improved significantly. Dr. Plaza saw the patient. On exam, vital signs stable. Cardiovascular: S1, S2. Respirations: A few scattered rhonchi. Abdomen is soft. Central nervous system: No focal deficits. The patient has been tapered off the high-flow oxygen. The patient will be discharged in stable condition. DISCHARGE ADVICE AND MEDICATIONS: 1. Diet is cardiac diet. 2. Follow up with Dr. Bar in 2-3 days. 3. Follow up with Dr. Plaza as advised. MEDICATIONS: Medications are as follows: 1. Albuterol updrafts q.i.d. and p.r.n. 2. Xanax 0.5 p.o. q.i.d. 3. Symbicort 160/4.5 2 puffs daily. 4. Protonix 40 mg. 5. Zoloft 150 mg p.o. daily. 6. Spiriva 1 puff daily. 7. Ventolin p.r.n. 8. Mucinex 1200 mg p.o. b.i.d. 9. Levaquin 750 mg q.h.s. 10.Prednisone is 40 mg daily for 3 days, 30 for 3 days, 20 for three days, 10 for three days and stop. MMODL / IJN: [id number] /
--- NOTE | 2018-02-10 13:11 | CDI ---
Last Revision, February 2017 Documentation Clarification Form Date: 02/10/18 From: BÁRBARA Hyde Phone: If you have question, contact Tamra De La Garza at [phone] M-F 8:30 am to 6pm Admit Date: 01/30/2018 5:38:00 PM Patient Name: Rachana Zamarripa Visit Number: [id number] Discharge Date: 02/09/18 ATTENTION: The Clinical Documentation Specialists (CDI) and [facility] Coding Staff appreciate your assistance in clarifying documentation. Please respond to the clarification below the line at the bottom and electronically sign. The CDI & [facility] Coding staff will review the response and follow-up if needed. Please note: Queries are made part of the Legal Health Record. If you have any questions, please contact the author of this message via ITS. Dave Brenner MD Conflicting documentation has been found in the medical record. Sepsis and septic shock are documented throughout the account, starting on the consult from 01/31, hypotension, likely secondary to pneumonia/septic shock; lactic acidosis secondary to pneumonia/septic shock Neither sepsis nor septic shock are documented though on the discharge summary nor on your final progress note dated 02/08. The shock instead is documented as hypovolemic. Final progress note from Dr. Plaza states acute septic shock secondary to pneumonia. Vitals on admission: T98.8, P 112, RR 32, BP 100/61, WBC 10.4, Lactic acidosis In your opinion what is the most clinically appropriate diagnosis for this patient? Sepsis/septic shock, ruled in and POA Sepsis/septic shock ruled in and not POA Sepsis/septic shock ruled out Other explanation of clinical findings Unable to determine (no explanation for clinical findings) pneumonia with acute septic shock and severe sepsis MTDD
== END 2018-02-09 14:40 | disposition home or self-care (01) | DRG 871 ==
LOC: EC 15:59 → 2SICU 17:38 → 3NMEDONC 02-04 19:53
PROVIDERS: ADMIT Hospitalist; ATTEND Hospitalist
PROC: 5A09557 Assistance with Respiratory Ventilation, Greater than 96 Consecutive Hours, Continuous Positive Airway Pressure (ICD-10-PCS; principal; 2018-01-30)
DX: A41.50 Gram-negative sepsis, unspecified (principal); R65.21 Severe sepsis with septic shock; J96.21 Acute and chronic respiratory failure with hypoxia; J15.6 Pneumonia due to other Gram-negative bacteria; J44.0 Chronic obstructive pulmonary disease with (acute) lower respiratory infection; J44.1 Chronic obstructive pulmonary disease with (acute) exacerbation; E87.2 Acidosis; M79.7 Fibromyalgia; F32.9 Major depressive disorder, single episode, unspecified; F41.1 Generalized anxiety disorder; D63.8 Anemia in other chronic diseases classified elsewhere; E03.9 Hypothyroidism, unspecified; J84.10 Pulmonary fibrosis, unspecified; Z66 Do not resuscitate; K21.9 Gastro-esophageal reflux disease without esophagitis; K44.9 Diaphragmatic hernia without obstruction or gangrene; R32 Unspecified urinary incontinence; M15.9 Polyosteoarthritis, unspecified; Z87.891 Personal history of nicotine dependence; Z87.01 Personal history of pneumonia (recurrent); Z99.81 Dependence on supplemental oxygen; Z90.710 Acquired absence of both cervix and uterus; Z98.1 Arthrodesis status; Z79.899 Other long term (current) drug therapy; Z79.51 Long term (current) use of inhaled steroids; Z98.890 Other specified postprocedural states; Z83.3 Family history of diabetes mellitus; Z80.0 Family history of malignant neoplasm of digestive organs; Z88.8 Allergy status to other drugs, medicaments and biological substances; Z91.048 Other nonmedicinal substance allergy status
CPT/HCPCS: 36415; 36600; 51702; 71045; 71275; 80048; 80053; 82550; 82553; 82805; 83036; 83605; 83735; 83880; 84100; 84132; 84484; 85025; 85610; 85730; 86850; 86900; 86901; 86920; 87040; 87449; 87502; 93005; 93306; 94640; 94660; 94760; 96365; 96367; 96375; 99291

== ENCOUNTER 2018-05-29 14:03 | Inpatient (IN) | payer MEDICARE, BC ==
[2018-05-29] MEDS ORDERED: SODIUM CHLORIDE 0.9% 1,000 ML IV STA (14:07)
[2018-05-29] MEDS ORDERED: ALBUTEROL NEBULIZED 2.5 MG/3 ML INHALATION STA (14:07)
[2018-05-29] MEDS ORDERED: IPRATROPIUM 0.5 MG/2.5 ML NEBU INHALATION STA (14:07)
[2018-05-29] MEDS ORDERED: methylPREDNISolone SOD SUCCI 125 MG/2 ML VIAL IV STA (14:07)
[2018-05-29] MEDS ORDERED: cefTRIAXone IN SWFI 1,000 MG/10 ML SYRINGE IVP STA (14:10)
--- NOTE | 2018-05-29 14:31 | ED ---
General Adult HPI - General Stated complaint: Altered mental status Time Seen by Provider: 05/29/18 14:04 Source: patient, EMS, RN notes reviewed, old records reviewed Mode of arrival: EMS Limitations: no limitations - History of Present Illness Initial comments: 67-year-old female history of COPD on home oxygen presents with increased lethargy, confusion. Patient was noted yesterday evening to be in her normal state of health by her daughter. Found this morning to be somewhat lethargic, pale, dehydrated. She's had significant diarrhea over the past 12 hours. She does report some episodes of vomiting. History is somewhat limited given the patient's initial presentation. She denies any chest pain. She does report some moderate dyspnea and cough. She reports chronic low back pain which is unchanged in character. Further history will be obtained from the patient's daughter. - Related Data Home Medications Medication Instructions Recorded Confirmed Albuterol Sulfate [Proair Hfa] 2 puff INHALATION RT-Q6H PRN 08/05/13 05/29/18 Sertraline [Zoloft] 200 mg PO DAILY 08/05/13 05/29/18 ALPRAZolam [Xanax] 0.5 mg PO QID PRN 01/30/18 05/29/18 Budesonide/Formoterol Fumarate 2 puff INHALATION RT-DAILY 01/30/18 05/29/18 [Symbicort 160-4.5 Mcg Inhaler] Tiotropium [place] [Spiriva] 1 puff INHALATION RT-DAILY 01/30/18 05/29/18 Albuterol Nebulized [Ventolin 2.5 mg INHALATION RT-Q6H PRN 05/29/18 05/29/18 Nebulized] Hydrocodone/Acetaminophen [Coleman 1 tab PO Q6H PRN 05/29/18 05/29/18 10-325] predniSONE See Taper PO DIRECTED 05/29/18 05/29/18 Allergies Allergy/AdvReac Type Severity Reaction Status Date / Time adhesive AdvReac Unknown Verified 05/29/18 15:37 bupropion HCl AdvReac Unknown Verified 05/29/18 15:37 [From Wellbutrin] Review of Systems ROS Statement: Those systems with pertinent positive or pertinent negative responses have been documented in the HPI. ROS Other: All systems not noted in ROS Statement are negative. Past Medical History Past Medical History: COPD, Fibromyalgia, GERD/Reflux, Osteoarthritis (OA), Pneumonia, Thyroid Disorder Additional Past Medical History / Comment(s): COPD, chronic hypoxic arrest 30 failure, fibromyalgia, acid reflux, hypothyroidism, osteoarthritis, compression fracture of the T-spine, previous kyphoplasty, previous history of recurrent pneumonias requiring decortication for empyema and previous history of ARDS secondary to pneumonia, hiatal hernia, generalized anxiety disorder/depression History of Any Multi-Drug Resistant Organisms: None Reported Past Surgical History: Back Surgery, Hysterectomy Additional Past Surgical History / Comment(s): X3 BACK SX -FUSIONS( HX FX VERTEBRE), SX TO REMOVE EMPYEMA via a VATS and decortication. She has also had multiple bronchoscopies in the past. She has also received lumbar epidural steroid injection under fluoroscopic guidance. Past Anesthesia/Blood Transfusion Reactions: Motion Sickness Additional Past Anesthesia/Blood Transfusion Reaction / Comment(s): BLOOD TRANSFUSION Past Psychological History: Anxiety, Depression Smoking Status: Former smoker Past Alcohol Use History: None Reported Past Drug Use History: None Reported - Past Family History Father Family Medical History: Diabetes Mellitus Additional Family Medical History / Comment(s): AGE 61 THATS ALL PT KNOWS Mother Family Medical History: Cancer, Dementia Additional Family Medical History / Comment(s): AGE 80, RECTAL [place] General Exam Limitations: no limitations General appearance: lethargic, in distress Head exam: Present: atraumatic, normocephalic Eye exam: Present: PERRL, EOMI. Absent: periorbital swelling, periorbital tenderness ENT exam: Present: mucous membranes dry Neck exam: Present: normal inspection, full ROM. Absent: tenderness, meningismus Respiratory exam: Present: respiratory distress, wheezes, rhonchi, chest wall tenderness, decreased breath sounds Cardiovascular Exam: Present: normal rhythm, tachycardia GI/Abdominal exam: Present: soft. Absent: distended, tenderness, guarding, rebound, rigid Extremities exam: Present: normal inspection, normal capillary refill. Absent: pedal edema Neurological exam: Present: alert, oriented X3. Absent: motor sensory deficit Skin exam: Present: warm, pallor. Absent: cyanosis, diaphoretic Course Vital Signs 05/29/18 05/29/18 05/29/18 14:13 14:30 14:49 Temperature 97.3 F L Pulse Rate 104 H 102 H 102 H Respiratory 26 H Rate Blood Pressure 86/43 94/46 O2 Sat by Pulse 97 96 Oximetry 05/29/18 15:00 Temperature Pulse Rate 87 Respiratory Rate Blood Pressure 100/69 O2 Sat by Pulse 92 L Oximetry - Reevaluation(s) Reevaluation #1: 05/29/18 16:02 Patient reevaluated, vital signs improved, she is alert, nonfocal neurologic exam, responded to IV fluids and bronchodilators. EKG Findings - EKG Comments: EKG Findings:: EKG: Normal sinus rhythm, rate of 100, there is some artifact in V3 and fine tremor, no definitive signs of ischemia, no ST segment elevation, MO interval 174, QRS duration 80, QTc 469 Medical Decision Making - Medical Decision Making 59-year-old female presenting with lethargy, confusion, moderate respiratory distress and complaining of vomiting and diarrhea. Patient appears quite ill on initial evaluation, patient will, very dry mucous membranes, moderate respiratory distress with decreased air entry, wheezing bilaterally. Workup and treatment is initiated emergency department. Patient has chest x-ray which shows ulnar fibrosis, U IP, COPD. She has significantly elevated white blood cell count 24.6, hemoglobin is 10.3, creatinine is double from baseline of 1.32. Lactic acid normal 1.9. Venous pH is 7.32. She is influenza negative. Urinalysis shows 31 red cells, 6 white cells. She has a mild troponin elevation 0.145, no complaint of chest pain, EKG is nonischemic. Maureen is likely related to demand and hypoxia rather than acute [place]. This level will be trended. C. difficile has been ordered, all awaiting stool sample given the history of significant diarrhea. She will be continued on IV hydration, given IV antibiotics and will be admitted for close monitoring. Case discussed with Dr. Gordon, and Dr. Bhatia, will be admitted to the ICU. - Lab Data Result diagrams: 05/29/18 14:30 05/29/18 14:30 Lab Results 05/29/18 05/29/18 05/29/18 Range/Units 14:30 14:30 14:30 WBC 24.6 H (3.8-10.6) k/uL RBC 3.58 L (3.80-5.40) m/uL Hgb 10.3 L (11.4-16.0) gm/dL Hct 32.5 L (34.0-46.0) % MCV 90.8 (80.0-100.0) fL MCH 28.8 (25.0-35.0) pg MCHC 31.7 (31.0-37.0) g/dL RDW 15.5 (11.5-15.5) % Plt Count 176 (150-450) k/uL Neutrophils % (Manual) 76 % Band Neutrophils % 19 % Lymphocytes % (Manual) 3 % Monocytes % (Manual) 2 % Metamyelocytes % 1 % Neutrophils # (Manual) 23.30 H (1.3-7.7) k/uL Lymphocytes # (Manual) 0.74 L (1.0-4.8) k/uL Monocytes # (Manual) 0.49 (0-1.0) k/uL Metamyelocytes # (Man) 0.25 H (0) k/uL Nucleated RBCs 0 (0-0) /100 WBC Manual Slide Review Performed Hypochromasia Slight PT 11.2 (9.0-12.0) sec INR 1.1 (<1.2) APTT 23.7 (22.0-30.0) sec VBG pH (7.31-7.41) VBG pCO2 (37-51) mmHg VBG HCO3 (24-28) mmol/L Sodium 140 (137-145) mmol/L Potassium 4.1 (3.5-5.1) mmol/L Chloride 106 (98-107) mmol/L Carbon Dioxide 25 (22-30) mmol/L Anion Gap 9 mmol/L BUN 19 H (7-17) mg/dL Creatinine 1.32 H (0.52-1.04) mg/dL Est GFR (CKD-EPI)AfAm 48 (>60 ml/min/1.73 sqM) Est GFR (CKD-EPI)NonAf 42 (>60 ml/min/1.73 sqM) Glucose 107 H (74-99) mg/dL Plasma Lactic Acid Kevyn (0.7-2.0) mmol/L Calcium 8.4 (8.4-10.2) mg/dL Magnesium 1.6 (1.6-2.3) mg/dL Total Bilirubin 0.7 (0.2-1.3) mg/dL AST 19 (14-36) U/L ALT 14 (9-52) U/L Alkaline Phosphatase 78 (38-126) U/L Troponin I (0.000-0.034) ng/mL Total Protein 6.1 L (6.3-8.2) g/dL Albumin 3.3 L (3.5-5.0) g/dL Urine Color Urine Appearance (Clear) Urine pH (5.0-8.0) Ur Specific [place] (1.001-1.035) Urine Protein (Negative) Urine Glucose (UA) (Negative) Urine Ketones (Negative) Urine Blood (Negative) Urine Nitrite (Negative) Urine Bilirubin (Negative) Urine Urobilinogen (<2.0) mg/dL Ur Leukocyte Esterase (Negative) Urine RBC (0-5) /hpf Urine WBC (0-5) /hpf Ur Squamous Epith Cells (0-4) /hpf Urine Bacteria (None) /hpf Hyaline Casts (0-2) /lpf Urine Mucus (None) /hpf Influenza Type A RNA (Not Detectd) Influenza Type B (PCR) (Not Detectd) 05/29/18 05/29/18 05/29/18 Range/Units 14:30 14:30 14:30 WBC (3.8-10.6) k/uL RBC (3.80-5.40) m/uL Hgb (11.4-16.0) gm/dL Hct (34.0-46.0) % MCV (80.0-100.0) fL MCH (25.0-35.0) pg MCHC (31.0-37.0) g/dL RDW (11.5-15.5) % Plt Count (150-450) k/uL Neutrophils % (Manual) % Band Neutrophils % % Lymphocytes % (Manual) % Monocytes % (Manual) % Metamyelocytes % % Neutrophils # (Manual) (1.3-7.7) k/uL Lymphocytes # (Manual) (1.0-4.8) k/uL Monocytes # (Manual) (0-1.0) k/uL Metamyelocytes # (Man) (0) k/uL Nucleated RBCs (0-0) /100 WBC Manual Slide Review Hypochromasia PT (9.0-12.0) sec INR (<1.2) APTT (22.0-30.0) sec VBG pH 7.32 (7.31-7.41) VBG pCO2 50 (37-51) mmHg VBG HCO3 25 (24-28) mmol/L Sodium (137-145) mmol/L Potassium (3.5-5.1) mmol/L Chloride (98-107) mmol/L Carbon Dioxide (22-30) mmol/L Anion Gap mmol/L BUN (7-17) mg/dL Creatinine (0.52-1.04) mg/dL Est GFR (CKD-EPI)AfAm (>60 ml/min/1.73 sqM) Est GFR (CKD-EPI)NonAf (>60 ml/min/1.73 sqM) Glucose (74-99) mg/dL Plasma Lactic Acid Kevyn 1.9 (0.7-2.0) mmol/L Calcium (8.4-10.2) mg/dL Magnesium (1.6-2.3) mg/dL Total Bilirubin (0.2-1.3) mg/dL AST (14-36) U/L ALT (9-52) U/L Alkaline Phosphatase (38-126) U/L Troponin I 0.145 H* (0.000-0.034) ng/mL Total Protein (6.3-8.2) g/dL Albumin (3.5-5.0) g/dL Urine Color Urine Appearance (Clear) Urine pH (5.0-8.0) Ur Specific [place] (1.001-1.035) Urine Protein (Negative) Urine Glucose (UA) (Negative) Urine Ketones (Negative) Urine Blood (Negative) Urine Nitrite (Negative) Urine Bilirubin (Negative) Urine Urobilinogen (<2.0) mg/dL Ur Leukocyte Esterase (Negative) Urine RBC (0-5) /hpf Urine WBC (0-5) /hpf Ur Squamous Epith Cells (0-4) /hpf Urine Bacteria (None) /hpf Hyaline Casts (0-2) /lpf Urine Mucus (None) /hpf Influenza Type A RNA (Not Detectd) Influenza Type B (PCR) (Not Detectd) 05/29/18 05/29/18 Range/Units 14:30 14:45 WBC (3.8-10.6) k/uL RBC (3.80-5.40) m/uL Hgb (11.4-16.0) gm/dL Hct (34.0-46.0) % MCV (80.0-100.0) fL MCH (25.0-35.0) pg MCHC (31.0-37.0) g/dL RDW (11.5-15.5) % Plt Count (150-450) k/uL Neutrophils % (Manual) % Band Neutrophils % % Lymphocytes % (Manual) % Monocytes % (Manual) % Metamyelocytes % % Neutrophils # (Manual) (1.3-7.7) k/uL Lymphocytes # (Manual) (1.0-4.8) k/uL Monocytes # (Manual) (0-1.0) k/uL Metamyelocytes # (Man) (0) k/uL Nucleated RBCs (0-0) /100 WBC Manual Slide Review Hypochromasia PT (9.0-12.0) sec INR (<1.2) APTT (22.0-30.0) sec VBG pH (7.31-7.41) VBG pCO2 (37-51) mmHg VBG HCO3 (24-28) mmol/L Sodium (137-145) mmol/L Potassium (3.5-5.1) mmol/L Chloride (98-107) mmol/L Carbon Dioxide (22-30) mmol/L Anion Gap mmol/L BUN (7-17) mg/dL Creatinine (0.52-1.04) mg/dL Est GFR (CKD-EPI)AfAm (>60 ml/min/1.73 sqM) Est GFR (CKD-EPI)NonAf (>60 ml/min/1.73 sqM) Glucose (74-99) mg/dL Plasma Lactic Acid Kevyn (0.7-2.0) mmol/L Calcium (8.4-10.2) mg/dL Magnesium (1.6-2.3) mg/dL Total Bilirubin (0.2-1.3) mg/dL AST (14-36) U/L ALT (9-52) U/L Alkaline Phosphatase (38-126) U/L Troponin I (0.000-0.034) ng/mL Total Protein (6.3-8.2) g/dL Albumin (3.5-5.0) g/dL Urine Color Light Red Urine Appearance Cloudy H (Clear) Urine pH 5.5 (5.0-8.0) Ur Specific [place] 1.018 (1.001-1.035) Urine Protein 1+ H (Negative) Urine Glucose (UA) Negative (Negative) Urine Ketones Negative (Negative) Urine Blood Trace H (Negative) Urine Nitrite Negative (Negative) Urine Bilirubin Negative (Negative) Urine Urobilinogen 3.0 (<2.0) mg/dL Ur Leukocyte Esterase Trace H (Negative) Urine RBC 31 H (0-5) /hpf Urine WBC 6 H (0-5) /hpf Ur Squamous Epith Cells 1 (0-4) /hpf Urine Bacteria Occasional H (None) /hpf Hyaline Casts 168 H (0-2) /lpf Urine Mucus Few H (None) /hpf Influenza Type A RNA Not Detected (Not Detectd) Influenza Type B (PCR) Not Detected (Not Detectd) Critical Care Time Critical Care Time: Yes Total Critical Care Time: 35 Disposition Clinical Impression: Acute exacerbation of chronic obstructive airways disease, Pulmonary fibrosis, Dehydration Disposition: ADMITTED IP TO THIS [facility] Condition: Stable Is patient prescribed a controlled substance at d/c from ED?: No Referrals: Neri Bar DO [Primary Care Provider] - 1-2 days Decision to Admit Reason: Admit from EC Decision Date: 05/29/18 Decision Time: 16:05
[2018-05-29 14:46] LABS: HCT 32.5 % (34.0-46.0); HGB 10.3 gm/dL (11.4-16.0); Hypochromasia Slight; MCH 28.8 pg (25.0-35.0); MCHC 31.7 g/dL (31.0-37.0); MCV 90.8 fL (80.0-100.0); Mean Platelet Volume 7.3; Platelet Count 176 k/uL (150-450); RBC 3.58 m/uL (3.80-5.40); RDW 15.5 % (11.5-15.5); WBC 24.6 k/uL (3.8-10.6)
[2018-05-29 14:52] LABS: VBG PH 7.32 (7.31-7.41)
[2018-05-29 14:56] LABS: Albumin 3.3 g/dL (3.5-5.0); Calcium 8.4 mg/dL (8.4-10.2); Magnesium 1.6 mg/dL (1.6-2.3); Potassium 4.1 mmol/L (3.5-5.1); Total Bilirubin 0.7 mg/dL (0.2-1.3); Total Protein 6.1 g/dL (6.3-8.2)
[2018-05-29 14:58] LABS: INR 1.1 (<1.2); Partial Thromboplastin Time 23.7 sec (22.0-30.0); Prothrombin Time 11.2 sec (9.0-12.0)
[2018-05-29] MEDS ORDERED: SODIUM CHLORIDE 0.9% 500 ML 500 ML IV ONE (14:59)
[2018-05-29 15:21] LABS: Band Neutrophils % 19 %; Lymphocytes # (M) 0.74 k/uL (1.0-4.8); Metamyelocytes # (M) 0.25 k/uL (0); Metamyelocytes % 1 %; Monocytes # (M) 0.49 k/uL (0-1.0); Neutrophils % (M) 76 %; Nucleated Red Blood Cells 0 /100 WBC (0-0); Total Cells Counted 200
[2018-05-29 15:26] LABS: Appearance,Urine Cloudy (Clear); Bacteria,Urine Occasional /hpf; Bilirubin,Urine Negative (Negative); Blood,Urine Trace (Negative); Color,Urine Light Red; Glucose,Urine (UA) Negative (Negative); Hyaline Casts,Urine 168 /lpf (0-2); Ketones,Urine Negative (Negative); Leukocyte Esterase,Urine Trace (Negative); Mucus,Urine Few /hpf; Nitrite,Urine Negative (Negative); PH, Urine 5.5 (5.0-8.0); Protein,Urine 1+ (Negative); RBC,Urine 31 /hpf (0-5); Specific Gravity,Urine 1.018 (1.001-1.035); Squamous Epithelial Cell,Urine 1 /hpf (0-4); WBC,Urine 6 /hpf (0-5)
--- NOTE | 2018-05-29 15:29 | XR ---
Abdomen HISTORY: Altered mental status, weakness and diarrhea Frontal view the abdomen submitted. No comparisons Vertebral plasty change is present at L1. L2 and L3 show compression deformities. Bone mineralization is decreased. Interstitial changes are noted at the lung bases. There is no evident bowel obstructio n or pneumoperitoneum. Injection granuloma suspected in the left gluteal region. Probable vascular ca lcifications within the pelvis. Pubic ramus fractures of indeterminate age are present on the right. IMPRESSION: Nonobstructive bowel gas pattern. Osteoporotic fractures as described. Interstitial lung disease.
--- NOTE | 2018-05-29 15:35 | XR ---
EXAMINATION TYPE: XR chest 1V portable DATE OF EXAM: 05/29/2018 Comparison: 02/08/2018 and 03/26/2018 Clinical History: 67-year-old female difficulty in breathing, altered mental status Findings: Rightward patient rotation ultrasound and normal cardiothymic mediastinal contours. Heart borderline enlarged. Diffuse coarse interstitial markings more confluent along the periphery and lung bases, inc reased from prior. Impression: Suspect underlying mixed advanced pulmonary fibrosis and COPD. Worsening interstitial changes could r epresent acute exacerbation of UIP, superimposed pneumonia, or interstitial pulmonary edema. Further clinical correlation recommended.
[2018-05-29] MEDS ORDERED: ASPIRIN 325 MG TAB PO STA (15:51)
[2018-05-29] MEDS ORDERED: AZITHROMYCIN 500 MG in SODIUM CHLORIDE 0.9% 250 ML IVPB STA (15:52)
[2018-05-29] MEDS ORDERED: IPRATROPIUM-ALBUTEROL 3 ML NEB INHALATION PRN (15:58)
[2018-05-29] MEDS ORDERED: ALBUTEROL NEBULIZED 2.5 MG/3 ML INHALATION PRN (16:01)
[2018-05-29] MEDS ORDERED: VANCOMYCIN IV PER PHARMACY 1 EACH MISC MISCELLANE PRN (16:01)
[2018-05-29] MEDS ORDERED: VANCOMYCIN 1,000 MG in SODIUM CHLORIDE 0.9% 250 ML IVPB ONE (16:15)
[2018-05-29] MEDS ORDERED: CEFEPIME 2 GM in SODIUM CHLORIDE 0.9% 100 ML IVPB ONE (16:30)
[2018-05-29] MEDS: SODIUM CHLORIDE 0.9% 1,000 ML IV SCH (16:50)
[2018-05-29 17:32] LABS: Glucose,Whole Blood 113 mg/dL (75-99)
[2018-05-29] MEDS: methylPREDNISolone SOD SUCCI 125 MG/2 ML VIAL IV SCH ×2 (17:44→23:22)
[2018-05-29] MEDS ORDERED: NALOXONE 0.4 MG/ML 1 ML VIAL IV PRN (18:38)
[2018-05-29] MEDS: ALPRAZolam 0.25 MG TAB PO PRN (21:01)
[2018-05-29] MEDS: MAGNESIUM SULFATE-D5W PMX 1 GM in DEXTROSE/WATER 1 100ML.BAG IVPB SCH ×2 (21:01→22:31)
[2018-05-29] MEDS: IPRATROPIUM-ALBUTEROL 3 ML NEB INHALATION SCH (21:36)
[2018-05-29] MEDS: HEPARIN SODIUM,PORCINE 5,000 UNIT/ML 1 ML VIAL SQ SCH (23:22)
[2018-05-30] MEDS: methylPREDNISolone SOD SUCCI 125 MG/2 ML VIAL IV SCH ×3 (05:10→17:19)
[2018-05-30] MEDS: SODIUM CHLORIDE 0.9% 1,000 ML IV SCH ×2 (05:11→12:31)
[2018-05-30 05:22] LABS: Basophils % (A) 0 %; Eosinophils % (A) 0 %; HCT 28.6 % (34.0-46.0); HGB 8.9 gm/dL (11.4-16.0); Hypochromasia Moderate; Lymphocytes # (A) 0.3 k/uL (1.0-4.8); Lymphocytes % (A) 2 %; MCH 28.7 pg (25.0-35.0); MCHC 31.3 g/dL (31.0-37.0); MCV 91.9 fL (80.0-100.0); Mean Platelet Volume 7.6; Monocytes # (A) 0.2 k/uL (0-1.0); Monocytes % (A) 1 %; Neutrophils % (A) 96 %; Platelet Count 129 k/uL (150-450); RBC 3.11 m/uL (3.80-5.40); RDW 15.3 % (11.5-15.5); WBC 15.6 k/uL (3.8-10.6)
[2018-05-30 05:39] LABS: Anion Gap 7 mmol/L; Blood Urea Nitrogen 21 mg/dL (7-17); Calcium 7.9 mg/dL (8.4-10.2); Carbon Dioxide 21 mmol/L (22-30); Chloride 112 mmol/L (98-107); Glucose 108 mg/dL (74-99); Magnesium 2.7 mg/dL (1.6-2.3); Phosphorus 3.3 mg/dL (2.5-4.5); Potassium 4.1 mmol/L (3.5-5.1); Sodium 140 mmol/L (137-145)
[2018-05-30] MEDS ORDERED: VANCOMYCIN 1,000 MG in SODIUM CHLORIDE 0.9% 250 ML IVPB SCH ×2 (06:00→18:00)
[2018-05-30] MEDS: IPRATROPIUM-ALBUTEROL 3 ML NEB INHALATION SCH ×4 (07:28→19:19)
[2018-05-30] MEDS: ALPRAZolam 0.25 MG TAB PO PRN ×2 (08:24→12:30)
[2018-05-30] MEDS: PANTOPRAZOLE 40 MG/10 ML VIAL IV SCH (08:25)
[2018-05-30] MEDS: HEPARIN SODIUM,PORCINE 5,000 UNIT/ML 1 ML VIAL SQ SCH ×2 (08:25→17:19)
[2018-05-30] MEDS: HYDROcodone/APAP 5-325MG 1 EACH TAB PO PRN ×2 (08:27→15:11)
--- NOTE | 2018-05-30 09:50 | XR ---
EXAMINATION TYPE: XR chest 1V DATE OF EXAM: 05/30/2018 COMPARISON: 05/29/2018 HISTORY: Shortness of breath. TECHNIQUE: Single frontal view of the chest is obtained. FINDINGS: There is diffuse reticular pattern in a peripheral basilar predominance suggesting fibrosi s. Diffuse interstitial prominence has improved in the upper lungs from the prior of 05/29/2018 theref ore component of fluid overload is also suspected. Supporting this there is a trace right pleural eff usion. Cardiac silhouette is nonenlarged. IMPRESSION: Slightly improved upper lobe reticular pattern suggesting there was a component of fluid overload with urinary residual trace right pleural effusion. However pulmonary fibrosis and underlyi ng COPD are again suspected.
--- NOTE | 2018-05-30 10:35 | P.CNPUL ---
History of Present Illness Consult date: 05/30/18 Requesting physician: Karen Bhatia Reason for consult: dyspnea Chief complaint: Acute on chronic hypercapnic respiratory failure History of present illness: This is a 67-year-old patient with past medical history of severe COPD with chronic hypercapnic respiratory failure, recurrent pneumonias and history of empyema and ARDS, fibromyalgia, compression fractures of the thoracic spine with previous kyphoplasty, generalized anxiety, depression, who was brought into the emergency department on 05/29/2018 with increased lethargy, confusion. Patient states she was in her usual state of health, feeling well today, she thinks her dog may have was a disconnection of the oxygen tubing, and HER-2 desaturate, she felt increasingly short of breath, started experiencing severe distress with any exertion, remembers picking up the phone to call for help, and does not remember how she was brought into the hospital. She denied any fever or chills, likely she did have some episodes of vomiting. Denied any chest pain, denied any phlegm production, or coughing. He wears 4 L of oxygen at home, and occasionally she has to increase it to 6 L. Chest x-ray showed underlying mixed advanced pulmonary fibrosis and COPD, worsening interstitial changes, that could represent interstitial pulmonary edema, or superimposed pneumonia or exacerbation of UIP. Patient has been afebrile, influenza screen was negative, she was placed on BiPAP support with pressures of 10 and 5 and FiO2 of 40%. White blood cell count was 24.6, hemoglobin is 10.3, in relation profile was within normal limits, electrolytes were within normal limits, BUN is 19 and creatinine is 1.32. There was mild elevation of troponins, at 0.145, and 0.073, urinalysis showed trace leukocyte esterase, some red and white blood cells, and occasional bacteria, suggesting possibility of underlying urinary tract infection. Patient was started on antibiotic in the form of Zithromax and Rocephin initially, then was given a dose of IV cefepime and vancomycin, IV steroids have been started, and nebulized bronchodilators, patient was given a 2 to half liter fluid bolus, current IV is infusing at a rate of 100 ML per hour, no vasopressor support, no fever or chills, patient remains on BiPAP support this morning in the intensive care unit, fairly comfortable, lung sounds reveal coarse scattered crackles, but no significant rhonchi or wheezing. No cough or chest congestion, we will try giving patient a trial of nasal cannula, today's lab work has been reviewed, and showed white blood cell count is 15.6, hemoglobin is 8.9, sodium is 140, potassium is 4.1, chloride is 112, CO2 was 21, BUN is 21 and creatinine 0.61. Review of Systems All systems: negative Constitutional: Denies chills, Denies fever Eyes: denies blurred vision, denies pain Ears, nose, mouth and throat: Denies headache, Denies sore throat Cardiovascular: Denies chest pain, Denies shortness of breath Respiratory: Reports dyspnea, Reports home oxygen, Reports respiratory infections, Denies cough Gastrointestinal: Denies abdominal pain, Denies diarrhea, Denies nausea, Denies vomiting Genitourinary: Denies dysuria, Denies hematuria Musculoskeletal: Denies myalgias Integumentary: Denies pruritus, Denies rash Neurological: Reports change in mentation, Denies numbness, Denies weakness Psychiatric: Denies anxiety, Denies depression Endocrine: Denies fatigue, Denies weight change Past Medical History Past Medical History: COPD, Fibromyalgia, GERD/Reflux, Osteoarthritis (OA), Pneumonia, Thyroid Disorder Additional Past Medical History / Comment(s): COPD, chronic hypoxic arrest 30 failure, fibromyalgia, acid reflux, hypothyroidism, osteoarthritis, compression fracture of the T-spine, previous kyphoplasty, previous history of recurrent pneumonias requiring decortication for empyema and previous history of ARDS secondary to pneumonia, hiatal hernia, generalized anxiety disorder/depression History of Any Multi-Drug Resistant Organisms: None Reported Past Surgical History: Back Surgery, Hysterectomy Additional Past Surgical History / Comment(s): X3 BACK SX -FUSIONS( HX FX VERTEBRE), SX TO REMOVE EMPYEMA via a VATS and decortication. She has also had multiple bronchoscopies in the past. She has also received lumbar epidural steroid injection under fluoroscopic guidance. Past Anesthesia/Blood Transfusion Reactions: Motion Sickness Additional Past Anesthesia/Blood Transfusion Reaction / Comment(s): BLOOD TRANSFUSION Past Psychological History: Anxiety, Depression Smoking Status: Current every day smoker Past Alcohol Use History: None Reported Additional Past Alcohol Use History / Comment(s): STARTED SMOKING AT AGE 15. SMOKED UPWARDS TO 2 PPD, NO ETOH OR DRUGS, HAS 02 AT HOME. PT LIVES WITH IN OWN HOME. Past Drug Use History: None Reported - Past Family History Father Family Medical History: Diabetes Mellitus Additional Family Medical History / Comment(s): AGE 61 THATS ALL PT KNOWS Mother Family Medical History: Cancer, Dementia Additional Family Medical History / Comment(s): AGE 80, RECTAL CA Medications and Allergies Home Medications Medication Instructions Recorded Confirmed Type Albuterol Sulfate [Proair Hfa] 2 puff INHALATION RT-Q6H PRN 08/05/13 05/29/18 History Sertraline [Zoloft] 200 mg PO DAILY 08/05/13 05/29/18 History ALPRAZolam [Xanax] 0.5 mg PO QID PRN 01/30/18 05/29/18 History Budesonide/Formoterol Fumarate 2 puff INHALATION RT-DAILY 01/30/18 05/29/18 History [Symbicort 160-4.5 Mcg Inhaler] Tiotropium [place] [Spiriva] 1 puff INHALATION RT-DAILY 01/30/18 05/29/18 History Albuterol Nebulized [Ventolin 2.5 mg INHALATION RT-Q6H PRN 05/29/18 05/29/18 History Nebulized] Hydrocodone/Acetaminophen [[place] 1 tab PO Q6H PRN 05/29/18 05/29/18 History 10-325] predniSONE See Taper PO DIRECTED 05/29/18 05/29/18 History Allergies Allergy/AdvReac Type Severity Reaction Status Date / Time adhesive AdvReac Unknown Verified 05/29/18 15:37 bupropion HCl AdvReac Unknown Verified 05/29/18 15:37 [From Wellbutrin] Physical Exam Vitals: Vital Signs Temp Pulse Resp BP Pulse Ox 05/30/18 09:00 76 39 H 110/72 98 05/30/18 08:10 80 05/30/18 08:00 98.6 F 71 22 103/74 100 05/30/18 07:29 73 05/30/18 07:00 70 22 97/73 97 05/30/18 06:00 74 19 102/70 99 05/30/18 05:00 67 22 109/63 98 05/30/18 04:00 97.1 F L 66 20 94/62 98 05/30/18 03:00 65 21 95/60 97 05/30/18 02:00 67 21 104/64 96 05/30/18 01:00 69 22 93/62 97 05/30/18 00:00 97.9 F 70 23 88/57 97 05/29/18 23:00 72 24 99/59 96 05/29/18 22:12 72 25 H 99/59 96 05/29/18 22:00 74 26 H 99/66 96 05/29/18 21:30 73 25 H 99/66 92 L 05/29/18 21:00 74 24 103/56 91 L 05/29/18 20:30 77 29 H 103/56 88 L 05/29/18 20:00 97.6 F 78 28 H 85/62 89 L 05/29/18 19:30 80 26 H 85/62 91 L 05/29/18 19:00 80 33 H 98/59 94 L 05/29/18 18:30 83 34 H 98/59 94 L 05/29/18 18:00 80 23 101/67 94 L 05/29/18 17:30 97.9 F 82 22 101/67 98 05/29/18 17:00 81 103/74 93 L 05/29/18 16:30 86 94/58 91 L 05/29/18 16:00 83 97/62 94 L 05/29/18 15:30 96 90/51 96 05/29/18 15:00 87 100/69 92 L 05/29/18 14:49 102 H 05/29/18 14:30 102 H 94/46 96 05/29/18 14:13 97.3 F L 104 H 26 H 86/43 97 Intake and Output 05/29/18 05/30/18 05/30/18 22:59 06:59 14:59 Intake Total 1100 800 300 Output Total 195 269 100 Balance 905 531 200 Intake: IV 500 800 300 Magnesium Sulfate-D5w Pmx 200 1 gm In Dextrose/Water 1 100ml.bag @ 100 mls/hr IVPB Q1H [facility] Rx#: [id number] Sodium Chloride 0.9% 1, 300 800 300 000 ml @ 100 mls/hr IV . Q10H [facility] Rx#:[id number] Intake, IV Titration 600 Amount Azithromycin 500 mg In 250 Sodium Chloride 0.9% 250 ml @ 250 mls/hr IVPB ONCE STA Rx#:[id number] Cefepime 2 gm In Sodium 100 Chloride 0.9% 100 ml @ 200 mls/hr IVPB ONCE ONE Rx#:[id number] Vancomycin 1,000 mg In 250 Sodium Chloride 0.9% 250 ml @ 125 mls/hr IVPB Q16H [facility] Rx#:[id number] Output: Urine 195 269 100 Other: Voiding Method Indwelling Catheter Indwelling Catheter Indwelling Catheter Weight 55.2 kg GENERAL EXAM: Alert, pleasant, 67-year-old white female, on BiPAP support, pressures of 10 and 5, and FiO2 of 40%, comfortable in no apparent distress. HEAD: Normocephalic/atraumatic. EYES: Normal reaction of pupils, equal size. Conjunctiva pink, sclera white. NOSE: Clear with pink turbinates. THROAT: No erythema or exudates. NECK: No masses, no JVD, no thyroid enlargement, no adenopathy. CHEST: No chest wall deformity. Symmetrical expansion. LUNGS: Equal air entry with coarse crackles bilaterally at posterior bases CVS: Regular rate and rhythm, normal S1 and S2, no gallops, no murmurs, no rubs ABDOMEN: Soft, nontender. No hepatosplenomegaly, normal bowel sounds, no guarding or rigidity. EXTREMITIES: No clubbing, no edema, no cyanosis, 2+ pulses and upper and lower extremities. MUSCULOSKELETAL: Muscle strength and tone normal. SPINE: No scoliosis or deformity SKIN: No rashes CENTRAL NERVOUS SYSTEM: Alert and oriented -3. No focal deficits, tone is normal in all 4 extremities. PSYCHIATRIC: Alert and oriented -3. Appropriate affect. Intact judgment and insight. Results - Laboratory Findings CBC and BMP: 05/30/18 04:39 05/30/18 04:39 PT/INR, D-dimer PT 11.2 sec (9.0-12.0) 05/29/18 14:30 INR 1.1 (<1.2) 05/29/18 14:30 Abnormal lab findings: Abnormal Labs 05/29/18 05/29/18 05/29/18 14:30 14:30 14:30 WBC 24.6 H RBC 3.58 L Hgb 10.3 L Hct 32.5 L Plt Count Neutrophils # Neutrophils # (Manual) 23.30 H Lymphocytes # Lymphocytes # (Manual) 0.74 L Metamyelocytes # (Man) 0.25 H Chloride Carbon Dioxide BUN 19 H Creatinine 1.32 H Glucose 107 H POC Glucose (mg/dL) Calcium Magnesium Troponin I 0.145 H* Total Protein 6.1 L Albumin 3.3 L Urine Appearance Urine Protein Urine Blood Ur Leukocyte Esterase Urine RBC Urine WBC Urine Bacteria Hyaline Casts Urine Mucus 05/29/18 05/29/18 05/29/18 14:45 17:30 20:28 WBC RBC Hgb Hct Plt Count Neutrophils # Neutrophils # (Manual) Lymphocytes # Lymphocytes # (Manual) Metamyelocytes # (Man) Chloride Carbon Dioxide BUN Creatinine Glucose POC Glucose (mg/dL) 113 H Calcium Magnesium Troponin I 0.073 H* Total Protein Albumin Urine Appearance Cloudy H Urine Protein 1+ H Urine Blood Trace H Ur Leukocyte Esterase Trace H Urine RBC 31 H Urine WBC 6 H Urine Bacteria Occasional H Hyaline Casts 168 H Urine Mucus Few H 05/30/18 05/30/18 04:39 04:39 WBC 15.6 H RBC 3.11 L Hgb 8.9 L Hct 28.6 L Plt Count 129 L Neutrophils # 15.0 H Neutrophils # (Manual) Lymphocytes # 0.3 L Lymphocytes # (Manual) Metamyelocytes # (Man) Chloride 112 H Carbon Dioxide 21 L BUN 21 H Creatinine Glucose 108 H POC Glucose (mg/dL) Calcium 7.9 L Magnesium 2.7 H Troponin I Total Protein Albumin Urine Appearance Urine Protein Urine Blood Ur Leukocyte Esterase Urine RBC Urine WBC Urine Bacteria Hyaline Casts Urine Mucus - Diagnostic Findings Chest x-ray: report reviewed, image reviewed Assessment and Plan Plan: Assessment: #1. Acute on chronic hypoxic respiratory failure, in the chest x-ray showed diffuse interstitial changes, possibly representing pulmonary fibrosis, superimposed pneumonia cannot entirely be ruled out, or interstitial pulmonary edema. 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 Possible underlying urinary tract infection, #3. Mild elevation of troponins, be related to hypoxemic respiratory failure, or sepsis #4. Acute kidney injury #5. Mental status changes, lethargy and confusion, likely related to acute hypoxemic respiratory failure, and possibility of underlying sepsis, improved #6. Advanced COPD, with the chronic hypoxemic respiratory failure patient wears 4-6 L of oxygen at home #7. Previous episodes of pneumonia, with empyema, and ARDs #8. Fibromyalgia #9. Osteoarthritis, hyperthyroidism, GERD/reflux, ex-smoker Plan: We will start the patient on IV Zosyn, will discontinue cefepime and vancomycin, sputum for culture, we'll give the patient to trial on nasal cannula, her mentation has improved, she is awake and alert, oriented 3, no acute distress, afebrile, and influenza screen was negative, and she stable. No worsening shortness of breath or chest pain. Chest x-ray has been reviewed with Dr. Gordon, and compared to previous chest x-rays, patient does have chronic interstitial changes likely related to post-ARDS pulmonary fibrosis, doubt pneumonia, but cannot entirely rule it out, we'll send a pro-calcitonin level, continue with antibiotic coverage, and breathing treatments. GI and DVT prophylaxis, will continue to follow I performed a history & physical examination of the patient and discussed their management with my nurse practitioner, Daphne Flower. I reviewed the nurse practitioner's note and agree with the documented findings and plan of care. Lung sounds are positive for coarse bibasilar crackles at posterior bases. The findings and the impression was discussed with the patient. I attest to the documentation by the nurse practitioner. Time with Patient: Greater than 30
--- NOTE | 2018-05-30 11:03 | P.HPIM ---
History of Present Illness H&P Date: 05/29/18 Chief Complaint: Altered mentation Patient is a 67-year-old female with a known history of COPD on home oxygen 4 L by nasal cannula., pulmonary fibrosis, chronic hypoxic respiratory failure, GERD, hypothyroidism, compression fracture of the spine and previous kyphoplasty history of recurrent pneumonias requiring decortication for empyema and previous history of ARDS secondary to pneumonia and generalized anxiety/depression was brought to the hospital by her family due to lethargic and confusion. Apparently patient has been sitting on the toilet for almost 3 hours and unable to get up and felt very weak. Patient was also having difficulty breathing. Patient was found by the visiting nurse and EMS was called. Patient denied any complaints of chest pain. No cough or sputum production. Denied any fever or chills. Patient is confused by the time she came to the hospital and could not provide much history. As per the family patient felt very well yesterday and was even walking her dog. Patient denied any complaints of back pain or neck pain. Patient was babbling and incoherent by the time family found her. Patient did have vomiting and diuresed all over as per family. Most of the history was taken from the family at bedside and medical records. EKG showed normal sinus rhythm Chest x-ray showed suspect underlying mixed advanced pulmonary fibrosis and COPD. Worsening interstitial changes could represent acute exacerbation of UIP, superimposed pneumonia or interstitial pulmonary edema KUB x-ray showed nonspecific bowel gas pattern. Patient was given a dose of vancomycin and cefepime while in the ER. Patient was started on IV steroids and breathing treatments. Patient is being transferred to MICU since patient may require BiPAP.. WBC is 24.6 hemoglobin 10.3, potassium 4.1, BNP 19 and creatinine 1.32 Review of Systems Constitutional: Patient denies any fever or chills . He does have generalized weakness and confusion. loss. Abdomen: Patient does have vomiting. No diarrhea. No abdominal pain.. Cardiovascular: Patient denies any chest pain or short of breath no palpitations. Respiratory: No cough or sputum production. Patient does have shortness of breath Neurologic: Patient denied any numbness or tingling headache. Musculoskeletal: Patient denies any complaints of joint swelling or deformity. Complete review of systems could not be obtained from the patient. Past Medical History Past Medical History: COPD, Fibromyalgia, GERD/Reflux, Osteoarthritis (OA), Pneumonia, Thyroid Disorder Additional Past Medical History / Comment(s): COPD, chronic hypoxic arrest 30 failure, fibromyalgia, acid reflux, hypothyroidism, osteoarthritis, compression fracture of the T-spine, previous kyphoplasty, previous history of recurrent pneumonias requiring decortication for empyema and previous history of ARDS secondary to pneumonia, hiatal hernia, generalized anxiety disorder/depression History of Any Multi-Drug Resistant Organisms: None Reported Past Surgical History: Back Surgery, Hysterectomy Additional Past Surgical History / Comment(s): X3 BACK SX -FUSIONS( HX FX VERTEBRE), SX TO REMOVE EMPYEMA via a VATS and decortication. She has also had multiple bronchoscopies in the past. She has also received lumbar epidural steroid injection under fluoroscopic guidance. Past Anesthesia/Blood Transfusion Reactions: Motion Sickness Additional Past Anesthesia/Blood Transfusion Reaction / Comment(s): BLOOD TRANSFUSION Past Psychological History: Anxiety, Depression Smoking Status: Current every day smoker Past Alcohol Use History: None Reported Additional Past Alcohol Use History / Comment(s): STARTED SMOKING AT AGE 15. SMOKED UPWARDS TO 2 PPD, NO ETOH OR DRUGS, HAS 02 AT HOME. PT LIVES WITH IN OWN HOME. Past Drug Use History: None Reported - Past Family History Father Family Medical History: Diabetes Mellitus Additional Family Medical History / Comment(s): AGE 61 THATS ALL PT KNOWS Mother Family Medical History: Cancer, Dementia Additional Family Medical History / Comment(s): AGE 80, RECTAL CA Medications and Allergies Home Medications Medication Instructions Recorded Confirmed Type Albuterol Sulfate [Proair Hfa] 2 puff INHALATION RT-Q6H PRN 08/05/13 05/29/18 History Sertraline [Zoloft] 200 mg PO DAILY 08/05/13 05/29/18 History ALPRAZolam [Xanax] 0.5 mg PO QID PRN 01/30/18 05/29/18 History Budesonide/Formoterol Fumarate 2 puff INHALATION RT-DAILY 01/30/18 05/29/18 History [Symbicort 160-4.5 Mcg Inhaler] Tiotropium [place] [Spiriva] 1 puff INHALATION RT-DAILY 01/30/18 05/29/18 History Albuterol Nebulized [Ventolin 2.5 mg INHALATION RT-Q6H PRN 05/29/18 05/29/18 History Nebulized] Hydrocodone/Acetaminophen [[place] 1 tab PO Q6H PRN 05/29/18 05/29/18 History 10-325] predniSONE See Taper PO DIRECTED 05/29/18 05/29/18 History Allergies Allergy/AdvReac Type Severity Reaction Status Date / Time adhesive AdvReac Unknown Verified 05/29/18 15:37 bupropion HCl AdvReac Unknown Verified 05/29/18 15:37 [From Wellbutrin] Physical Exam Vitals: Vital Signs Temp Pulse Resp BP Pulse Ox 05/29/18 19:00 80 33 H 98/59 94 L 05/29/18 18:30 83 34 H 98/59 94 L 05/29/18 18:00 80 23 101/67 94 L 05/29/18 17:30 97.9 F 82 22 101/67 98 05/29/18 17:00 81 103/74 93 L 05/29/18 16:30 86 94/58 91 L 05/29/18 16:00 83 97/62 94 L 05/29/18 15:30 96 90/51 96 05/29/18 15:00 87 100/69 92 L 05/29/18 14:49 102 H 05/29/18 14:30 102 H 94/46 96 05/29/18 14:13 97.3 F L 104 H 26 H 86/43 97 Intake and Output 05/29/18 05/29/18 05/29/18 06:59 14:59 22:59 Intake Total 600 Output Total 95 Balance 505 Intake: Intake, IV Titration 600 Amount Azithromycin 500 mg In 250 Sodium Chloride 0.9% 250 ml @ 250 mls/hr IVPB ONCE STA Rx#:[id number] Cefepime 2 gm In Sodium 100 Chloride 0.9% 100 ml @ 200 mls/hr IVPB ONCE ONE Rx#:[id number] Vancomycin 1,000 mg In 250 Sodium Chloride 0.9% 250 ml @ 125 mls/hr IVPB Q16H [facility] Rx#:[id number] Output: Urine 95 Other: Weight 54.431 kg PHYSICAL EXAMINATION: Patient is lying in the bed comfortably, no acute distress, awake alert but confused and lethargic. HEENT: Normocephalic. Neck is supple. Pupils reactive. Nostrils clear. Oral cavity is moist. Ears reveal no drainage. Neck reveals no JVD, carotid bruits, or thyromegaly. CHEST EXAMINATION: Trachea is central. Symmetrical expansion. Bilateral diminished air entry and minimal crackles. Nonlabored breathing.. CARDIAC: Normal S1, S2 with no gallops. No murmurs ABDOMEN: Soft. Bowel sounds normal. No organomegaly. No abdominal bruits. Extremities: reveal no edema. No clubbing or cyanosis Neurologically awake, alert, oriented x3 with well-coordinated movements. No gross focal deficits noted. Confused and lethargic. Skin: No rash or skin lesions. Psychiatric: Coperative. Cannot be assessed completely. Musculoskeletal: No joint swelling or deformity. Normal range of motion. Results CBC & Chem 7: 05/30/18 04:39 05/30/18 04:39 Labs: Abnormal Lab Results - Last 24 Hours (Table) 05/29/18 05/29/18 05/29/18 Range/Units 14:30 14:30 14:30 WBC 24.6 H (3.8-10.6) k/uL RBC 3.58 L (3.80-5.40) m/uL Hgb 10.3 L (11.4-16.0) gm/dL Hct 32.5 L (34.0-46.0) % Neutrophils # (Manual) 23.30 H (1.3-7.7) k/uL Lymphocytes # (Manual) 0.74 L (1.0-4.8) k/uL Metamyelocytes # (Man) 0.25 H (0) k/uL BUN 19 H (7-17) mg/dL Creatinine 1.32 H (0.52-1.04) mg/dL Glucose 107 H (74-99) mg/dL POC Glucose (mg/dL) (75-99) mg/dL Troponin I 0.145 H* (0.000-0.034) ng/mL Total Protein 6.1 L (6.3-8.2) g/dL Albumin 3.3 L (3.5-5.0) g/dL Urine Appearance (Clear) Urine Protein (Negative) Urine Blood (Negative) Ur Leukocyte Esterase (Negative) Urine RBC (0-5) /hpf Urine WBC (0-5) /hpf Urine Bacteria (None) /hpf Hyaline Casts (0-2) /lpf Urine Mucus (None) /hpf 05/29/18 05/29/18 Range/Units 14:45 17:30 WBC (3.8-10.6) k/uL RBC (3.80-5.40) m/uL Hgb (11.4-16.0) gm/dL Hct (34.0-46.0) % Neutrophils # (Manual) (1.3-7.7) k/uL Lymphocytes # (Manual) (1.0-4.8) k/uL Metamyelocytes # (Man) (0) k/uL BUN (7-17) mg/dL Creatinine (0.52-1.04) mg/dL Glucose (74-99) mg/dL POC Glucose (mg/dL) 113 H (75-99) mg/dL Troponin I (0.000-0.034) ng/mL Total Protein (6.3-8.2) g/dL Albumin (3.5-5.0) g/dL Urine Appearance Cloudy H (Clear) Urine Protein 1+ H (Negative) Urine Blood Trace H (Negative) Ur Leukocyte Esterase Trace H (Negative) Urine RBC 31 H (0-5) /hpf Urine WBC 6 H (0-5) /hpf Urine Bacteria Occasional H (None) /hpf Hyaline Casts 168 H (0-2) /lpf Urine Mucus Few H (None) /hpf Thrombosis Risk Factor Assmnt - DVT/VTE Prophylaxis DVT/VTE Prophylaxis: Pharmacologic Prophylaxis ordered - Choose All That Apply Each Factor Represents 1 point: Abnormal pulmonary function (COPD), Medical pt on bed rest Each Risk Factor Represents 2 Points: Age 61-74 years, Patient confined to bed Thrombosis Risk Factor Assessment Total Risk Factor Score: 6 Thrombosis Risk Factor Assessment Level: High Risk Assessment and Plan Assessment: Acute on chronic hypoxic respiratory failure due to COPD exacerbation with underlying pulmonary fibrosis along with underlying pneumonia cannot be excluded Altered mental status /. Possible metabolic and toxic encephalopathy. secondary to hypoxemic respiratory failure along with narcotic pain medications and benzodiazepines . mildly elevated troponin likely due to above Possible urinary tract infection Acute kidney injury most likely prerenal Chronic hypoxic respiratory failure COPD on 4 L home oxygen Previous history of recurrent pneumonias requiring decortication for empyema and previous history of ARDS secondary to pneumonia Generalized anxiety/depression Hiatal hernia Fibromyalgia Osteoarthritis GERD Hypothyroidism Nicotine addiction ongoing DVT prophylaxis with heparin subcu Plan: Patient was given antibiotics in the form of vancomycin and cefepime in the ER. Continue with current antibiotics. Continue with IV steroids and DuoNeb's. Will hold [place] 10 and Xanax which she is taking at home Follow-up culture reports. Gentle hydration. Continue with home medications and patient is being transferred to MICU. Further conditions based on the clinical course. Continue with DVT prophylaxis. Time with Patient: Greater than 30
[2018-05-30 11:48] VITALS: BMI 23.0
[2018-05-30] MEDS: PIPERACILLIN-TAZOBACTAM 3.375 GM in SODIUM CHLORIDE 0.9% 100 ML IVPB SCH ×2 (12:30→17:20)
[2018-05-30] MEDS: SYMBICORT 160-4.5 MCG INHALER INHALATION SCH (19:22)
--- NOTE | 2018-05-31 00:06 | P.PN ---
Subjective Progress Note Date: 05/30/18 Principal diagnosis: Acute hypoxemic respiratory failure Pulmonary fibrosis Possible pneumonia Patient is a 67-year-old female with a known history of COPD on home oxygen 4 L by nasal cannula., pulmonary fibrosis, chronic hypoxic respiratory failure, GERD, hypothyroidism, compression fracture of the spine and previous kyphoplasty history of recurrent pneumonias requiring decortication for empyema and previous history of ARDS secondary to pneumonia and generalized anxiety/depression was brought to the hospital by her family due to lethargic and confusion. Apparently patient has been sitting on the toilet for almost 3 hours and unable to get up and felt very weak. Patient was also having difficulty breathing. Patient was found by the visiting nurse and EMS was called. Patient denied any complaints of chest pain. No cough or sputum production. Denied any fever or chills. Patient is confused by the time she came to the hospital and could not provide much history. As per the family patient felt very well yesterday and was even walking her dog. Patient denied any complaints of back pain or neck pain. Patient was babbling and incoherent by the time family found her. Patient did have vomiting and diuresed all over as per family. Most of the history was taken from the family at bedside and medical records. EKG showed normal sinus rhythm Chest x-ray showed suspect underlying mixed advanced pulmonary fibrosis and COPD. Worsening interstitial changes could represent acute exacerbation of UIP, superimposed pneumonia or interstitial pulmonary edema KUB x-ray showed nonspecific bowel gas pattern. Patient was given a dose of vancomycin and cefepime while in the ER. Patient was started on IV steroids and breathing treatments. Patient is being transf erred to MICU since patient may require BiPAP.. WBC is 24.6 hemoglobin 10.3, potassium 4.1, BNP 19 and creatinine 1.32 3 2018 Patient says that her breathing status is much better today. patient is otherwise more awake and oriented. Her and is saturating well on nausea cannula. They will function improved with creatinine level is 0.6 and improving leukocytosis as well. Patient is currently on antibiotics in the form of Zosyn. Troponin is trending down. No fever no chills. Patient is being continued on IV steroids and DuoNeb's and antibiotics. Pulmonary is following. Current medications reviewed. Objective - Vital Signs Vital signs: Vital Signs Temp 97.6 F 05/30/18 20:00 Pulse 87 05/30/18 21:00 Resp 26 H 05/30/18 21:00 BP 107/63 05/30/18 21:00 Pulse Ox 85 L 05/30/18 21:00 Intake & Output 05/30/18 05/30/18 05/31/18 06:59 18:59 06:59 Intake Total 1400 1100 300 Output Total 399 415 180 Balance 1001 685 120 Weight 55.2 kg 55.2 kg Intake: IV 1300 1100 300 Magnesium Sulfate-D5w Pmx 200 1 gm In Dextrose/Water 1 100ml.bag @ 100 mls/hr IVPB Q1H [facility] Rx#: [id number] Sodium Chloride 0.9% 1, 1100 1100 300 000 ml @ 100 mls/hr IV . Q10H [facility] Rx#:[id number] Intake, IV Titration 100 Amount Cefepime 2 gm In Sodium 100 Chloride 0.9% 100 ml @ 200 mls/hr IVPB ONCE ONE Rx#:[id number] Output: Urine 399 415 180 Other: Voiding Method Indwelling Catheter Indwelling Catheter - Exam PHYSICAL EXAMINATION: Patient is lying in the bed comfortably, no acute distress, awake alert and oriented.. HEENT: Normocephalic. Neck is supple. Pupils reactive. Nostrils clear. Oral cavity is moist. Ears reveal no drainage. Neck reveals no JVD, carotid bruits, or thyromegaly. CHEST EXAMINATION: Trachea is central. Symmetrical expansion. Bilateral scattered rhonchi/crackles and diminished air entry overall. CARDIAC: Normal S1, S2 with no gallops. No murmurs ABDOMEN: Soft. Bowel sounds normal. No organomegaly. No abdominal bruits. Extremities: reveal no edema. No clubbing or cyanosis Neurologically awake, alert, oriented x3 with well-coordinated movements. No focal deficits noted Skin: No rash or skin lesions. Psychiatric: Coperative. Nonsuicidal Musculoskeletal: No joint swelling or deformity. Normal range of motion. - Labs CBC & Chem 7: 05/30/18 04:39 05/30/18 04:39 Labs: Abnormal Lab Results - Last 24 Hours (Table) 05/30/18 05/30/18 05/30/18 Range/Units 04:39 04:39 04:39 WBC 15.6 H (3.8-10.6) k/uL RBC 3.11 L (3.80-5.40) m/uL Hgb 8.9 L (11.4-16.0) gm/dL Hct 28.6 L (34.0-46.0) % Plt Count 129 L (150-450) k/uL Neutrophils # 15.0 H (1.3-7.7) k/uL Lymphocytes # 0.3 L (1.0-4.8) k/uL Chloride 112 H (98-107) mmol/L Carbon Dioxide 21 L (22-30) mmol/L BUN 21 H (7-17) mg/dL Glucose 108 H (74-99) mg/dL Calcium 7.9 L (8.4-10.2) mg/dL Magnesium 2.7 H (1.6-2.3) mg/dL Procalcitonin 12.12 H (0.02-0.09) ng/mL Microbiology - Last 24 Hours (Table) 05/29/18 14:30 Blood Culture - Preliminary Blood No Growth after 24 hours Assessment and Plan Assessment: Acute on chronic hypoxic respiratory failure due to COPD exacerbation with underlying pulmonary fibrosis along with underlying pneumonia cannot be excluded Altered mental status/Possible metabolic and toxic encephalopathy.secondary to hypoxemic respiratory failure along with narcotic pain medications and benzodiazepines.Improved. mildly elevated troponin likely due to above. Trending down. Unlikely ACS. Possible urinary tract infection Acute kidney injury most likely prerenal. Resolved Chronic hypoxic respiratory failure COPD on 4 L home oxygen Previous history of recurrent pneumonias requiring decortication for empyema and previous history of ARDS secondary to pneumonia Generalized anxiety/depression Hiatal hernia Fibromyalgia Osteoarthritis GERD Hypothyroidism Nicotine addiction ongoing DVT prophylaxis with heparin subcu Plan: Patient was given antibiotics in the form of vancomycin and cefepime in the ER. Change to Zosyn currently.. Continue with IV steroids and DuoNeb's. Will hold [place] 10 and continue with Xanax at 0.25 mg twice a day which she is taking at home Follow-up culture reports. Gentle hydration. Continue with home medications.. Further conditions based on the clinical course. Continue with DVT prophylaxis. Time with Patient: Greater than 30
[2018-05-31] MEDS: methylPREDNISolone SOD SUCCI 125 MG/2 ML VIAL IV SCH ×4 (00:25→18:41)
[2018-05-31] MEDS: HYDROcodone/APAP 5-325MG 1 EACH TAB PO PRN ×3 (00:25→23:35)
[2018-05-31] MEDS: ALPRAZolam 0.25 MG TAB PO PRN ×2 (00:25→06:34)
[2018-05-31] MEDS: SODIUM CHLORIDE 0.9% 1,000 ML IV SCH ×3 (00:25→11:31)
[2018-05-31] MEDS: HEPARIN SODIUM,PORCINE 5,000 UNIT/ML 1 ML VIAL SQ SCH ×3 (00:26→16:35)
[2018-05-31] MEDS: PIPERACILLIN-TAZOBACTAM 3.375 GM in SODIUM CHLORIDE 0.9% 100 ML IVPB SCH ×3 (00:26→16:35)
[2018-05-31 06:21] LABS: Basophils % (A) 0 %; Eosinophils % (A) 0 %; HCT 24.9 % (34.0-46.0); Hypochromasia Moderate; Lymphocytes # (A) 0.2 k/uL (1.0-4.8); Lymphocytes % (A) 2 %; MCH 29.9 pg (25.0-35.0); MCHC 32.2 g/dL (31.0-37.0); MCV 92.6 fL (80.0-100.0); Mean Platelet Volume 8.2; Monocytes # (A) 0.2 k/uL (0-1.0); Monocytes % (A) 2 %; Neutrophils # (A) 10.2 k/uL (1.3-7.7); Neutrophils % (A) 96 %; Platelet Count 106 k/uL (150-450); RBC 2.69 m/uL (3.80-5.40); RDW 15.8 % (11.5-15.5); WBC 10.7 k/uL (3.8-10.6)
[2018-05-31 06:35] LABS: Anion Gap 6 mmol/L; Blood Urea Nitrogen 20 mg/dL (7-17); Calcium 7.7 mg/dL (8.4-10.2); Carbon Dioxide 22 mmol/L (22-30); Chloride 114 mmol/L (98-107); Glucose 117 mg/dL (74-99); Magnesium 2.7 mg/dL (1.6-2.3); Phosphorus 3.5 mg/dL (2.5-4.5); Potassium 3.8 mmol/L (3.5-5.1); Sodium 142 mmol/L (137-145)
--- NOTE | 2018-05-31 06:36 | XR ---
EXAMINATION TYPE: XR chest 1V DATE OF EXAM: 05/31/2018 HISTORY: pneumonia. REFERENCE: Previous study dated 05/30/2018. FINDINGS: There is coarse interstitial fibrosis present bilaterally. No definite superimposed pneumon ia or edema is identified. There is a small right pleural effusion. Heart size upper limits of normal . IMPRESSION: NO SIGNIFICANT INTERVAL CHANGE IN APPEARANCE OF THE CHEST.
[2018-05-31] MEDS ORDERED: Potassium Replacement Protocol 1 EACH MISC MISCELLANE PRN (07:04)
[2018-05-31] MEDS: SYMBICORT 160-4.5 MCG INHALER INHALATION SCH ×2 (07:51→20:37)
[2018-05-31] MEDS: IPRATROPIUM-ALBUTEROL 3 ML NEB INHALATION SCH ×4 (07:51→20:36)
[2018-05-31] MEDS ORDERED: POTASSIUM CHLORIDE ER 20 MEQ TAB.ER PO SCH (08:00)
[2018-05-31] MEDS: PANTOPRAZOLE 40 MG/10 ML VIAL IV SCH (08:19)
[2018-05-31] MEDS ORDERED: FUROSEMIDE 10 MG/ML 4 ML VIAL IV STA (10:40)
[2018-05-31] MEDS: ALPRAZolam 0.5 MG TAB PO PRN ×2 (11:27→23:35)
--- NOTE | 2018-05-31 11:40 | P.PN ---
Subjective Progress Note Date: 05/31/18 Principal diagnosis: Acute on chronic hypercapnic respiratory failure The patient is seen today in follow-up in the intensive care unit. She is currently awake and alert. She is somewhat anxious and depressed. Her is an inpatient at [facility] and had a lung procedure and she is quite worried. She does have a history of severe oxygen dependent chronic obstructive pulmonary disease with chronic hypercapnic respiratory failure and follows with Dr. Sierra in our office for the same. She has been utilizing the BiPAP throughout the evening with settings of 10/5 and 40%. Currently she is on nasal cannula at 6 L/m with O2 saturations in the high 80s low 90s. She has a 0.9 normal saline at 100 ML's per hour. She will receive Lasix 40 mg IVP 1. Chest x-ray shows coarse interstitial fibrosis bilaterally without any acute pneumonia or pulmonary edema identified. We'll culture reveals no growth. White count 10.7. Hemoglobin 8.0. Creatinine 0.65. She remains on DuoNeb inhalations, Symbicort, IV Solu-Medrol. Objective - Vital Signs Vital signs: Vital Signs Temp 997.6 F H 05/31/18 08:00 Pulse 74 05/31/18 10:00 Resp 21 05/31/18 10:00 BP 129/82 05/31/18 10:00 Pulse Ox 96 05/31/18 10:00 Intake & Output 05/30/18 05/31/18 05/31/18 18:59 06:59 18:59 Intake Total 1100 975 450 Output Total 415 455 80 Balance 685 520 370 Weight 55.2 kg 54.7 kg Intake: IV 1100 975 400 Piperacillin-Tazobactam 3 75 .375 gm In Sodium Chloride 0.9% 100 ml @ 25 mls/hr IVPB Q8HR [facility] Rx# :[id number] Sodium Chloride 0.9% 1, 1100 900 400 000 ml @ 100 mls/hr IV . Q10H [facility] Rx#:[id number] Intake, IV Titration 50 Amount Piperacillin-Tazobactam 3 50 .375 gm In Sodium Chloride 0.9% 100 ml @ 25 mls/hr IVPB Q8HR [facility] Rx# :[id number] Output: Urine 415 455 80 Other: Voiding Method Indwelling Catheter Indwelling Catheter - Exam GENERAL EXAM: Alert, fairly comfortable in no apparent distress. Anxious. On 6 L nasal cannula HEAD: Normocephalic. EYES: Normal reaction of pupils, equal size. NOSE: Clear with pink turbinates. THROAT: No erythema or exudates. NECK: No masses, no JVD. CHEST: No chest wall deformity. LUNGS: Equal air entry with coarse crackles in the posterior bases. Diminished. CVS: S1 and S2 normal with no audible murmur, regular rhythm. ABDOMEN: No hepatosplenomegaly, normal bowel sounds, no guarding or rigidity. SPINE: No scoliosis or deformity SKIN: No rashes CENTRAL NERVOUS SYSTEM: No focal deficits, tone is normal in all 4 extremities. EXTREMITIES: There is no peripheral edema. No clubbing, no cyanosis. Peripheral pulses are intact. - Labs CBC & Chem 7: 05/31/18 06:03 05/31/18 06:03 Labs: Abnormal Lab Results - Last 24 Hours (Table) 05/30/18 05/31/18 05/31/18 Range/Units 04:39 06:03 06:03 WBC 10.7 H (3.8-10.6) k/uL RBC 2.69 L (3.80-5.40) m/uL Hgb 8.0 L (11.4-16.0) gm/dL Hct 24.9 L (34.0-46.0) % RDW 15.8 H (11.5-15.5) % Plt Count 106 L (150-450) k/uL Neutrophils # 10.2 H (1.3-7.7) k/uL Lymphocytes # 0.2 L (1.0-4.8) k/uL Chloride 114 H (98-107) mmol/L BUN 20 H (7-17) mg/dL Glucose 117 H (74-99) mg/dL Calcium 7.7 L (8.4-10.2) mg/dL Magnesium 2.7 H (1.6-2.3) mg/dL Procalcitonin 12.12 H (0.02-0.09) ng/mL Microbiology - Last 24 Hours (Table) 05/29/18 14:30 Blood Culture - Preliminary Blood No Growth after 24 hours Assessment and Plan Assessment: Assessment: #1. Acute on chronic hypoxic respiratory failure, in the chest x-ray showed diffuse interstitial changes, possibly representing pulmonary fibrosis, superimposed pneumonia cannot entirely be ruled out, or interstitial pulmonary edema. 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 Possible underlying urinary tract infection, #3. Mild elevation of troponins, be related to hypoxemic respiratory failure, or sepsis #4. Acute kidney injury #5. Mental status changes, lethargy and confusion, likely related to acute hypoxemic respiratory failure, and possibility of underlying sepsis, improved #6. Advanced COPD, with the chronic hypoxemic respiratory failure patient wears 4-6 L of oxygen at home #7. Previous episodes of pneumonia, with empyema, and ARDs #8. Fibromyalgia #9. Osteoarthritis, hyperthyroidism, GERD/reflux, ex-smoker Plan: The patient was seen and evaluated by Dr. Gordon. She is breathing a bit easier today as compared to yesterday. Currently off the BiPAP. We'll continue with the current treatment plan. She remains on IV Zosyn. Continue bronchodilators and IV Solu-Medrol. Lasix 40 mg IV push times one. Decreased the 0.9 normal saline at 50 MLS per hour. Reorder her Xanax and Zoloft. Continue to monitor her closely here in the intensive care unit. Critical care time 36 minutes. I, the cosigning physician, performed a history & physical examination of the patient. Lungs sounds with coarse crackles in the bilateral posterior bases. Maintaining good O2 saturations in the 90s on liters high flow nasal cannula alternating with BiPAP. I discussed the assessment and plan of care with my nurse practitioner, Kendra Kamara. I attest to the above note as dictated by her. Time with Patient: Greater than 30
--- NOTE | 2018-05-31 23:49 | P.PN ---
Subjective Progress Note Date: 05/31/18 Principal diagnosis: Acute hypoxemic respiratory failure Pulmonary fibrosis Possible pneumonia Patient is a 67-year-old female with a known history of COPD on home oxygen 4 L by nasal cannula., pulmonary fibrosis, chronic hypoxic respiratory failure, GERD, hypothyroidism, compression fracture of the spine and previous kyphoplasty history of recurrent pneumonias requiring decortication for empyema and previous history of ARDS secondary to pneumonia and generalized anxiety/depression was brought to the hospital by her family due to lethargic and confusion. Apparently patient has been sitting on the toilet for almost 3 hours and unable to get up and felt very weak. Patient was also having difficulty breathing. Patient was found by the visiting nurse and EMS was called. Patient denied any complaints of chest pain. No cough or sputum production. Denied any fever or chills. Patient is confused by the time she came to the hospital and could not provide much history. As per the family patient felt very well yesterday and was even walking her dog. Patient denied any complaints of back pain or neck pain. Patient was babbling and incoherent by the time family found her. Patient did have vomiting and diuresed all over as per family. Most of the history was taken from the family at bedside and medical records. EKG showed normal sinus rhythm Chest x-ray showed suspect underlying mixed advanced pulmonary fibrosis and COPD. Worsening interstitial changes could represent acute exacerbation of UIP, superimposed pneumonia or interstitial pulmonary edema KUB x-ray showed nonspecific bowel gas pattern. Patient was given a dose of vancomycin and cefepime while in the ER. Patient was started on IV steroids and breathing treatments. Patient is being transf erred to MICU since patient may require BiPAP.. WBC is 24.6 hemoglobin 10.3, potassium 4.1, BNP 19 and creatinine 1.32 05 30 2018 Patient says that her breathing status is much better today. patient is otherwise more awake and oriented. Her and is saturating well on nausea cannula. They will function improved with creatinine level is 0.6 and improving leukocytosis as well. Patient is currently on antibiotics in the form of Zosyn. Troponin is trending down. No fever no chills. Patient is being continued on IV steroids and DuoNeb's and antibiotics. Pulmonary is following. 05/31/2018 Patient remained in the MICU. Still requiring BiPAP yesterday evening and last night. Currently patient is on high flow oxygen mask cannula. Patient was given a dose of IV Lasix. Chest x-ray showed no changes compared to previous study. Patient is being continued on IV steroids and DuoNeb's. WBC count is 10.7 and creatinine 0.65. No fever no chills. Current medications reviewed. Objective - Vital Signs Vital signs: Vital Signs Temp 97.6 F 05/31/18 08:00 Pulse 70 05/31/18 20:52 Resp 28 H 05/31/18 19:00 BP 114/67 05/31/18 19:00 Pulse Ox 95 05/31/18 20:41 Intake & Output 05/31/18 05/31/18 06/01/18 06:59 18:59 06:59 Intake Total 975 1000 75 Output Total 455 2080 70 Balance 520 -1080 5 Weight 54.7 kg Intake: IV 975 950 75 Piperacillin-Tazobactam 3 75 150 25 .375 gm In Sodium Chloride 0.9% 100 ml @ 25 mls/hr IVPB Q8HR [facility] Rx# :[id number] Sodium Chloride 0.9% 1, 900 800 50 000 ml @ 100 mls/hr IV . Q10H [facility] Rx#:[id number] Intake, IV Titration 50 Amount Piperacillin-Tazobactam 3 50 .375 gm In Sodium Chloride 0.9% 100 ml @ 25 mls/hr IVPB Q8HR [facility] Rx# :[id number] Output: Urine 455 2080 70 Other: Voiding Method Indwelling Catheter Indwelling Catheter - Exam PHYSICAL EXAMINATION: Patient is lying in the bed comfortably, no acute distress, awake alert and oriented.. HEENT: Normocephalic. Neck is supple. Pupils reactive. Nostrils clear. Oral cavity is moist. Ears reveal no drainage. Neck reveals no JVD, carotid bruits, or thyromegaly. CHEST EXAMINATION: Trachea is central. Symmetrical expansion. Bilateral scattered rhonchi/crackles and diminished air entry overall. CARDIAC: Normal S1, S2 with no gallops. No murmurs ABDOMEN: Soft. Bowel sounds normal. No organomegaly. No abdominal bruits. Extremities: reveal no edema. No clubbing or cyanosis Neurologically awake, alert, oriented x3 with well-coordinated movements. No focal deficits noted Skin: No rash or skin lesions. Psychiatric: Coperative. Nonsuicidal Musculoskeletal: No joint swelling or deformity. Normal range of motion. - Labs CBC & Chem 7: 05/31/18 06:03 05/31/18 06:03 Labs: Abnormal Lab Results - Last 24 Hours (Table) 05/31/18 05/31/18 Range/Units 06:03 06:03 WBC 10.7 H (3.8-10.6) k/uL RBC 2.69 L (3.80-5.40) m/uL Hgb 8.0 L (11.4-16.0) gm/dL Hct 24.9 L (34.0-46.0) % RDW 15.8 H (11.5-15.5) % Plt Count 106 L (150-450) k/uL Neutrophils # 10.2 H (1.3-7.7) k/uL Lymphocytes # 0.2 L (1.0-4.8) k/uL Chloride 114 H (98-107) mmol/L BUN 20 H (7-17) mg/dL Glucose 117 H (74-99) mg/dL Calcium 7.7 L (8.4-10.2) mg/dL Magnesium 2.7 H (1.6-2.3) mg/dL Microbiology - Last 24 Hours (Table) 05/29/18 14:30 Blood Culture - Preliminary Blood No Growth after 48 hours Assessment and Plan Assessment: Acute on chronic hypoxic respiratory failure due to COPD exacerbation with underlying pulmonary fibrosis along with underlying pneumonia cannot be excluded Altered mental status/Possible metabolic and toxic encephalopathy.secondary to hypoxemic respiratory failure along with narcotic pain medications and benzodiazepines.Improved. mildly elevated troponin likely due to above. Trending down. Unlikely ACS. Possible urinary tract infection Acute kidney injury most likely prerenal. Resolved Chronic hypoxic respiratory failure COPD on 4 L home oxygen Previous history of recurrent pneumonias requiring decortication for empyema and previous history of ARDS secondary to pneumonia Generalized anxiety/depression Hiatal hernia Fibromyalgia Osteoarthritis GERD Hypothyroidism Nicotine addiction ongoing DVT prophylaxis with heparin subcu Plan: On BiPAP as needed. Patient was given antibiotics in the form of vancomycin and cefepime in the ER. Changed to Zosyn currently.. Continue with IV steroids and DuoNeb's. Will hold [place] 10 and continue with Xanax at 0.25 mg twice a day which she is taking at home Follow-up culture reports. Gentle hydration. Continue with home medications.. Further conditions based on the clinical course. Continue with DVT prophylaxis. Time with Patient: Greater than 30
[2018-06-01] MEDS ORDERED: DILTIAZEM 125 MG in SODIUM CHLORIDE 0.9% 100 ML IV SCH ×2 (00:15→00:42)
[2018-06-01] MEDS: PIPERACILLIN-TAZOBACTAM 3.375 GM in SODIUM CHLORIDE 0.9% 100 ML IVPB SCH ×3 (01:04→16:07)
[2018-06-01] MEDS: HEPARIN SODIUM,PORCINE 5,000 UNIT/ML 1 ML VIAL SQ SCH ×3 (01:04→16:07)
[2018-06-01] MEDS: methylPREDNISolone SOD SUCCI 125 MG/2 ML VIAL IV SCH ×4 (01:04→17:59)
[2018-06-01 05:31] LABS: Basophils % (A) 0 %; Eosinophils % (A) 1 %; HCT 24.2 % (34.0-46.0); HGB 7.8 gm/dL (11.4-16.0); Hypochromasia Moderate; Lymphocytes # (A) 0.3 k/uL (1.0-4.8); Lymphocytes % (A) 5 %; MCH 29.7 pg (25.0-35.0); MCHC 32.1 g/dL (31.0-37.0); MCV 92.4 fL (80.0-100.0); Monocytes # (A) 0.1 k/uL (0-1.0); Monocytes % (A) 2 %; Neutrophils # (A) 5.8 k/uL (1.3-7.7); Neutrophils % (A) 92 %; Platelet Count 109 k/uL (150-450); RBC 2.62 m/uL (3.80-5.40); RDW 15.8 % (11.5-15.5); WBC 6.3 k/uL (3.8-10.6)
[2018-06-01 05:41] LABS: Anion Gap 7 mmol/L; Blood Urea Nitrogen 24 mg/dL (7-17); Calcium 7.9 mg/dL (8.4-10.2); Carbon Dioxide 23 mmol/L (22-30); Chloride 111 mmol/L (98-107); Glucose 110 mg/dL (74-99); Magnesium 2.2 mg/dL (1.6-2.3); Phosphorus 3.5 mg/dL (2.5-4.5); Potassium 3.4 mmol/L (3.5-5.1); Sodium 141 mmol/L (137-145)
[2018-06-01] MEDS: ALPRAZolam 0.5 MG TAB PO PRN ×3 (05:54→22:32)
[2018-06-01] MEDS: IPRATROPIUM-ALBUTEROL 3 ML NEB INHALATION SCH ×4 (06:47→19:28)
[2018-06-01] MEDS: SYMBICORT 160-4.5 MCG INHALER INHALATION SCH ×2 (06:47→19:28)
--- NOTE | 2018-06-01 08:02 | XR ---
EXAMINATION TYPE: XR chest 1V DATE OF EXAM: 06/01/2018 COMPARISON: Prior chest x-ray 05/31/2018 HISTORY: Pneumonia TECHNIQUE: Single frontal view of the chest is obtained. FINDINGS: Findings are similar. Interstitium is increased. Patient is rotated. Heart size may be acc entuated. No pneumothorax. Difficult to exclude small effusion on the right. There are cardiac leads. Retrocardiac density compatible with underlying hiatal hernia. IMPRESSION: Findings are similar to prior exam. Interstitial lung disease. Rotated exam. Prominence of the pulmonary artery may represent pulmonary artery hypertension. There is underlying emphysema.
[2018-06-01] MEDS: SODIUM CHLORIDE 0.9% 1,000 ML IV SCH (08:27)
[2018-06-01] MEDS: POTASSIUM CHLORIDE ER 20 MEQ TAB.ER PO SCH ×2 (08:28→11:05)
[2018-06-01] MEDS: SERTRALINE 100 MG TAB PO SCH (08:28)
[2018-06-01] MEDS: PANTOPRAZOLE 40 MG/10 ML VIAL IV SCH (09:05)
[2018-06-01] MEDS: VERAPAMIL 40 MG TAB PO SCH ×3 (09:05→22:32)
--- NOTE | 2018-06-01 09:27 | CONS ---
CONSULTATION Rachana Zamarripa is a 67-year-old lady who has a history of smoking and has pulmonary fibrosis and sees Dr. Sierra in the outpatient setting. She was admitted to the hospital on the or so with what seems to be a respiratory failure secondary to worsening pulmonary fibrosis and past history of smoking with some concomitant COPD as well. She had a hypercapnic respiratory failure type picture and while she was here in the hospital, she developed atrial fibrillation last night and I was asked to see her in this regard. When she came into the hospital, she had a mild troponin elevation which was thought to be related to an oxygen mismatch and not a primary CAD type picture. She is resting comfortably without symptoms. She has converted to sinus rhythm after initiation of a Cardizem drip. She is resting comfortably without symptoms. Her breathing is easier. PAST MEDICAL HISTORY: Remarkable for pulmonary fibrosis, COPD, fibromyalgia and thyroid disease. She has history of some compression fracture of her thoracic spine. She has had some previous history of pneumonia, I believe, details of which are unavailable. She has no documented history of any prior myocardial infarction or any CVA. MEDICATIONS: At home include albuterol inhaler, Xanax, Symbicort, Spiriva, she also takes some [place] as well as prednisone tapering. ALLERGIES: She is allergic to WELLBUTRIN. PHYSICAL EXAMINATION: Blood pressure is 120/70, pulse rate is 64 per minute regular. HEENT: Unremarkable. Fundus was not examined by me. NECK: Supple. There is JVD. There is no JVD. I do not hear a carotid bruit. Heart exam reveals S1, S2 heard normally without a rub murmur or gallop. Lungs reveal fine rales on both bases. Abdomen is soft, nontender. Lower extremities reveal diminished pulses. Central nervous system is normal. EKG last night revealed atrial fib with moderate rate of 120 beats per minute. This morning her rhythm is sinus. IMPRESSION: 1. Exacerbation of hypercapnic respiratory failure, improving remarkably. 2. History of pulmonary fibrosis. 3. Past history of smoking and chronic obstructive pulmonary disease. 4. Paroxysmal atrial fibrillation, now in sinus rhythm. 5. History of history of frequent steroid usage for her pulmonary fibrosis. 6. A troponin elevation suggestive of a type 2 myocardial infarction. RECOMMENDATIONS: I am recommending that we add verapamil 40 mg t.i.d. to her regimen. I am recommending that we supplement the potassium. Echo from January revealed ejection fraction of 55% without pulmonary hypertension. I am also suggesting Eliquis 2.5 mg b.i.d. in view of her atrial fibrillation but she is a high risk for bleeding and I will await Dr. Gordon's input regarding long-term anticoagulation since she sees Dr. Sierra on a regular basis. I would recommend Eliquis 2.[address] Gordon has no objection. Patient is in sinus rhythm. We will continue to see her as needed. Thank you very much for the consult. MMODL / IJN: [id number] /
--- NOTE | 2018-06-01 09:49 | P.PN ---
Subjective Progress Note Date: 06/01/18 Principal diagnosis: Acute on chronic hypercapnic and hypoxemic respiratory failure This is a 67-year-old patient with past medical history of severe COPD with chronic hypercapnic respiratory failure, recurrent pneumonias and history of empyema and ARDS, fibromyalgia, compression fractures of the thoracic spine with previous kyphoplasty, generalized anxiety, depression, who was brought into the emergency department on 05/29/2018 with increased lethargy, confusion. Patient states she was in her usual state of health, feeling well today, she thinks her dog may have was a disconnection of the oxygen tubing, and HER-2 desaturate, she felt increasingly short of breath, started experiencing severe distress with any exertion, remembers picking up the phone to call for help, and does not remember how she was brought into the hospital. She denied any fever or chills, likely she did have some episodes of vomiting. Denied any chest pain, denied any phlegm production, or coughing. He wears 4 L of oxygen at home, and occasionally she has to increase it to 6 L. Chest x-ray showed underlying mixed advanced pulmonary fibrosis and COPD, worsening interstitial changes, that could represent interstitial pulmonary edema, or superimposed pneumonia or exacerbation of UIP. Patient has been afebrile, influenza screen was negative, she was placed on BiPAP support with pressures of 10 and 5 and FiO2 of 40%. White blood cell count was 24.6, hemoglobin is 10.3, in relation profile was within normal limits, electrolytes were within normal limits, BUN is 19 and creatinine is 1.32. There was mild elevation of troponins, at 0.145, and 0.073, urinalysis showed trace leukocyte esterase, some red and white blood cells, and occasional bacteria, suggesting possibility of underlying urinary tract infection. Patient was started on antibiotic in the form of Zithromax and Rocep hin initially, then was given a dose of IV cefepime and vancomycin, IV steroids have been started, and nebulized bronchodilators, patient was given a 2 to half liter fluid bolus, current IV is infusing at a rate of 100 ML per hour, no vasopressor support, no fever or chills, patient remains on BiPAP support this morning in the intensive care unit, fairly comfortable, lung sounds reveal coarse scattered crackles, but no significant rhonchi or wheezing. No cough or chest congestion, we will try giving patient a trial of nasal cannula, today's lab work has been reviewed, and showed white blood cell count is 15.6, hemoglobin is 8.9, sodium is 140, potassium is 4.1, chloride is 112, CO2 was 21, BUN is 21 and creatinine 0.61. On 06/01/2018 patient seen in follow-up in intensive care unit, she is awake and alert, currently on 6 L per nasal cannula, and her O2 sat is 93-99%, afebrile, hemodynamically stable, IV 0.9 normal saline at a rate of 50 ML per hour, patient not require BiPAP support last night. Denies any weakness, patient is appear anxious, she is requesting to go home. Lung sounds reveal no wheezes, no rhonchi, a few scattered rales, no significant chest congestion, today's chest x-ray has been reviewed with Dr. Gordon, and showed stable findings, interstitial lung disease, prominence of the pulmonary artery underlying emphysema. Patient had a run of A. fib RVR last night with a rate between 110 to 1:30, was started on Cardizem drip and was given verapamil this morning, has been seen by cardiology, will be started on anticoagulation no form of Eliquis, currently in sinus rhythm with a rate of 64 BPM, afebrile. Blood culture showed no growth, she remains on IV Solu-Medrol, Symbicort, antibiotic coverage is with Zosyn. Objective - Vital Signs Vital signs: Vital Signs Temp 97.6 F 06/01/18 09:00 Pulse 78 06/01/18 09:00 Resp 29 H 06/01/18 09:00 BP 135/77 06/01/18 09:00 Pulse Ox 99 06/01/18 09:00 Intake & Output 05/31/18 06/01/18 06/01/18 18:59 06:59 18:59 Intake Total 1000 851.583 150 Output Total 2080 650 45 Balance -1080 201.583 105 Weight 55.3 kg Intake: IV 950 825 150 Piperacillin-Tazobactam 3 150 175 .375 gm In Sodium Chloride 0.9% 100 ml @ 25 mls/hr IVPB Q8HR [facility] Rx# :[id number] Sodium Chloride 0.9% 1, 800 150 000 ml @ 100 mls/hr IV . Q10H [facility] Rx#:[id number] Sodium Chloride 0.9% 1, 500 150 000 ml @ 50 mls/hr IV . Q20H [facility] Rx#:[id number] Intake, IV Titration 50 26.583 Amount Diltiazem 125 mg In 26.583 Sodium Chloride 0.9% 100 ml @ 1 mls/hr IV .Q24H [facility] Rx#:[id number] Piperacillin-Tazobactam 3 50 .375 gm In Sodium Chloride 0.9% 100 ml @ 25 mls/hr IVPB Q8HR [facility] Rx# :[id number] Output: Urine 2080 650 45 Other: Voiding Method Indwelling Catheter Indwelling Catheter - Exam GENERAL EXAM: Alert, pleasant, 67-year-old white female, 6 L per high flow nasal cannula HEAD: Normocephalic/atraumatic. EYES: Normal reaction of pupils, equal size. Conjunctiva pink, sclera white. NOSE: Clear with pink turbinates. THROAT: No erythema or exudates. NECK: No masses, no JVD, no thyroid enlargement, no adenopathy. CHEST: No chest wall deformity. Symmetrical expansion. LUNGS: Equal air entry with coarse crackles bilaterally at posterior bases CVS: Regular rate and rhythm, normal S1 and S2, no gallops, no murmurs, no rubs ABDOMEN: Soft, nontender. No hepatosplenomegaly, normal bowel sounds, no guarding or rigidity. EXTREMITIES: No clubbing, no edema, no cyanosis, 2+ pulses and upper and lower extremities. MUSCULOSKELETAL: Muscle strength and tone normal. SPINE: No scoliosis or deformity SKIN: No rashes CENTRAL NERVOUS SYSTEM: Alert and oriented -3. No focal deficits, tone is normal in all 4 extremities. PSYCHIATRIC: Alert and oriented -3. Appropriate affect. Intact judgment and insight. - Labs CBC & Chem 7: 06/01/18 04:52 06/01/18 04:52 Labs: Abnormal Lab Results - Last 24 Hours (Table) 06/01/18 06/01/18 Range/Units 04:52 04:52 RBC 2.62 L (3.80-5.40) m/uL Hgb 7.8 L (11.4-16.0) gm/dL Hct 24.2 L (34.0-46.0) % RDW 15.8 H (11.5-15.5) % Plt Count 109 L (150-450) k/uL Lymphocytes # 0.3 L (1.0-4.8) k/uL Potassium 3.4 L (3.5-5.1) mmol/L Chloride 111 H (98-107) mmol/L BUN 24 H (7-17) mg/dL Glucose 110 H (74-99) mg/dL Calcium 7.9 L (8.4-10.2) mg/dL Microbiology - Last 24 Hours (Table) 05/29/18 14:30 Blood Culture - Preliminary Blood No Growth after 48 hours Assessment and Plan Plan: Assessment: #1. Acute on chronic hypoxic respiratory failure, in the chest x-ray showed diffuse interstitial changes, possibly representing pulmonary fibrosis, superimposed pneumonia cannot entirely be ruled out, or interstitial pulmonary edema. 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 Possible underlying urinary tract infection, #3. Mild elevation of troponins, be related to hypoxemic respiratory failure, or sepsis #4. Acute kidney injury #5. Mental status changes, lethargy and confusion, likely related to acute hypoxemic respiratory failure, and possibility of underlying sepsis, improved #6. Advanced COPD, with the chronic hypoxemic respiratory failure patient wears 4-6 L of oxygen at home #7. Previous episodes of pneumonia, with empyema, and ARDs #8. Fibromyalgia #9. Osteoarthritis, hyperthyroidism, GERD/reflux, ex-smoker #10. Burst of A. fib RVR, currently in sinus rhythm, managed with IV Cardizem, and currently on oral verapamil and Eliquis Plan: Continue current dose of IV steroids, nebulized bronchodilators, IV antibiotics. Today's chest x-ray has been reviewed with Dr. Ervin, and it showed essential ly stable exam of underlying interstitial changes, emphysema. Ration did receive a dose of IV Lasix yesterday, diuresed. Today she denies any worsening shortness of breath, no wheezing, no significant chest congestion on today's exam, increase activity as tolerated, encourage deep breathing and coughing, will continue with current antibiotic coverage, culture data remains negative thus far. Patient will remain the ICU. Use BiPAP support as needed. I performed a history & physical examination of the patient and discussed their management with my nurse practitioner, Daphne Flower. I reviewed the nurse practitioner's note and agree with the documented findings and plan of care. Lung sounds are positive for coarse bibasilar crackles at posterior bases. The findings and the impression was discussed with the patient. I attest to the documentation by the nurse practitioner. Time with Patient: Greater than 30
[2018-06-01] MEDS: APIXABAN 2.5 MG TABLET PO SCH ×2 (11:06→22:32)
[2018-06-01] MEDS: HYDROcodone/APAP 5-325MG 1 EACH TAB PO PRN (18:18)
--- NOTE | 2018-06-02 00:08 | P.PN ---
Subjective Progress Note Date: 06/01/18 Principal diagnosis: Acute hypoxemic respiratory failure Pulmonary fibrosis Possible pneumonia Patient is a 67-year-old female with a known history of COPD on home oxygen 4 L by nasal cannula., pulmonary fibrosis, chronic hypoxic respiratory failure, GERD, hypothyroidism, compression fracture of the spine and previous kyphoplasty history of recurrent pneumonias requiring decortication for empyema and previous history of ARDS secondary to pneumonia and generalized anxiety/depression was brought to the hospital by her family due to lethargic and confusion. Apparently patient has been sitting on the toilet for almost 3 hours and unable to get up and felt very weak. Patient was also having difficulty breathing. Patient was found by the visiting nurse and EMS was called. Patient denied any complaints of chest pain. No cough or sputum production. Denied any fever or chills. Patient is confused by the time she came to the hospital and could not provide much history. As per the family patient felt very well yesterday and was even walking her dog. Patient denied any complaints of back pain or neck pain. Patient was babbling and incoherent by the time family found her. Patient did have vomiting and diuresed all over as per family. Most of the history was taken from the family at bedside and medical records. EKG showed normal sinus rhythm Chest x-ray showed suspect underlying mixed advanced pulmonary fibrosis and COPD. Worsening interstitial changes could represent acute exacerbation of UIP, superimposed pneumonia or interstitial pulmonary edema KUB x-ray showed nonspecific bowel gas pattern. Patient was given a dose of vancomycin and cefepime while in the ER. Patient was started on IV steroids and breathing treatments. Patient is being transf erred to MICU since patient may require BiPAP.. WBC is 24.6 hemoglobin 10.3, potassium 4.1, BNP 19 and creatinine 1.32 05 30 2018 Patient says that her breathing status is much better today. patient is otherwise more awake and oriented. Her and is saturating well on nausea cannula. They will function improved with creatinine level is 0.6 and improving leukocytosis as well. Patient is currently on antibiotics in the form of Zosyn. Troponin is trending down. No fever no chills. Patient is being continued on IV steroids and DuoNeb's and antibiotics. Pulmonary is following. 05/31/2018 Patient remained in the MICU. Still requiring BiPAP yesterday evening and last night. Currently patient is on high flow oxygen mask cannula. Patient was given a dose of IV Lasix. Chest x-ray showed no changes compared to previous study. Patient is being continued on IV steroids and DuoNeb's. WBC count is 10.7 and creatinine 0.65. No fever no chills. 06/01/2018 Patient is currently in the ICU. Currently on high flow oxygen at 6 L/minute. Patient did have use BiPAP this morning when she was anxious. Chest x-ray showed interstitial lung bases, prominence of pulmonary artery underlying emphysema. Patient did have a run of A. fib with RVR last night and was started on Cardizem drip. Currently patient was started on verapamil as per cardiology. Anticoagulation with Eliquis. Currently maintaining sinus rhythm. Otherwise patient is being continued on IV steroids, breathing treatments and antibiotics in the form of Zosyn. Cultures have been negative so far. WBC 6.3. Current medications reviewed. Objective - Vital Signs Vital signs: Vital Signs Temp 97.9 F 06/01/18 16:00 Pulse 73 06/01/18 18:00 Resp 26 H 06/01/18 18:00 BP 118/76 06/01/18 18:00 Pulse Ox 84 L 06/01/18 18:00 Intake & Output 05/31/18 06/01/18 06/01/18 18:59 06:59 18:59 Intake Total 1000 851.583 750 Output Total 2080 650 355 Balance -1080 201.583 395 Weight 55.3 kg Intake: IV 950 825 750 Piperacillin-Tazobactam 3 150 175 150 .375 gm In Sodium Chloride 0.9% 100 ml @ 25 mls/hr IVPB Q8HR [facility] Rx# :[id number] Sodium Chloride 0.9% 1, 800 150 000 ml @ 100 mls/hr IV . Q10H [facility] Rx#:[id number] Sodium Chloride 0.9% 1, 500 600 000 ml @ 50 mls/hr IV . Q20H [facility] Rx#:[id number] Intake, IV Titration 50 26.583 Amount Diltiazem 125 mg In 26.583 Sodium Chloride 0.9% 100 ml @ 1 mls/hr IV .Q24H [facility] Rx#:[id number] Piperacillin-Tazobactam 3 50 .375 gm In Sodium Chloride 0.9% 100 ml @ 25 mls/hr IVPB Q8HR [facility] Rx# :[id number] Output: Urine 2080 650 355 Other: Voiding Method Indwelling Catheter Indwelling Catheter Indwelling Catheter - Exam PHYSICAL EXAMINATION: Patient is lying in the bed comfortably, no acute distress, awake alert and oriented.. HEENT: Normocephalic. Neck is supple. Pupils reactive. Nostrils clear. Oral cavity is moist. Ears reveal no drainage. Neck reveals no JVD, carotid bruits, or thyromegaly. CHEST EXAMINATION: Trachea is central. Symmetrical expansion. Bilateral scattered rhonchi/crackles and diminished air entry overall. CARDIAC: Normal S1, S2 with no gallops. No murmurs ABDOMEN: Soft. Bowel sounds normal. No organomegaly. No abdominal bruits. Extremities: reveal no edema. No clubbing or cyanosis Neurologically awake, alert, oriented x3 with well-coordinated movements. No focal deficits noted Skin: No rash or skin lesions. Psychiatric: Coperative. Nonsuicidal Musculoskeletal: No joint swelling or deformity. Normal range of motion. - Labs CBC & Chem 7: 06/01/18 04:52 06/01/18 04:52 Labs: Abnormal Lab Results - Last 24 Hours (Table) 06/01/18 06/01/18 Range/Units 04:52 04:52 RBC 2.62 L (3.80-5.40) m/uL Hgb 7.8 L (11.4-16.0) gm/dL Hct 24.2 L (34.0-46.0) % RDW 15.8 H (11.5-15.5) % Plt Count 109 L (150-450) k/uL Lymphocytes # 0.3 L (1.0-4.8) k/uL Potassium 3.4 L (3.5-5.1) mmol/L Chloride 111 H (98-107) mmol/L BUN 24 H (7-17) mg/dL Glucose 110 H (74-99) mg/dL Calcium 7.9 L (8.4-10.2) mg/dL Microbiology - Last 24 Hours (Table) 05/29/18 14:30 Blood Culture - Preliminary Blood No Growth after 72 hours Assessment and Plan Assessment: Acute on chronic hypoxic respiratory failure due to COPD exacerbation with underlying pulmonary fibrosis along with underlying pneumonia cannot be excluded Altered mental status/Possible metabolic and toxic encephalopathy.secondary to hypoxemic respiratory failure along with narcotic pain medications and benzodiazepines.Improved. mildly elevated troponin likely due to above. Trending down. Unlikely ACS. New onset A. fib with RVR. Likely paroxysmal. Off Cardizem drip. Started on verapamil and Eliquis. Possible urinary tract infection Acute kidney injury most likely prerenal. Resolved Chronic hypoxic respiratory failure COPD on 4 L home oxygen Previous history of recurrent pneumonias requiring decortication for empyema and previous history of ARDS secondary to pneumonia Generalized anxiety/depression Hiatal hernia Fibromyalgia Osteoarthritis GERD Hypothyroidism Nicotine addiction ongoing DVT prophylaxis with heparin subcu Plan: On BiPAP as needed. Patient was given antibiotics in the form of vancomycin and cefepime in the ER. Changed to Zosyn currently.. Continue with IV steroids and DuoNeb's. Will hold [place] 10 and continue with Xanax at 0.25 mg twice a day which she is taking at home Follow-up culture reports. Gentle hydration. Continue with home medications.. Further conditions based on the clinical course. Continue with DVT prophylaxis. Time with Patient: Greater than 30
[2018-06-02] MEDS: HEPARIN SODIUM,PORCINE 5,000 UNIT/ML 1 ML VIAL SQ SCH ×2 (00:52→08:24)
[2018-06-02] MEDS: methylPREDNISolone SOD SUCCI 125 MG/2 ML VIAL IV SCH ×2 (00:52→06:23)
[2018-06-02] MEDS: PIPERACILLIN-TAZOBACTAM 3.375 GM in SODIUM CHLORIDE 0.9% 100 ML IVPB SCH ×2 (00:53→08:24)
[2018-06-02 05:34] LABS: Anisocytosis Slight; Basophils % (A) 0 %; Eosinophils % (A) 0 %; HCT 24.4 % (34.0-46.0); HGB 7.6 gm/dL (11.4-16.0); Hypochromasia Slight; Lymphocytes # (A) 0.3 k/uL (1.0-4.8); Lymphocytes % (A) 8 %; MCH 28.4 pg (25.0-35.0); MCHC 31.3 g/dL (31.0-37.0); MCV 90.8 fL (80.0-100.0); Mean Platelet Volume 9.4; Monocytes # (A) 0.1 k/uL (0-1.0); Monocytes % (A) 3 %; Neutrophils % (A) 88 %; Platelet Count 113 k/uL (150-450); RBC 2.69 m/uL (3.80-5.40); WBC 3.4 k/uL (3.8-10.6)
[2018-06-02 05:38] LABS: Anion Gap 6 mmol/L; Blood Urea Nitrogen 22 mg/dL (7-17); Calcium 8.2 mg/dL (8.4-10.2); Carbon Dioxide 25 mmol/L (22-30); Chloride 112 mmol/L (98-107); Glucose 110 mg/dL (74-99); Magnesium 2.2 mg/dL (1.6-2.3); Phosphorus 3.5 mg/dL (2.5-4.5); Potassium 3.7 mmol/L (3.5-5.1); Sodium 143 mmol/L (137-145)
[2018-06-02] MEDS: HYDROcodone/APAP 5-325MG 1 EACH TAB PO PRN ×2 (07:11→14:47)
[2018-06-02] MEDS: SYMBICORT 160-4.5 MCG INHALER INHALATION SCH (07:14)
[2018-06-02] MEDS: IPRATROPIUM-ALBUTEROL 3 ML NEB INHALATION SCH ×3 (07:15→15:22)
[2018-06-02] MEDS ORDERED: PANTOPRAZOLE 40 MG TABLET PO SCH (07:30)
[2018-06-02] MEDS ORDERED: POTASSIUM CHLORIDE ER 20 MEQ TAB.ER PO SCH (08:00)
--- NOTE | 2018-06-02 08:23 | XR ---
EXAMINATION TYPE: XR chest 1V DATE OF EXAM: 06/02/2018 COMPARISON: 06/02/2018 HISTORY: Pneumonia TECHNIQUE: Single frontal view of the chest is obtained. FINDINGS: Diffuse interstitial prominence is seen throughout. Cardia mucinous silhouette is again ro tated and shifted to the right. Fracture deformities are seen within the right lateral ribs. Biapical lucency relates underlying COPD. IMPRESSION: Pulmonary fibrosis and underlying interstitial lung disease with COPD. No new focal cons olidation.
[2018-06-02] MEDS: APIXABAN 2.5 MG TABLET PO SCH (08:29)
[2018-06-02] MEDS: SODIUM CHLORIDE 0.9% 1,000 ML IV SCH (08:30)
[2018-06-02] MEDS: SERTRALINE 100 MG TAB PO SCH (09:03)
[2018-06-02] MEDS: VERAPAMIL 40 MG TAB PO SCH ×2 (09:03→16:06)
--- NOTE | 2018-06-02 09:58 | PN ---
PROGRESS NOTE This is a 67-year-old lady with pulmonary fibrosis, COPD. She is doing better today. She is in a sinus rhythm. She has not had any further atrial fibrillation. Her breathing is about the same. Vitals are stable. S1, S2 heard normally. Short systolic murmur noted. Lungs reveal scattered rhonchi with fine rales over both bases. Abdomen and lower extremity exam unchanged. Plan is to continue Eliquis and verapamil and see how she does. She is a moderate to high risk for bleeding because of steroid usage, but overall I think the benefits of anticoagulation outweigh the risk of bleeding. Therefore, we will give Eliquis and see how she does. She is maintaining sinus rhythm. MMODL / IJN: [id number] /
[2018-06-02] MEDS ORDERED: FUROSEMIDE 10 MG/ML 2 ML VIAL IV ONE ×2 (10:54→10:56)
--- NOTE | 2018-06-02 12:48 | CDI ---
Documentation Clarification Form Date: 06/02/2018 12:25:50 PM From: Meryl Hill RN CCDS Admit Date: 05/29/2018 3:58:00 PM Patient Name: Rachana Zamarripa Visit Number: [id number] Discharge Date: ATTENTION: The Clinical Documentation Specialists (CDI) and [facility] Coding Staff appreciate your assistance in clarifying documentation. Please respond to the clarification below the line at the bottom and electronically sign. The CDI & [facility] Coding staff will review the response and follow-up if needed. Please note: Queries are made part of the Legal Health Record. If you have any questions, please contact the author of this message via ITS. Dr. Karen Bhatia Sepsis has been documented in the Pulmonary consult and Progress notes. History/Risk Factors: 67 year old female presents to the ED for increased lethargy, confusion. Medical Hx COPD, Fibromyalgia , Chronic hypoxic respiratory failure Clinical Indicators: Vss 86/43 104 97.3 26 97% , Wbc 24.6, CXR Suspect underlying mixed advanced pulmonary fibrosis and COPD. Wosening interstitial changes could represent acute exacerbation of UIP, superimposed pneumonia or interstitial pulmonary edema. Treatment: Vancomycin ivpb Zosyn ivpb then changed to Augmentin po Definition of Present on Admission (POA): A diagnosis present at the time the order for admission to inpatient status was written. For each diagnosis, documentation must be clear to determine if the condition was present at the time of the patients inpatient admission or developed during the hospital stay. Please clarify if was POA: ____Y = Yes, the condition was present at the time of the order for inpatient admission. ____N = No, the condition was not present at the time of the order for inpatient admission. ____W = Clinically undetermined if the condition was present at the time of the order for inpatient admission. ____ Sepsis Ruled Out (Last Revision: Feb 2018) MTDD
[2018-06-02] MEDS: ALPRAZolam 0.5 MG TAB PO PRN (16:06)
[2018-06-02 16:12] VITALS: TEMP 98
[2018-06-02 18:10] VITALS: BP 113/48; PULSE 78; RESP 21
--- NOTE | 2018-06-02 18:34 | P.PN ---
Subjective Progress Note Date: 06/02/18 On today's evaluation of 06/02/2018 I'm seeing this patient in follow-up in intensive care unit. She is awake and alert. No specific complaints at she is less short of breath. Ativan 5 L of oxygen nasal cannula. Limited, sputum production. No chest pain. No pleurisy. No hemoptysis. No signs of any respiratory distress at rest. Her cardiac rhythm is sinus and the patient has been adequately treated with a combination of bronchodilators, steroids and antibiotics regarding her exacerbation of COPD/pulmonary fibrosis. No other new complaints for now. No altered mentation. The patient be taken off the IV Solu Medrol and start on a prednisone burst taper. The patient was also given a cour se of Augmentin and she will placed on Eliquis for long-term anticoagulation. No other significant events otherwise for now. I discussed the case with the patient's family. I contacted her happens to be a patient at [facility] for now. I informed them about her condition. Her daughter, Alice will pick it up and be the main caregiver at home at the time of discharge. Objective - Vital Signs Vital signs: Vital Signs Temp 98.0 F 06/02/18 16:00 Pulse 78 06/02/18 18:00 Resp 21 06/02/18 18:00 BP 113/48 06/02/18 18:00 Pulse Ox 87 L 06/02/18 17:00 Intake & Output 06/01/18 06/02/18 06/02/18 18:59 06:59 18:59 Intake Total 750 700 520 Output Total 962 045 0298 Balance 395 215 -2380 Weight 57.3 kg Intake: IV 750 700 520 Piperacillin-Tazobactam 3 150 100 100 .375 gm In Sodium Chloride 0.9% 100 ml @ 25 mls/hr IVPB Q8HR [facility] Rx# :[id number] Sodium Chloride 0.9% 1, 600 600 420 000 ml @ 20 mls/hr IV . Q24H [facility] Rx#:[id number] Output: Urine 794 133 0816 Other: Voiding Method Indwelling Catheter Indwelling Catheter Indwelling Catheter # Voids 1 # Bowel Movements 1 - Exam GENERAL EXAM: Alert, pleasant, 67-year-old white female, 6 L per high flow nasal cannula HEAD: Normocephalic/atraumatic. EYES: Normal reaction of pupils, equal size. Conjunctiva pink, sclera white. NOSE: Clear with pink turbinates. THROAT: No erythema or exudates. NECK: No masses, no JVD, no thyroid enlargement, no adenopathy. CHEST: No chest wall deformity. Symmetrical expansion. LUNGS: Equal air entry with coarse crackles bilaterally at posterior bases CVS: Regular rate and rhythm, normal S1 and S2, no gallops, no murmurs, no rubs ABDOMEN: Soft, nontender. No hepatosplenomegaly, normal bowel sounds, no guarding or rigidity. EXTREMITIES: No clubbing, no edema, no cyanosis, 2+ pulses and upper and lower extremities. MUSCULOSKELETAL: Muscle strength and tone normal. SPINE: No scoliosis or deformity SKIN: No rashes CENTRAL NERVOUS SYSTEM: Alert and oriented -3. No focal deficits, tone is normal in all 4 extremities. PSYCHIATRIC: Alert and oriented -3. Appropriate affect. Intact judgment and insight. - Labs CBC & Chem 7: 06/02/18 04:54 06/02/18 04:54 Labs: Abnormal Lab Results - Last 24 Hours (Table) 06/02/18 06/02/18 Range/Units 04:54 04:54 WBC 3.4 L (3.8-10.6) k/uL RBC 2.69 L (3.80-5.40) m/uL Hgb 7.6 L (11.4-16.0) gm/dL Hct 24.4 L (34.0-46.0) % RDW 16.0 H (11.5-15.5) % Plt Count 113 L (150-450) k/uL Lymphocytes # 0.3 L (1.0-4.8) k/uL Chloride 112 H (98-107) mmol/L BUN 22 H (7-17) mg/dL Glucose 110 H (74-99) mg/dL Calcium 8.2 L (8.4-10.2) mg/dL Microbiology - Last 24 Hours (Table) 05/29/18 14:30 Blood Culture - Preliminary Blood No Growth after 96 hours Assessment and Plan Plan: #1. Acute on chronic hypoxic respiratory failure, in the chest x-ray showed diffuse interstitial changes, possibly representing pulmonary fibrosis, superimposed pneumonia cannot entirely be ruled out, or interstitial pulmonary edema. 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 Shortness of breath, secondary to above, improved #3. Mild elevation of troponins, be related to hypoxemic respiratory failure, or sepsis #4. Acute kidney injury, recovered and the kidney function normalized #5. Mental status changes, lethargy and confusion, likely related to acute hypoxemic respiratory failure, and possibility of underlying sepsis, improved #6. Advanced COPD, with the chronic hypoxemic respiratory failure patient wears 4-6 L of oxygen at home #7. Previous episodes of pneumonia, with empyema, and ARDs #8. Fibromyalgia #9. Osteoarthritis, hyperthyroidism, GERD/reflux, ex-smoker #10. Burst of A. fib RVR, currently in sinus rhythm, managed with IV Cardizem, and currently on oral verapamil and Eliquis Plan The patient was discharged home on oxygen, prednisone burst taper, Augmentin, Spiriva and Symbicort as maintenance, albuterol nebulized treatment as needed. Follow-up in the office within the next few weeks. Her condition is stable for now. Case has been discussed with the daughter will be the main caregiver for this patient at home.
[2018-06-02] MEDS ORDERED: AMOXIC-POT CLAV 875-125MG 1 EACH TAB PO SCH (21:00)
[2018-06-03] MEDS ORDERED: predniSONE 20 MG TAB PO SCH (09:00)
--- NOTE | 2018-06-03 11:32 | DS ---
DISCHARGE SUMMARY DATE OF ADMISSION: 05/29/2018. DATE OF DISCHARGE: 06/02/2018 FINAL DIAGNOSES: 1. Acute on chronic hypoxic respiratory failure with underlying pulmonary fibrosis and possible pneumonia. 2. 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 3. Positive troponins secondary to hypoxemic respiratory failure. No evidence of acute coronary artery syndrome. 4. Acute kidney injury likely acute tubular necrosis, from infection, now corrected. 5. Acute metabolic encephalopathy from hypoxia and sepsis, improved. 6. Advanced chronic obstructive pulmonary disease, chronic, causing coarse chronic hypoxic respiratory failure on 4 L to 6 L oxygen at home. 7. Chronic fibromyalgia. 8. Osteoarthritis. 9. Paroxysmal atrial fibrillation currently in sinus rhythm. 10.Primary osteoarthritis. 11.Gastroesophageal reflux disease. 12.Hypothyroidism. HOSPITAL COURSE: This patient presented with increased shortness of breath, confusion, felt to have acute hypoxic respiratory failure. The patient may have pneumonia. Oxygen requirement was brought down. Today spoke to Dr. Sierra who was comfortable letting the patient go home to also discuss with the daughter. She is the provider. The patient's is at [facility]. Daughter is going to coordinate the same. The patient also put on Eliquis because of paroxysmal atrial fibrillation. The patient is tolerating a diet. It was felt that the patient had tripped over her oxygen cord and tangled with the dog and this could have precipitated her admission causing the aspiration. PHYSICAL EXAMINATION: Temperature 98, pulse 70, respiration 20, blood pressure 149/95, pulse ox 90% on high- flow oxygen. LUNGS: Diminished breath sounds. PSYCH: Some anxiety present. INVESTIGATIONS: White count 3.4, hemoglobin 7.6, platelets 113, potassium 3.7, BUN 22, creatinine 0.56. CONSULTATIONS: Dr. Gordon and colleagues from Pulmonary and Dr. Shantanu Scherer and colleagues from Cardiology. Discussion and discharge planning more than 35 minutes. DISCHARGE MEDICATIONS: 1. ProAir 2 puffs q.6 p.r.n. 2. Zoloft 200 mg p.o. daily. 3. Xanax 0.5 p.o. q.i.d. p.r.n. 4. Symbicort 160/4.5 two puffs daily. 5. Spiriva 1 puff daily. 6. Ventolin 2.5 q.6 p.r.n. 7. [place] 10 one tablet q.6 p.r.n. 8. Augmentin 875 one tablet q.12, ten tablets. 9. Eliquis 2.5 p.o. b.i.d. 10.Verapamil 40 mg p.o. t.i.d. 11.Prednisone taper. Follow up with Dr. Shantanu Scherer in 1 week; Dr. Bar in 3 days; Dr. Sierra in 1 week. MMODL / IJN: [id number] /
== END 2018-06-02 18:30 | disposition home or self-care (01) | DRG 871 ==
LOC: EC 14:03 → 2SICU 15:58
PROVIDERS: ADMIT Hospitalist; ATTEND Hospitalist
PROC: 5A09357 Assistance with Respiratory Ventilation, Less than 24 Consecutive Hours, Continuous Positive Airway Pressure (ICD-10-PCS; principal; 2018-05-29)
DX: A41.9 Sepsis, unspecified organism (principal); G93.41 Metabolic encephalopathy; J18.9 Pneumonia, unspecified organism; J96.21 Acute and chronic respiratory failure with hypoxia; J96.22 Acute and chronic respiratory failure with hypercapnia; N17.0 Acute kidney failure with tubular necrosis; N39.0 Urinary tract infection, site not specified; I48.0 Paroxysmal atrial fibrillation; J84.10 Pulmonary fibrosis, unspecified; J43.9 Emphysema, unspecified; E03.9 Hypothyroidism, unspecified; E86.0 Dehydration; F17.210 Nicotine dependence, cigarettes, uncomplicated; F32.9 Major depressive disorder, single episode, unspecified; F41.1 Generalized anxiety disorder; G89.29 Other chronic pain; K21.9 Gastro-esophageal reflux disease without esophagitis; K44.9 Diaphragmatic hernia without obstruction or gangrene; M19.91 Primary osteoarthritis, unspecified site; M79.7 Fibromyalgia; M54.5 Low back pain; R01.1 Cardiac murmur, unspecified; R11.2 Nausea with vomiting, unspecified; R19.7 Diarrhea, unspecified; R77.9 Abnormality of plasma protein, unspecified; Z79.51 Long term (current) use of inhaled steroids; Z79.899 Other long term (current) drug therapy; Z99.81 Dependence on supplemental oxygen; Z90.710 Acquired absence of both cervix and uterus; Z98.1 Arthrodesis status; Z88.8 Allergy status to other drugs, medicaments and biological substances; Z71.6 Tobacco abuse counseling; Z87.01 Personal history of pneumonia (recurrent); Z83.3 Family history of diabetes mellitus; Z82.0 Family history of epilepsy and other diseases of the nervous system; Z80.0 Family history of malignant neoplasm of digestive organs
CPT/HCPCS: 36415; 71045; 74018; 80048; 80053; 81001; 82803; 83605; 83735; 84100; 84145; 84484; 85025; 85610; 85730; 87040; 87502; 93005; 94640; 94660; 96361; 96365; 96374; 96375; 99291

== ENCOUNTER 2018-11-01 07:36 | Inpatient (IN) | payer MEDICARE, BC ==
[2018-11-01] MEDS ORDERED: LORazepam 2 MG/ML INJ IV STA (07:40)
[2018-11-01] MEDS ORDERED: IPRATROPIUM 0.5 MG/2.5 ML NEBU INHALATION STA (07:40)
[2018-11-01] MEDS ORDERED: ALBUTEROL NEBULIZED 2.5 MG/3 ML INHALATION STA (07:40)
[2018-11-01] MEDS ORDERED: methylPREDNISolone SOD SUCCI 125 MG/2 ML VIAL IV STA (07:40)
[2018-11-01] MEDS ORDERED: ACETAMINOPHEN TAB 500 MG TAB PO STA (07:51)
--- NOTE | 2018-11-01 07:51 | ED ---
General Adult HPI - General Stated complaint: PANTREA Time Seen by Provider: 11/01/18 07:36 Source: RN notes reviewed - History of Present Illness Initial comments: This is a 68-year-old female who has a past medical history significant for COPD per patient comes in today complaining of difficulty breathing. Patient states at home she started having shortness of breath or couple days ago but today got so bad she called EMS. Patient denies any chest pain or palpitations. Patient denies any fever chills. Patient states just can't seem to catch her breath. According to EMS they gave her to break into [employer] [place] and When They Got Her to Calm down a Little Bit She Was Doing Considerably Better. Patient Denies Any Abdominal Pain Patient Denies Any Vomiting or Diarrhea However She Does Complain to Be Nauseated. Patient Denies Any Patient Denies Numbness Weakness. Patient Denies Any Calf Pain but Does Have a Little Ankle Swelling. Patient States She Has Had a Slight Cough No Sputum Production. - Related Data Home Medications Medication Instructions Recorded Confirmed Albuterol Sulfate [Proair Hfa] 2 puff INHALATION RT-Q6H PRN 08/05/13 11/01/18 Sertraline [Zoloft] 200 mg PO DAILY 08/05/13 11/01/18 ALPRAZolam [Xanax] 0.5 mg PO QID PRN 01/30/18 11/01/18 Tiotropium [place] [Spiriva] 1 puff INHALATION RT-DAILY 01/30/18 11/01/18 Albuterol Nebulized [Ventolin 2.5 mg INHALATION RT-Q6H PRN 05/29/18 11/01/18 Nebulized] Hydrocodone/Acetaminophen [[place] 1 tab PO Q6H PRN 05/29/18 11/01/18 10-325] Amoxic-Pot Clav 875-125Mg 1 tab PO Q12HR 11/01/18 11/01/18 [Augmentin 875-125] Pantoprazole Sodium [Protonix] 40 mg PO DAILY 11/01/18 11/01/18 Allergies Allergy/AdvReac Type Severity Reaction Status Date / Time adhesive AdvReac Unknown Verified 11/01/18 09:05 bupropion HCl AdvReac Unknown Verified 11/01/18 09:05 [From Wellbutrin] Review of Systems ROS Statement: Those systems with pertinent positive or pertinent negative responses have been documented in the HPI. ROS Other: All systems not noted in ROS Statement are negative. Past Medical History Past Medical History: Atrial Fibrillation, COPD, Fibromyalgia, GERD/Reflux, Osteoarthritis (OA), Pneumonia, Thyroid Disorder Additional Past Medical History / Comment(s): COPD, chronic hypoxic arrest 30 failure, fibromyalgia, acid reflux, hypothyroidism, osteoarthritis, compression fracture of the T-spine, previous kyphoplasty, previous history of recurrent pneumonias requiring decortication for empyema and previous history of ARDS secondary to pneumonia, hiatal hernia, generalized anxiety disorder/depression; intermittent afib History of Any Multi-Drug Resistant Organisms: None Reported Past Surgical History: Back Surgery, Hysterectomy Additional Past Surgical History / Comment(s): X3 BACK SX -FUSIONS( HX FX VERTEBRE), SX TO REMOVE EMPYEMA via a VATS and decortication. She has also had multiple bronchoscopies in the past. She has also received lumbar epidural steroid injection under fluoroscopic guidance. Past Anesthesia/Blood Transfusion Reactions: Motion Sickness Additional Past Anesthesia/Blood Transfusion Reaction / Comment(s): BLOOD TRANSFUSION Past Psychological History: Anxiety, Depression Smoking Status: Current every day smoker Past Alcohol Use History: None Reported Additional Past Alcohol Use History / Comment(s): STARTED SMOKING AT AGE 15. SMOKED UPWARDS TO 2 PPD, NO ETOH OR DRUGS, HAS 02 AT HOME. PT LIVES WITH IN OWN HOME. Past Drug Use History: None Reported - Past Family History Father Family Medical History: Diabetes Mellitus Additional Family Medical History / Comment(s): AGE 61 THATS ALL PT KNOWS Mother Family Medical History: Cancer, Dementia Additional Family Medical History / Comment(s): AGE 80, RECTAL [place] General Exam - General Exam Comments Initial Comments: GENERAL: Patient is well-developed and well-nourished. Patient is nontoxic and well- hydrated and is in moderate distress. ENT: Neck is soft and supple. No significant lymphadenopathy is noted. Oropharynx is clear. Moist mucous membranes. Neck has full range of motion without eliciting any pain. EYES: The sclera were anicteric and conjunctiva were pink and moist. Extraocular movements were intact and pupils were equal round and reactive to light. Eyelids were unremarkable. PULMONARY: Patient is wheezing bilaterally and also has rhonchi throughout bilaterally CARDIOVASCULAR: Patient is tachycardic. ABDOMEN: Soft and nontender with normal bowel sounds. No palpable organomegaly was noted. There is no palpable pulsatile mass. SKIN: Pale NEUROLOGIC: Patient is alert and oriented x3. Cranial nerves II through XII are grossly intact. Motor and sensory are also intact. Normal speech, volume and content. Symmetrical smile. MUSCULOSKELETAL: Normal extremities with adequate strength and full range of motion. 1+ edema bilaterally. No calf tenderness. LYMPHATICS: No significant lymphadenopathy is noted PSYCHIATRIC: Normal psychiatric evaluation. Course Vital Signs 11/01/18 11/01/18 11/01/18 07:37 08:01 08:40 Temperature 101.0 F H Pulse Rate 128 H 125 H 130 H Respiratory 28 H Rate Blood Pressure 107/74 O2 Sat by Pulse 86 L Oximetry Medical Decision Making - Medical Decision Making EKG shows sinus tachycardia at 135 bpm [place] interval is 140 QRS is 76 QT interval 390 QTC is 435. Patient's EKG is of poor quality secondary to the patient's rapid breathing. There is no obvious ST segment elevation or depression. Chest x-ray shows chronic interstitial changes with pneumonia in the left lung. I started the patient Rocephin. Patient received 3 breathing treatments in the emergency department and was placed on BiPAP and received steroids. I spoke with Dr. Bautista he agreed to admit the patient admitted the patient wrote admitting orders. - Lab Data Result diagrams: 11/01/18 07:44 11/01/18 07:44 Lab Results 11/01/18 11/01/18 11/01/18 Range/Units 07:44 07:44 07:44 WBC 7.9 (3.8-10.6) k/uL RBC 4.12 (3.80-5.40) m/uL Hgb 11.8 (11.4-16.0) gm/dL Hct 37.1 (34.0-46.0) % MCV 90.1 (80.0-100.0) fL MCH 28.7 (25.0-35.0) pg MCHC 31.9 (31.0-37.0) g/dL RDW 15.0 (11.5-15.5) % Plt Count 257 (150-450) k/uL Neutrophils % 76 % Lymphocytes % 19 % Monocytes % 2 % Eosinophils % 3 % Basophils % 0 % Neutrophils # 6.0 (1.3-7.7) k/uL Lymphocytes # 1.5 (1.0-4.8) k/uL Monocytes # 0.1 (0-1.0) k/uL Eosinophils # 0.2 (0-0.7) k/uL Basophils # 0.0 (0-0.2) k/uL PT 10.0 (9.0-12.0) sec INR 0.9 (<1.2) APTT 22.1 (22.0-30.0) sec Sodium 141 (137-145) mmol/L Potassium 4.5 (3.5-5.1) mmol/L Chloride 104 (98-107) mmol/L Carbon Dioxide 25 (22-30) mmol/L Anion Gap 12 mmol/L BUN 14 (7-17) mg/dL Creatinine 0.69 (0.52-1.04) mg/dL Est GFR (CKD-EPI)AfAm >90 (>60 ml/min/1.73 sqM) Est GFR (CKD-EPI)NonAf 89 (>60 ml/min/1.73 sqM) Glucose 126 H (74-99) mg/dL Plasma Lactic Acid [place] (0.7-2.0) mmol/L Calcium 9.0 (8.4-10.2) mg/dL Magnesium 1.7 (1.6-2.3) mg/dL Total Bilirubin 0.4 (0.2-1.3) mg/dL AST 22 (14-36) U/L ALT 10 (9-52) U/L Alkaline Phosphatase 80 (38-126) U/L Troponin I (0.000-0.034) ng/mL NT-Pro-B Natriuret Pep pg/mL Total Protein 7.6 (6.3-8.2) g/dL Albumin 4.1 (3.5-5.0) g/dL 11/01/18 11/01/18 11/01/18 Range/Units 07:44 07:44 07:44 WBC (3.8-10.6) k/uL RBC (3.80-5.40) m/uL Hgb (11.4-16.0) gm/dL Hct (34.0-46.0) % MCV (80.0-100.0) fL MCH (25.0-35.0) pg MCHC (31.0-37.0) g/dL RDW (11.5-15.5) % Plt Count (150-450) k/uL Neutrophils % % Lymphocytes % % Monocytes % % Eosinophils % % Basophils % % Neutrophils # (1.3-7.7) k/uL Lymphocytes # (1.0-4.8) k/uL Monocytes # (0-1.0) k/uL Eosinophils # (0-0.7) k/uL Basophils # (0-0.2) k/uL PT (9.0-12.0) sec INR (<1.2) APTT (22.0-30.0) sec Sodium (137-145) mmol/L Potassium (3.5-5.1) mmol/L Chloride (98-107) mmol/L Carbon Dioxide (22-30) mmol/L Anion Gap mmol/L BUN (7-17) mg/dL Creatinine (0.52-1.04) mg/dL Est GFR (CKD-EPI)AfAm (>60 ml/min/1.73 sqM) Est GFR (CKD-EPI)NonAf (>60 ml/min/1.73 sqM) Glucose (74-99) mg/dL Plasma Lactic Acid [place] 3.2 H* (0.7-2.0) mmol/L Calcium (8.4-10.2) mg/dL Magnesium (1.6-2.3) mg/dL Total Bilirubin (0.2-1.3) mg/dL AST (14-36) U/L ALT (9-52) U/L Alkaline Phosphatase (38-126) U/L Troponin I <0.012 (0.000-0.034) ng/mL NT-Pro-B Natriuret Pep 199 pg/mL Total Protein (6.3-8.2) g/dL Albumin (3.5-5.0) g/dL Critical Care Time Critical Care Time: Yes Total Critical Care Time: 35 Disposition Clinical Impression: Acute exacerbation of chronic obstructive airways disease, Pneumonia Disposition: ADMITTED IP TO THIS HOSP Referrals: Felicity Plaza MD [STAFF PHYSICIAN] - 1-2 days Time of Disposition: 09:23
[2018-11-01] MEDS ORDERED: cefTRIAXone IN SWFI 1,000 MG/10 ML SYRINGE IVP STA (07:59)
[2018-11-01 08:08] LABS: ALT 10 U/L (9-52); AST 22 U/L (14-36); African American GFR (CKD) >90 (>60 ml/min/1.73 sqM); Albumin 4.1 g/dL (3.5-5.0); Alkaline Phosphatase 80 U/L (38-126); Anion Gap 12 mmol/L; Blood Urea Nitrogen 14 mg/dL (7-17); Carbon Dioxide 25 mmol/L (22-30); Chloride 104 mmol/L (98-107); Glucose 126 mg/dL (74-99); Magnesium 1.7 mg/dL (1.6-2.3); Potassium 4.5 mmol/L (3.5-5.1); Sodium 141 mmol/L (137-145); Total Bilirubin 0.4 mg/dL (0.2-1.3); Total Protein 7.6 g/dL (6.3-8.2)
[2018-11-01 08:13] LABS: INR 0.9 (<1.2); Partial Thromboplastin Time 22.1 sec (22.0-30.0)
[2018-11-01 08:28] LABS: Basophils % (A) 0 %; Eosinophils # (A) 0.2 k/uL (0-0.7); Eosinophils % (A) 3 %; HCT 37.1 % (34.0-46.0); HGB 11.8 gm/dL (11.4-16.0); Lymphocytes # (A) 1.5 k/uL (1.0-4.8); Lymphocytes % (A) 19 %; MCH 28.7 pg (25.0-35.0); MCHC 31.9 g/dL (31.0-37.0); MCV 90.1 fL (80.0-100.0); Mean Platelet Volume 7.9; Monocytes # (A) 0.1 k/uL (0-1.0); Monocytes % (A) 2 %; Neutrophils % (A) 76 %; Platelet Count 257 k/uL (150-450); RBC 4.12 m/uL (3.80-5.40); WBC 7.9 k/uL (3.8-10.6)
--- NOTE | 2018-11-01 08:46 | XR ---
EXAMINATION TYPE: XR chest 1V portable DATE OF EXAM: 11/01/2018 HISTORY: difficulty breathing. REFERENCE: Previous study dated 06/02/2018. FINDINGS: There is a background of chronic interstitial change. There is superimposed airspace diseas e present on the left which may represent acute pneumonia. The heart is not enlarged. Both CP angles are obscured and I cannot exclude small effusions. IMPRESSION: 1. BACKGROUND OF INTERSTITIAL LUNG DISEASE. 2. PROBABLE SUPERIMPOSED LEFT-SIDED PNEUMONIA. 3. I COULD NOT EXCLUDE SMALL, BILATERAL EFFUSIONS.
[2018-11-01] MEDS ORDERED: SODIUM CHLORIDE 0.9% 1,000 ML IV ONE ×3 (09:04→15:37)
[2018-11-01] MEDS ORDERED: AZITHROMYCIN 500 MG in SODIUM CHLORIDE 0.9% 250 ML IVPB STA (09:25)
[2018-11-01 10:00] LABS: Appearance,Urine Clear (Clear); Bacteria,Urine Few /hpf; Bilirubin,Urine Negative (Negative); Blood,Urine Negative (Negative); Color,Urine Light Yellow; Glucose,Urine (UA) Negative (Negative); Ketones,Urine Negative (Negative); Leukocyte Esterase,Urine Moderate (Negative); Mucus,Urine Rare /hpf; Nitrite,Urine Positive (Negative); Protein,Urine Negative (Negative); RBC,Urine 2 /hpf (0-5); Specific Gravity,Urine 1.012 (1.001-1.035); Squamous Epithelial Cell,Urine <1 /hpf (0-4); Urobilinogen,Urine <2.0 mg/dL (<2.0); WBC,Urine 15 /hpf (0-5)
[2018-11-01] MEDS ORDERED: PANTOPRAZOLE 40 MG TABLET PO SCH (10:45)
[2018-11-01] MEDS: IPRATROPIUM-ALBUTEROL 3 ML NEB INHALATION PRN ×3 (11:26→20:09)
[2018-11-01 11:54] LABS: Glucose,Whole Blood 126 mg/dL (75-99)
[2018-11-01] MEDS: methylPREDNISolone SOD SUCCI 125 MG/2 ML VIAL IV SCH ×2 (12:47→17:26)
[2018-11-01] MEDS: SERTRALINE 100 MG TAB PO SCH (12:47)
--- NOTE | 2018-11-01 13:44 | P.CNPUL ---
History of Present Illness Consult date: 11/01/18 Reason for consult: dyspnea, COPD, pneumonia, pulmonary fibrosis History of present illness: 68-year-old female patient with advanced COPD and pulmonary fibrosis with chronic hypoxic respiratory failure secondary to severe COPD and the patient a lso suffers from chronic hypercapnic respiratory failure and she has had recurrent pneumonias in the past. 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 She suffers from fibromyalgia, compression fracture of the thoracic spine and previous kyphoplasty in addition to chronic a nxiety/depression. The patient was in the hospital last in May 2018 because of bilateral severe pneumonia during which she was also treated in the intensive care unit with a combination of bronchodilators steroids and antibiotics and she was supported with noninvasive positive pressure ventilation. For now, the patient is coming in with few days he worse of increased shortness of breath. Her condition was progressively getting worse. She denied having any chest pain or palpitation. No reported fever or chills. She was quite symptomatic as found by EMS at home. No reported aspiration per no report pleurisy. No altered mentation. Limited edema in lower extremities bilaterally. Chest x-ray showed COPD and chronic ILD in addition to a superimposed left lung pneumonia. The white cell count is at 7.7. Her lactic acid was at 3.2 at time of admission. Rest of the blood work are all within normal limits. She will start and accommodation Rocephin and Zithromax patient was started on IV Solu Medrol patient was started on DuoNeb nebulized treatments around the clock. She was admitted to the hospital for further care. Note that the patient did contact my office on 10/31/2018 for worsening shortness of breath. She was started on a course of Augmentin. Nevertheless she end up in the hospital with the above-mentioned symptoms. For now the patient has some mild lactic acidosis. She short of breath. She is anxious. She was placed on a BiPAP at a pressure of 12/5 cm of water with an FiO2 of 70%. I will transfer this patient to the intensive care unit as the patient had a brief hypotension and she is currently receiving a bolus of IV fluids. Review of Systems Constitutional Constitutional: no fever, no night sweats, no significant weight gain, no significant weight loss, no exercise intolerance, lethargy (fatigued and sleepy) Eyes Eyes: no dry eyes, no vision change, no irritation ENMT Ears: no difficulty hearing, no ear pain Nose: no frequent nosebleeds, no nose problems, sinus problems (coongested) Mouth/Throat: no sore throat, no bleeding gums, no snoring, no mouth ulcers, no teeth problems, dry mouth Cardiovascular Cardiovascular: no chest pain, no arm pain on exertion, no shortness of breath when lying down, no palpitations, no known heart murmur, shortness of breath when walking Respiratory Respiratory: wheezing, no coughing up blood, no sleep apnea, cough, worsening shortness of breath (congested chest) Gastrointestinal Gastrointestinal: no abdominal pain, no nausea, no vomiting, no constipation, normal appetite, no diarrhea, not vomiting blood, no dyspepsia, no GERD Genitourinary Genitourinary: no incontinence, no difficulty urinating, no hematuria, no increased frequency Musculoskeletal Musculoskeletal: no muscle aches, no muscle weakness, no swelling in the extremities, arthralgias/joint pain, back pain (compression fracture of the spine) Integumentary Skin: no abnormal mole, no jaundice, no rashes, no laceration Neurologic Neurologic: no loss of consciousness, no weakness, no numbness, no seizures, no dizziness, no migraines, no headaches, no tremor Psychiatric Psych: no depression, no sleep disturbances, feeling safe in a relationship, no alcohol abuse, endorses increased anxiety, no hallucinations, no suicidal thoughts Endocrine Endocrine: no fatigue Hematologic/Lymphatic Hematologic/Lymphatic no swollen glands, no bruising, no excessive bleeding Allergic/Immunologic Allergy/Immunologic: no runny nose, no sinus pressure, no itching, no hives, no frequent sneezing Past Medical History Past Medical History: Atrial Fibrillation, COPD, Fibromyalgia, GERD/Reflux, Osteoarthritis (OA), Pneumonia, Thyroid Disorder Additional Past Medical History / Comment(s): COPD, chronic hypoxic respiratory failure maintained on oxygen at 3 L per minute nasal cannula, fibromyalgia, acid reflux, hypothyroidism, osteoarthritis, compression fracture of the T-spine, previous kyphoplasty, previous history of recurrent pneumonias requiring decortication for empyema and previous history of ARDS secondary to pneumonia, hiatal hernia, generalized anxiety disorder/depression; intermittent afib History of Any Multi-Drug Resistant Organisms: None Reported Past Surgical History: Back Surgery, Hysterectomy Additional Past Surgical History / Comment(s): X3 BACK SX -FUSIONS( HX FX VERTEBRE), SX TO REMOVE EMPYEMA via a VATS and decortication. She has also had multiple bronchoscopies in the past. She has also received lumbar epidural steroid injection under fluoroscopic guidance. Past Anesthesia/Blood Transfusion Reactions: Motion Sickness Additional Past Anesthesia/Blood Transfusion Reaction / Comment(s): BLOOD TRANSFUSION Past Psychological History: Anxiety, Depression Smoking Status: Current every day smoker Past Alcohol Use History: None Reported Additional Past Alcohol Use History / Comment(s): STARTED SMOKING AT AGE 15. SMOKED UPWARDS TO 2 PPD, NO ETOH OR DRUGS, HAS 02 AT HOME. PT LIVES WITH DAUGHTER, IN [place] Past Drug Use History: None Reported - Past Family History Father Family Medical History: Diabetes Mellitus Additional Family Medical History / Comment(s): AGE 61 THATS ALL PT KNOWS Mother Family Medical History: Cancer, Dementia Additional Family Medical History / Comment(s): AGE 80, RECTAL CA Medications and Allergies Home Medications Medication Instructions Recorded Confirmed Type Albuterol Sulfate [Proair Hfa] 2 puff INHALATION RT-Q6H PRN 08/05/13 11/01/18 History Sertraline [Zoloft] 200 mg PO DAILY 08/05/13 11/01/18 History ALPRAZolam [Xanax] 0.5 mg PO QID PRN 01/30/18 11/01/18 History Tiotropium [place] [Spiriva] 1 puff INHALATION RT-DAILY 01/30/18 11/01/18 History Albuterol Nebulized [Ventolin 2.5 mg INHALATION RT-Q6H PRN 05/29/18 11/01/18 History Nebulized] Hydrocodone/Acetaminophen [[place] 1 tab PO Q6H PRN 05/29/18 11/01/18 History 10-325] Amoxic-Pot Clav 875-125Mg 1 tab PO Q12HR 11/01/18 11/01/18 History [Augmentin 875-125] Pantoprazole Sodium [Protonix] 40 mg PO DAILY 11/01/18 11/01/18 History Allergies Allergy/AdvReac Type Severity Reaction Status Date / Time adhesive AdvReac Unknown Verified 11/01/18 09:05 bupropion HCl AdvReac Unknown Verified 11/01/18 09:05 [From Wellbutrin] Physical Exam Vitals: Vital Signs Temp Pulse Resp BP Pulse Ox 11/01/18 11:42 120 H 11/01/18 11:30 118 H 11/01/18 10:30 117 H 29 H 110/55 90 L 11/01/18 10:00 125 H 38 H 115/50 91 L 11/01/18 09:40 128 H 24 115/50 96 11/01/18 09:30 130 H 37 H 11/01/18 09:00 137 H 35 H 11/01/18 08:40 130 H 11/01/18 08:30 135 H 47 H 114/82 11/01/18 08:01 125 H 11/01/18 08:00 133 H 49 H 107/74 11/01/18 07:38 74 L 11/01/18 07:37 101.0 F H 128 H 28 H 107/74 86 L Intake and Output 10/31/18 11/01/18 11/01/18 22:59 06:59 14:59 Other: Weight 63.503 kg Constitutional General Appearance: Not well nourished, not well developed, not appears stated age Level of Distress: chronically ill Ambulation: ambulating with difficulty due to shortness of breath ENMT Nasal Mucosa: normal, no discharge, pink and moist (nasal septal deviation) Septum: deviated to the right Turbinates: normal turbinate Lips, Teeth, and Gums: normal lips, normal dentition, normal gums Oral Mucosa: no ulcer, no mass, no pallor, moist, no cyanosis, no inflammation, no swelling, no rash, no leukoplakia Tongue: no erythema, no lesions, no enlargement, no swelling, no deviation Posterior pharynx: no enlargement, no erythema, no exudate, no white patches, no ulcers, no mass Neck Neck: supple, trachea midline, no masses, Full ROM Thyroid: no enlargement, non-tender, no nodules Jugular Veins: normal jugular venous pressure Lungs Respiratory effort: dyspneic and is significant amount of respiratory distress and she was placed on BiPAP at a pressure of 12/5 cm of water and FiO2 of 70%. Inspection: normal chest wall expansion, normal curve, no deformity, no tenderness, no swelling Auscultation: rales/crackles, no rhonchi, decreased breath sounds,bilateral,midlung uriostegui, wheezing,expiratory,bilaterally,midlung uriostegui Cardiovascular Precordial Exam: non displaced focal PMI, no heaves, no precordial thrills Heart Rate And Rhythm: normal heart rate and rhythm Heart Sounds: normal s1, no physiologically split S2, no pericardial friction rub, no gallop, no click Systolic Murmur: no systolic murmurs Observation/Palpation of peripheral vascular system: no cyanosis, no edema, normal dorsalis pedis, normal posterior tibialis Abdomen Inspection and Palpation: soft, non-distended, no tenderness, no masses Liver: non-tender, no hepatomegaly Spleen: non-tender, no splenomegaly Bowel Sounds: normal, no abdominal bruits Lymphatic: no cervical LAD, no supraclavicular LAD Musculoskeletal: Motor Strength and Tone: normal motor strength, normal bulk, normal tone Gait and Station: normal gait Joints, Bones, and Muscles: normal movement of all extremities, no bony abnormalities, no contractures, no malalignment, no tenderness Extremities Inspection/Palpation of digits and nails: no clubbing, no cyanosis, no petechiae, no infection, no nodular lesions, no ischemia, no edema Skin Inspection and palpation: no rash, no lesions, no jaundice, normal turgor Neurologic Mental Status/Orientation: oriented to person, oriented to place, oriented to problem/situation, oriented to time Mood/Affect: normal affect the patient is quite anxious at this point in time. Results - Laboratory Findings CBC and BMP: 11/01/18 07:44 11/01/18 07:44 PT/INR, D-dimer PT 10.0 sec (9.0-12.0) 11/01/18 07:44 INR 0.9 (<1.2) 11/01/18 07:44 Abnormal lab findings: Abnormal Labs 11/01/18 11/01/18 11/01/18 07:44 07:44 09:33 Glucose 126 H POC Glucose (mg/dL) Plasma Lactic Acid Kevyn 3.2 H* Urine Nitrite Positive H Ur Leukocyte Esterase Moderate H Urine WBC 15 H Urine Bacteria Few H Urine Mucus Rare H 11/01/18 11/01/18 11:47 12:22 Glucose POC Glucose (mg/dL) 126 H Plasma Lactic Acid Kevyn 3.3 H* Urine Nitrite Ur Leukocyte Esterase Urine WBC Urine Bacteria Urine Mucus - Diagnostic Findings Chest x-ray: image reviewed Assessment and Plan Plan: 1 acute left lung pneumonia, likely bacterial. The patient is quite short of breath. She is an acute hypoxic respiratory failure. She is having difficulty with breathing and she is tachypneic. She was placed on a BiPAP at a pressure of 12/5 cm of water with an FiO2 of 70%. She did encounter a brief hypotension. She'll be transferred to the intensive care unit for IV fluids and broad- spectrum antibiotic coverage and systemic steroids. CODE STATUS DNR/DNI. 2 acute on chronic hypoxic respiratory failure with chest x-ray showing diffuse interstitial changes related to underlying fibrosis and in addition to that there is development of a new infiltrate in left lung peripherally which is suggestive of pneumonia. The patient has developed underlying pulmonary fibrosis related to previous post infectious ARDS 3 severe COPD with chronic hypoxic respiratory failure at 3 L per minute nasal cannula at baseline and the patient has limited and accommodation of Spiriva and Symbicort. 4 history of recurrent pneumonias, in 2010 the patient required decortication for empyema and subsequently she had another pneumonia 2012 and 2018 5 history of ARDS 6 fibromyalgia 7 osteoarthritis 8 chronic anxiety/depression on Zoloft 9 previous history of atrial fibrillation, paroxysmal currently in sinus 10 poor baseline performance and functional status secondary to above-mentioned comorbidities. 11 difficulty with mobility secondary to advanced lung disease 12 history of compression fracture of the thoracic spine with previous kyphoplasty 13 mild lactic acidosis Plan Admit the patient to the intensive care unit. Cover this patient with a combination of Zosyn and Levaquin.. DuoNeb nebulized treatments around the clock. IV Solu Medrol. R Sputum Gram stain and culture. Blood culture. Monitor lactic acid levels. Obtain a blood gas. Give the patient additional liter bolus and maintained on a normal saline infusion at the rate of 100 mL an hour. Continue BiPAP for respiratory support at a pressure of 12/7. Obtain a blood gas. Will do the necessity vent changes. Heparin subcu for DVT prophylaxis. Prognosis poor based on the above-mentioned comorbidities. She is critically ill. She has limited reserve based on her advanced lung disease. Resume outpatient medications. We'll continue to follow and make further recommendations based on her progress. She to me that she wants her daughter bola to be her decision maker in the future. Her , Rolly from lung cancer complications.
[2018-11-01 14:10] LABS: Glucose,Whole Blood 141 mg/dL (75-99)
[2018-11-01 14:14] LABS: ABG Base Excess -4.3 mmol/L; ABG HCO3 22 mmol/L (21-25); ABG Oxygen Saturation 95.9 % (94-97); ABG PCO2 42 mmHg (35-45); ABG PH 7.32 (7.35-7.45); ABG PO2 82 mmHg (83-108); ABG TCO2 23 mmol/L (19-24); Allen Test Performed? Yes
[2018-11-01] MEDS: SODIUM CHLORIDE 0.9% 1,000 ML IV SCH ×2 (14:38→20:03)
[2018-11-01] MEDS: LEVOFLOXACIN 750MG-D5W PMX 750 MG in DEXTROSE/WATER 1 150ML.BAG IVPB SCH (14:55)
--- NOTE | 2018-11-01 15:25 | P.HPIM ---
History of Present Illness H&P Date: 11/01/18 Chief Complaint: Shortness of breath Ms. Dwyer is a 68-year-old female with chronic hypoxic respiratory failure secondary to severe COPD and pulmonary fibrosis, atrial fibrillation, fibromyalgia, ARDS, GERD, osteoarthritis and recurrent pneumonias coming to the hospital with a chief complaint of difficulty in breathing. Patient has been having increased shortness of breath that has been progressively worsening. Patient has end-stage COPD and has several admissions for the same. Her last hospital admission from May 2018 has been very complicated with bilateral sev ere pneumonia and also ARDS. In the outpatient setting patient was started on Augmentin but did not show much response and so she came into the hospital for further evaluation. Patient also has history of anxiety disorder. In the emergency department the patient was found to be hypoxic and so started on BiPAP on 70% FiO2 with BiPAP settings of 12 x 5 cm of water. When I evaluated the patient she was on the floors, patient was saturating at 92% but her blood pressure has been low at 76 x 51. Patient received a liter of bolus in the ED currently she has IV fluids running at 100 mL/h and she also received breathing treatments and started on IV Solu-Medrol and was given ceftriaxone and Zit hromax. She is a very well known patient of Dr. Sierra, who evaluated the patient at bedside and decided to take her to the ICU. Patient denies having any fevers, night sweats. No chest pain or palpitations. No abdominal pain, nausea or vomiting. No dysuria or hematuria. No swelling of her lower extremity is. No recent travel. No sick contacts. Patient lives with her daughter Alice. Review of Systems REVIEW OF SYSTEMS: PSYCH: No anxiety or depression NEURO:No c/o weakness of the extremties, No facial droop, No speech abnormalities. VASCULAR: Peripheral nervous system within the normal limits no edema HEMATOLOGIC: No history of easy bleeding and bruising . No recent infections . RESPIRATORY: As per HPI IMMUNE: No infections INTEGUMENT: no rashes OPHTHALMOLOGIC: No blurry vision and no eye discharge : No dysuria or hematuria [employer] RESOURCE SPECIALIST: No bleeding PV CARDIAC: No chest pain , shortness of breath , paroxysmal nocturnal dyspnea MUSCULOSKELETAL : No Aches or pains in the joints or muscles. GI: No abdominal pain, Nausea or vomiting. No constipation or diarrhea. All 13 systems are reviewed and negative except for the months mentioned above Past Medical History Past Medical History: Atrial Fibrillation, COPD, Fibromyalgia, GERD/Reflux, Osteoarthritis (OA), Pneumonia, Thyroid Disorder Additional Past Medical History / Comment(s): COPD, chronic hypoxic respiratory failure maintained on oxygen at 3 L per minute nasal cannula, fibromyalgia, acid reflux, hypothyroidism, osteoarthritis, compression fracture of the T-spine, previous kyphoplasty, previous history of recurrent pneumonias requiring decortication for empyema and previous history of ARDS secondary to pneumonia, hiatal hernia, generalized anxiety disorder/depression; intermittent afib History of Any Multi-Drug Resistant Organisms: None Reported Past Surgical History: Back Surgery, Hysterectomy Additional Past Surgical History / Comment(s): X3 BACK SX -FUSIONS( HX FX VERTEBRE), SX TO REMOVE EMPYEMA via a VATS and decortication. She has also had multiple bronchoscopies in the past. She has also received lumbar epidural steroid injection under fluoroscopic guidance. Past Anesthesia/Blood Transfusion Reactions: Motion Sickness Additional Past Anesthesia/Blood Transfusion Reaction / Comment(s): BLOOD TRANSFUSION Past Psychological History: Anxiety, Depression Smoking Status: Current every day smoker Past Alcohol Use History: None Reported Additional Past Alcohol Use History / Comment(s): STARTED SMOKING AT AGE 15. SMOKED UPWARDS TO 2 PPD, NO ETOH OR DRUGS, HAS 02 AT HOME. PT LIVES WITH DAUGHTER, IN [place] Past Drug Use History: None Reported - Past Family History Father Family Medical History: Diabetes Mellitus Additional Family Medical History / Comment(s): AGE 61 THATS ALL PT KNOWS Mother Family Medical History: Cancer, Dementia Additional Family Medical History / Comment(s): AGE 80, RECTAL [place] Medications and Allergies Home Medications Medication Instructions Recorded Confirmed Type Albuterol Sulfate [Proair Hfa] 2 puff INHALATION RT-Q6H PRN 08/05/13 11/01/18 History Sertraline [Zoloft] 200 mg PO DAILY 08/05/13 11/01/18 History ALPRAZolam [Xanax] 0.5 mg PO QID PRN 01/30/18 11/01/18 History Tiotropium [place] [Spiriva] 1 puff INHALATION RT-DAILY 01/30/18 11/01/18 History Albuterol Nebulized [Ventolin 2.5 mg INHALATION RT-Q6H PRN 05/29/18 11/01/18 History Nebulized] Hydrocodone/Acetaminophen [[place] 1 tab PO Q6H PRN 05/29/18 11/01/18 History 10-325] Amoxic-Pot Clav 875-125Mg 1 tab PO Q12HR 11/01/18 11/01/18 History [Augmentin 875-125] Pantoprazole Sodium [Protonix] 40 mg PO DAILY 11/01/18 11/01/18 History Allergies Allergy/AdvReac Type Severity Reaction Status Date / Time adhesive AdvReac Unknown Verified 11/01/18 09:05 bupropion HCl AdvReac Unknown Verified 11/01/18 09:05 [From Wellbutrin] Physical Exam Vitals: Vital Signs Temp Pulse Pulse Resp BP BP BP 11/01/18 15:05 78 11/01/18 15:00 81 19 78/58 11/01/18 14:30 95 25 H 85/62 11/01/18 14:14 96 28 H 11/01/18 14:02 98.1 F 97 27 H 87/62 11/01/18 13:47 86/57 11/01/18 13:30 104 H 88/51 11/01/18 13:00 104 H 22 76/51 11/01/18 11:42 120 H 11/01/18 11:30 118 H 11/01/18 11:20 98.3 F 104 H 22 83/56 81/57 11/01/18 11:15 98.1 F 97 28 H 87/62 11/01/18 11:00 113 H 22 82/54 11/01/18 10:30 117 H 29 H 110/55 11/01/18 10:00 125 H 38 H 115/50 11/01/18 09:40 128 H 24 115/50 11/01/18 09:30 130 H 37 H 11/01/18 09:00 137 H 35 H 11/01/18 08:40 130 H 11/01/18 08:30 135 H 47 H 114/82 11/01/18 08:01 125 H 11/01/18 08:00 133 H 49 H 107/74 11/01/18 07:38 11/01/18 07:37 101.0 F H 128 H 28 H 107/74 Pulse Ox 11/01/18 15:05 11/01/18 15:00 95 11/01/18 14:30 97 11/01/18 14:14 11/01/18 14:02 93 L 11/01/18 13:47 11/01/18 13:30 11/01/18 13:00 95 11/01/18 11:42 11/01/18 11:30 11/01/18 11:20 97 11/01/18 11:15 93 L 11/01/18 11:00 93 L 11/01/18 10:30 90 L 11/01/18 10:00 91 L 11/01/18 09:40 96 11/01/18 09:30 11/01/18 09:00 11/01/18 08:40 11/01/18 08:30 11/01/18 08:01 11/01/18 08:00 11/01/18 07:38 74 L 11/01/18 07:37 86 L Intake and Output 11/01/18 11/01/18 11/01/18 06:59 14:59 22:59 Intake Total 2275 Output Total 30 Balance 2245 Intake: IV 2275 Levofloxacin 750Mg-D5w 150 Pmx 750 mg In Dextrose/ Water 1 150ml.bag @ 100 mls/hr IVPB Q24H [facility] Rx#: [id number] Sodium Chloride 0.9% 1, 2125 000 ml @ 999 mls/hr IV . Q1H1M ONE Rx#:[id number] Output: Urine 30 Other: Voiding Method Indwelling Catheter Weight 63.503 kg GEN. APPEARANCE: alert, in no apparent distress HEENT: Eyes no pallor no icterus. Oral mucosa is moist. Patient is on BiPAP. RESPIRATORY EXAM: Decreased breath sounds in all lung uriostegui. Few coarse breath sounds at the lower lung bases. CARDIOVASCULAR EXAM: S1-S2 heard. GI/ABDOMINAL EXAM: soft, normal bowel sounds. Absent: distended, tenderness, guarding, rebound, rigid EXTREMITIES EXAM: normal inspection, full ROM, normal capillary refill. A bsent: tenderness, pedal edema, joint swelling, calf tenderness NEUROLOGICAL EXAM: alert, oriented X3, no focal neurological deficits PSYCHIATRIC EXAM: normal affect, normal mood SKIN EXAM: warm, dry, intact, normal color. Absent: rash Results CBC & Chem 7: 11/01/18 07:44 11/01/18 07:44 Labs: Abnormal Lab Results - Last 24 Hours (Table) 11/01/18 11/01/18 11/01/18 Range/Units 07:44 07:44 09:33 ABG pH (7.35-7.45) ABG pO2 (83-108) mmHg Glucose 126 H (74-99) mg/dL POC Glucose (mg/dL) (75-99) mg/dL Plasma Lactic Acid [place] 3.2 H* (0.7-2.0) mmol/L Urine Nitrite Positive H (Negative) Ur Leukocyte Esterase Moderate H (Negative) Urine WBC 15 H (0-5) /hpf Urine Bacteria Few H (None) /hpf Urine Mucus Rare H (None) /hpf 11/01/18 11/01/18 11/01/18 Range/Units 11:47 12:22 14:05 ABG pH (7.35-7.45) ABG pO2 (83-108) mmHg Glucose (74-99) mg/dL POC Glucose (mg/dL) 126 H 141 H (75-99) mg/dL Plasma Lactic Acid Kev[place] 3.3 H* (0.7-2.0) mmol/L Urine Nitrite (Negative) Ur Leukocyte Esterase (Negative) Urine WBC (0-5) /hpf Urine Bacteria (None) /hpf Urine Mucus (None) /hpf 11/01/18 Range/Units 14:10 ABG pH 7.32 L (7.35-7.45) ABG pO2 82 L (83-108) mmHg Glucose (74-99) mg/dL POC Glucose (mg/dL) (75-99) mg/dL Plasma Lactic Acid [place] (0.7-2.0) mmol/L Urine Nitrite (Negative) Ur Leukocyte Esterase (Negative) Urine WBC (0-5) /hpf Urine Bacteria (None) /hpf Urine Mucus (None) /hpf Thrombosis Risk Factor Assmnt - Choose All That Apply Any of the Below Risk Factors Present?: Yes Each Factor Represents 1 point: Abnormal pulmonary function (COPD), Medical pt on bed rest Other Risk Factors: Yes Each Risk Factor Represents 2 Points: Age 61-74 years Other congenital or acquired thrombophilia - If yes, enter type in comment: No Thrombosis Risk Factor Assessment Total Risk Factor Score: 4 Thrombosis Risk Factor Assessment Level: Moderate Risk Assessment and Plan Assessment: ASSESSMENT Acute on chronic hypoxic respiratory failure Hypotension Left lower lobe pneumonia Severe COPD History of recurrent pneumonias History of ARDS Fibromyalgia Multiple compression fractures of the thoracic spine Chronic anxiety History of paroxysmal atrial fibrillation Lactic acidosis PLAN: Patient is being transferred to the intensive care unit. She is getting 1 L of IV normal saline bolus, as she had an episode of low blood pressure. Antibiotics in the form of Zosyn and Levaquin. Will follow blood and sputum cultures. Patient to be continued on breathing treatments and Solu-Medrol. BiPAP for respiratory support. Overall prognosis is poor. As of now patient wishes to be a DO NOT RESUSCITATE. She wants her daughter Alice, to be her healthcare proxy. Further recommendations depending on the progress of the patient.
[2018-11-01] MEDS: PIPERACILLIN-TAZOBACTAM 3.375 GM in SODIUM CHLORIDE 0.9% 100 ML IVPB SCH (15:52)
[2018-11-01] MEDS ORDERED: NALOXONE 0.4 MG/ML 1 ML VIAL IV PRN (16:06)
[2018-11-01] MEDS ORDERED: SODIUM CHLORIDE 0.9% 2,000 ML IV ONE (17:09)
--- NOTE | 2018-11-01 19:32 | PCN ---
PROCEDURE NOTE ARTERIAL LINE PLACEMENT: Indications: Hemodynamic monitoring. A time-out was completed verifying correct patient, procedure, site, positioning, and implant(s) or special equipment if applicable. Grover's test was performed to ensure adequate perfusion. The patient's right groin was prepped and draped in sterile fashion. 1% Lidocaine was used to anesthetize the area. An 18G [place] arterial line was introduced into the femoral artery. The catheter was threaded over the guide wire and the needle was removed with appropriate pulsatile blood return. Blood loss was minimal. The catheter was then sutured in place to the skin and a sterile dressing applied. Perfusion to the extremity distal to the point of catheter insertion was checked and found to be adequate. The patient tolerated the procedure well and there were no complications. MMODL / IJN: [id number] /
--- NOTE | 2018-11-01 19:32 | PCN ---
PROCEDURE NOTE PREOP DIAGNOSIS: Pneumonia and sepsis. POSTOP DIAGNOSIS: Pneumonia and sepsis. OPERATIVE PROCEDURE: Insertion of triple lumen catheter. TRIPLE LUMEN CATHETER PLACEMENT: Indication Hemodynamic monitoring/Intravenous access. A time-out was completed verifying correct patient, procedure, site, positioning, and implant(s) or special equipment if applicable. The patient was placed in a dependent position appropriate for triple lumen catheter placement based on the vein to be cannulated. The patient's right groin was prepped and draped in sterile fashion. 1% Lidocaine was used to anesthetize the surrounding skin area. A triple lumen 9F Cordis catheter was introduced into the common femoral vein using Seldinger technique. The catheter was threaded smoothly over the guide wire and appropriate blood return was obtained. Each lumen of the catheter was evacuated of air and flushed with sterile saline. The catheter was then sutured in place to the skin and a sterile dressing applied. No complications. MMODL / IJN: [id number] /
[2018-11-01] MEDS: HYDROcodone/APAP 10-325MG 1 EACH TAB PO PRN (22:29)
[2018-11-01] MEDS: ALPRAZolam 0.5 MG TAB PO PRN (22:29)
[2018-11-02] MEDS: PIPERACILLIN-TAZOBACTAM 3.375 GM in SODIUM CHLORIDE 0.9% 100 ML IVPB SCH ×4 (00:13→23:32)
[2018-11-02] MEDS: methylPREDNISolone SOD SUCCI 125 MG/2 ML VIAL IV SCH ×5 (00:14→23:31)
[2018-11-02] MEDS: HEPARIN SODIUM,PORCINE 5,000 UNIT/ML 1 ML VIAL SQ SCH ×4 (00:15→23:34)
[2018-11-02] MEDS ORDERED: FUROSEMIDE 10 MG/ML 4 ML VIAL IV STA (02:23)
[2018-11-02 04:40] LABS: HCT 25.5 % (34.0-46.0); Hypochromasia Slight; MCH 28.8 pg (25.0-35.0); MCHC 32.3 g/dL (31.0-37.0); MCV 89.3 fL (80.0-100.0); Mean Platelet Volume 10.1; RBC 2.86 m/uL (3.80-5.40); RDW 15.3 % (11.5-15.5); WBC 9.7 k/uL (3.8-10.6)
[2018-11-02 04:41] LABS: HGB 8.2 gm/dL (11.4-16.0); Platelet Count 124 k/uL (150-450)
[2018-11-02 04:59] LABS: African American GFR (CKD) >90 (>60 ml/min/1.73 sqM); Anion Gap 8 mmol/L; Blood Urea Nitrogen 17 mg/dL (7-17); Calcium 7.6 mg/dL (8.4-10.2); Carbon Dioxide 23 mmol/L (22-30); Chloride 110 mmol/L (98-107); Glucose 131 mg/dL (74-99); Potassium 4.3 mmol/L (3.5-5.1); Sodium 141 mmol/L (137-145)
[2018-11-02 05:12] LABS: Band Neutrophils % 18 %; Lymphocytes # (M) 0.29 k/uL (1.0-4.8); Myelocytes % 1 %; Neutrophils % (M) 77 %; Nucleated Red Blood Cells 0 /100 WBC (0-0); Total Cells Counted 200
[2018-11-02] MEDS: ALPRAZolam 0.5 MG TAB PO PRN ×3 (05:49→23:37)
[2018-11-02] MEDS: SODIUM CHLORIDE 0.9% 1,000 ML IV SCH ×3 (05:51→23:30)
--- NOTE | 2018-11-02 06:57 | XR ---
EXAMINATION TYPE: XR chest 1V DATE OF EXAM: 11/02/2018 HISTORY: Bipap. REFERENCE: Previous study dated 11/01/2018. FINDINGS: There is a background of interstitial lung disease. There is perhaps some improved aeration of the left lung base. Heart size is upper limits of normal. I could not exclude a small right-sided effusion. IMPRESSION: 1. INTERSTITIAL LUNG DISEASE. 2. IMPROVED AERATION, LEFT LUNG BASE. 3. I CANNOT EXCLUDE A SMALL RIGHT-SIDED PLEURAL EFFUSION.
[2018-11-02] MEDS: IPRATROPIUM-ALBUTEROL 3 ML NEB INHALATION PRN ×4 (07:15→23:13)
[2018-11-02] MEDS: HYDROcodone/APAP 10-325MG 1 EACH TAB PO PRN ×2 (08:10→13:50)
[2018-11-02] MEDS: SERTRALINE 100 MG TAB PO SCH (08:11)
[2018-11-02] MEDS: PANTOPRAZOLE 40 MG/10 ML VIAL IV SCH (08:11)
[2018-11-02] MEDS ORDERED: AZITHROMYCIN 500 MG TAB PO SCH (09:00)
--- NOTE | 2018-11-02 11:44 | P.PN ---
Subjective Progress Note Date: 11/02/18 68-year-old female patient with advanced COPD and pulmonary fibrosis with chronic hypoxic respiratory failure secondary to severe COPD and the patient also suffers from chronic hypercapnic respiratory failure and she has had recurrent pneumonias in the past. She also has history of recurrent ARDS from [facility] she has survived. She suffers from fibromyalgia, compression fracture of the thoracic spine and previous kyphoplasty in addition to chronic anxiety/depression. The patient was in the hospital last in May 2018 because of bilateral severe pneumonia during which she was also treated in the intensive care unit with a combination of bronchodilators steroids and antibiotics and she was supported with noninvasive positive pressure ventilation. For now, the patient is coming in with few days he worse of increased shortness of breath. Her condition was progressively getting worse. She denied having any chest pain or palpitation. No reported fever or chills. She was quite symptomatic as found by EMS at home. No reported aspiration per no report pleurisy. No altered mentation. Limited edema in lower extremities bilaterally. Chest x-ray showed COPD and chronic ILD in addition to a superimposed left lung pneumonia. The white cell count is at 7.7. Her lactic acid was at 3.2 at time of admission. Rest of the blood work are all within normal limits. She will start and accommodation Rocephin and Zithromax patient was started on IV Solu Medrol patient was started on DuoNeb nebulized treatments around the clock. She was admitted to the hospital for further care. Note that the patient did contact my office on 10/31/2018 for worsening shortness of breath. She was started on a course of Augmentin. Nevertheless she end up in the hospital with the above-mentioned symptoms. For now the patient has some mild lactic acidosis. She short of breath. She is anxious. She was placed on a BiPAP at a pressure of 12/5 cm of water with an FiO2 of 70%. I will transfer this patient to the intensive care unit as the patient had a brief hypotension and she is currently receiving a bolus of IV fluids. On 10/23/2018, the patient is on high flow oxygen at 50L with 50% FiO2. The patient seems to be slightly more comfortable compared to yesterday. She was aggressively resuscitated with IV fluids knowing that her lactic acid was elevated. Subsequent lactic acid level dropped and morning lactic acid level is down to 1.7. The patient is on accommodation Zosyn and Levaquin. A triple lumen catheter was inserted and an outlying catheter was inserted. The patient is being monitored hemodynamically. The patient is on bronchodilators and steroids. No pressors for the time being. She is awake and alert. She is following commands and answering questions. She is admitted lethargic. The chest x-ray from today shows chronic fibrotic changes/ILD. There is some improvement in aeration of the left lung base. A small right-sided pleural effusion is present. She is tolerating the fluids well patient is taking some clear liquid diet. No nausea. No vomiting. No emesis. No other issues otherwise for now. Objective - Vital Signs Vital signs: Vital Signs Temp 98.1 F 11/02/18 07:30 Pulse 74 11/02/18 11:00 Resp 21 11/02/18 11:00 BP 105/59 11/02/18 11:00 Pulse Ox 94 L 11/02/18 11:00 Intake & Output 11/01/18 11/02/18 11/02/18 18:59 06:59 18:59 Intake Total 5375 950 370 Output Total 301 1590 635 Balance 5074 -640 -265 Weight 63.503 kg 55.6 kg Intake: IV 5375 950 360 Levofloxacin 750Mg-D5w 150 Pmx 750 mg In Dextrose/ Water 1 150ml.bag @ 100 mls/hr IVPB Q24H [facility] Rx#: [id number] Piperacillin-Tazobactam 3 100 100 .375 gm In Sodium Chloride 0.9% 100 ml @ 25 mls/hr IVPB Q8HR [facility] Rx# :[id number] Sodium Chloride 0.9% 1, 950 260 000 ml @ 125 mls/hr IV . Q8H [facility] Rx#:[id number] Sodium Chloride 0.9% 1, 5125 000 ml @ 999 mls/hr IV . Q1H1M [facility] Rx#:[id number] Oral 10 Output: Urine 301 1590 635 Other: Voiding Method Indwelling Catheter Indwelling Catheter ABP, PAP, CO, CI - Last Documented Arterial Blood Pressure 102/52 - Exam Constitutional General Appearance: Not well nourished, not well developed, not appears stated age, the patient is using high flow oxygen through the Airvo Level of Distress: chronically ill Ambulation: Unable to ambulate due to shortness of breath ENMT Nasal Mucosa: normal, no discharge, pink and moist (nasal septal deviation) Septum: deviated to the right Turbinates: normal turbinate Lips, Teeth, and Gums: normal lips, normal dentition, normal gums Oral Mucosa: no ulcer, no mass, no pallor, moist, no cyanosis, no inflammation, no swelling, no rash, no leukoplakia Tongue: no erythema, no lesions, no enlargement, no swelling, no deviation Posterior pharynx: no enlargement, no erythema, no exudate, no white patches, no ulcers, no mass Neck Neck: supple, trachea midline, no masses, Full ROM Thyroid: no enlargement, non-tender, no nodules Jugular Veins: normal jugular venous pressure Lungs Respiratory effort: dyspneic and is significant amount of respiratory distress and she was placed on BiPAP at a pressure of 12/5 cm of water and FiO2 of 70%. Inspection: normal chest wall expansion, normal curve, no deformity, no tenderness, no swelling Auscultation: rales/crackles, no rhonchi, decreased breath sounds,bilateral,midlung uriostegui, wheezing,expiratory,bilaterally,midlung uriostegui Cardiovascular Precordial Exam: non displaced focal PMI, no heaves, no precordial thrills Heart Rate And Rhythm: normal heart rate and rhythm Heart Sounds: normal s1, no physiologically split S2, no pericardial friction rub, no gallop, no click Systolic Murmur: no systolic murmurs Observation/Palpation of peripheral vascular system: no cyanosis, no edema, normal dorsalis pedis, normal posterior tibialis Abdomen Inspection and Palpation: soft, non-distended, no tenderness, no masses Liver: non-tender, no hepatomegaly Spleen: non-tender, no splenomegaly Bowel Sounds: normal, no abdominal bruits Lymphatic: no cervical LAD, no supraclavicular LAD Musculoskeletal: Motor Strength and Tone: normal motor strength, normal bulk, normal tone Gait and Station: normal gait Joints, Bones, and Muscles: normal movement of all extremities, no bony abnormalities, no contractures, no malalignment, no tenderness Extremities Inspection/Palpation of digits and nails: no clubbing, no cyanosis, no petechiae, no infection, no nodular lesions, no ischemia, no edema. The patient has a triple-lumen catheter in outlying catheter in the right groin area. Skin Inspection and palpation: no rash, no lesions, no jaundice, normal turgor Neurologic Mental Status/Orientation: oriented to person, oriented to place, oriented to problem/situation, oriented to time Mood/Affect: normal affect the patient is quite anxious at this point in time. - Labs CBC & Chem 7: 11/02/18 04:20 11/02/18 04:20 Labs: Abnormal Lab Results - Last 24 Hours (Table) 11/01/18 11/01/18 11/01/18 Range/Units 11:47 12:22 14:05 RBC (3.80-5.40) m/uL Hgb (11.4-16.0) gm/dL Hct (34.0-46.0) % Plt Count (150-450) k/uL Neutrophils # (Manual) (1.3-7.7) k/uL Lymphocytes # (Manual) (1.0-4.8) k/uL Myelocytes # (Manual) (0) k/uL ABG pH (7.35-7.45) ABG pO2 (83-108) mmHg ABG Lactic Acid (0.5-1.6) mmol/L Chloride (98-107) mmol/L Glucose (74-99) mg/dL POC Glucose (mg/dL) 126 H 141 H (75-99) mg/dL Plasma Lactic Acid Kevyn 3.3 H* (0.7-2.0) mmol/L Calcium (8.4-10.2) mg/dL 11/01/18 11/01/18 11/01/18 Range/Units 14:10 16:20 20:28 RBC (3.80-5.40) m/uL Hgb (11.4-16.0) gm/dL Hct (34.0-46.0) % Plt Count (150-450) k/uL Neutrophils # (Manual) (1.3-7.7) k/uL Lymphocytes # (Manual) (1.0-4.8) k/uL Myelocytes # (Manual) (0) k/uL ABG pH 7.32 L (7.35-7.45) ABG pO2 82 L (83-108) mmHg ABG Lactic Acid (0.5-1.6) mmol/L Chloride (98-107) mmol/L Glucose (74-99) mg/dL POC Glucose (mg/dL) (75-99) mg/dL Plasma Lactic Acid Kevyn 4.5 H* 3.0 H* (0.7-2.0) mmol/L Calcium (8.4-10.2) mg/dL 11/02/18 11/02/18 11/02/18 Range/Units 04:20 04:20 04:20 RBC 2.86 L (3.80-5.40) m/uL Hgb 8.2 L D (11.4-16.0) gm/dL Hct 25.5 L (34.0-46.0) % Plt Count 124 L D (150-450) k/uL Neutrophils # (Manual) 9.20 H (1.3-7.7) k/uL Lymphocytes # (Manual) 0.29 L (1.0-4.8) k/uL Myelocytes # (Manual) 0.10 H (0) k/uL ABG pH (7.35-7.45) ABG pO2 (83-108) mmHg ABG Lactic Acid 1.7 H (0.5-1.6) mmol/L Chloride 110 H (98-107) mmol/L Glucose 131 H (74-99) mg/dL POC Glucose (mg/dL) (75-99) mg/dL Plasma Lactic Acid Kevyn (0.7-2.0) mmol/L Calcium 7.6 L (8.4-10.2) mg/dL Assessment and Plan Plan: 1 acute left lung pneumonia, likely bacterial. The patient i presented with significant respiratory distress and failure. She was initially placed on BiPAP and currently she is on high flow oxygen utilizing the Airvo system at 50 L. Chest x-ray shows some limited improvement in aeration of the left lung base. CODE STATUS DNR/DNI.. She seems to be less short of breath compared to yesterday. Nevertheless she has very limited reserve and she continues to be in respiratory distress for the time being. She is hemodynamically stable. She has been aggressively resuscitated IV fluids. She is on broad-spectrum antibiotics for now. No pressors. 2 acute on chronic hypoxic respiratory failure with chest x-ray showing diffuse interstitial changes related to underlying fibrosis and in addition to that there is development of a new infiltrate in left lung peripherally which is suggestive of pneumonia. The patient has developed underlying pulmonary fibrosis related to previous post infectious ARDS 3 severe COPD with chronic hypoxic respiratory failure at 3 L per minute nasal cannula at baseline and the patient has limited and accommodation of Spiriva and Symbicort. 4 history of recurrent pneumonias, in 2010 the patient required decortication for empyema and subsequently she had another pneumonia 2012 and 2018 5 history of ARDS 6 fibromyalgia 7 osteoarthritis 8 chronic anxiety/depression on Zoloft 9 previous history of atrial fibrillation, paroxysmal currently in sinus 10 poor baseline performance and functional status secondary to above-mentioned comorbidities. 11 difficulty with mobility secondary to advanced lung disease 12 history of compression fracture of the thoracic spine with previous kyphoplasty 13 mild lactic acidosis, improved and lactic acid level is down to 1.7 Plan Continue high flow oxygen at 50 L. Continue same antibiotic coverage. Continue IV fluids and the patient is receiving normal saline at the rate of 125 mL an hour. Continue IV Solu-Medrol. Heparin subcu for DVT prophylaxis. Daily chest x-ray. We'll continue to follow. Condition is still critical.
--- NOTE | 2018-11-02 12:16 | P.PN ---
Subjective Progress Note Date: 11/02/18 Principal diagnosis: Acute on chronic hypoxic respiratory failure Ms. Dwyer is a 68-year-old female with chronic hypoxic respiratory failure secondary to severe COPD and pulmonary fibrosis, atrial fibrillation, fibromyalgia, ARDS, GERD, osteoarthritis and recurrent pneumonias coming to the hospital with a chief complaint of difficulty in breathing. Patient has been having increased shortness of breath that has been progressively worsening. Patient has end-stage COPD and has several admissions for the same. Her last hospital admission from May 2018 has been very complicated with bilateral severe pneumonia and also ARDS. In the outpatient setting patient was started on Augmentin but did not show much response and so she came into the hospital for further evaluation. Patient also has history of anxiety disorder. In the emergency department the patient was found to be hypoxic and so started on BiPAP on 70% FiO2 with BiPAP settings of 12 x 5 cm of water. When I evaluated the patient she was on the floors, patient was saturating at 92% but her blood pressure has been low at 76 x 51. Patient received a liter of bolus in the ED currently she has IV fluids running at 100 mL/h and she also received breathing treatments and started on IV Solu-Medrol and was given ceftriaxone and Zithromax. On 11/02/18 - patient has been transferred to the ICU yesterday. As per discussion with nursing staff, the patient had a panic attack at around 10:30 PM last night. She was given a dose of Xanax to calm her down. And she also received a dose of IV Lasix. Later on patient felt much better and she was taken off of BiPAP and changed to high flow oxygen at 15 L with 50% FiO2. Patient has been saturating well maintained around 88-92% on this current setting. She has been receiving antibiotics in the form of Zosyn and Levaquin. Patient states that she feels much better compared to yesterday in terms of her difficulty in breathing. But overall she complains of tiredness and fatigue. She has been trying to eat a little. Patient denies having any fevers chills or rigors. No abdominal pain nausea vomiting or diarrhea. No chest pain or palpitations. Objective - Vital Signs Vital signs: Vital Signs Temp 98.1 F 11/02/18 07:30 Pulse 74 11/02/18 11:00 Resp 17 11/02/18 11:50 BP 105/59 11/02/18 11:00 Pulse Ox 94 L 11/02/18 11:00 Intake & Output 11/01/18 11/02/18 11/02/18 18:59 06:59 18:59 Intake Total 5375 950 420 Output Total 301 1590 710 Balance 5074 -640 -290 Weight 63.503 kg 55.6 kg Intake: IV 5375 950 410 Levofloxacin 750Mg-D5w 150 Pmx 750 mg In Dextrose/ Water 1 150ml.bag @ 100 mls/hr IVPB Q24H [facility] Rx#: [id number] Piperacillin-Tazobactam 3 100 100 .375 gm In Sodium Chloride 0.9% 100 ml @ 25 mls/hr IVPB Q8HR [facility] Rx# :[id number] Sodium Chloride 0.9% 1, 950 310 000 ml @ 125 mls/hr IV . Q8H [facility] Rx#:[id number] Sodium Chloride 0.9% 1, 5125 000 ml @ 999 mls/hr IV . Q1H1M [facility] Rx#:[id number] Oral 10 Output: Urine 301 1590 710 Other: Voiding Method Indwelling Catheter Indwelling Catheter Indwelling Catheter ABP, PAP, CO, CI - Last Documented Arterial Blood Pressure 102/52 - Exam GEN. APPEARANCE: alert, in no apparent distress HEENT: Eyes no pallor no icterus. Oral mucosa is moist. Patient is on BiPAP. RESPIRATORY EXAM: Decreased breath sounds in all lung uriostegui. Few coarse breath sounds at the lower lung bases. Mild end expiratory wheeze bilaterally. CARDIOVASCULAR EXAM: S1-S2 heard. GI/ABDOMINAL EXAM: soft, normal bowel sounds. Absent: distended, tenderness, guarding, rebound, rigid EXTREMITIES EXAM: No pedal edema. NEUROLOGICAL EXAM: alert, oriented X3, no focal neurological deficits PSYCHIATRIC EXAM: Patient is slightly anxious SKIN EXAM: warm, dry, intact, normal color. Absent: rash - Labs CBC & Chem 7: 11/02/18 04:20 11/02/18 04:20 Labs: Abnormal Lab Results - Last 24 Hours (Table) 11/01/18 11/01/18 11/01/18 Range/Units 12:22 14:05 14:10 RBC (3.80-5.40) m/uL Hgb (11.4-16.0) gm/dL Hct (34.0-46.0) % Plt Count (150-450) k/uL Neutrophils # (Manual) (1.3-7.7) k/uL Lymphocytes # (Manual) (1.0-4.8) k/uL Myelocytes # (Manual) (0) k/uL ABG pH 7.32 L (7.35-7.45) ABG pO2 82 L (83-108) mmHg ABG Lactic Acid (0.5-1.6) mmol/L Chloride (98-107) mmol/L Glucose (74-99) mg/dL POC Glucose (mg/dL) 141 H (75-99) mg/dL Plasma Lactic Acid Kevyn 3.3 H* (0.7-2.0) mmol/L Calcium (8.4-10.2) mg/dL 11/01/18 11/01/18 11/02/18 Range/Units 16:20 20:28 04:20 RBC 2.86 L (3.80-5.40) m/uL Hgb 8.2 L D (11.4-16.0) gm/dL Hct 25.5 L (34.0-46.0) % Plt Count 124 L D (150-450) k/uL Neutrophils # (Manual) 9.20 H (1.3-7.7) k/uL Lymphocytes # (Manual) 0.29 L (1.0-4.8) k/uL Myelocytes # (Manual) 0.10 H (0) k/uL ABG pH (7.35-7.45) ABG pO2 (83-108) mmHg ABG Lactic Acid (0.5-1.6) mmol/L Chloride (98-107) mmol/L Glucose (74-99) mg/dL POC Glucose (mg/dL) (75-99) mg/dL Plasma Lactic Acid Kevyn 4.5 H* 3.0 H* (0.7-2.0) mmol/L Calcium (8.4-10.2) mg/dL 11/02/18 11/02/18 Range/Units 04:20 04:20 RBC (3.80-5.40) m/uL Hgb (11.4-16.0) gm/dL Hct (34.0-46.0) % Plt Count (150-450) k/uL Neutrophils # (Manual) (1.3-7.7) k/uL Lymphocytes # (Manual) (1.0-4.8) k/uL Myelocytes # (Manual) (0) k/uL ABG pH (7.35-7.45) ABG pO2 (83-108) mmHg ABG Lactic Acid 1.7 H (0.5-1.6) mmol/L Chloride 110 H (98-107) mmol/L Glucose 131 H (74-99) mg/dL POC Glucose (mg/dL) (75-99) mg/dL Plasma Lactic Acid Kevyn (0.7-2.0) mmol/L Calcium 7.6 L (8.4-10.2) mg/dL Assessment and Plan Assessment: ASSESSMENT Acute on chronic hypoxic respiratory failure Hypotension Left lower lobe pneumonia Severe COPD History of recurrent pneumonias History of ARDS Fibromyalgia Multiple compression fractures of the thoracic spine Chronic anxiety History of paroxysmal atrial fibrillation Lactic acidosis PLAN: Patient is currently in BSU on high flow oxygen saturating between 88- 92%. She had an Arterial line placed yesterday by Dr. Sierra and her blood pressure has been maintaining and on high 90s by 60s she did not receive any pressor support. Patient also had a chest x-ray done this morning showing improved radiation of the left lung base and that is a small right-sided pleural effusion. Patient's lactic acid has come down. We'll continue with antibiotics in the form of Levaquin and Zosyn. Continue with Solu-Medrol and breathing treatments. Xanax when necessary for panic attacks. Overall patient seems to be doing much better compared to yesterday. Patient wishes to be DNR/DNI. Further recommendations to follow depending on the progress of the patient. Overall prognosis is poor.
[2018-11-02] MEDS: LEVOFLOXACIN 750MG-D5W PMX 750 MG in DEXTROSE/WATER 1 150ML.BAG IVPB SCH (13:52)
[2018-11-03] MEDS: IPRATROPIUM-ALBUTEROL 3 ML NEB INHALATION PRN ×3 (03:18→10:49)
[2018-11-03] MEDS: HYDROcodone/APAP 10-325MG 1 EACH TAB PO PRN ×3 (03:23→23:52)
[2018-11-03 05:15] LABS: Basophils % (A) 0 %; Eosinophils % (A) 0 %; HCT 23.8 % (34.0-46.0); HGB 7.6 gm/dL (11.4-16.0); Hypochromasia Moderate; Lymphocytes # (A) 0.3 k/uL (1.0-4.8); Lymphocytes % (A) 3 %; MCH 28.9 pg (25.0-35.0); MCHC 31.8 g/dL (31.0-37.0); MCV 91.1 fL (80.0-100.0); Mean Platelet Volume 8.5; Monocytes # (A) 0.2 k/uL (0-1.0); Monocytes % (A) 3 %; Neutrophils # (A) 7.8 k/uL (1.3-7.7); Neutrophils % (A) 94 %; Platelet Count 131 k/uL (150-450); RBC 2.61 m/uL (3.80-5.40); RDW 15.5 % (11.5-15.5); WBC 8.3 k/uL (3.8-10.6)
[2018-11-03] MEDS: SODIUM CHLORIDE 0.9% 1,000 ML IV SCH ×2 (05:17→14:11)
[2018-11-03] MEDS: methylPREDNISolone SOD SUCCI 125 MG/2 ML VIAL IV SCH ×4 (05:17→23:51)
[2018-11-03 05:23] LABS: African American GFR (CKD) >90 (>60 ml/min/1.73 sqM); Anion Gap 8 mmol/L; Blood Urea Nitrogen 24 mg/dL (7-17); Calcium 8.1 mg/dL (8.4-10.2); Carbon Dioxide 24 mmol/L (22-30); Chloride 109 mmol/L (98-107); Glucose 114 mg/dL (74-99); Potassium 3.7 mmol/L (3.5-5.1); Sodium 141 mmol/L (137-145)
[2018-11-03] MEDS ORDERED: POTASSIUM CHLORIDE ER 20 MEQ TAB.ER PO SCH (06:00)
[2018-11-03] MEDS: ALPRAZolam 0.5 MG TAB PO PRN ×3 (06:44→23:52)
[2018-11-03] MEDS: HEPARIN SODIUM,PORCINE 5,000 UNIT/ML 1 ML VIAL SQ SCH ×3 (08:48→23:51)
[2018-11-03] MEDS: PIPERACILLIN-TAZOBACTAM 3.375 GM in SODIUM CHLORIDE 0.9% 100 ML IVPB SCH ×3 (08:48→23:51)
[2018-11-03] MEDS: SERTRALINE 100 MG TAB PO SCH (08:48)
[2018-11-03] MEDS: PANTOPRAZOLE 40 MG/10 ML VIAL IV SCH (08:48)
--- NOTE | 2018-11-03 09:22 | XR ---
EXAMINATION TYPE: XR chest 1V portable DATE OF EXAM: 11/03/2018 COMPARISON: 11/02/2018 INDICATION: Shortness of breath TECHNIQUE: Single frontal view of the chest is obtained. FINDINGS: The heart size is normal. The pulmonary vasculature is normal. There is diffuse increased lung markings. Pulmonary edema could be considered. Some underlying pulmon lizzeth fibrosis should be considered. IMPRESSION: 1. Stable interstitial lung disease. Some underlying pulmonary edema pulmonary fibrosis should be con sidered.
--- NOTE | 2018-11-03 11:21 | P.PN ---
Subjective Progress Note Date: 11/03/18 Principal diagnosis: Acute on chronic hypoxic respiratory failure Ms. Dwyer is a 68-year-old female with chronic hypoxic respiratory failure secondary to severe COPD and pulmonary fibrosis, atrial fibrillation, fibromyalgia, ARDS, GERD, osteoarthritis and recurrent pneumonias coming to the hospital with a chief complaint of difficulty in breathing. Patient has been having increased shortness of breath that has been progressively worsening. Patient has end-stage COPD and has several admissions for the same. Her last hospital admission from May 2018 has been very complicated with bilateral severe pneumonia and also ARDS. In the outpatient setting patient was started on Augmentin but did not show much response and so she came into the hospital for further evaluation. Patient also has history of anxiety disorder. In the emergency department the patient was found to be hypoxic and so started on BiPAP on 70% FiO2 with BiPAP settings of 12 x 5 cm of water. When I evaluated the patient she was on the floors, patient was saturating at 92% but her blood pressure has been low at 76 x 51. Patient received a liter of bolus in the ED currently she has IV fluids running at 100 mL/h and she also received breathing treatments and started on IV Solu-Medrol and was given ceftriaxone and Zithromax. On 11/02/18 - patient has been transferred to the ICU yesterday. As per discussion with nursing staff, the patient had a panic attack at around 10:30 PM last night. She was given a dose of Xanax to calm her down. And she also received a dose of IV Lasix. Later on patient felt much better and she was taken off of BiPAP and changed to high flow oxygen at 15 L with 50% FiO2. Patient has been saturating well maintained around 88-92% on this current setting. She has been receiving antibiotics in the form of Zosyn and Levaquin. Patient states that she feels much better compared to yesterday in terms of her difficulty in breathing. But overall she complains of tiredness and fatigue. She has been trying to eat a little. Patient denies having any fevers chills or rigors. No abdominal pain nausea vomiting or diarrhea. No chest pain or palpitations. On 11/03/18 - vision is still in the ICU. As per the nursing staff report, patient has been on BiPAP last night. This morning she is on a high flow oxygen, maintaining her sats in the low 90s. Patient's daughter Alice, is at bedside. She had a brief discussion regarding the CODE STATUS with the patient and they are okay with her being DO NOT RESUSCITATE. Patient states that her breathing is much better compared to couple of days back. She denies having any chest pain or palpitations. No abdominal pain nausea vomiting or diarrhea. No dysuria or hematuria. No swelling of her lower extremities. No headaches blurring of vision, focal weakness. She reports her fatigue is much better. Active Medications Hydrocodone Bitart/Acetaminophen ([place] 10) 1 each PO Q6H PRN PRN Reason: Pain Last Admin: 11/03/18 10:42 Dose: 1 each Documented by: Albuterol/Ipratropium (Duoneb 0.5 Mg-3 Mg/3 Ml Soln) 3 ml INHALATION RT-Q4H PRN PRN Reason: Shortness Of Breath Or Wheezing Last Admin: 11/03/18 10:49 Dose: 3 ml Documented by: Alprazolam (Xanax) 0.5 mg PO QID PRN PRN Reason: Anxiety Last Admin: 11/03/18 06:44 Dose: 0.5 mg Documented by: Heparin Sodium (Porcine) (Heparin) 5,000 unit SQ Q8HR [facility] Last Admin: 11/03/18 08:48 Dose: 5,000 unit Documented by: Levofloxacin 750 mg/ IV (Solution) 150 mls @ 100 mls/hr IVPB Q24H [facility] Last Admin: 11/02/18 13:52 Dose: 100 mls/hr Documented by: Piperacillin Sod/Tazobactam (Sod 3.375 gm/ Sodium Chloride) 100 mls @ 25 mls/hr IVPB Q8HR [facility] Last Admin: 11/03/18 08:48 Dose: 25 mls/hr Documented by: Sodium Chloride (Saline 0.9%) 1,000 mls @ 125 mls/hr IV .Q8H [facility] Last Admin: 11/03/18 05:17 Dose: 125 mls/hr Documented by: Methylprednisolone Sodium Succinate (Solu-Medrol) 60 mg IV Q6HR [facility] Last Admin: 11/03/18 05:17 Dose: 60 mg Documented by: Naloxone HCl (Narcan) 0.2 mg IV Q2M PRN PRN Reason: Opioid Reversal Pantoprazole Sodium (Protonix) 40 mg IV DAILY [facility] Last Admin: 11/03/18 08:48 Dose: 40 mg Documented by: Sertraline HCl (Zoloft) 200 mg PO DAILY [facility] Last Admin: 11/03/18 08:48 Dose: 200 mg Documented by: Objective - Vital Signs Vital signs: Vital Signs Temp 97.4 F L 11/03/18 09:00 Pulse 80 11/03/18 11:00 Resp 19 11/03/18 10:00 BP 135/85 11/03/18 07:00 Pulse Ox 91 L 11/03/18 10:00 Intake & Output 11/02/18 11/03/18 11/03/18 18:59 06:59 18:59 Intake Total 1226 550 300 Output Total 1135 410 170 Balance 91 140 130 Weight 53.5 kg Intake: IV 960 550 300 Levofloxacin 750Mg-D5w 150 Pmx 750 mg In Dextrose/ Water 1 150ml.bag @ 100 mls/hr IVPB Q24H [facility] Rx#: [id number] Piperacillin-Tazobactam 3 200 100 .375 gm In Sodium Chloride 0.9% 100 ml @ 25 mls/hr IVPB Q8HR [facility] Rx# :[id number] Sodium Chloride 0.9% 1, 610 550 200 000 ml @ 125 mls/hr IV . Q8H [facility] Rx#:[id number] Oral 266 Output: Urine 1135 410 170 Other: Voiding Method Indwelling Catheter Indwelling Catheter Indwelling Catheter ABP, PAP, CO, CI - Last Documented Arterial Blood Pressure 145/78 - Exam GEN. APPEARANCE: alert, in no apparent distress HEENT: Eyes no pallor no icterus. Oral mucosa is moist. Patient is on BiPAP. RESPIRATORY EXAM: Decreased breath sounds in all lung uriostegui. But the air entry compared to yesterday. Few coarse breath sounds at the lower lung bases. Mild end expiratory wheeze bilaterally. CARDIOVASCULAR EXAM: S1-S2 heard. GI/ABDOMINAL EXAM: soft, normal bowel sounds. No guarding or rigidity. EXTREMITIES EXAM: No pedal edema. NEUROLOGICAL EXAM: alert, oriented X3, no focal neurological deficits PSYCHIATRIC EXAM: Appropriate mood and affect. SKIN EXAM: warm, dry, intact, normal color. Absent: rash - Labs CBC & Chem 7: 11/03/18 04:13 11/03/18 04:13 Labs: Abnormal Lab Results - Last 24 Hours (Table) 11/03/18 11/03/18 Range/Units 04:13 04:13 RBC 2.61 L (3.80-5.40) m/uL Hgb 7.6 L (11.4-16.0) gm/dL Hct 23.8 L (34.0-46.0) % Plt Count 131 L (150-450) k/uL Neutrophils # 7.8 H (1.3-7.7) k/uL Lymphocytes # 0.3 L (1.0-4.8) k/uL Chloride 109 H (98-107) mmol/L BUN 24 H (7-17) mg/dL Glucose 114 H (74-99) mg/dL Calcium 8.1 L (8.4-10.2) mg/dL Microbiology - Last 24 Hours (Table) 11/01/18 09:35 Blood Culture - Preliminary Blood No Growth after 24 hours Assessment and Plan Assessment: ASSESSMENT Acute on chronic hypoxic respiratory failure Hypotension Left lower lobe pneumonia Severe COPD History of recurrent pneumonias History of ARDS Fibromyalgia Multiple compression fractures of the thoracic spine Chronic anxiety History of paroxysmal atrial fibrillation Lactic acidosis PLAN: Patient's respiratory status was improved compared to yesterday. She is currently on high flow nasal cannula saturating in the low 90s. Patient also feels much better. Patient wishes to be DNR/DNI, also discussed with her daughter who is at bedside today. Patient to be continued on breathing treatments and IV steroids. Continue with the current antibiotic regimen. Further recommendations to follow depending on the progress of the patient. Overall prognosis is poor.
--- NOTE | 2018-11-03 11:27 | P.PN ---
Subjective Progress Note Date: 11/03/18 Principal diagnosis: Acute on chronic hypoxic respiratory failure secondary to community-acquired left lower lobe pneumonia, COPD exacerbation, and underlying interstitial lung disease, pulmonary fibrosis. 68-year-old female patient with advanced COPD and pulmonary fibrosis with chronic hypoxic respiratory failure secondary to severe COPD and the patient also suffers from chronic hypercapnic respiratory failure and she has had recurrent pneumonias in the past. 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 She suffers from fibromyalgia, compression fracture of the thoracic spine and previous kyphoplasty in addition to chronic anxiety/depression. The patient was in the hospital last in May 2018 because of bilateral severe pneumonia during which she was also treated in the intensive care unit with a combination of bronchodilators steroids and antibiotics and she was supported with noninvasive positive pressure ventilation. For now, the patient is coming in with few days he worse of increased shortness of breath. Her condition was progressively getting worse. She denied having any chest pain or palpitation. No reported fever or chills. She was quite symptomatic as found by EMS at home. No reported aspiration per no report pleurisy. No altered mentation. Limited edema in lower extremities bilaterally. Chest x-ray showed COPD and chronic ILD in addition to a superimposed left lung pneumonia. The white cell count is at 7.7. Her lactic acid was at 3.2 at time of admission. Rest of the blood work are all within normal limits. She will start and accommodation Rocephin and Zithromax patient was started on IV Solu Medrol patient was started on DuoNeb nebulized treatments around the clock. She was admitted to the hospital for further care. Note that the patient did contact my office on 10/31/2018 for worsening shortness of breath. She was started on a course of Augmentin. Nevertheless she end up in the hospital with the above-mentioned symptoms. For now the patient has some mild lactic acidosis. She short of breath. She is anxious. She was placed on a BiPAP at a pressure of 12/5 cm of water with an FiO2 of 70%. I will transfer this patient to the intensive care unit as the patient had a brief hypotension a nd she is currently receiving a bolus of IV fluids. Patient was reevaluated today on 11/03/2018, remains in the intensive care unit, hemodynamically stable, not requiring any pressors. Patient is on BiPAP she is also on antibiotics, bronchodilators, steroids, FiO2 is down to 50%, tells me that she is slightly better today compared to the last 24 hours. Intermittent episodes of cough, no wheezing, no fever, no chills, no hemoptysis. CBC showed hemoglobin of 7.6 electrolytes are normal renal profile is normal there is no evidence of leukocytosis. Remains on albuterol with Atrovent updrafts, Xanax, heparin subcu, Levaquin, methylprednisolone 60 every 6, Protonix, Zosyn, and Zoloft. Chest x-ray continues to show stable interstitial lung disease./Pulmonary fibrosis Objective - Vital Signs Vital signs: Vital Signs Temp 97.4 F L 11/03/18 09:00 Pulse 80 11/03/18 11:00 Resp 19 11/03/18 10:00 BP 135/85 11/03/18 07:00 Pulse Ox 91 L 11/03/18 10:00 Intake & Output 11/02/18 11/03/18 11/03/18 18:59 06:59 18:59 Intake Total 1226 550 300 Output Total 1135 410 170 Balance 91 140 130 Weight 53.5 kg Intake: IV 960 550 300 Levofloxacin 750Mg-D5w 150 Pmx 750 mg In Dextrose/ Water 1 150ml.bag @ 100 mls/hr IVPB Q24H [facility] Rx#: [id number] Piperacillin-Tazobactam 3 200 100 .375 gm In Sodium Chloride 0.9% 100 ml @ 25 mls/hr IVPB Q8HR [facility] Rx# :[id number] Sodium Chloride 0.9% 1, 610 550 200 000 ml @ 125 mls/hr IV . Q8H [facility] Rx#:[id number] Oral 266 Output: Urine 1135 410 170 Other: Voiding Method Indwelling Catheter Indwelling Catheter Indwelling Catheter ABP, PAP, CO, CI - Last Documented Arterial Blood Pressure 145/78 - Exam GEN. APPEARANCE: Revealed a 68-year-old female, pleasant, in no distress, on BiPAP. HEENT: PERRLA, EOMI, no icterus, moist mucous membranes. No neck masses no JVD. RESPIRATORY EXAM: Minimal fine crackles at the bases more so at the left base, no wheezes. Symmetrical chest expansion.. CARDIOVASCULAR EXAM: Normal S1 and S2, no S3 gallop, no murmur.. GI/ABDOMINAL EXAM: Soft nontender no megaly no rebound no guarding positive bowel sounds. EXTREMITIES EXAM: No clubbing edema or cyanosis. NEUROLOGICAL EXAM: Alert, oriented, no gross focal neurologic deficit. PSYCHIATRIC EXAM: Normal mood affect and normal mental status examination. SKIN EXAM: warm, dry, intact, good turgor, no rashes. - Labs CBC & Chem 7: 11/03/18 04:13 11/03/18 04:13 Labs: Abnormal Lab Results - Last 24 Hours (Table) 11/03/18 11/03/18 Range/Units 04:13 04:13 RBC 2.61 L (3.80-5.40) m/uL Hgb 7.6 L (11.4-16.0) gm/dL Hct 23.8 L (34.0-46.0) % Plt Count 131 L (150-450) k/uL Neutrophils # 7.8 H (1.3-7.7) k/uL Lymphocytes # 0.3 L (1.0-4.8) k/uL Chloride 109 H (98-107) mmol/L BUN 24 H (7-17) mg/dL Glucose 114 H (74-99) mg/dL Calcium 8.1 L (8.4-10.2) mg/dL Microbiology - Last 24 Hours (Table) 11/01/18 09:35 Blood Culture - Preliminary Blood No Growth after 24 hours Assessment and Plan Assessment: Impression: 1 acute on chronic hypoxic respiratory failure, multifactorial, secondary to severe interstitial lung disease, underlying chronic obstructive pulmonary disease, and suspect some component of left lower lobe pneumonia, community- acquired. 2 severe interstitial lung disease/pulmonary fibrosis 3 history of ARDS 4 history of empyema requiring decortication 5 paroxysmal atrial fibrillation history, presently in sinus rhythm. 6 history of compression fractures of thoracic spine and previous kyphoplasty. 7 chronic anxiety and history of depression, remains on Zoloft. Recommendation: Continue to monitor the patient in the ICU for now, continue Levaquin and Zosyn, continue updrafts, continue IV fluids, continue BiPAP with IPAP of 12 EPAP of 7, and titrate FiO2 accordingly to keep SaO2 above 90%. Con tinue DVT and GI prophylaxis. I will continue to monitor the patient in the ICU for the next 24 hours, and if she remains relatively stable, will likely transferred out of the ICU in the next 24 hours. Long-term prognosis considering her comorbidities is poor and guarded. We'll continue to follow. Time with Patient: Less than 30
--- NOTE | 2018-11-03 13:14 | CDI ---
Documentation Clarification Form Date: 11/03/2018 1:04:16 PM From: Meryl Hill RN CCDS Admit Date: 11/01/2018 9:23:00 AM Patient Name: Rachana Zamarripa Visit Number: [id number] Discharge Date: ATTENTION: The Clinical Documentation Specialists (CDI) and [facility] Coding Staff appreciate your assistance in clarifying documentation. Please respond to the clarification below the line at the bottom and electronically sign. The CDI & [facility] Coding staff will review the response and follow-up if needed. Please note: Queries are made part of the Legal Health Record. If you have any questions, please contact the author of this message via ITS. Dr. Gely Bradley Sepsis has been documented in the Pre Op diagnosis for the Triple lumen Catheter. History/Risk Factors: 68 year old female presents to the ED via EMS for difficulty in breathing. History of ARDS, Pneumonia, chronic respiratory failure Clinical Indicators: Treatment: Levaquin ivpb Zosyn ivpb , 5L 0.9ns ivfl bolus, [place] ivpb Zithromax po Vss 107/74 128 101.0 28 86% non rebreather Wbc 7.9, Lactic acid 3.2, 3.3, 4.5, 3.0, UA positive nitrate, moderate leukocyte esterase, few bacteria, rare mucus. Definition of Present on Admission (POA): A diagnosis present at the time the order for admission to inpatient status was written. For each diagnosis, documentation must be clear to determine if the condition was present at the time of the patients inpatient admission or developed during the hospital stay. Please clarify if Sepsis was: ____Y = Yes, the Sepsis was present at the time of the order for inpatient admission. ____N = No, the Sepsis was not present at the time of the order for inpatient admission. ____W = Clinically undetermined if the condition was present at the time of the order for inpatient admission. Sepsis Ruled out. (Last Revision: Feb 2018) Sepsis MTDD
[2018-11-03] MEDS: LEVOFLOXACIN 750 MG TAB PO SCH (14:33)
[2018-11-04] MEDS: IPRATROPIUM-ALBUTEROL 3 ML NEB INHALATION PRN ×6 (00:15→22:53)
[2018-11-04] MEDS: SODIUM CHLORIDE 0.9% 1,000 ML IV SCH ×4 (04:25→20:31)
[2018-11-04 04:53] LABS: Basophils % (A) 0 %; Eosinophils % (A) 0 %; HCT 24.1 % (34.0-46.0); HGB 7.5 gm/dL (11.4-16.0); Hypochromasia Slight; Lymphocytes # (A) 0.4 k/uL (1.0-4.8); Lymphocytes % (A) 8 %; MCH 28.5 pg (25.0-35.0); MCHC 31.1 g/dL (31.0-37.0); MCV 91.5 fL (80.0-100.0); Mean Platelet Volume 9.4; Monocytes # (A) 0.1 k/uL (0-1.0); Monocytes % (A) 1 %; Neutrophils # (A) 4.7 k/uL (1.3-7.7); Neutrophils % (A) 89 %; Platelet Count 143 k/uL (150-450); RBC 2.63 m/uL (3.80-5.40); RDW 15.5 % (11.5-15.5); WBC 5.2 k/uL (3.8-10.6)
[2018-11-04 05:06] LABS: African American GFR (CKD) >90 (>60 ml/min/1.73 sqM); Anion Gap 7 mmol/L; Blood Urea Nitrogen 26 mg/dL (7-17); Calcium 8.2 mg/dL (8.4-10.2); Carbon Dioxide 24 mmol/L (22-30); Chloride 112 mmol/L (98-107); Glucose 113 mg/dL (74-99); Potassium 3.6 mmol/L (3.5-5.1); Sodium 143 mmol/L (137-145)
[2018-11-04] MEDS: methylPREDNISolone SOD SUCCI 125 MG/2 ML VIAL IV SCH ×4 (05:10→23:38)
[2018-11-04] MEDS: ALPRAZolam 0.5 MG TAB PO PRN ×3 (05:12→17:05)
[2018-11-04] MEDS: HYDROcodone/APAP 10-325MG 1 EACH TAB PO PRN ×3 (05:12→17:05)
[2018-11-04] MEDS ORDERED: Potassium Replacement Protocol 1 EACH MISC MISCELLANE PRN (05:21)
[2018-11-04] MEDS ORDERED: POTASSIUM CHLORIDE ER 20 MEQ TAB.ER PO SCH ×2 (06:00→08:00)
[2018-11-04] MEDS: SERTRALINE 100 MG TAB PO SCH (07:57)
[2018-11-04] MEDS: HEPARIN SODIUM,PORCINE 5,000 UNIT/ML 1 ML VIAL SQ SCH ×3 (07:57→23:39)
[2018-11-04] MEDS: PANTOPRAZOLE 40 MG/10 ML VIAL IV SCH (07:57)
[2018-11-04] MEDS: PIPERACILLIN-TAZOBACTAM 3.375 GM in SODIUM CHLORIDE 0.9% 100 ML IVPB SCH ×3 (07:58→23:38)
--- NOTE | 2018-11-04 08:10 | XR ---
EXAMINATION TYPE: XR chest 1V portable DATE OF EXAM: 11/04/2018 Comparison: 11/03/2018 Clinical History: 68-year-old female shortness of breath Findings: Rightward patient rotation alters the normal cardiomediastinal contours. Heart upper limits of normal in size. Patchy and confluent interstitial opacities particularly in the periphery of the left great er than right lungs persists. Allowing for rotation, overall appearance is relatively similar. Impression: Allowing for patient rotation, overall similar patchy and confluent interstitial lung disease especia lly in the periphery of the left greater than right lungs.
--- NOTE | 2018-11-04 11:27 | P.PN ---
Subjective Progress Note Date: 11/04/18 Principal diagnosis: Ms. Dwyer is a 68-year-old female with chronic hypoxic respiratory failure secondary to severe COPD and pulmonary fibrosis, atrial fibrillation, fibromyalgia, ARDS, GERD, osteoarthritis and recurrent pneumonias coming to the hospital with a chief complaint of difficulty in breathing. Patient has been having increased shortness of breath that has been progressively worsening. Patient has end-stage COPD and has several admissions for the same. Her last hospital admission from May 2018 has been very complicated with bilateral severe pneumonia and also ARDS. In the outpatient setting patient was started on Augmentin but did not show much response and so she came into the hospital for further evaluation. Patient also has history of anxiety disorder. In the emergency department the patient was found to be hypoxic and so started on BiPAP on 70% FiO2 with BiPAP settings of 12 x 5 cm of water. When I evaluated the patient she was on the floors, patient was saturating at 92% but her blood pressure has been low at 76 x 51. Patient received a liter of bolus in the ED currently she has IV fluids running at 100 mL/h and she also received breathing treatments and started on IV Solu-Medrol and was given ceftriaxone and Zithromax. On 11/02/18 - patient has been transferred to the ICU yesterday. As per discussion with nursing staff, the patient had a panic attack at around 10:30 PM last night. She was given a dose of Xanax to calm her down. And she also received a dose of IV Lasix. Later on patient felt much better and she was taken off of BiPAP and changed to high flow oxygen at 15 L with 50% FiO2. Patient has been saturating well maintained around 88-92% on this current setting. She has been receiving antibiotics in the form of Zosyn and Levaquin. Patient states that she feels much better compared to yesterday in terms of her difficulty in breathing. But overall she complains of tiredness and fatigue. She has been trying to eat a little. Patient denies having any fevers chills or rigors. No abdominal pain nausea vomiting or diarrhea. No chest pain or palpitations. On 11/03/18 - vision is still in the ICU. As per the nursing staff report, patient has been on BiPAP last night. This morning she is on a high flow oxygen, maintaining her sats in the low 90s. Patient's daughter Alice, is at bedside. She had a brief discussion regarding the CODE STATUS with the patient and they are okay with her being DO NOT RESUSCITATE. Patient states that her breathing is much better compared to couple of days back. She denies having any chest pain or palpitations. No abdominal pain nausea vomiting or diarrhea. No dysuria or hematuria. No swelling of her lower extremities. No headaches blurring of vision, focal weakness. She reports her fatigue is much better. 11/04/2018 Patient is in the ICU and being closely monitored. Patient is currently on the BiPAP. Per nursing staff patient was put on high flow oxygen to give oral medications and patient became very anxious and requesting for the BiPAP mask to be placed on again due to difficulty in breathing. When talking with the patient today she stated that she feels she isn't doing any better as far as her breathing unless she has the BiPAP on. Patient denies any chest pain or palpitations at this time. Patient states that she hasn't eaten anything since Saturday and doesn't have much of an appetite. Pulmonary and cardiology are following closely. Patient appears to be sad due to her recent loss of her spouse 3 months ago and states that she feels she doesn't have much time left here. Patient is afebrile. Objective - Vital Signs Vital signs: Vital Signs Temp 98.2 F 11/04/18 08:00 Pulse 79 11/04/18 10:00 Resp 18 11/04/18 10:00 BP 150/101 11/04/18 10:00 Pulse Ox 95 11/04/18 10:00 Intake & Output 11/03/18 11/04/18 11/04/18 18:59 06:59 18:59 Intake Total 800 1425 600 Output Total 470 770 220 Balance 330 655 380 Weight 54.885 kg Intake: IV 800 1425 500 Piperacillin-Tazobactam 3 200 .375 gm In Sodium Chloride 0.9% 100 ml @ 25 mls/hr IVPB Q8HR [facility] Rx# :[id number] Sodium Chloride 0.9% 1, 600 1425 500 000 ml @ 125 mls/hr IV . Q8H [facility] Rx#:[id number] Intake, IV Titration 100 Amount Piperacillin-Tazobactam 3 100 .375 gm In Sodium Chloride 0.9% 100 ml @ 25 mls/hr IVPB Q8HR [facility] Rx# :[id number] Output: Urine 470 770 220 Other: Voiding Method Indwelling Catheter Indwelling Catheter Indwelling Catheter ABP, PAP, CO, CI - Last Documented Arterial Blood Pressure 164/84 - Exam Gen: This is a 68 year old female with mild acute distress in the ICU. Blood pressure is 164/84 (arterial), pulse is 79, temp is 98.2 F axillary, resp are 18, oxygen saturation is 95% on BiPAP. HEENT: Head is atraumatic, normocephalic. Pupils equal, round. Sclerae is anicteric. BiPap mask noted NECK: Supple. No JVD. No lymphadenopathy. No thyromegaly. LUNGS: Breath sounds diminished at the bases with expiratory wheezing noted on exam. No rhonchi or crackles noted. No intercostal retractions. HEART: S1 and S2 are normal. Regular rate and rhythm. No murmur. ABDOMEN: Soft. Bowel sounds are present. obese. No masses. No tenderness. EXTREMITIES: No pedal edema. No calf tenderness. NEUROLOGICAL: Patient is awake, alert and oriented x3. Cranial nerves 2 through 12 are grossly intact. gait deferred currently on Bipap - Labs CBC & Chem 7: 11/04/18 04:22 11/04/18 06:40 Labs: Abnormal Lab Results - Last 24 Hours (Table) 11/04/18 11/04/18 Range/Units 04:22 04:22 RBC 2.63 L (3.80-5.40) m/uL Hgb 7.5 L (11.4-16.0) gm/dL Hct 24.1 L (34.0-46.0) % Plt Count 143 L (150-450) k/uL Lymphocytes # 0.4 L (1.0-4.8) k/uL Chloride 112 H (98-107) mmol/L BUN 26 H (7-17) mg/dL Glucose 113 H (74-99) mg/dL Calcium 8.2 L (8.4-10.2) mg/dL Microbiology - Last 24 Hours (Table) 11/01/18 09:35 Blood Culture - Preliminary Blood No Growth after 48 hours Assessment and Plan Assessment: Acute on chronic hypoxic respiratory failure Hypotension Left lower lobe pneumonia Severe COPD History of recurrent pneumonias History of ARDS Fibromyalgia Multiple compression fractures of the thoracic spine Chronic anxiety History of paroxysmal atrial fibrillation Lactic acidosis DNR/DNI status Recommendations and discussion: Recommend to continue current medications, management, and symptomatic treatment. Continue with bronchodilators and IV steroids at this time. Continue with IV antibiotics in the form of Zosyn and oral levaquin. Pulmonary and cardiology are following. Chest xray done today is similar to yesterdays showing similar patchy and confluent interstitial lung disease especially in the periphery of the left greater than the right lung. Patient is currently on a BiPAP. Guarded prognosis. Further recommendations to follow.
--- NOTE | 2018-11-04 11:41 | P.PN ---
Subjective Progress Note Date: 11/04/18 Principal diagnosis: Acute on chronic hypoxic respiratory failure secondary to community-acquired left lower lobe pneumonia, COPD exacerbation, and underlying interstitial lung disease, pulmonary fibrosis. 68-year-old female patient with advanced COPD and pulmonary fibrosis with chronic hypoxic respiratory failure secondary to severe COPD and the patient also suffers from chronic hypercapnic respiratory failure and she has had recurrent pneumonias in the past. 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 She suffers from fibromyalgia, compression fracture of the thoracic spine and previous kyphoplasty in addition to chronic anxiety/depression. The patient was in the hospital last in May 2018 because of bilateral severe pneumonia during which she was also treated in the intensive care unit with a combination of bronchodilators steroids and antibiotics and she was supported with noninvasive positive pressure ventilation. For now, the patient is coming in with few days he worse of increased shortness of breath. Her condition was progressively getting worse. She denied having any chest pain or palpitation. No reported fever or chills. She was quite symptomatic as found by EMS at home. No reported aspiration per no report pleurisy. No altered mentation. Limited edema in lower extremities bilaterally. Chest x-ray showed COPD and chronic ILD in addition to a superimposed left lung pneumonia. The white cell count is at 7.7. Her lactic acid was at 3.2 at time of admission. Rest of the blood work are all within normal limits. She will start and accommodation Rocephin and Zithromax patient was started on IV Solu Medrol patient was started on DuoNeb nebulized treatments around the clock. She was admitted to the hospital for further care. Note that the patient did contact my office on 10/31/2018 for worsening shortness of breath. She was started on a course of Augmentin. Nevertheless she end up in the hospital with the above-mentioned symptoms. For now the patient has some mild lactic acidosis. She short of breath. She is anxious. She was placed on a BiPAP at a pressure of 12/5 cm of water with an FiO2 of 70%. I will transfer this patient to the intensive care unit as the patient had a brief hypotension a nd she is currently receiving a bolus of IV fluids. Patient was reevaluated today on 11/03/2018, remains in the intensive care unit, hemodynamically stable, not requiring any pressors. Patient is on BiPAP she is also on antibiotics, bronchodilators, steroids, FiO2 is down to 50%, tells me that she is slightly better today compared to the last 24 hours. Intermittent episodes of cough, no wheezing, no fever, no chills, no hemoptysis. CBC showed hemoglobin of 7.6 electrolytes are normal renal profile is normal there is no evidence of leukocytosis. Remains on albuterol with Atrovent updrafts, Xanax, heparin subcu, Levaquin, methylprednisolone 60 every 6, Protonix, Zosyn, and Zoloft. Chest x-ray continues to show stable interstitial lung disease./Pulmonary fibrosis Patient was reevaluated today on 11/04/2018, remains in the ICU, remains on BiPAP with FiO2 at 70%, patient's pulmonary status remains very poor and marginal. Could not wean the patient off BiPAP, desaturates easily on a high flow nasal cannula. Patient is presently on antibiotics, bronchodilators, steroids, and not much of an improvement was noted over the last couple of days. Chest x-ray continues to show significant interstitial lung disease, difficult to rule out underlying pneumonia. CBC is basically the same hemoglobin is 7.5. Normal electrolytes were noted. Normal renal profile noted. Objective - Vital Signs Vital signs: Vital Signs Temp 98.2 F 11/04/18 08:00 Pulse 79 11/04/18 11:31 Resp 18 11/04/18 10:00 BP 151/93 11/04/18 11:00 Pulse Ox 97 11/04/18 11:00 Intake & Output 11/03/18 11/04/18 11/04/18 18:59 06:59 18:59 Intake Total 800 1425 725 Output Total 470 770 340 Balance 330 655 385 Weight 54.885 kg Intake: IV 800 1425 625 Piperacillin-Tazobactam 3 200 .375 gm In Sodium Chloride 0.9% 100 ml @ 25 mls/hr IVPB Q8HR [facility] Rx# :[id number] Sodium Chloride 0.9% 1, 600 1425 625 000 ml @ 125 mls/hr IV . Q8H [facility] Rx#:[id number] Intake, IV Titration 100 Amount Piperacillin-Tazobactam 3 100 .375 gm In Sodium Chloride 0.9% 100 ml @ 25 mls/hr IVPB Q8HR [facility] Rx# :[id number] Output: Urine 470 770 340 Other: Voiding Method Indwelling Catheter Indwelling Catheter Indwelling Catheter ABP, PAP, CO, CI - Last Documented Arterial Blood Pressure 165/85 - Exam GEN. APPEARANCE: Revealed a 68-year-old female, pleasant, remains on BiPAP. HEENT: PERRLA, EOMI, no icterus, dry mucous membranes. No neck masses no JVD. RESPIRATORY EXAM: fine crackles at the bases, no wheezes. Symmetrical chest expansion.. CARDIOVASCULAR EXAM: Normal S1 and S2, no S3 gallop, no murmur.. GI/ABDOMINAL EXAM: Soft nontender no megaly no rebound no guarding positive ravindra wel sounds. EXTREMITIES EXAM: No clubbing edema or cyanosis. NEUROLOGICAL EXAM: Alert, oriented, no gross focal neurologic deficit. PSYCHIATRIC EXAM: Normal mood affect and normal mental status examination. SKIN EXAM: warm, dry, intact, good turgor, no rashes. - Labs CBC & Chem 7: 11/04/18 04:22 11/04/18 06:40 Labs: Abnormal Lab Results - Last 24 Hours (Table) 11/04/18 11/04/18 Range/Units 04:22 04:22 RBC 2.63 L (3.80-5.40) m/uL Hgb 7.5 L (11.4-16.0) gm/dL Hct 24.1 L (34.0-46.0) % Plt Count 143 L (150-450) k/uL Lymphocytes # 0.4 L (1.0-4.8) k/uL Chloride 112 H (98-107) mmol/L BUN 26 H (7-17) mg/dL Glucose 113 H (74-99) mg/dL Calcium 8.2 L (8.4-10.2) mg/dL Microbiology - Last 24 Hours (Table) 11/01/18 09:35 Blood Culture - Preliminary Blood No Growth after 48 hours Assessment and Plan Assessment: Impression: 1 acute on chronic hypoxic respiratory failure secondary to severe interstitial lung disease, underlying chronic obstructive pulmonary disease, and suspect some component of left lower lobe pneumonia, community-acquired. 2 severe interstitial lung disease/pulmonary fibrosis 3 history of ARDS, and significant residual fibrosis 4 history of empyema requiring decortication 5 paroxysmal atrial fibrillation history, presently in sinus rhythm. 6 history of compression fractures of thoracic spine and previous kyphoplasty. 7 chronic anxiety and history of depression, remains on Zoloft. Recommendation: Continue BiPAP, antibiotics, bronchodilators, steroids, GI and DVT prophylaxis, continue to try on a daily basis weaning the patient off BiPAP to high flow nasal cannula overall prognosis remains extremely poor and guarded, discussed her condition with her and with her daughter at bedside. Updated on her condition. Again prognosis is extremely poor. Will continue to follow. We will continue to monitor in the ICU. Time with Patient: Less than 30
[2018-11-04] MEDS: LEVOFLOXACIN 750 MG TAB PO SCH (13:58)
[2018-11-04 20:45] LABS: Glucose,Whole Blood 118 mg/dL (75-99)
[2018-11-05] MEDS: IPRATROPIUM-ALBUTEROL 3 ML NEB INHALATION PRN ×5 (03:05→19:22)
[2018-11-05] MEDS: HYDROcodone/APAP 10-325MG 1 EACH TAB PO PRN ×3 (03:38→15:56)
[2018-11-05] MEDS: ALPRAZolam 0.5 MG TAB PO PRN ×4 (03:40→20:14)
[2018-11-05 04:47] LABS: Basophils % (A) 0 %; Eosinophils % (A) 0 %; HGB 7.1 gm/dL (11.4-16.0); Hypochromasia Slight; Lymphocytes # (A) 0.3 k/uL (1.0-4.8); Lymphocytes % (A) 6 %; MCH 29.3 pg (25.0-35.0); MCHC 32.4 g/dL (31.0-37.0); MCV 90.3 fL (80.0-100.0); Mean Platelet Volume 9.9; Monocytes # (A) 0.1 k/uL (0-1.0); Monocytes % (A) 3 %; Neutrophils # (A) 3.7 k/uL (1.3-7.7); Neutrophils % (A) 90 %; Platelet Count 134 k/uL (150-450); RBC 2.43 m/uL (3.80-5.40); RDW 15.7 % (11.5-15.5); WBC 4.1 k/uL (3.8-10.6)
[2018-11-05 05:14] LABS: African American GFR (CKD) >90 (>60 ml/min/1.73 sqM); Anion Gap 8 mmol/L; Blood Urea Nitrogen 23 mg/dL (7-17); Carbon Dioxide 25 mmol/L (22-30); Chloride 109 mmol/L (98-107); Glucose 123 mg/dL (74-99); Potassium 3.2 mmol/L (3.5-5.1); Sodium 142 mmol/L (137-145)
[2018-11-05] MEDS: methylPREDNISolone SOD SUCCI 125 MG/2 ML VIAL IV SCH ×3 (05:55→17:29)
[2018-11-05] MEDS: SODIUM CHLORIDE 0.9% 1,000 ML IV SCH ×2 (05:59→13:00)
[2018-11-05] MEDS: POTASSIUM CHLORIDE ER 20 MEQ TAB.ER PO SCH ×2 (05:59→06:55)
[2018-11-05] MEDS: HEPARIN SODIUM,PORCINE 5,000 UNIT/ML 1 ML VIAL SQ SCH ×2 (08:13→15:41)
[2018-11-05] MEDS: PIPERACILLIN-TAZOBACTAM 3.375 GM in SODIUM CHLORIDE 0.9% 100 ML IVPB SCH ×2 (08:14→15:39)
[2018-11-05] MEDS: SERTRALINE 100 MG TAB PO SCH (08:14)
[2018-11-05] MEDS: PANTOPRAZOLE 40 MG/10 ML VIAL IV SCH (08:14)
--- NOTE | 2018-11-05 08:35 | XR ---
EXAMINATION TYPE: XR chest 1V portable DATE OF EXAM: 11/05/2018 HISTORY: Shortness of breath. COMPARISON: November 04, 2018 TECHNIQUE: Single view of the chest is submitted. FINDINGS: Demonstrated are scattered senescent parenchymal change. Scattered fibrotic changes are unchanged. S mall right-sided pleural effusion. There is no evidence for focal infiltrate. The heart is stable. Hilar and mediastinal structures are within normal limits. Degenerative changes are seen of the dorsal spine. IMPRESSION: 1. Chronic changes without evidence for acute pulmonary disease.
[2018-11-05] MEDS: POTASSIUM CHLORIDE 20 MEQ in WATER FOR INJECTION 1 100ML.BAG IVPB SCH ×4 (09:47→21:09)
[2018-11-05] MEDS ORDERED: FUROSEMIDE 10 MG/ML 4 ML VIAL IV STA (10:44)
--- NOTE | 2018-11-05 11:17 | P.PN ---
Subjective Progress Note Date: 11/05/18 Principal diagnosis: Acute on chronic hypoxic respiratory failure secondary to community-acquired left lower lobe pneumonia, COPD exacerbation, and underlying interstitial lung disease, pulmonary fibrosis. 68-year-old female patient with advanced COPD and pulmonary fibrosis with chronic hypoxic respiratory failure secondary to severe COPD and the patient also suffers from chronic hypercapnic respiratory failure and she has had recurrent pneumonias in the past. 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 She suffers from fibromyalgia, compression fracture of the thoracic spine and previous kyphoplasty in addition to chronic anxiety/depression. The patient was in the hospital last in May 2018 because of bilateral severe pneumonia during which she was also treated in the intensive care unit with a combination of bronchodilators steroids and antibiotics and she was supported with noninvasive positive pressure ventilation. For now, the patient is coming in with few days he worse of increased shortness of breath. Her condition was progressively getting worse. She denied having any chest pain or palpitation. No reported fever or chills. She was quite symptomatic as found by EMS at home. No reported aspiration per no report pleurisy. No altered mentation. Limited edema in lower extremities bilaterally. Chest x-ray showed COPD and chronic ILD in addition to a superimposed left lung pneumonia. The white cell count is at 7.7. Her lactic acid was at 3.2 at time of admission. Rest of the blood work are all within normal limits. She will start and accommodation Rocephin and Zithromax patient was started on IV Solu Medrol patient was started on DuoNeb nebulized treatments around the clock. She was admitted to the hospital for further care. Note that the patient did contact my office on 10/31/2018 for worsening shortness of breath. She was started on a course of Augmentin. Nevertheless she end up in the hospital with the above-mentioned symptoms. For now the patient has some mild lactic acidosis. She short of breath. She is anxious. She was placed on a BiPAP at a pressure of 12/5 cm of water with an FiO2 of 70%. I will transfer this patient to the intensive care unit as the patient had a brief hypotension a nd she is currently receiving a bolus of IV fluids. Patient was reevaluated today on 11/03/2018, remains in the intensive care unit, hemodynamically stable, not requiring any pressors. Patient is on BiPAP she is also on antibiotics, bronchodilators, steroids, FiO2 is down to 50%, tells me that she is slightly better today compared to the last 24 hours. Intermittent episodes of cough, no wheezing, no fever, no chills, no hemoptysis. CBC showed hemoglobin of 7.6 electrolytes are normal renal profile is normal there is no evidence of leukocytosis. Remains on albuterol with Atrovent updrafts, Xanax, heparin subcu, Levaquin, methylprednisolone 60 every 6, Protonix, Zosyn, and Zoloft. Chest x-ray continues to show stable interstitial lung disease./Pulmonary fibrosis Patient was reevaluated today on 11/04/2018, remains in the ICU, remains on BiPAP with FiO2 at 70%, patient's pulmonary status remains very poor and marginal. Could not wean the patient off BiPAP, desaturates easily on a high flow nasal cannula. Patient is presently on antibiotics, bronchodilators, steroids, and not much of an improvement was noted over the last couple of days. Chest x-ray continues to show significant interstitial lung disease, difficult to rule out underlying pneumonia. CBC is basically the same hemoglobin is 7.5. Normal electrolytes were noted. Normal renal profile noted. Reevaluated today on 11/05/2018, patient remains in the ICU, in moderate severe respiratory distress. She is on BiPAP at 70%, she is also on updrafts, today diuretics were added, she is on steroids, and she desaturates easily patient is still complaining of profound shortness of breath with minimal activity sometimes even at rest. Patient is maximized on treatment, and today I had a discussion with the patient regarding considering mechanical ventilation, we also talked about the option of comfort care. Patient is not yet ready to make a decision on comfort care yet. But she is determined not to go back on m echanical ventilation, she is DO NOT RESUSCITATE. Chest x-ray continues to show significant interstitial lung disease, possibility of underlying infection is not entirely ruled out. Possibility of underlying interstitial edema is also not entirely ruled out, but felt to be less likely. However a dose of Lasix was given this morning 40 mg IV push times one. Labs were reviewed basic metabolic profile is normal potassium is 3.4 hemoglobin is a bit on the low side at 7.1., And this is chronic. Objective - Vital Signs Vital signs: Vital Signs Temp 98.2 F 11/05/18 08:00 Pulse 81 08/21/19 11:02 Resp 21 11/05/18 11:00 BP 118/74 11/05/18 11:00 Pulse Ox 98 11/05/18 11:00 Intake & Output 11/04/18 11/05/18 11/05/18 18:59 06:59 18:59 Intake Total 1700 1765 575 Output Total 1040 1080 390 Balance 660 685 185 Weight 55 kg Intake: IV 1500 1625 475 Piperacillin-Tazobactam 3 100 .375 gm In Sodium Chloride 0.9% 100 ml @ 25 mls/hr IVPB Q8HR [facility] Rx# :[id number] Sodium Chloride 0.9% 1, 1500 1625 375 000 ml @ 125 mls/hr IV . Q8H [facility] Rx#:[id number] Intake, IV Titration 200 100 Amount Piperacillin-Tazobactam 3 200 .375 gm In Sodium Chloride 0.9% 100 ml @ 25 mls/hr IVPB Q8HR [facility] Rx# :[id number] Potassium Chloride 20 meq 100 In Water For Injection 1 100ml.bag @ 50 mls/hr IVPB Q2H [facility] Rx#: [id number] Oral 140 Output: Urine 1040 1080 390 Other: Voiding Method Indwelling Catheter Indwelling Catheter Indwelling Catheter # Bowel Movements 1 ABP, PAP, CO, CI - Last Documented Arterial Blood Pressure 158/79 - Exam GEN. APPEARANCE: Revealed a 68-year-old female, in moderate respiratory distress on BiPAP. HEENT: PERRLA, EOMI, no icterus, dry mucous membranes. No neck masses no JVD. RESPIRATORY EXAM: fine crackles at the bases, no wheezes. Symmetrical chest expansion.. CARDIOVASCULAR EXAM: Normal S1 and S2, no S3 gallop, no murmur.. GI/ABDOMINAL EXAM: Soft nontender no megaly no rebound no guarding positive bowel sounds. EXTREMITIES EXAM: No clubbing edema or cyanosis. NEUROLOGICAL EXAM: Alert, oriented, no gross focal neurologic deficit. PSYCHIATRIC EXAM: Normal mood affect and normal mental status examination. SKIN EXAM: warm, dry, intact, good turgor, no rashes. - Labs CBC & Chem 7: 11/05/18 04:27 11/05/18 09:14 Labs: Abnormal Lab Results - Last 24 Hours (Table) 11/04/18 11/05/18 11/05/18 Range/Units 20:42 04:27 04:27 RBC 2.43 L (3.80-5.40) m/uL Hgb 7.1 L (11.4-16.0) gm/dL Hct 22.0 L (34.0-46.0) % RDW 15.7 H (11.5-15.5) % Plt Count 134 L (150-450) k/uL Lymphocytes # 0.3 L (1.0-4.8) k/uL Potassium 3.2 L (3.5-5.1) mmol/L Chloride 109 H (98-107) mmol/L BUN 23 H (7-17) mg/dL Glucose 123 H (74-99) mg/dL POC Glucose (mg/dL) 118 H (75-99) mg/dL Calcium 8.0 L (8.4-10.2) mg/dL 11/05/18 Range/Units 09:14 RBC (3.80-5.40) m/uL Hgb (11.4-16.0) gm/dL Hct (34.0-46.0) % RDW (11.5-15.5) % Plt Count (150-450) k/uL Lymphocytes # (1.0-4.8) k/uL Potassium 3.4 L (3.5-5.1) mmol/L Chloride (98-107) mmol/L BUN (7-17) mg/dL Glucose (74-99) mg/dL POC Glucose (mg/dL) (75-99) mg/dL Calcium (8.4-10.2) mg/dL Microbiology - Last 24 Hours (Table) 11/01/18 09:35 Blood Culture - Preliminary Blood No Growth after 72 hours Assessment and Plan Assessment: Impression: 1 acute on chronic hypoxic respiratory failure secondary to severe interstitial lung disease, underlying chronic obstructive pulmonary disease, and suspect some component of left lower lobe pneumonia, community-acquired. 2 severe interstitial lung disease/pulmonary fibrosis 3 history of ARDS, and significant residual fibrosis 4 history of empyema requiring decortication 5 paroxysmal atrial fibrillation history, presently in sinus rhythm. 6 history of compression fractures of thoracic spine and previous kyphoplasty. 7 chronic anxiety and history of depression, remains on Zoloft. Recommendation: Continue BiPAP, Continue high FiO2. Continue antibiotics, Continue steroids, And diuretics, Continue GI and DVT prophylaxis Continue to monitor in the ICU Prognosis is extremely poor and guarded long discussion with the patient about CODE STATUS again in about comfort care measures, presently undecided about comfort care measures hence we'll continue with present supportive care measures, but she clearly does not want to go on life support in case her condition gets any worse. We'll continue to follow and we'll continue to monitor in the ICU. Time with Patient: Less than 30
[2018-11-05] MEDS: LEVOFLOXACIN 750 MG TAB PO SCH (13:24)
--- NOTE | 2018-11-05 16:16 | P.PN ---
Subjective Progress Note Date: 11/05/18 Principal diagnosis: Ms. Dwyer is a 68-year-old female with chronic hypoxic respiratory failure secondary to severe COPD and pulmonary fibrosis, atrial fibrillation, fibromyalgia, ARDS, GERD, osteoarthritis and recurrent pneumonias coming to the hospital with a chief complaint of difficulty in breathing. Patient has been having increased shortness of breath that has been progressively worsening. Patient has end-stage COPD and has several admissions for the same. Her last hospital admission from May 2018 has been very complicated with bilateral severe pneumonia and also ARDS. In the outpatient setting patient was started on Augmentin but did not show much response and so she came into the hospital for further evaluation. Patient also has history of anxiety disorder. In the emergency department the patient was found to be hypoxic and so started on BiPAP on 70% FiO2 with BiPAP settings of 12 x 5 cm of water. When I evaluated the patient she was on the floors, patient was saturating at 92% but her blood pressure has been low at 76 x 51. Patient received a liter of bolus in the ED currently she has IV fluids running at 100 mL/h and she also received breathing treatments and started on IV Solu-Medrol and was given ceftriaxone and Zithromax. On 11/02/18 - patient has been transferred to the ICU yesterday. As per discussion with nursing staff, the patient had a panic attack at around 10:30 PM last night. She was given a dose of Xanax to calm her down. And she also received a dose of IV Lasix. Later on patient felt much better and she was taken off of BiPAP and changed to high flow oxygen at 15 L with 50% FiO2. Patient has been saturating well maintained around 88-92% on this current setting. She has been receiving antibiotics in the form of Zosyn and Levaquin. Patient states that she feels much better compared to yesterday in terms of her difficulty in breathing. But overall she complains of tiredness and fatigue. She has been trying to eat a little. Patient denies having any fevers chills or rigors. No abdominal pain nausea vomiting or diarrhea. No chest pain or palpitations. On 11/03/18 - vision is still in the ICU. As per the nursing staff report, patient has been on BiPAP last night. This morning she is on a high flow oxygen, maintaining her sats in the low 90s. Patient's daughter Alice, is at bedside. She had a brief discussion regarding the CODE STATUS with the patient and they are okay with her being DO NOT RESUSCITATE. Patient states that her breathing is much better compared to couple of days back. She denies having any chest pain or palpitations. No abdominal pain nausea vomiting or diarrhea. No dysuria or hematuria. No swelling of her lower extremities. No headaches blurring of vision, focal weakness. She reports her fatigue is much better. 11/04/2018 Patient is in the ICU and being closely monitored. Patient is currently on the BiPAP. Per nursing staff patient was put on high flow oxygen to give oral medications and patient became very anxious and requesting for the BiPAP mask to be placed on again due to difficulty in breathing. When talking with the patient today she stated that she feels she isn't doing any better as far as her breathing unless she has the BiPAP on. Patient denies any chest pain or palpitations at this time. Patient states that she hasn't eaten anything since Saturday and doesn't have much of an appetite. Pulmonary and cardiology are following closely. Patient appears to be sad due to her recent loss of her spouse 3 months ago and states that she feels she doesn't have much time left here. Patient is afebrile. 11/05/2018 Patient is still being closely monitored in the ICU at this time. Today patient is on the airvo at 60 L and 60% oxygen saturation is currently 93-94% while lying in bed. BiPAP is on standby. Pulmonary is closely following. Patient denies any chest pains or palpitations but is still having shortness of breath with any exertion. Patient did drink her ensure but still has very poor appetite. Patient continues to be sad and depressed talking about the loss of her 3 months ago. Psychiatric consult was placed for evaluation of depression. Will await report. Patient is afebrile. Per nursing staff, her daughter from [place] is in transit to come here sometime today. Prognosis is poor and guarded at this time. Objective - Vital Signs Vital signs: Vital Signs Temp 98.4 F 11/05/18 12:00 Pulse 78 11/05/18 15:58 Resp 22 11/05/18 15:00 BP 105/85 11/05/18 15:00 Pulse Ox 96 11/05/18 15:58 Intake & Output 11/04/18 11/05/18 11/05/18 18:59 06:59 18:59 Intake Total 1700 1765 1075 Output Total 1040 1080 2040 Balance 660 685 -965 Weight 55 kg Intake: IV 1500 1625 725 Piperacillin-Tazobactam 3 100 .375 gm In Sodium Chloride 0.9% 100 ml @ 25 mls/hr IVPB Q8HR [facility] Rx# :[id number] Sodium Chloride 0.9% 1, 1500 1625 625 000 ml @ 50 mls/hr IV . Q20H [facility] Rx#:[id number] Intake, IV Titration 200 200 Amount Piperacillin-Tazobactam 3 200 .375 gm In Sodium Chloride 0.9% 100 ml @ 25 mls/hr IVPB Q8HR [facility] Rx# :[id number] Potassium Chloride 20 meq 200 In Water For Injection 1 100ml.bag @ 50 mls/hr IVPB Q2H [facility] Rx#: [id number] Oral 140 150 Output: Urine 1040 1080 2040 Other: Voiding Method Indwelling Catheter Indwelling Catheter Indwelling Catheter # Bowel Movements 1 ABP, PAP, CO, CI - Last Documented Arterial Blood Pressure 146/75 - Exam Gen: This is a 68 year old female with mild acute distress in the ICU. Blood pressure is 158/79 (arterial), pulse is 80, temp is 98.4 F axillary, resp are 21, oxygen saturation is 98 % on high flow airvo at 60% FiO2 with 60% oxygen. HEENT: Head is atraumatic, normocephalic. Pupils equal, round. Sclerae is anicteric. Airvo highflow nasal cannula noted NECK: Supple. No JVD. No lymphadenopathy. No thyromegaly. LUNGS: Breath sounds diminished at the bases with expiratory wheezing noted on exam. No rhonchi or crackles noted. No intercostal retractions. HEART: S1 and S2 are normal. Regular rate and rhythm. No murmur. ABDOMEN: Soft. Bowel sounds are present. obese. No masses. No tenderness. EXTREMITIES: No pedal edema. No calf tenderness. NEUROLOGICAL: Patient is awake, alert and oriented x3. Cranial nerves 2 through 12 are grossly intact. gait deferred due to extreme shortness of breath - Labs CBC & Chem 7: 11/05/18 04:27 11/05/18 09:14 Labs: Abnormal Lab Results - Last 24 Hours (Table) 11/04/18 11/05/18 11/05/18 Range/Units 20:42 04:27 04:27 RBC 2.43 L (3.80-5.40) m/uL Hgb 7.1 L (11.4-16.0) gm/dL Hct 22.0 L (34.0-46.0) % RDW 15.7 H (11.5-15.5) % Plt Count 134 L (150-450) k/uL Lymphocytes # 0.3 L (1.0-4.8) k/uL Potassium 3.2 L (3.5-5.1) mmol/L Chloride 109 H (98-107) mmol/L BUN 23 H (7-17) mg/dL Glucose 123 H (74-99) mg/dL POC Glucose (mg/dL) 118 H (75-99) mg/dL Calcium 8.0 L (8.4-10.2) mg/dL 11/05/18 Range/Units 09:14 RBC (3.80-5.40) m/uL Hgb (11.4-16.0) gm/dL Hct (34.0-46.0) % RDW (11.5-15.5) % Plt Count (150-450) k/uL Lymphocytes # (1.0-4.8) k/uL Potassium 3.4 L (3.5-5.1) mmol/L Chloride (98-107) mmol/L BUN (7-17) mg/dL Glucose (74-99) mg/dL POC Glucose (mg/dL) (75-99) mg/dL Calcium (8.4-10.2) mg/dL Microbiology - Last 24 Hours (Table) 11/01/18 09:35 Blood Culture - Preliminary Blood No Growth after 96 hours Assessment and Plan Assessment: Acute on chronic hypoxic respiratory failure; currently on highflow airvo 60%/ 60% FiO2. BiPAP is on standby Hypotension, improved Hypokalemia, replacing. Current potassium this morning was 3.4 will continue to monitor Left lower lobe pneumonia Severe COPD History of recurrent pneumonias History of ARDS Fibromyalgia Multiple compression fractures of the thoracic spine Chronic anxiety History of paroxysmal atrial fibrillation Lactic acidosis DNR/DNI status Recommendations and discussion: Recommend to continue current medications, management, and symptomatic treatment. Continue with bronchodilators and IV steroids at this time. Continue with IV antibiotics in the form of Zosyn and oral levaquin. Pulmonary and cardiology are following. Patient is currently on a high flow and BiPAP is on standby. Encourage the patient to increase her oral intake. Psychiatric consult was ordered. Will await report. Guarded and poor prognosis. Further recommendations to follow.
--- NOTE | 2018-11-05 16:41 | P.CN ---
Psychiatric Consult - . Consult date: 11/05/18 Consult:: 11/05/18 16:21 IDENTIFYING DATA: This patient is a 68-year-old female with a history of severe COPD and interstitial lung disease. Has 4 kids, and lives in a house alone. HISTORY OF PRESENT ILLNESS: The patient was admitted to the hospital for COPD exacerbation, pneumonia leading to severe respiratory failure. Psychiatry is consulted for depression. Patient was seen at the bedside and was struggling to breathe. Patient was communicative and expressed multiple stressors going on in her life. Patient spoke about her fear of dying and end-of-life issues. Patient also spoke about ongoing family issues which are currently unresolved which she feels sad about and guilty. Patient claims that she has been in and out of hospitals and dealing with her breathing for years now and claims that it is "taking a toll on me". Patient endorsed passive SI stating "sometimes I just want to give up". Patient claims that she has a daughter in [place] who is coming up soon to see her which will help her. Patient talk about her which she lost earlier this year who she is still grieving for. Patient states that her appetite and sleep are poor. She claims that her mood is "depressed". She does claim that she is feeling more anxious being in the hospital and is on a lower dose of her Xanax which she regular takes 1 mg 3 times a day for anxiety. At this time patient denies any active suicidal ideations intent or plan, denies any homicidal ideations intent or plan. Patient does not endorse any delusions or any paranoia. Patient denies any auditory or visual hallucinations. Mental Status Exam: General Appearance: Patient appears to be in significant respiratory distress, laying in bed was directable and cooperative with interview. Behavior: Patient is laying down without any agitation. Speech: Patient's speech is fluent and nonpressured. Mood/Affect: Patient reports their mood is "down", affect is congruent and constricted Suicidality/Homicidality: Patient denies having any suicidal or homicidal ideation intent or plan. Perceptions: Patient denies any auditory or visual hallucinations. Though content/process: There is no evidence of any delusional thought content and thought process is linear and goal-directed. Patient is preoccupied with end-of-life issues and guilt. Memory and concentration: AO 3, grossly intact for the purposes of this session. Judgment and insight: fair PAST PSYCHIATRIC HISTORY: Denies any previous psychiatric admissions. Denies any suicide attempts in the past. Patient claims that she is to have a psychiatrist named Dr. Suarez however now that he has retired she is currently being prescribed her psychiatric medications by her primary care doctor. Patient has a diagnosis of depression and anxiety. PAST MEDICAL HISTORY: Severe COPD, interstitial lung disease, pulmonary fibrosis. ALLERGIES: As per EMR. CHEMICAL DEPENDENCY HISTORY: Claims to have quit smoking cigarettes 6 years ago. Denies any recreational drug use including marijuana and alcohol. FAMILY PSYCHIATRIC HISTORY: Denies. FAMILY CHEMICAL DEPENDENCY HISTORY:denies. SOCIAL HISTORY: Patient born and raised in particular on [place] completed 11th grade. Patient states that she did not work much through her life and wealthy man. Patient has 4 kids, currently and living in a house alone. IMPRESSIONS: Depressive disorder unspecified Generalized anxiety disorder PLAN: -At this time patient patient does NOT meet criteria for inpatient psychiatric admission. -Would recommend the following medication changes/additions: We'll order 7.5 mg of Remeron daily at bedtime for insomnia mood and appetite. This medication can be increased to 15 mg tomorrow if tolerated. Xanax currently at 0.5 mg 4 times a day, this can possibly be increased to 1 mg 3 times a day for anxiety (which is patient's home dose) if patient's breathing tolerates it when combined with patient's pain medications/opiates. -Continue with Zoloft 200 mg daily for anxiety and mood. -It was explained to patient that the respiratory treatment including steroids and certain inhalers may be contributing to/exacerbating patient's anxiety at this time. -Consider hospice involvement and/or possibly associate professor of church music/squad leader consultation to speak to patient about end-of-life issues. -Psychiatry will sign off at this point Thank you for the consult 11/05/18 16:25 11/05/18 16:28 11/05/18 16:40
[2018-11-05] MEDS: MIRTAZAPINE 15 MG TAB PO SCH (20:11)
[2018-11-06] MEDS: PIPERACILLIN-TAZOBACTAM 3.375 GM in SODIUM CHLORIDE 0.9% 100 ML IVPB SCH ×4 (00:26→23:10)
[2018-11-06] MEDS: HEPARIN SODIUM,PORCINE 5,000 UNIT/ML 1 ML VIAL SQ SCH ×4 (00:27→23:10)
[2018-11-06] MEDS: methylPREDNISolone SOD SUCCI 125 MG/2 ML VIAL IV SCH ×5 (00:27→23:10)
[2018-11-06 04:52] LABS: Basophils % (A) 0 %; Eosinophils % (A) 1 %; HCT 23.2 % (34.0-46.0); HGB 7.7 gm/dL (11.4-16.0); Hypochromasia Slight; Lymphocytes # (A) 0.3 k/uL (1.0-4.8); Lymphocytes % (A) 10 %; MCH 29.1 pg (25.0-35.0); MCV 88.3 fL (80.0-100.0); Monocytes # (A) 0.1 k/uL (0-1.0); Monocytes % (A) 4 %; Neutrophils # (A) 2.7 k/uL (1.3-7.7); Neutrophils % (A) 84 %; Platelet Count 138 k/uL (150-450); RBC 2.63 m/uL (3.80-5.40); RDW 15.7 % (11.5-15.5); WBC 3.3 k/uL (3.8-10.6)
[2018-11-06 05:21] LABS: African American GFR (CKD) >90 (>60 ml/min/1.73 sqM); Anion Gap 5 mmol/L; Blood Urea Nitrogen 20 mg/dL (7-17); Calcium 8.2 mg/dL (8.4-10.2); Carbon Dioxide 31 mmol/L (22-30); Chloride 105 mmol/L (98-107); Glucose 123 mg/dL (74-99); Sodium 141 mmol/L (137-145)
[2018-11-06] MEDS: HYDROcodone/APAP 10-325MG 1 EACH TAB PO PRN ×3 (06:26→20:49)
[2018-11-06] MEDS: IPRATROPIUM-ALBUTEROL 3 ML NEB INHALATION PRN ×4 (07:14→19:31)
--- NOTE | 2018-11-06 07:40 | XR ---
EXAMINATION TYPE: XR chest 1V portable DATE OF EXAM: 11/06/2018 CLINICAL HISTORY: Difficulty breathing progress study. TECHNIQUE: Single AP portable semiupright view of the chest is obtained. COMPARISON: Chest x-ray from one day earlier and older studies. FINDINGS: Diffuse reticular interstitial prominence bilaterally is redemonstrated. No new focal airs pace opacity, pleural effusion, or pneumothorax. Right-sided volume loss with mediastinal shift is ag ain seen. Cardiac silhouette size is stable and upper limits of normal with ectatic thoracic aorta. O sseous structures are demineralized. Prior vertebroplasty redemonstrated. IMPRESSION: Overall stable findings, fairly severe bilateral chronic interstitial fibrosis without new acute infiltrate.
[2018-11-06] MEDS: SERTRALINE 100 MG TAB PO SCH (08:14)
[2018-11-06] MEDS: PANTOPRAZOLE 40 MG TABLET PO SCH (08:14)
[2018-11-06] MEDS: ALPRAZolam 0.5 MG TAB PO PRN ×2 (08:56→20:49)
[2018-11-06] MEDS: SODIUM CHLORIDE 0.9% 1,000 ML IV SCH (09:53)
[2018-11-06] MEDS: FUROSEMIDE 10 MG/ML 2 ML VIAL IV SCH ×2 (11:30→20:02)
--- NOTE | 2018-11-06 12:49 | P.PN ---
Subjective Progress Note Date: 11/06/18 Principal diagnosis: Acute on chronic hypoxic respiratory failure secondary to community-acquired left lower lobe pneumonia, COPD exacerbation, and underlying interstitial lung disease, pulmonary fibrosis. 68-year-old female patient with advanced COPD and pulmonary fibrosis with chronic hypoxic respiratory failure secondary to severe COPD and the patient also suffers from chronic hypercapnic respiratory failure and she has had recurrent pneumonias in the past. 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 She suffers from fibromyalgia, compression fracture of the thoracic spine and previous kyphoplasty in addition to chronic anxiety/depression. The patient was in the hospital last in May 2018 because of bilateral severe pneumonia during which she was also treated in the intensive care unit with a combination of bronchodilators steroids and antibiotics and she was supported with noninvasive positive pressure ventilation. For now, the patient is coming in with few days he worse of increased shortness of breath. Her condition was progressively getting worse. She denied having any chest pain or palpitation. No reported fever or chills. She was quite symptomatic as found by EMS at home. No reported aspiration per no report pleurisy. No altered mentation. Limited edema in lower extremities bilaterally. Chest x-ray showed COPD and chronic ILD in addition to a superimposed left lung pneumonia. The white cell count is at 7.7. Her lactic acid was at 3.2 at time of admission. Rest of the blood work are all within normal limits. She will start and accommodation Rocephin and Zithromax patient was started on IV Solu Medrol patient was started on DuoNeb nebulized treatments around the clock. She was admitted to the hospital for further care. Note that the patient did contact my office on 10/31/2018 for worsening shortness of breath. She was started on a course of Augmentin. Nevertheless she end up in the hospital with the above-mentioned symptoms. For now the patient has some mild lactic acidosis. She short of breath. She is anxious. She was placed on a BiPAP at a pressure of 12/5 cm of water with an FiO2 of 70%. I will transfer this patient to the intensive care unit as the patient had a brief hypotension a nd she is currently receiving a bolus of IV fluids. Patient was reevaluated today on 11/03/2018, remains in the intensive care unit, hemodynamically stable, not requiring any pressors. Patient is on BiPAP she is also on antibiotics, bronchodilators, steroids, FiO2 is down to 50%, tells me that she is slightly better today compared to the last 24 hours. Intermittent episodes of cough, no wheezing, no fever, no chills, no hemoptysis. CBC showed hemoglobin of 7.6 electrolytes are normal renal profile is normal there is no evidence of leukocytosis. Remains on albuterol with Atrovent updrafts, Xanax, heparin subcu, Levaquin, methylprednisolone 60 every 6, Protonix, Zosyn, and Zoloft. Chest x-ray continues to show stable interstitial lung disease./Pulmonary fibrosis Patient was reevaluated today on 11/04/2018, remains in the ICU, remains on BiPAP with FiO2 at 70%, patient's pulmonary status remains very poor and marginal. Could not wean the patient off BiPAP, desaturates easily on a high flow nasal cannula. Patient is presently on antibiotics, bronchodilators, steroids, and not much of an improvement was noted over the last couple of days. Chest x-ray continues to show significant interstitial lung disease, difficult to rule out underlying pneumonia. CBC is basically the same hemoglobin is 7.5. Normal electrolytes were noted. Normal renal profile noted. Reevaluated today on 11/05/2018, patient remains in the ICU, in moderate severe respiratory distress. She is on BiPAP at 70%, she is also on updrafts, today diuretics were added, she is on steroids, and she desaturates easily patient is still complaining of profound shortness of breath with minimal activity sometimes even at rest. Patient is maximized on treatment, and today I had a discussion with the patient regarding considering mechanical ventilation, we also talked about the option of comfort care. Patient is not yet ready to make a decision on comfort care yet. But she is determined not to go back on m echanical ventilation, she is DO NOT RESUSCITATE. Chest x-ray continues to show significant interstitial lung disease, possibility of underlying infection is not entirely ruled out. Possibility of underlying interstitial edema is also not entirely ruled out, but felt to be less likely. However a dose of Lasix was given this morning 40 mg IV push times one. Labs were reviewed basic metabolic profile is normal potassium is 3.4 hemoglobin is a bit on the low side at 7.1., And this is chronic. Reevaluated today on 11/06/2018, remains in the ICU, remains on BiPAP, remains on high FiO2, patient is feeling better since she was given Lasix yesterday, hence I recommended a maintenance dose of Lasix of 20 mg IV push every 12 hours. Chest x-ray also showed some slight improvement. However the patient continues to have significant interstitial lung disease. She may have had a mild component of fluid overload, and we are seeing possibly some improvement with diuretics. However this is not quite certain to me at this point. But clinically patient is better anyway. Labs were reviewed hemoglobin is 7.7 and electrolytes are normal renal profile is normal. Objective - Vital Signs Vital signs: Vital Signs Temp 97.7 F 11/06/18 12:00 Pulse 67 11/06/18 12:00 Resp 20 11/06/18 12:00 BP 153/95 11/06/18 08:00 Pulse Ox 95 11/06/18 12:00 Intake & Output 11/05/18 11/06/18 11/06/18 18:59 06:59 18:59 Intake Total 1475 1050 600 Output Total 2910 1785 1600 Balance -1435 -735 -1000 Weight 51.664 kg Intake: IV 975 900 400 Piperacillin-Tazobactam 3 200 100 100 .375 gm In Sodium Chloride 0.9% 100 ml @ 25 mls/hr IVPB Q8HR [facility] Rx# :[id number] Potassium Chloride 20 meq 200 In Water For Injection 1 100ml.bag @ 50 mls/hr IVPB Q2H [facility] Rx#: [id number] Sodium Chloride 0.9% 1, 775 600 300 000 ml @ 50 mls/hr IV . Q20H [facility] Rx#:[id number] Intake, IV Titration 200 Amount Potassium Chloride 20 meq 200 In Water For Injection 1 100ml.bag @ 50 mls/hr IVPB Q2H [facility] Rx#: [id number] Oral 300 150 200 Output: Urine 2910 1785 1600 Other: Voiding Method Indwelling Catheter Indwelling Catheter Indwelling Catheter # Bowel Movements 1 ABP, PAP, CO, CI - Last Documented Arterial Blood Pressure 150/83 - Exam GEN. APPEARANCE: Revealed a 68-year-old female, on BiPAP, in no distress today. HEENT: PERRLA, EOMI, no icterus, dry mucous membranes. No neck masses no JVD. RESPIRATORY EXAM: fine crackles at the bases, no wheezes. Symmetrical chest expansion.. CARDIOVASCULAR EXAM: Normal S1 and S2, no S3 gallop, no murmur.. GI/ABDOMINAL EXAM: Soft nontender no megaly no rebound no guarding positive bowel sounds. EXTREMITIES EXAM: No clubbing edema or cyanosis. NEUROLOGICAL EXAM: Alert, oriented, no gross focal neurologic deficit. PSYCHIATRIC EXAM: Normal mood affect and normal mental status examination. SKIN EXAM: warm, dry, intact, good turgor, no rashes. - Labs CBC & Chem 7: 11/06/18 04:05 11/06/18 04:05 Labs: Abnormal Lab Results - Last 24 Hours (Table) 11/05/18 11/06/18 11/06/18 Range/Units 17:45 04:05 04:05 WBC 3.3 L (3.8-10.6) k/uL RBC 2.63 L (3.80-5.40) m/uL Hgb 7.7 L (11.4-16.0) gm/dL Hct 23.2 L (34.0-46.0) % RDW 15.7 H (11.5-15.5) % Plt Count 138 L (150-450) k/uL Lymphocytes # 0.3 L (1.0-4.8) k/uL Potassium 3.4 L (3.5-5.1) mmol/L Carbon Dioxide 31 H (22-30) mmol/L BUN 20 H (7-17) mg/dL Glucose 123 H (74-99) mg/dL Calcium 8.2 L (8.4-10.2) mg/dL Microbiology - Last 24 Hours (Table) 11/01/18 09:35 Blood Culture - Preliminary Blood No Growth after 120 hours Assessment and Plan Assessment: Impression: 1 acute on chronic hypoxic respiratory failure secondary to severe interstitial lung disease, underlying chronic obstructive pulmonary disease, and suspect some component of left lower lobe pneumonia, community-acquired. Possible component of fluid overload with clinical improvement noted with diuretics. Hence I would maintain diuretics at 20 mg IV push every 12 hours. Chest x-ray continues to show severe interstitial lung disease. 2 severe interstitial lung disease/pulmonary fibrosis 3 history of ARDS, and significant residual fibrosis 4 history of empyema requiring decortication 5 paroxysmal atrial fibrillation history, presently in sinus rhythm. 6 history of compression fractures of thoracic spine and previous kyphoplasty. 7 chronic anxiety and history of depression, remains on Zoloft. Recommendation: Continue BiPAP, Added Lasix 20 mg IV push every 12 hours. Continue high FiO2. Continue antibiotics, Continue steroids, Continue GI and DVT prophylaxis Continue to monitor in the ICU Prognosis is extremely poor and guarded . We will continue to follow. Time with Patient: Less than 30
[2018-11-06] MEDS: LEVOFLOXACIN 750 MG TAB PO SCH (13:49)
--- NOTE | 2018-11-06 16:34 | P.PN ---
Subjective Progress Note Date: 11/06/18 Principal diagnosis: Ms. Dwyer is a 68-year-old female with chronic hypoxic respiratory failure secondary to severe COPD and pulmonary fibrosis, atrial fibrillation, fibromyalgia, ARDS, GERD, osteoarthritis and recurrent pneumonias coming to the hospital with a chief complaint of difficulty in breathing. Patient has been having increased shortness of breath that has been progressively worsening. Patient has end-stage COPD and has several admissions for the same. Her last hospital admission from May 2018 has been very complicated with bilateral severe pneumonia and also ARDS. In the outpatient setting patient was started on Augmentin but did not show much response and so she came into the hospital for further evaluation. Patient also has history of anxiety disorder. In the emergency department the patient was found to be hypoxic and so started on BiPAP on 70% FiO2 with BiPAP settings of 12 x 5 cm of water. When I evaluated the patient she was on the floors, patient was saturating at 92% but her blood pressure has been low at 76 x 51. Patient received a liter of bolus in the ED currently she has IV fluids running at 100 mL/h and she also received breathing treatments and started on IV Solu-Medrol and was given ceftriaxone and Zithromax. On 11/02/18 - patient has been transferred to the ICU yesterday. As per discussion with nursing staff, the patient had a panic attack at around 10:30 PM last night. She was given a dose of Xanax to calm her down. And she also received a dose of IV Lasix. Later on patient felt much better and she was taken off of BiPAP and changed to high flow oxygen at 15 L with 50% FiO2. Patient has been saturating well maintained around 88-92% on this current setting. She has been receiving antibiotics in the form of Zosyn and Levaquin. Patient states that she feels much better compared to yesterday in terms of her difficulty in breathing. But overall she complains of tiredness and fatigue. She has been trying to eat a little. Patient denies having any fevers chills or rigors. No abdominal pain nausea vomiting or diarrhea. No chest pain or palpitations. On 11/03/18 - vision is still in the ICU. As per the nursing staff report, patient has been on BiPAP last night. This morning she is on a high flow oxygen, maintaining her sats in the low 90s. Patient's daughter Alice, is at bedside. She had a brief discussion regarding the CODE STATUS with the patient and they are okay with her being DO NOT RESUSCITATE. Patient states that her breathing is much better compared to couple of days back. She denies having any chest pain or palpitations. No abdominal pain nausea vomiting or diarrhea. No dysuria or hematuria. No swelling of her lower extremities. No headaches blurring of vision, focal weakness. She reports her fatigue is much better. 11/04/2018 Patient is in the ICU and being closely monitored. Patient is currently on the BiPAP. Per nursing staff patient was put on high flow oxygen to give oral medications and patient became very anxious and requesting for the BiPAP mask to be placed on again due to difficulty in breathing. When talking with the patient today she stated that she feels she isn't doing any better as far as her breathing unless she has the BiPAP on. Patient denies any chest pain or palpitations at this time. Patient states that she hasn't eaten anything since Saturday and doesn't have much of an appetite. Pulmonary and cardiology are following closely. Patient appears to be sad due to her recent loss of her spouse 3 months ago and states that she feels she doesn't have much time left here. Patient is afebrile. 11/05/2018 Patient is still being closely monitored in the ICU at this time. Today patient is on the airvo at 60 L and 60% oxygen saturation is currently 93-94% while lying in bed. BiPAP is on standby. Pulmonary is closely following. Patient denies any chest pains or palpitations but is still having shortness of breath with any exertion. Patient did drink her ensure but still has very poor appetite. Patient continues to be sad and depressed talking about the loss of her 3 months ago. Psychiatric consult was placed for evaluation of depression. Will await report. Patient is afebrile. Per nursing staff, her daughter from [place] is in transit to come here sometime today. Prognosis is poor and guarded at this time. 11/06/2018 Patient is sitting up in bed being closely monitored in the ICU. Patient continues to be on the airvo high flow and is saturating well. Pulmonary is closely following. Patient denies any chest pains, new shortness of breath, or palpitations at this time. Patient is able to converse without becoming winded. Patient is beginning to drink and eat a little more. Psychiatry was consulted and medication recommendations were made. Remeron was added to her daily regimen. Patient is discussing with her daughters about CODE STATUS and her wishes. Patient will be getting up to the chair with physical therapy today and is looking forward to that. Patient's urine output has increased due to IV Lasix therapy. Pulmonary is following closely. Patient denies any nausea or vomiting at this time. Patient has been going to the bathroom with no abdominal discomfort at this time. Guarded prognosis. Objective - Vital Signs Vital signs: Vital Signs Temp 98 F 11/06/18 16:00 Pulse 75 11/06/18 16:00 Resp 22 11/06/18 16:00 BP 153/95 11/06/18 08:00 Pulse Ox 97 11/06/18 16:00 Intake & Output 11/05/18 11/06/18 11/06/18 18:59 06:59 18:59 Intake Total 1475 1050 900 Output Total 2910 1785 2475 Balance -1435 -735 -1575 Weight 51.664 kg 51.664 kg Intake: IV 975 900 600 Piperacillin-Tazobactam 3 200 100 100 .375 gm In Sodium Chloride 0.9% 100 ml @ 25 mls/hr IVPB Q8HR [facility] Rx# :[id number] Potassium Chloride 20 meq 200 In Water For Injection 1 100ml.bag @ 50 mls/hr IVPB Q2H [facility] Rx#: [id number] Sodium Chloride 0.9% 1, 775 600 500 000 ml @ 50 mls/hr IV . Q20H [facility] Rx#:[id number] Intake, IV Titration 200 100 Amount Piperacillin-Tazobactam 3 100 .375 gm In Sodium Chloride 0.9% 100 ml @ 25 mls/hr IVPB Q8HR [facility] Rx# :[id number] Potassium Chloride 20 meq 200 In Water For Injection 1 100ml.bag @ 50 mls/hr IVPB Q2H [facility] Rx#: [id number] Oral 300 150 200 Output: Urine 2910 1785 2475 Other: Voiding Method Indwelling Catheter Indwelling Catheter Indwelling Catheter # Bowel Movements 1 ABP, PAP, CO, CI - Last Documented Arterial Blood Pressure 132/71 - Exam Gen: This is a 68 year old female in no acute distress in the ICU. Blood pr essure is 158/79 (arterial), pulse is 80, temp is 98.4 F axillary, resp are 21, oxygen saturation is 98 % on high flow airvo at 60% FiO2 with 60% oxygen. HEENT: Head is atraumatic, normocephalic. Pupils equal, round. Sclerae is anicteric. Airvo highflow nasal cannula noted NECK: Supple. No JVD. No lymphadenopathy. No thyromegaly. LUNGS: Breath sounds diminished at the bases with expiratory wheezing noted on exam. No rhonchi or crackles noted. No intercostal retractions. HEART: S1 and S2 are normal. Regular rate and rhythm. No murmur. ABDOMEN: Soft. Bowel sounds are present. obese. No masses. No tenderness. EXTREMITIES: No pedal edema. No calf tenderness. NEUROLOGICAL: Patient is awake, alert and oriented x3. Cranial nerves 2 through 12 are grossly intact. - Labs CBC & Chem 7: 11/06/18 04:05 11/06/18 04:05 Labs: Abnormal Lab Results - Last 24 Hours (Table) 11/05/18 11/06/18 11/06/18 Range/Units 17:45 04:05 04:05 WBC 3.3 L (3.8-10.6) k/uL RBC 2.63 L (3.80-5.40) m/uL Hgb 7.7 L (11.4-16.0) gm/dL Hct 23.2 L (34.0-46.0) % RDW 15.7 H (11.5-15.5) % Plt Count 138 L (150-450) k/uL Lymphocytes # 0.3 L (1.0-4.8) k/uL Potassium 3.4 L (3.5-5.1) mmol/L Carbon Dioxide 31 H (22-30) mmol/L BUN 20 H (7-17) mg/dL Glucose 123 H (74-99) mg/dL Calcium 8.2 L (8.4-10.2) mg/dL Microbiology - Last 24 Hours (Table) 11/01/18 09:35 Blood Culture - Preliminary Blood No Growth after 120 hours Assessment and Plan Assessment: Acute on chronic hypoxic respiratory failure; currently on highflow airvo 60%/ 60% FiO2. Hypotension, improved Hypokalemia, replacing. Current potassium this morning was 4.0 will continue to monitor Left lower lobe pneumonia Severe COPD History of recurrent pneumonias History of ARDS Fibromyalgia Multiple compression fractures of the thoracic spine Chronic anxiety History of paroxysmal atrial fibrillation Sepsis present on admission Lactic acidosis DNR/DNI status Recommendations and discussion: Recommend to continue current medications, management, and symptomatic treatment. Continue with bronchodilators and IV steroids at this time. Continue with IV antibiotics in the form of Zosyn and oral levaquin. Pulmonary and cardiology are following. Patient is currently on a high flow and BiPAP is on standby. Encourage the patient to increase her oral intake. Guarded and poor prognosis. Further recommendations to follow.
[2018-11-06] MEDS: MIRTAZAPINE 15 MG TAB PO SCH (20:02)
[2018-11-07] MEDS: SODIUM CHLORIDE 0.9% 1,000 ML IV SCH (04:47)
[2018-11-07 05:00] LABS: Anisocytosis Slight; Basophils % (A) 0 %; Eosinophils % (A) 1 %; HCT 25.6 % (34.0-46.0); HGB 8.5 gm/dL (11.4-16.0); Lymphocytes # (A) 0.3 k/uL (1.0-4.8); Lymphocytes % (A) 8 %; MCH 29.1 pg (25.0-35.0); MCHC 33.3 g/dL (31.0-37.0); MCV 87.5 fL (80.0-100.0); Mean Platelet Volume 10.6; Monocytes # (A) 0.2 k/uL (0-1.0); Monocytes % (A) 5 %; Neutrophils # (A) 3.4 k/uL (1.3-7.7); Neutrophils % (A) 85 %; Platelet Count 135 k/uL (150-450); RBC 2.93 m/uL (3.80-5.40); RDW 16.1 % (11.5-15.5)
[2018-11-07] MEDS: methylPREDNISolone SOD SUCCI 125 MG/2 ML VIAL IV SCH ×3 (05:21→18:23)
[2018-11-07 06:02] LABS: African American GFR (CKD) >90 (>60 ml/min/1.73 sqM); Anion Gap 7 mmol/L; Blood Urea Nitrogen 31 mg/dL (7-17); Calcium 7.9 mg/dL (8.4-10.2); Carbon Dioxide 34 mmol/L (22-30); Chloride 101 mmol/L (98-107); Glucose 122 mg/dL (74-99); Potassium 3.1 mmol/L (3.5-5.1); Sodium 142 mmol/L (137-145)
[2018-11-07] MEDS: POTASSIUM CHLORIDE ER 20 MEQ TAB.ER PO SCH ×2 (06:22→08:40)
[2018-11-07] MEDS: IPRATROPIUM-ALBUTEROL 3 ML NEB INHALATION PRN ×4 (07:06→23:27)
--- NOTE | 2018-11-07 08:30 | XR ---
EXAMINATION TYPE: XR chest 1V portable DATE OF EXAM: 11/07/2018 HISTORY: Shortness of breath. COMPARISON: November 06, 2018 TECHNIQUE: Single view of the chest is submitted. FINDINGS: Demonstrated are scattered senescent parenchymal change. Pulmonary fibrotic changes redemonstrated. There is no evidence for focal infiltrate. The heart is stable. Hilar and mediastinal structures are within normal limits. Degenerative changes are seen of the dorsal spine. IMPRESSION: 1. Chronic changes without evidence for acute pulmonary disease.
[2018-11-07] MEDS: HYDROcodone/APAP 10-325MG 1 EACH TAB PO PRN ×2 (08:39→15:30)
[2018-11-07] MEDS: PANTOPRAZOLE 40 MG TABLET PO SCH (08:40)
[2018-11-07] MEDS: SERTRALINE 100 MG TAB PO SCH (08:40)
[2018-11-07] MEDS: HEPARIN SODIUM,PORCINE 5,000 UNIT/ML 1 ML VIAL SQ SCH ×2 (08:40→15:31)
[2018-11-07] MEDS: ALPRAZolam 0.5 MG TAB PO PRN ×2 (08:40→18:29)
[2018-11-07] MEDS: FUROSEMIDE 10 MG/ML 2 ML VIAL IV SCH ×2 (08:40→19:39)
[2018-11-07] MEDS: PIPERACILLIN-TAZOBACTAM 3.375 GM in SODIUM CHLORIDE 0.9% 100 ML IVPB SCH ×2 (08:41→15:30)
--- NOTE | 2018-11-07 10:39 | P.PN ---
Subjective Progress Note Date: 11/07/18 Principal diagnosis: Acute on chronic hypoxic respiratory failure secondary to community-acquired left lower lobe pneumonia, COPD exacerbation, and underlying interstitial lung disease, pulmonary fibrosis. 68-year-old female patient with advanced COPD and pulmonary fibrosis with chronic hypoxic respiratory failure secondary to severe COPD and the patient also suffers from chronic hypercapnic respiratory failure and she has had recurrent pneumonias in the past. 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 She suffers from fibromyalgia, compression fracture of the thoracic spine and previous kyphoplasty in addition to chronic anxiety/depression. The patient was in the hospital last in May 2018 because of bilateral severe pneumonia during which she was also treated in the intensive care unit with a combination of bronchodilators steroids and antibiotics and she was supported with noninvasive positive pressure ventilation. For now, the patient is coming in with few days he worse of increased shortness of breath. Her condition was progressively getting worse. She denied having any chest pain or palpitation. No reported fever or chills. She was quite symptomatic as found by EMS at home. No reported aspiration per no report pleurisy. No altered mentation. Limited edema in lower extremities bilaterally. Chest x-ray showed COPD and chronic ILD in addition to a superimposed left lung pneumonia. The white cell count is at 7.7. Her lactic acid was at 3.2 at time of admission. Rest of the blood work are all within normal limits. She will start and accommodation Rocephin and Zithromax patient was started on IV Solu Medrol patient was started on DuoNeb nebulized treatments around the clock. She was admitted to the hospital for further care. Note that the patient did contact my office on 10/31/2018 for worsening shortness of breath. She was started on a course of Augmentin. Nevertheless she end up in the hospital with the above-mentioned symptoms. For now the patient has some mild lactic acidosis. She short of breath. She is anxious. She was placed on a BiPAP at a pressure of 12/5 cm of water with an FiO2 of 70%. I will transfer this patient to the intensive care unit as the patient had a brief hypotension a nd she is currently receiving a bolus of IV fluids. Patient was reevaluated today on 11/03/2018, remains in the intensive care unit, hemodynamically stable, not requiring any pressors. Patient is on BiPAP she is also on antibiotics, bronchodilators, steroids, FiO2 is down to 50%, tells me that she is slightly better today compared to the last 24 hours. Intermittent episodes of cough, no wheezing, no fever, no chills, no hemoptysis. CBC showed hemoglobin of 7.6 electrolytes are normal renal profile is normal there is no evidence of leukocytosis. Remains on albuterol with Atrovent updrafts, Xanax, heparin subcu, Levaquin, methylprednisolone 60 every 6, Protonix, Zosyn, and Zoloft. Chest x-ray continues to show stable interstitial lung disease./Pulmonary fibrosis Patient was reevaluated today on 11/04/2018, remains in the ICU, remains on BiPAP with FiO2 at 70%, patient's pulmonary status remains very poor and marginal. Could not wean the patient off BiPAP, desaturates easily on a high flow nasal cannula. Patient is presently on antibiotics, bronchodilators, steroids, and not much of an improvement was noted over the last couple of days. Chest x-ray continues to show significant interstitial lung disease, difficult to rule out underlying pneumonia. CBC is basically the same hemoglobin is 7.5. Normal electrolytes were noted. Normal renal profile noted. Reevaluated today on 11/05/2018, patient remains in the ICU, in moderate severe respiratory distress. She is on BiPAP at 70%, she is also on updrafts, today diuretics were added, she is on steroids, and she desaturates easily patient is still complaining of profound shortness of breath with minimal activity sometimes even at rest. Patient is maximized on treatment, and today I had a discussion with the patient regarding considering mechanical ventilation, we also talked about the option of comfort care. Patient is not yet ready to make a decision on comfort care yet. But she is determined not to go back on m echanical ventilation, she is DO NOT RESUSCITATE. Chest x-ray continues to show significant interstitial lung disease, possibility of underlying infection is not entirely ruled out. Possibility of underlying interstitial edema is also not entirely ruled out, but felt to be less likely. However a dose of Lasix was given this morning 40 mg IV push times one. Labs were reviewed basic metabolic profile is normal potassium is 3.4 hemoglobin is a bit on the low side at 7.1., And this is chronic. Reevaluated today on 11/06/2018, remains in the ICU, remains on BiPAP, remains on high FiO2, patient is feeling better since she was given Lasix yesterday, hence I recommended a maintenance dose of Lasix of 20 mg IV push every 12 hours. Chest x-ray also showed some slight improvement. However the patient continues to have significant interstitial lung disease. She may have had a mild component of fluid overload, and we are seeing possibly some improvement with diuretics. However this is not quite certain to me at this point. But clinically patient is better anyway. Labs were reviewed hemoglobin is 7.7 and electrolytes are normal renal profile is normal. Reevaluated today on 11/07/2018, patient remains in the ICU: Remains on high FiO2, airvo with FiO2 of 55%, and flow of 50 L/m. Feeling better today, breathing easier, less short of breath, but still requiring significantly high flow O2. Chest x-ray is basically about the same as yesterday, patient is hemodynamically stable, anxiety seems to be less, labs are basically normal except for low potassium of 3.1, hence I plan to transfer the patient out of the ICU to a regular medical floor today, and the plan is to titrate her FiO2 down to the point where we could get her down to the point we can eventually think of sending her home on possibly 6 L high flow. That is what she normally is on. Objective - Vital Signs Vital signs: Vital Signs Temp 98.2 F 11/07/18 08:00 Pulse 60 11/07/18 10:00 Resp 18 11/07/18 10:00 BP 151/55 11/07/18 10:00 Pulse Ox 99 11/07/18 10:00 Intake & Output 11/06/18 11/07/18 11/07/18 18:59 06:59 18:59 Intake Total 1250 750 150 Output Total 2640 1345 285 Balance -1390 -595 -135 Weight 51.664 kg 51.1 kg Intake: IV 700 600 150 Piperacillin-Tazobactam 3 100 .375 gm In Sodium Chloride 0.9% 100 ml @ 25 mls/hr IVPB Q8HR [facility] Rx# :[id number] Sodium Chloride 0.9% 1, 600 600 150 000 ml @ 50 mls/hr IV . Q20H [facility] Rx#:[id number] Intake, IV Titration 100 Amount Piperacillin-Tazobactam 3 100 .375 gm In Sodium Chloride 0.9% 100 ml @ 25 mls/hr IVPB Q8HR [facility] Rx# :[id number] Oral 450 150 Output: Urine 2640 1345 285 Other: Voiding Method Indwelling Catheter Indwelling Catheter Indwelling Catheter # Bowel Movements 1 ABP, PAP, CO, CI - Last Documented Arterial Blood Pressure 165/76 - Exam GEN. APPEARANCE: Revealed a 68-year-old female, airvo high flow 50 L/m and 55%. FiO2 HEENT: PERRLA, EOMI, no icterus, dry mucous membranes. No neck masses no JVD. RESPIRATORY EXAM: fine crackles at the bases, no wheezes. Symmetrical chest ex pansion.. CARDIOVASCULAR EXAM: Normal S1 and S2, no S3 gallop, no murmur.. GI/ABDOMINAL EXAM: Soft nontender no megaly no rebound no guarding positive bowel sounds. EXTREMITIES EXAM: No clubbing edema or cyanosis. NEUROLOGICAL EXAM: Alert, oriented, no gross focal neurologic deficit. PSYCHIATRIC EXAM: Normal mood affect and normal mental status examination. SKIN EXAM: warm, dry, intact, good turgor, no rashes. - Labs CBC & Chem 7: 11/07/18 04:51 11/07/18 04:51 Labs: Abnormal Lab Results - Last 24 Hours (Table) 11/07/18 11/07/18 Range/Units 04:51 04:51 RBC 2.93 L (3.80-5.40) m/uL Hgb 8.5 L (11.4-16.0) gm/dL Hct 25.6 L (34.0-46.0) % RDW 16.1 H (11.5-15.5) % Plt Count 135 L (150-450) k/uL Lymphocytes # 0.3 L (1.0-4.8) k/uL Potassium 3.1 L (3.5-5.1) mmol/L Carbon Dioxide 34 H (22-30) mmol/L BUN 31 H (7-17) mg/dL Glucose 122 H (74-99) mg/dL Calcium 7.9 L (8.4-10.2) mg/dL Microbiology - Last 24 Hours (Table) 11/01/18 09:35 Blood Culture - Preliminary Blood No Growth after 120 hours Assessment and Plan Assessment: Impression: 1 acute on chronic hypoxic respiratory failure secondary to severe interstitial lung disease, underlying chronic obstructive pulmonary disease, and suspect some component of left lower lobe pneumonia, community-acquired. Possible component of fluid overload with clinical improvement noted with diuretics. 2 severe interstitial lung disease/pulmonary fibrosis 3 history of ARDS, and significant residual fibrosis 4 history of empyema requiring decortication 5 paroxysmal atrial fibrillation history, presently in sinus rhythm. 6 history of compression fractures of thoracic spine and previous kyphoplasty. 7 chronic anxiety and history of depression, remains on Zoloft. Recommendation: Continue airvo titrate down the FiO2 and the flow rates. Continue Lasix 20 mg IV push every 12 hours. Continue high FiO2. Titrate as tolerated and keep O2 saturation above 90%. Continue antibiotics, Continue steroids, Continue GI and DVT prophylaxis Transferred to a regular medical floor today. We will continue to follow. Time with Patient: Less than 30
[2018-11-07 11:33] VITALS: BMI 20.6
[2018-11-07] MEDS: CALCIUM CARBONATE 500 MG CHEWABLE PO PRN (13:07)
[2018-11-07] MEDS: LEVOFLOXACIN 750 MG TAB PO SCH (14:07)
--- NOTE | 2018-11-07 16:06 | P.PN ---
Subjective Progress Note Date: 11/07/18 Principal diagnosis: Ms. Dwyer is a 68-year-old female with chronic hypoxic respiratory failure secondary to severe COPD and pulmonary fibrosis, atrial fibrillation, fibromyalgia, ARDS, GERD, osteoarthritis and recurrent pneumonias coming to the hospital with a chief complaint of difficulty in breathing. Patient has been having increased shortness of breath that has been progressively worsening. Patient has end-stage COPD and has several admissions for the same. Her last hospital admission from May 2018 has been very complicated with bilateral severe pneumonia and also ARDS. In the outpatient setting patient was started on Augmentin but did not show much response and so she came into the hospital for further evaluation. Patient also has history of anxiety disorder. In the emergency department the patient was found to be hypoxic and so started on BiPAP on 70% FiO2 with BiPAP settings of 12 x 5 cm of water. When I evaluated the patient she was on the floors, patient was saturating at 92% but her blood pressure has been low at 76 x 51. Patient received a liter of bolus in the ED currently she has IV fluids running at 100 mL/h and she also received breathing treatments and started on IV Solu-Medrol and was given ceftriaxone and Zithromax. On 11/02/18 - patient has been transferred to the ICU yesterday. As per discussion with nursing staff, the patient had a panic attack at around 10:30 PM last night. She was given a dose of Xanax to calm her down. And she also received a dose of IV Lasix. Later on patient felt much better and she was taken off of BiPAP and changed to high flow oxygen at 15 L with 50% FiO2. Patient has been saturating well maintained around 88-92% on this current setting. She has been receiving antibiotics in the form of Zosyn and Levaquin. Patient states that she feels much better compared to yesterday in terms of her difficulty in breathing. But overall she complains of tiredness and fatigue. She has been trying to eat a little. Patient denies having any fevers chills or rigors. No abdominal pain nausea vomiting or diarrhea. No chest pain or palpitations. On 11/03/18 - vision is still in the ICU. As per the nursing staff report, patient has been on BiPAP last night. This morning she is on a high flow oxygen, maintaining her sats in the low 90s. Patient's daughter Alice, is at bedside. She had a brief discussion regarding the CODE STATUS with the patient and they are okay with her being DO NOT RESUSCITATE. Patient states that her breathing is much better compared to couple of days back. She denies having any chest pain or palpitations. No abdominal pain nausea vomiting or diarrhea. No dysuria or hematuria. No swelling of her lower extremities. No headaches blurring of vision, focal weakness. She reports her fatigue is much better. 11/04/2018 Patient is in the ICU and being closely monitored. Patient is currently on the BiPAP. Per nursing staff patient was put on high flow oxygen to give oral medications and patient became very anxious and requesting for the BiPAP mask to be placed on again due to difficulty in breathing. When talking with the patient today she stated that she feels she isn't doing any better as far as her breathing unless she has the BiPAP on. Patient denies any chest pain or palpitations at this time. Patient states that she hasn't eaten anything since Saturday and doesn't have much of an appetite. Pulmonary and cardiology are following closely. Patient appears to be sad due to her recent loss of her spouse 3 months ago and states that she feels she doesn't have much time left here. Patient is afebrile. 11/05/2018 Patient is still being closely monitored in the ICU at this time. Today patient is on the airvo at 60 L and 60% oxygen saturation is currently 93-94% while lying in bed. BiPAP is on standby. Pulmonary is closely following. Patient denies any chest pains or palpitations but is still having shortness of breath with any exertion. Patient did drink her ensure but still has very poor appetite. Patient continues to be sad and depressed talking about the loss of her 3 months ago. Psychiatric consult was placed for evaluation of depression. Will await report. Patient is afebrile. Per nursing staff, her daughter from [place] is in transit to come here sometime today. Prognosis is poor and guarded at this time. 11/06/2018 Patient is sitting up in bed being closely monitored in the ICU. Patient continues to be on the airvo high flow and is saturating well. Pulmonary is closely following. Patient denies any chest pains, new shortness of breath, or palpitations at this time. Patient is able to converse without becoming winded. Patient is beginning to drink and eat a little more. Psychiatry was consulted and medication recommendations were made. Remeron was added to her daily regimen. Patient is discussing with her daughters about CODE STATUS and her wishes. Patient will be getting up to the chair with physical therapy today and is looking forward to that. Patient's urine output has increased due to IV Lasix therapy. Pulmonary is following closely. Patient denies any nausea or vomiting at this time. Patient has been going to the bathroom with no abdominal discomfort at this time. Guarded prognosis. 11/07/2018 Patient is sitting up in the bed being closely monitored in the ICU in no acute distress. Family is at the bedside. Patient is currently on high flow at 50% oxygen with 57% FiO2 and tolerating well. Patient is hemodynamically stable and breathing much better and is awaiting transfer out of the ICU at this time. Pulmonary is following closely. Patient would like to go home but due to the high flow oxygen patient will continue to be monitored at this time. Patient is having some mild heartburn today and normally uses Pepto-Bismol or Tums at home. tums are being ordered at this time. Patient is eating a little more today and tolerating well. Patient denies any chest pain, palpitations, nausea, or vomiting at this time. She and is afebrile. Patient does have some shortness of breath but states it is getting better. We will continue to monitor closely. Guarded prognosis. Objective - Vital Signs Vital signs: Vital Signs Temp 98.7 F 11/07/18 12:00 Pulse 73 11/07/18 14:00 Resp 18 11/07/18 15:47 BP 151/55 11/07/18 14:00 Pulse Ox 98 11/07/18 14:00 Intake & Output 11/06/18 11/07/18 11/07/18 18:59 06:59 18:59 Intake Total 1250 750 990 Output Total 2640 6455 5085 Balance -1390 -595 -695 Weight 51.664 kg 51.1 kg 51.1 kg Intake: IV 700 600 750 Piperacillin-Tazobactam 3 100 100 .375 gm In Sodium Chloride 0.9% 100 ml @ 25 mls/hr IVPB Q8HR [facility] Rx# :[id number] Sodium Chloride 0.9% 1, 600 600 650 000 ml @ 50 mls/hr IV . Q20H [facility] Rx#:[id number] Intake, IV Titration 100 Amount Piperacillin-Tazobactam 3 100 .375 gm In Sodium Chloride 0.9% 100 ml @ 25 mls/hr IVPB Q8HR [facility] Rx# :[id number] Oral 450 150 240 Output: Urine 2640 1345 1685 Other: Voiding Method Indwelling Catheter Indwelling Catheter Indwelling Catheter # Bowel Movements 1 ABP, PAP, CO, CI - Last Documented Arterial Blood Pressure 165/76 - Exam Gen: This is a 68 year old female in no acute distress in the ICU. Blood pressure is 151/55 , pulse is 61, temp is 98.2 F axillary, resp are 21, oxygen saturation is 94 % on high flow airvo at 57% FiO2 with 50% oxygen. HEENT: Head is atraumatic, normocephalic. Pupils equal, round. Sclerae is anicteric. Airvo highflow nasal cannula noted NECK: Supple. No JVD. No lymphadenopathy. No thyromegaly. LUNGS: Breath sounds diminished at the bases with expiratory wheezing noted on exam. No rhonchi or crackles noted. No intercostal retractions. HEART: S1 and S2 are normal. Regular rate and rhythm. No murmur. ABDOMEN: Soft. Bowel sounds are present. obese. No masses. No tenderness. EXTREMITIES: No pedal edema. No calf tenderness. NEUROLOGICAL: Patient is awake, alert and oriented x3. Cranial nerves 2 through 12 are grossly intact. - Labs CBC & Chem 7: 11/07/18 04:51 11/07/18 04:51 Labs: Abnormal Lab Results - Last 24 Hours (Table) 11/07/18 11/07/18 Range/Units 04:51 04:51 RBC 2.93 L (3.80-5.40) m/uL Hgb 8.5 L (11.4-16.0) gm/dL Hct 25.6 L (34.0-46.0) % RDW 16.1 H (11.5-15.5) % Plt Count 135 L (150-450) k/uL Lymphocytes # 0.3 L (1.0-4.8) k/uL Potassium 3.1 L (3.5-5.1) mmol/L Carbon Dioxide 34 H (22-30) mmol/L BUN 31 H (7-17) mg/dL Glucose 122 H (74-99) mg/dL Calcium 7.9 L (8.4-10.2) mg/dL Microbiology - Last 24 Hours (Table) 11/01/18 09:35 Blood Culture - Final Blood No Growth after 144 hours Assessment and Plan Assessment: Acute on chronic hypoxic respiratory failure; currently on highflow airvo 50%/ 57% FiO2. Hypotension, improved Hypokalemia, replacing. Current potassium this morning was 3.1 will continue to monitor Left lower lobe pneumonia Severe COPD History of recurrent pneumonias History of ARDS Fibromyalgia Multiple compression fractures of the thoracic spine Chronic anxiety History of paroxysmal atrial fibrillation Sepsis present on admission Lactic acidosis DNR/DNI status Recommendations and discussion: Recommend to continue current medications, management, and symptomatic treatme nt. Continue with bronchodilators and IV steroids at this time. Continue with IV antibiotics in the form of Zosyn and oral levaquin. Pulmonary and cardiology are following. Patient is awaiting a transfer out of the ICU. Patient is currently on a high flow and tolerating well. Continue to encourage the patient to increase her oral intake. Guarded and poor prognosis. Further recommendations to follow.
[2018-11-07] MEDS: MIRTAZAPINE 15 MG TAB PO SCH (19:39)
[2018-11-08] MEDS: PIPERACILLIN-TAZOBACTAM 3.375 GM in SODIUM CHLORIDE 0.9% 100 ML IVPB SCH ×3 (00:20→19:08)
[2018-11-08] MEDS: ALPRAZolam 0.5 MG TAB PO PRN ×4 (00:20→20:48)
[2018-11-08] MEDS: methylPREDNISolone SOD SUCCI 125 MG/2 ML VIAL IV SCH ×4 (00:20→17:42)
[2018-11-08] MEDS: HEPARIN SODIUM,PORCINE 5,000 UNIT/ML 1 ML VIAL SQ SCH ×3 (00:21→17:42)
[2018-11-08] MEDS: HYDROcodone/APAP 10-325MG 1 EACH TAB PO PRN ×4 (00:21→20:48)
[2018-11-08] MEDS: SODIUM CHLORIDE 0.9% 1,000 ML IV SCH (01:37)
[2018-11-08] MEDS: IPRATROPIUM-ALBUTEROL 3 ML NEB INHALATION PRN ×5 (07:16→23:42)
--- NOTE | 2018-11-08 07:28 | XR ---
EXAMINATION TYPE: XR chest 1V portable DATE OF EXAM: 11/08/2018 COMPARISON: 11/07/2018 INDICATION: Short of breath TECHNIQUE: Single frontal view of the chest is obtained. FINDINGS: The heart size is normal. The pulmonary vasculature is normal. There is diffuse increased lung markings likely on the basis of pulmonary fibrosis. This appears stab le from prior study. IMPRESSION: 1. Stable frontal chest. 2. Pulmonary fibrosis appears unchanged
[2018-11-08] MEDS: CALCIUM CARBONATE 500 MG CHEWABLE PO PRN (07:54)
[2018-11-08] MEDS: SERTRALINE 100 MG TAB PO SCH (07:54)
[2018-11-08] MEDS: PANTOPRAZOLE 40 MG TABLET PO SCH (07:54)
[2018-11-08] MEDS: FUROSEMIDE 10 MG/ML 2 ML VIAL IV SCH ×2 (07:55→20:45)
[2018-11-08 09:48] LABS: Calcium 8.7 mg/dL (8.4-10.2); Potassium 3.2 mmol/L (3.5-5.1)
[2018-11-08] MEDS ORDERED: POTASSIUM CHLORIDE 40 MEQ in WATER FOR INJECTION 1 100ML.BAG IVPB STA (09:56)
[2018-11-08] MEDS: POTASSIUM CHLORIDE 10 MEQ in WATER FOR INJECTION 1 100ML.BAG IVPB SCH ×4 (11:18→18:49)
[2018-11-08] MEDS: NYSTATIN 100,000 UNIT/ML SUSP 500,000 UNIT/5 ML CUP PO SCH ×3 (13:34→20:46)
[2018-11-08] MEDS: LEVOFLOXACIN 750 MG TAB PO SCH (13:38)
--- NOTE | 2018-11-08 15:15 | P.PN ---
Subjective Progress Note Date: 11/08/18 Principal diagnosis: Acute on chronic hypoxic respiratory failure secondary to community-acquired left lower lobe pneumonia, COPD exacerbation, and underlying interstitial lung disease, pulmonary fibrosis. 68-year-old female patient with advanced COPD and pulmonary fibrosis with chronic hypoxic respiratory failure secondary to severe COPD and the patient also suffers from chronic hypercapnic respiratory failure and she has had recurrent pneumonias in the past. 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 She suffers from fibromyalgia, compression fracture of the thoracic spine and previous kyphoplasty in addition to chronic anxiety/depression. The patient was in the hospital last in May 2018 because of bilateral severe pneumonia during which she was also treated in the intensive care unit with a combination of bronchodilators steroids and antibiotics and she was supported with noninvasive positive pressure ventilation. For now, the patient is coming in with few days he worse of increased shortness of breath. Her condition was progressively getting worse. She denied having any chest pain or palpitation. No reported fever or chills. She was quite symptomatic as found by EMS at home. No reported aspiration per no report pleurisy. No altered mentation. Limited edema in lower extremities bilaterally. Chest x-ray showed COPD and chronic ILD in addition to a superimposed left lung pneumonia. The white cell count is at 7.7. Her lactic acid was at 3.2 at time of admission. Rest of the blood work are all within normal limits. She will start and accommodation Rocephin and Zithromax patient was started on IV Solu Medrol patient was started on DuoNeb nebulized treatments around the clock. She was admitted to the hospital for further care. Note that the patient did contact my office on 10/31/2018 for worsening shortness of breath. She was started on a course of Augmentin. Nevertheless she end up in the hospital with the above-mentioned symptoms. For now the patient has some mild lactic acidosis. She short of breath. She is anxious. She was placed on a BiPAP at a pressure of 12/5 cm of water with an FiO2 of 70%. I will transfer this patient to the intensive care unit as the patient had a brief hypotension a nd she is currently receiving a bolus of IV fluids. Patient was reevaluated today on 11/03/2018, remains in the intensive care unit, hemodynamically stable, not requiring any pressors. Patient is on BiPAP she is also on antibiotics, bronchodilators, steroids, FiO2 is down to 50%, tells me that she is slightly better today compared to the last 24 hours. Intermittent episodes of cough, no wheezing, no fever, no chills, no hemoptysis. CBC showed hemoglobin of 7.6 electrolytes are normal renal profile is normal there is no evidence of leukocytosis. Remains on albuterol with Atrovent updrafts, Xanax, heparin subcu, Levaquin, methylprednisolone 60 every 6, Protonix, Zosyn, and Zoloft. Chest x-ray continues to show stable interstitial lung disease./Pulmonary fibrosis Patient was reevaluated today on 11/04/2018, remains in the ICU, remains on BiPAP with FiO2 at 70%, patient's pulmonary status remains very poor and marginal. Could not wean the patient off BiPAP, desaturates easily on a high flow nasal cannula. Patient is presently on antibiotics, bronchodilators, steroids, and not much of an improvement was noted over the last couple of days. Chest x-ray continues to show significant interstitial lung disease, difficult to rule out underlying pneumonia. CBC is basically the same hemoglobin is 7.5. Normal electrolytes were noted. Normal renal profile noted. Reevaluated today on 11/05/2018, patient remains in the ICU, in moderate severe respiratory distress. She is on BiPAP at 70%, she is also on updrafts, today diuretics were added, she is on steroids, and she desaturates easily patient is still complaining of profound shortness of breath with minimal activity sometimes even at rest. Patient is maximized on treatment, and today I had a discussion with the patient regarding considering mechanical ventilation, we also talked about the option of comfort care. Patient is not yet ready to make a decision on comfort care yet. But she is determined not to go back on m echanical ventilation, she is DO NOT RESUSCITATE. Chest x-ray continues to show significant interstitial lung disease, possibility of underlying infection is not entirely ruled out. Possibility of underlying interstitial edema is also not entirely ruled out, but felt to be less likely. However a dose of Lasix was given this morning 40 mg IV push times one. Labs were reviewed basic metabolic profile is normal potassium is 3.4 hemoglobin is a bit on the low side at 7.1., And this is chronic. Reevaluated today on 11/06/2018, remains in the ICU, remains on BiPAP, remains on high FiO2, patient is feeling better since she was given Lasix yesterday, hence I recommended a maintenance dose of Lasix of 20 mg IV push every 12 hours. Chest x-ray also showed some slight improvement. However the patient continues to have significant interstitial lung disease. She may have had a mild component of fluid overload, and we are seeing possibly some improvement with diuretics. However this is not quite certain to me at this point. But clinically patient is better anyway. Labs were reviewed hemoglobin is 7.7 and electrolytes are normal renal profile is normal. Reevaluated today on 11/07/2018, patient remains in the ICU: Remains on high FiO2, airvo with FiO2 of 55%, and flow of 50 L/m. Feeling better today, breathing easier, less short of breath, but still requiring significantly high flow O2. Chest x-ray is basically about the same as yesterday, patient is hemodynamically stable, anxiety seems to be less, labs are basically normal except for low potassium of 3.1, hence I plan to transfer the patient out of the ICU to a regular medical floor today, and the plan is to titrate her FiO2 down to the point where we could get her down to the point we can eventually think of sending her home on possibly 6 L high flow. That is what she normally is on. Patient was reevaluated today on 11/08/2018, remains on Airvo at 40 L/m flow and 45%. Patient is doing fairly well from the pulmonary perspective, but continues to have intermittent episodes of anxiety and agitation with shortness of breath. Her chest x-ray actually looks slightly improved compared to her baseline chest x-ray, continues to have interstitial lung disease.family is at bedside, patient is seriously considering hospice, and I think that is appropriate if the family and the patient are both willing to go ahead with hospice. In the meantime we'll try to titrate the FiO2 down to her usual O2 flow which is supposedly 6-10 L/m at home. Objective - Vital Signs Vital signs: Vital Signs Temp 98.4 F 11/08/18 15:00 Pulse 78 11/08/18 15:00 Resp 16 11/08/18 15:00 BP 94/58 11/08/18 15:00 Pulse Ox 94 L 11/08/18 15:00 Intake & Output 11/07/18 11/08/18 11/08/18 18:59 06:59 18:59 Intake Total 990 200 Output Total 1685 Balance -695 200 Weight 51.1 kg Intake: IV 750 Piperacillin-Tazobactam 3 100 .375 gm In Sodium Chloride 0.9% 100 ml @ 25 mls/hr IVPB Q8HR [facility] Rx# :[id number] Sodium Chloride 0.9% 1, 650 000 ml @ 50 mls/hr IV . Q20H [facility] Rx#:[id number] Oral 240 200 Output: Urine 1685 Other: Voiding Method Indwelling Catheter Bedside Commode # Voids 1 2 # Bowel Movements 1 1 ABP, PAP, CO, CI - Last Documented Arterial Blood Pressure 165/76 - Exam GEN. APPEARANCE: Revealed a 68-year-old female, airvo FiO2 45% and flow of 40 L/m. HEENT: PERRLA, EOMI, no icterus, dry mucous membranes. No neck masses no JVD. RESPIRATORY EXAM: fine crackles at the bases, no wheezes. Symmetrical chest expansion.. CARDIOVASCULAR EXAM: Normal S1 and S2, no S3 gallop, no murmur.. GI/ABDOMINAL EXAM: Soft nontender no megaly no rebound no guarding positive bowel sounds. EXTREMITIES EXAM: No clubbing edema or cyanosis. NEUROLOGICAL EXAM: Alert, oriented, no gross focal neurologic deficit. PSYCHIATRIC EXAM: Normal mood affect and normal mental status examination. SKIN EXAM: warm, dry, intact, good turgor, no rashes. - Labs CBC & Chem 7: 11/07/18 04:51 11/08/18 08:40 Labs: Abnormal Lab Results - Last 24 Hours (Table) 11/08/18 Range/Units 08:40 Potassium 3.2 L (3.5-5.1) mmol/L Carbon Dioxide 31 H (22-30) mmol/L BUN 30 H (7-17) mg/dL Glucose 131 H (74-99) mg/dL Microbiology - Last 24 Hours (Table) 11/01/18 09:35 Blood Culture - Final Blood No Growth after 144 hours Assessment and Plan Assessment: Impression: 1 acute on chronic hypoxic respiratory failure secondary to severe interstitial lung disease, underlying chronic obstructive pulmonary disease, and suspect some component of left lower lobe pneumonia, community-acquired. Possible component of fluid overload with clinical improvement noted with diuretics. 2 severe interstitial lung disease/pulmonary fibrosis 3 history of ARDS, and significant residual fibrosis 4 history of empyema requiring decortication 5 paroxysmal atrial fibrillation history, presently in sinus rhythm. 6 history of compression fractures of thoracic spine and previous kyphoplasty. 7 chronic anxiety and history of depression, remains on Zoloft. Recommendation: Continue airvo titrate down the FiO2 and the flow rates.hopefully can get her down to 10 L high flow per minute Continue Lasix 20 mg IV push every 12 hours. Titrate FiO2 as tolerated and keep O2 saturation above 90%. Continue antibiotics, Continue steroids, Continue GI and DVT prophylaxis agreeable to proceed with hospice and possible discharge planning in the next 2 days Time with Patient: Less than 30
[2018-11-08] MEDS: MIRTAZAPINE 15 MG TAB PO SCH (20:50)
[2018-11-09] MEDS: methylPREDNISolone SOD SUCCI 125 MG/2 ML VIAL IV SCH ×5 (00:11→23:47)
[2018-11-09] MEDS: HEPARIN SODIUM,PORCINE 5,000 UNIT/ML 1 ML VIAL SQ SCH ×3 (00:11→17:05)
[2018-11-09] MEDS: PIPERACILLIN-TAZOBACTAM 3.375 GM in SODIUM CHLORIDE 0.9% 100 ML IVPB SCH ×4 (00:11→23:46)
[2018-11-09] MEDS: SODIUM CHLORIDE 0.9% 1,000 ML IV SCH ×2 (00:14→17:08)
[2018-11-09] MEDS: IPRATROPIUM-ALBUTEROL 3 ML NEB INHALATION PRN ×4 (03:51→15:29)
[2018-11-09] MEDS: ALPRAZolam 0.5 MG TAB PO PRN ×2 (06:07→20:22)
[2018-11-09] MEDS: HYDROcodone/APAP 10-325MG 1 EACH TAB PO PRN (06:08)
[2018-11-09] MEDS: SERTRALINE 100 MG TAB PO SCH (07:32)
[2018-11-09] MEDS: PANTOPRAZOLE 40 MG TABLET PO SCH (07:32)
[2018-11-09] MEDS: NYSTATIN 100,000 UNIT/ML SUSP 500,000 UNIT/5 ML CUP PO SCH ×4 (07:32→21:02)
[2018-11-09] MEDS: FUROSEMIDE 10 MG/ML 2 ML VIAL IV SCH ×2 (07:32→21:02)
--- NOTE | 2018-11-09 10:30 | P.PN ---
Subjective Progress Note Date: 11/09/18 Principal diagnosis: Acute on chronic hypoxic respiratory failure secondary to community-acquired left lower lobe pneumonia, COPD exacerbation, pulmonary fibrosis, underlying ILD 68-year-old female patient with advanced COPD and pulmonary fibrosis with chronic hypoxic respiratory failure secondary to severe COPD and the patient also suffers from chronic hypercapnic respiratory failure and she has had recurrent pneumonias in the past. 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 She suffers from fibromyalgia, compression fracture of the thoracic spine and previous kyphoplasty in addition to chronic anxiety/depression. The patient was in the hospital last in May 2018 because of bilateral severe pneumonia during which she was also treated in the intensive care unit with a combination of bronchodilators steroids and antibiotics and she was supported with noninvasive positive pressure ventilation. For now, the patient is coming in with few days he worse of increased shortness of breath. Her condition was progressively getting worse. She denied having any chest pain or palpitation. No reported fever or chills. She was quite symptomatic as found by EMS at home. No reported aspiration per no report pleurisy. No altered mentation. Limited edema in lower extremities bilaterally. Chest x-ray showed COPD and chronic ILD in addition to a superimposed left lung pneumonia. The white cell count is at 7.7. Her lactic acid was at 3.2 at time of admission. Rest of the blood work are all within normal limits. She will start and accommodation Rocephin and Zithromax patient was started on IV Solu Medrol patient was started on DuoNeb nebulized treatments around the clock. She was admitted to the hospital for further care. Note that the patient did contact my office on 10/31/2018 for worsening shortness of breath. She was started on a course of Augmentin. Nevertheless she end up in the hospital with the above-mentioned symptoms. For now the patient has some mild lactic acidosis. She short of breath. She is anxious. She was placed on a BiPAP at a pressure of 12/5 cm of water with an FiO2 of 70%. I will transfer this patient to the intensive care unit as the patient had a brief hypotension and she is currently receiving a bolus of IV fluids. Patient was reevaluated today on 11/03/2018, remains in the intensive care unit, hemodynamically stable, not requiring any pressors. Patient is on BiPAP she is also on antibiotics, bronchodilators, steroids, FiO2 is down to 50%, tells me that she is slightly better today compared to the last 24 hours. Intermittent episodes of cough, no wheezing, no fever, no chills, no hemoptysis. CBC showed hemoglobin of 7.6 electrolytes are normal renal profile is normal there is no evidence of leukocytosis. Remains on albuterol with Atrovent updrafts, Xanax, heparin subcu, Levaquin, methylprednisolone 60 every 6, Protonix, Zosyn, and Zoloft. Chest x-ray continues to show stable interstitial lung disease./Pulmonary fibrosis Patient was reevaluated today on 11/04/2018, remains in the ICU, remains on BiPAP with FiO2 at 70%, patient's pulmonary status remains very poor and marginal. Could not wean the patient off BiPAP, desaturates easily on a high flow nasal cannula. Patient is presently on antibiotics, bronchodilators, steroids, and not much of an improvement was noted over the last couple of days. Chest x-ray continues to show significant interstitial lung disease, difficult to rule out underlying pneumonia. CBC is basically the same hemoglobin is 7.5. Normal electrolytes were noted. Normal renal profile noted. Reevaluated today on 11/05/2018, patient remains in the ICU, in moderate severe respiratory distress. She is on BiPAP at 70%, she is also on updrafts, today diuretics were added, she is on steroids, and she desaturates easily patient is still complaining of profound shortness of breath with minimal activity sometimes even at rest. Patient is maximized on treatment, and today I had a discussion with the patient regarding considering mechanical ventilation, we also talked about the option of comfort care. Patient is not yet ready to make a decision on comfort care yet. But she is determined not to go back on mechanical ventilation, she is DO NOT RESUSCITATE. Chest x-ray continues to show significant interstitial lung disease, possibility of underlying infection is not entirely ruled out. Possibility of underlying interstitial edema is also not entirely ruled out, but felt to be less likely. However a dose of Lasix was given this morning 40 mg IV push times one. Labs were reviewed basic metabolic profile is normal potassium is 3.4 hemoglobin is a bit on the low side at 7.1., And this is chronic. Reevaluated today on 11/06/2018, remains in the ICU, remains on BiPAP, remains on high FiO2, patient is feeling better since she was given Lasix yesterday, hence I recommended a maintenance dose of Lasix of 20 mg IV push every 12 hours. Chest x-ray also showed some slight improvement. However the patient continues to have significant interstitial lung disease. She may have had a mild component of fluid overload, and we are seeing possibly some improvement with diuretics. However this is not quite certain to me at this point. But clinically patient is better anyway. Labs were reviewed hemoglobin is 7.7 and electrolytes are normal renal profile is normal. Reevaluated today on 11/07/2018, patient remains in the ICU: Remains on high FiO2, airvo with FiO2 of 55%, and flow of 50 L/m. Feeling better today, breathing easier, less short of breath, but still requiring significantly high flow O2. Chest x-ray is basically about the same as yesterday, patient is hemodynamically stable, anxiety seems to be less, labs are basically normal except for low potassium of 3.1, hence I plan to transfer the patient out of the ICU to a regular medical floor today, and the plan is to titrate her FiO2 down to the point where we could get her down to the point we can eventually think of sending her home on possibly 6 L high flow. That is what she normally is on. Patient was reevaluated today on 11/08/2018, remains on Airvo at 40 L/m flow and 45%. Patient is doing fairly well from the pulmonary perspective, but continues to have intermittent episodes of anxiety and agitation with shortness of breath. Her chest x-ray actually looks slightly improved compared to her baseline chest x-ray, continues to have interstitial lung disease.family is at bedside, patient is seriously considering hospice, and I think that is appropriate if the family and the patient are both willing to go ahead with hospice. In the meantime we'll try to titrate the FiO2 down to her usual O2 flow which is supposedly 6-10 L/m at home. On 11/09/2018 patient seen in follow-up on medical surgical floor. She is currently down to 8 L per high flow nasal cannula, with a pulse ox of 93%, she is up to the bedside commode, she got up unassisted this morning apparently and she states she was steady on her feet. Tolerated well. Afebrile, he modynamically stable, lung sounds are positive for diminished breath sounds at the bases with a few scattered rales, no rhonchi, no wheezing, patient has given hospice of thought, and at this time decided not to do it. She remains a DO NOT RESUSCITATE, she still wishes to continue with supportive treatment, she is really hoping to be able to go home in the next 24 hours, she refuses rehab. Normally wears 5 L of oxygen at home, will continue on weaning him down. Today's labs have been reviewed, BMP was done showing a sodium of 142, potassium is 3.2, chloride is 99, CO2 31, BUN is 30 creatinine 0.83. Blood culture showed no growth, we were not able to send a sputum culture, patient remains on a combination of antibiotics including Zosyn and Levaquin, no new chest x-ray today. Objective - Vital Signs Vital signs: Vital Signs Temp 98.1 F 11/09/18 05:05 Pulse 78 11/09/18 07:27 Resp 22 11/09/18 05:05 BP 109/73 11/09/18 05:05 Pulse Ox 93 L 11/09/18 07:10 Intake & Output 11/08/18 11/09/18 11/09/18 18:59 06:59 18:59 Intake Total 200 Output Total 50 Balance 150 Intake: Oral 200 Output: Urine 50 Other: Voiding Method Bedside Commode # Voids 2 1 # Bowel Movements 1 1 ABP, PAP, CO, CI - Last Documented Arterial Blood Pressure 165/76 - Exam GENERAL EXAM: Alert, 68-year-old the frail looking chronically ill looking w gail female on 8 L of oxygen with a pulse ox of 93%, sitting on the bedside commode comfortable in no apparent distress. HEAD: Normocephalic/atraumatic. EYES: Normal reaction of pupils, equal size. Conjunctiva pink, sclera white. NOSE: Clear with pink turbinates. THROAT: No erythema or exudates. NECK: No masses, no JVD, no thyroid enlargement, no adenopathy. CHEST: No chest wall deformity. Symmetrical expansion. LUNGS: Equal air entry with diminished breath sounds at bilateral bases, with scattered crackles, no rhonchi, no wheezing CVS: Regular rate and rhythm, normal S1 and S2, no gallops, no murmurs, no rubs ABDOMEN: Soft, nontender. No hepatosplenomegaly, normal bowel sounds, no guard ing or rigidity. EXTREMITIES: No clubbing, no edema, no cyanosis, 2+ pulses and upper and lower extremities. MUSCULOSKELETAL: Muscle strength and tone normal. SPINE: No scoliosis or deformity SKIN: No rashes CENTRAL NERVOUS SYSTEM: Alert and oriented -3. No focal deficits, tone is normal in all 4 extremities. PSYCHIATRIC: Alert and oriented -3. Appropriate affect. Intact judgment and insight. - Labs CBC & Chem 7: 11/07/18 04:51 11/08/18 08:40 Assessment and Plan Plan: 1 acute on chronic hypoxic respiratory failure secondary to severe interstitial lung disease, underlying chronic obstructive pulmonary disease, and suspect some component of left lower lobe pneumonia, community-acquired. Possible component of fluid overload with clinical improvement noted with diuretics. 2 severe interstitial lung disease/pulmonary fibrosis 3 history of ARDS, and significant residual fibrosis 4 history of empyema requiring decortication 5 paroxysmal atrial fibrillation history, presently in sinus rhythm. 6 history of compression fractures of thoracic spine and previous kyphoplasty. 7 chronic anxiety and history of depression, remains on Zoloft. Plan: Continue IV diuretics, follow up chest x-ray tomorrow, weaning FiO2, patient normally wears 5 L of oxygen at home, currently down to 8 L per high flow nasal cannula, clinically she is improving, increase activity, encouraged to deep breathe and cough, continue same antibiotics, cultures are negative to date. No fever or chills, decided not to go with hospice at this time, wishes supportive treatment, and wants to go home instead of her rehab after discharge. I performed a history & physical examination of the patient and discussed their management with my nurse practitioner, Daphne Flower. I reviewed the nurse practitioner's note and agree with the documented findings and plan of care. Lung sounds are positive for crackles at bilateral bases. The findings and the impression was discussed with the patient. I attest to the documentation by the nurse practitioner. Time with Patient: Less than 30
[2018-11-09] MEDS: LEVOFLOXACIN 750 MG TAB PO SCH (12:59)
[2018-11-09] MEDS: MIRTAZAPINE 15 MG TAB PO SCH (21:03)
[2018-11-10] MEDS: HEPARIN SODIUM,PORCINE 5,000 UNIT/ML 1 ML VIAL SQ SCH ×2 (01:29→08:12)
[2018-11-10 05:30] VITALS: BP 133/59; TEMP 98.3
[2018-11-10 05:31] VITALS: RESP 24
[2018-11-10] MEDS: methylPREDNISolone SOD SUCCI 125 MG/2 ML VIAL IV SCH (05:36)
[2018-11-10] MEDS: PIPERACILLIN-TAZOBACTAM 3.375 GM in SODIUM CHLORIDE 0.9% 100 ML IVPB SCH (08:11)
[2018-11-10] MEDS: ALPRAZolam 0.5 MG TAB PO SCH ×2 (08:12→13:01)
[2018-11-10] MEDS: NYSTATIN 100,000 UNIT/ML SUSP 500,000 UNIT/5 ML CUP PO SCH ×2 (08:12→13:01)
[2018-11-10] MEDS: SERTRALINE 100 MG TAB PO SCH (08:12)
[2018-11-10] MEDS: PANTOPRAZOLE 40 MG TABLET PO SCH (08:12)
[2018-11-10] MEDS: FUROSEMIDE 10 MG/ML 2 ML VIAL IV SCH (08:12)
[2018-11-10] MEDS: HYDROcodone/APAP 10-325MG 1 EACH TAB PO PRN (08:16)
[2018-11-10] MEDS: IPRATROPIUM-ALBUTEROL 3 ML NEB INHALATION PRN (08:33)
[2018-11-10 08:38] VITALS: PULSE 96
[2018-11-10] MEDS ORDERED: predniSONE 20 MG TAB PO STA (09:37)
--- NOTE | 2018-11-10 12:46 | P.PN ---
Subjective Progress Note Date: 11/10/18 Principal diagnosis: Acute on chronic hypoxic respiratory failure secondary to community-acquired left lower lobe pneumonia, COPD exacerbation, pulmonary fibrosis, underlying ILD 68-year-old female patient with advanced COPD and pulmonary fibrosis with chronic hypoxic respiratory failure secondary to severe COPD and the patient also suffers from chronic hypercapnic respiratory failure and she has had recurrent pneumonias in the past. 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 She suffers from fibromyalgia, compression fracture of the thoracic spine and previous kyphoplasty in addition to chronic anxiety/depression. The patient was in the hospital last in May 2018 because of bilateral severe pneumonia during which she was also treated in the intensive care unit with a combination of bronchodilators steroids and antibiotics and she was supported with noninvasive positive pressure ventilation. For now, the patient is coming in with few days he worse of increased shortness of breath. Her condition was progressively getting worse. She denied having any chest pain or palpitation. No reported fever or chills. She was quite symptomatic as found by EMS at home. No reported aspiration per no report pleurisy. No altered mentation. Limited edema in lower extremities bilaterally. Chest x-ray showed COPD and chronic ILD in addition to a superimposed left lung pneumonia. The white cell count is at 7.7. Her lactic acid was at 3.2 at time of admission. Rest of the blood work are all within normal limits. She will start and accommodation Rocephin and Zithromax patient was started on IV Solu Medrol patient was started on DuoNeb nebulized treatments around the clock. She was admitted to the hospital for further care. Note that the patient did contact my office on 10/31/2018 for worsening shortness of breath. She was started on a course of Augmentin. Nevertheless she end up in the hospital with the above-mentioned symptoms. For now the patient has some mild lactic acidosis. She short of breath. She is anxious. She was placed on a BiPAP at a pressure of 12/5 cm of water with an FiO2 of 70%. I will transfer this patient to the intensive care unit as the patient had a brief hypotension and she is currently receiving a bolus of IV fluids. Patient was reevaluated today on 11/03/2018, remains in the intensive care unit, hemodynamically stable, not requiring any pressors. Patient is on BiPAP she is also on antibiotics, bronchodilators, steroids, FiO2 is down to 50%, tells me that she is slightly better today compared to the last 24 hours. Intermittent episodes of cough, no wheezing, no fever, no chills, no hemoptysis. CBC showed hemoglobin of 7.6 electrolytes are normal renal profile is normal there is no evidence of leukocytosis. Remains on albuterol with Atrovent updrafts, Xanax, heparin subcu, Levaquin, methylprednisolone 60 every 6, Protonix, Zosyn, and Zoloft. Chest x-ray continues to show stable interstitial lung disease./Pulmonary fibrosis Patient was reevaluated today on 11/04/2018, remains in the ICU, remains on BiPAP with FiO2 at 70%, patient's pulmonary status remains very poor and marginal. Could not wean the patient off BiPAP, desaturates easily on a high flow nasal cannula. Patient is presently on antibiotics, bronchodilators, steroids, and not much of an improvement was noted over the last couple of days. Chest x-ray continues to show significant interstitial lung disease, difficult to rule out underlying pneumonia. CBC is basically the same hemoglobin is 7.5. Normal electrolytes were noted. Normal renal profile noted. Reevaluated today on 11/05/2018, patient remains in the ICU, in moderate severe respiratory distress. She is on BiPAP at 70%, she is also on updrafts, today diuretics were added, she is on steroids, and she desaturates easily patient is still complaining of profound shortness of breath with minimal activity sometimes even at rest. Patient is maximized on treatment, and today I had a discussion with the patient regarding considering mechanical ventilation, we also talked about the option of comfort care. Patient is not yet ready to make a decision on comfort care yet. But she is determined not to go back on mechanical ventilation, she is DO NOT RESUSCITATE. Chest x-ray continues to show significant interstitial lung disease, possibility of underlying infection is not entirely ruled out. Possibility of underlying interstitial edema is also not entirely ruled out, but felt to be less likely. However a dose of Lasix was given this morning 40 mg IV push times one. Labs were reviewed basic metabolic profile is normal potassium is 3.4 hemoglobin is a bit on the low side at 7.1., And this is chronic. Reevaluated today on 11/06/2018, remains in the ICU, remains on BiPAP, remains on high FiO2, patient is feeling better since she was given Lasix yesterday, hence I recommended a maintenance dose of Lasix of 20 mg IV push every 12 hours. Chest x-ray also showed some slight improvement. However the patient continues to have significant interstitial lung disease. She may have had a mild component of fluid overload, and we are seeing possibly some improvement with diuretics. However this is not quite certain to me at this point. But clinically patient is better anyway. Labs were reviewed hemoglobin is 7.7 and electrolytes are normal renal profile is normal. Reevaluated today on 11/07/2018, patient remains in the ICU: Remains on high FiO2, airvo with FiO2 of 55%, and flow of 50 L/m. Feeling better today, breathing easier, less short of breath, but still requiring significantly high flow O2. Chest x-ray is basically about the same as yesterday, patient is hemodynamically stable, anxiety seems to be less, labs are basically normal except for low potassium of 3.1, hence I plan to transfer the patient out of the ICU to a regular medical floor today, and the plan is to titrate her FiO2 down to the point where we could get her down to the point we can eventually think of sending her home on possibly 6 L high flow. That is what she normally is on. Patient was reevaluated today on 11/08/2018, remains on Airvo at 40 L/m flow and 45%. Patient is doing fairly well from the pulmonary perspective, but continues to have intermittent episodes of anxiety and agitation with shortness of breath. Her chest x-ray actually looks slightly improved compared to her baseline chest x-ray, continues to have interstitial lung disease.family is at bedside, patient is seriously considering hospice, and I think that is appropriate if the family and the patient are both willing to go ahead with hospice. In the meantime we'll try to titrate the FiO2 down to her usual O2 flow which is supposedly 6-10 L/m at home. On 11/09/2018 patient seen in follow-up on medical surgical floor. She is currently down to 8 L per high flow nasal cannula, with a pulse ox of 93%, she is up to the bedside commode, she got up unassisted this morning apparently and she states she was steady on her feet. Tolerated well. Afebrile, he modynamically stable, lung sounds are positive for diminished breath sounds at the bases with a few scattered rales, no rhonchi, no wheezing, patient has given hospice of thought, and at this time decided not to do it. She remains a DO NOT RESUSCITATE, she still wishes to continue with supportive treatment, she is really hoping to be able to go home in the next 24 hours, she refuses rehab. Normally wears 5 L of oxygen at home, will continue on weaning him down. Today's labs have been reviewed, BMP was done showing a sodium of 142, potassium is 3.2, chloride is 99, CO2 31, BUN is 30 creatinine 0.83. Blood culture showed no growth, we were not able to send a sputum culture, patient remains on a combination of antibiotics including Zosyn and Levaquin, no new chest x-ray today. On 11/10/2018 patient seen in follow-up on medical surgical floor. Currently down to 7 L of oxygen, and her pulse ox is 97%, this can probably be further wean down, patient denies any dyspnea, denies any cough or congestion, lung sounds reveal a few scattered rhonchi, and some end expiratory wheezes, overall much improved in terms of dyspnea and wheezing. No new blood work will chest x- rays today, no fever or chills, blood culture showed no growth. Patient is going home after discharge and there is family support available, her daughter is going to be there to provide support. Objective - Vital Signs Vital signs: Vital Signs Temp 98.3 F 11/10/18 04:15 Pulse 96 11/10/18 08:47 Resp 24 11/10/18 04:15 BP 133/59 11/10/18 04:15 Pulse Ox 97 11/10/18 04:15 Intake & Output 11/09/18 11/10/18 11/10/18 18:59 06:59 18:59 Intake Total 300 100 100 Balance 300 100 100 Intake: Oral 300 100 100 Other: Voiding Method Bedside Commode # Voids 1 2 ABP, PAP, CO, CI - Last Documented Arterial Blood Pressure 165/76 - Exam GENERAL EXAM: Alert, 68-year-old the frail looking chronically ill looking white female on 7 L of oxygen with a pulse ox of 93%, sitting on the bedside commode comfortable in no apparent distress. HEAD: Normocephalic/atraumatic. EYES: Normal reaction of pupils, equal size. Conjunctiva pink, sclera white. NOSE: Clear with pink turbinates. THROAT: No erythema or exudates. NECK: No masses, no JVD, no thyroid enlargement, no adenopathy. CHEST: No chest wall deformity. Symmetrical expansion. LUNGS: Equal air entry with diminished breath sounds at bilateral bases, with scattered crackles, no rhonchi, no wheezing CVS: Regular rate and rhythm, normal S1 and S2, no gallops, no murmurs, no rubs ABDOMEN: Soft, nontender. No hepatosplenomegaly, normal bowel sounds, no guarding or rigidity. EXTREMITIES: No clubbing, no edema, no cyanosis, 2+ pulses and upper and lower extremities. MUSCULOSKELETAL: Muscle strength and tone normal. SPINE: No scoliosis or deformity SKIN: No rashes CENTRAL NERVOUS SYSTEM: Alert and oriented -3. No focal deficits, tone is normal in all 4 extremities. PSYCHIATRIC: Alert and oriented -3. Appropriate affect. Intact judgment and insight. - Labs CBC & Chem 7: 11/07/18 04:51 11/08/18 08:40 Assessment and Plan Plan: 1 acute on chronic hypoxic respiratory failure secondary to severe interstitial lung disease, underlying chronic obstructive pulmonary disease, and suspect some component of left lower lobe pneumonia, community-acquired. Possible component of fluid overload with clinical improvement noted with diuretics. 2 severe interstitial lung disease/pulmonary fibrosis 3 history of ARDS, and significant residual fibrosis 4 history of empyema requiring decortication 5 paroxysmal atrial fibrillation history, presently in sinus rhythm. 6 history of compression fractures of thoracic spine and previous kyphoplasty. 7 chronic anxiety and history of depression, remains on Zoloft. Plan: Patient is doing well, IV diuretics have been discontinued, patient has been transitioned to oral prednisone, continue weaning FiO2, patient is pretty near her baseline in terms of oxygen requirement, normally wears 5 L, currently down to 7 L. Continue to wean. Continue to encourage deep breathing and coughing, no fever or chills. Patient can be discharged home from pulmonary perspective, she will need follow-up appointment with Dr. Sierra in the office, she can finish outpatient course of oral Augmentin, and a prednisone taper, she can resume her maintenance inhalers and nebulized treatments. I performed a history & physical examination of the patient and discussed their management with my nurse practitioner, Daphne Flower. I reviewed the nurse practitioner's note and agree with the documented findings and plan of care. Lung sounds are positive for crackles at bilateral bases. The findings and the impression was discussed with the patient. I attest to the documentation by the nurse practitioner. Time with Patient: Less than 30
--- NOTE | 2018-11-10 22:22 | P.PN ---
Subjective Progress Note Date: 11/08/18 Principal diagnosis: Acute severe COPD exacerbation Ms. Dwyer is a 68-year-old female with chronic hypoxic respiratory failure secondary to severe COPD and pulmonary fibrosis, atrial fibrillation, fibromyalgia, ARDS, GERD, osteoarthritis and recurrent pneumonias coming to the hospital with a chief complaint of difficulty in breathing. Patient has been having increased shortness of breath that has been progressively worsening. Patient has end-stage COPD and has several admissions for the same. Her last hospital admission from May 2018 has been very complicated with bilateral severe pneumonia and also ARDS. In the outpatient setting patient was started on Augmentin but did not show much response and so she came into the hospital for further evaluation. Patient also has history of anxiety disorder. In the emergency department the patient was found to be hypoxic and so started on BiPAP on 70% FiO2 with BiPAP settings of 12 x 5 cm of water. When I evaluated the patient she was on the floors, patient was saturating at 92% but her blood pressure has been low at 76 x 51. Patient received a liter of bolus in the ED currently she has IV fluids running at 100 mL/h and she also received breathing treatments and started on IV Solu-Medrol and was given ceftriaxone and Zithromax. On 11/02/18 - patient has been transferred to the ICU yesterday. As per disc annita with nursing staff, the patient had a panic attack at around 10:30 PM last night. She was given a dose of Xanax to calm her down. And she also received a dose of IV Lasix. Later on patient felt much better and she was taken off of BiPAP and changed to high flow oxygen at 15 L with 50% FiO2. Patient has been saturating well maintained around 88-92% on this current setting. She has been receiving antibiotics in the form of Zosyn and Levaquin. Patient states that she feels much better compared to yesterday in terms of her difficulty in breathing. But overall she complains of tiredness and fatigue. She has been trying to eat a little. Patient denies having any fevers chills or rigors. No abdominal pain nausea vomiting or diarrhea. No chest pain or palpitations. On 11/03/18 - vision is still in the ICU. As per the nursing staff report, patient has been on BiPAP last night. This morning she is on a high flow oxygen, maintaining her sats in the low 90s. Patient's daughter Alice, is at bedside. She had a brief discussion regarding the CODE STATUS with the patient and they are okay with her being DO NOT RESUSCITATE. Patient states that her breathing is much better compared to couple of days back. She denies having any chest pain or palpitations. No abdominal pain nausea vomiting or diarrhea. No dysuria or hematuria. No swelling of her lower extremities. No headaches blurring of vision, focal weakness. She reports her fatigue is much better. 11/04/2018 Patient is in the ICU and being closely monitored. Patient is currently on the BiPAP. Per nursing staff patient was put on high flow oxygen to give oral medications and patient became very anxious and requesting for the BiPAP mask to be placed on again due to difficulty in breathing. When talking with the patient today she stated that she feels she isn't doing any better as far as her breathing unless she has the BiPAP on. Patient denies any chest pain or palpitations at this time. Patient states that she hasn't eaten anything since Saturday and doesn't have much of an appetite. Pulmonary and cardiology are following closely. Patient appears to be sad due to her recent loss of her spouse 3 months ago and states that she feels she doesn't have much time left here. Patient is afebrile. 11/05/2018 Patient is still being closely monitored in the ICU at this time. Today patient is on the airvo at 60 L and 60% oxygen saturation is currently 93-94% while lying in bed. BiPAP is on standby. Pulmonary is closely following. Patient denies any chest pains or palpitations but is still having shortness of breath with any exertion. Patient did drink her ensure but still has very poor appeti te. Patient continues to be sad and depressed talking about the loss of her 3 months ago. Psychiatric consult was placed for evaluation of depression. Will await report. Patient is afebrile. Per nursing staff, her daughter from [place] is in transit to come here sometime today. Prognosis is poor and guarded at this time. 11/06/2018 Patient is sitting up in bed being closely monitored in the ICU. Patient continues to be on the airvo high flow and is saturating well. Pulmonary is closely following. Patient denies any chest pains, new shortness of breath, or palpitations at this time. Patient is able to converse without becoming winded. Patient is beginning to drink and eat a little more. Psychiatry was consulted and medication recommendations were made. Remeron was added to her daily regimen. Patient is discussing with her daughters about CODE STATUS and her wishes. Patient will be getting up to the chair with physical therapy today and is looking forward to that. Patient's urine output has increased due to IV Lasix therapy. Pulmonary is following closely. Patient denies any nausea or vomiting at this time. Patient has been going to the bathroom with no abdominal discomfort at this time. Guarded prognosis. 11/07/2018 Patient is sitting up in the bed being closely monitored in the ICU in no acute distress. Family is at the bedside. Patient is currently on high flow at 50% oxygen with 57% FiO2 and tolerating well. Patient is hemodynamically stable and breathing much better and is awaiting transfer out of the ICU at this time. Pulmonary is following closely. Patient would like to go home but due to the high flow oxygen patient will continue to be monitored at this time. Patient is having some mild heartburn today and normally uses Pepto-Bismol or Tums at home. tums are being ordered at this time. Patient is eating a little more today and tolerating well. Patient denies any chest pain, palpitations, nausea, or vomiting at this time. She and is afebrile. Patient does have some shortness of breath but states it is getting better. We will continue to monitor closely. Guarded prognosis. 11/08/2018 Patient is currently lying in the bed comfortably. Currently on Avapro. Patient is currently transferred to [facility] unit. Pulmonary is following. Patient is being continued on steroids, breathing treatments and high flow oxygen. No fever no chills. No chest pain. No nausea vomiting or abdominal pain. No diarrhea. Current medications reviewed. Objective - Vital Signs Vital signs: Vital Signs Temp 97.9 F 11/08/18 05:46 Pulse 63 11/08/18 11:04 Resp 18 11/08/18 05:46 BP 115/66 11/08/18 05:46 Pulse Ox 95 11/08/18 07:17 Intake & Output 11/07/18 11/08/18 11/08/18 18:59 06:59 18:59 Intake Total 990 100 Output Total 1685 Balance -695 100 Weight 51.1 kg Intake: IV 750 Piperacillin-Tazobactam 3 100 .375 gm In Sodium Chloride 0.9% 100 ml @ 25 mls/hr IVPB Q8HR [facility] Rx# :[id number] Sodium Chloride 0.9% 1, 650 000 ml @ 50 mls/hr IV . Q20H [facility] Rx#:[id number] Oral 240 100 Output: Urine 1685 Other: Voiding Method Indwelling Catheter Bedside Commode # Voids 1 # Bowel Movements 1 ABP, PAP, CO, CI - Last Documented Arterial Blood Pressure 165/76 - Exam PHYSICAL EXAMINATION: Patient is lying in the bed comfortably, no acute distress, awake alert and oriented.. HEENT: Normocephalic. Neck is supple. Pupils reactive. Nostrils clear. Oral cavity is moist. Ears reveal no drainage. Neck reveals no JVD, carotid bruits, or thyromegaly. CHEST EXAMINATION: Trachea is central. Symmetrical expansion. Bilateral diminished air entry and minimal expiratory wheeze. CARDIAC: Normal S1, S2 with no gallops. No murmurs ABDOMEN: Soft. Bowel sounds normal. No organomegaly. No abdominal bruits. Extremities: reveal no edema. No clubbing or cyanosis Neurologically awake, alert, oriented x3 with well-coordinated movements. No focal deficits noted Skin: No rash or skin lesions. Psychiatric: Coperative. Nonsuicidal Musculoskeletal: No joint swelling or deformity. Normal range of motion. - Labs CBC & Chem 7: 11/07/18 04:51 11/08/18 08:40 Labs: Abnormal Lab Results - Last 24 Hours (Table) 11/08/18 Range/Units 08:40 Potassium 3.2 L (3.5-5.1) mmol/L Carbon Dioxide 31 H (22-30) mmol/L BUN 30 H (7-17) mg/dL Glucose 131 H (74-99) mg/dL Microbiology - Last 24 Hours (Table) 11/01/18 09:35 Blood Culture - Final Blood No Growth after 144 hours Assessment and Plan Assessment: Acute on chronic hypoxic respiratory failure; currently on highflow airvo 45%/ 57% FiO2. Hypotension, improved Hypokalemia, replacing. Current potassium this morning was 3.1 will continue to monitor Left lower lobe pneumonia Severe COPD History of recurrent pneumonias History of ARDS Fibromyalgia Multiple compression fractures of the thoracic spine Chronic anxiety History of paroxysmal atrial fibrillation Sepsis present on admission Lactic acidosis DNR/DNI status Recommendations and discussion: Recommend to continue current medications, management, and symptomatic treatment. Continue with bronchodilators and IV steroids at this time. Continue with IV antibiotics in the form of Zosyn and oral levaquin. Pulmonary and ca rdiology are following. Patient is awaiting a transfer out of the ICU. Patient is currently on a high flow and tolerating well. Continue to encourage the patient to increase her oral intake. Guarded and poor prognosis. Further recommendations to follow. Time with Patient: Greater than 30
--- NOTE | 2018-11-10 22:24 | P.PN ---
Subjective Progress Note Date: 11/09/18 Principal diagnosis: Acute severe COPD exacerbation Ms. Dwyer is a 68-year-old female with chronic hypoxic respiratory failure secondary to severe COPD and pulmonary fibrosis, atrial fibrillation, fibromyalgia, ARDS, GERD, osteoarthritis and recurrent pneumonias coming to the hospital with a chief complaint of difficulty in breathing. Patient has been having increased shortness of breath that has been progressively worsening. Patient has end-stage COPD and has several admissions for the same. Her last hospital admission from May 2018 has been very complicated with bilateral severe pneumonia and also ARDS. In the outpatient setting patient was started on Augmentin but did not show much response and so she came into the hospital for further evaluation. Patient also has history of anxiety disorder. In the emergency department the patient was found to be hypoxic and so started on BiPAP on 70% FiO2 with BiPAP settings of 12 x 5 cm of water. When I evaluated the patient she was on the floors, patient was saturating at 92% but her blood pressure has been low at 76 x 51. Patient received a liter of bolus in the ED currently she has IV fluids running at 100 mL/h and she also received breathing treatments and started on IV Solu-Medrol and was given ceftriaxone and Zithromax. On 11/02/18 - patient has been transferred to the ICU yesterday. As per disc annita with nursing staff, the patient had a panic attack at around 10:30 PM last night. She was given a dose of Xanax to calm her down. And she also received a dose of IV Lasix. Later on patient felt much better and she was taken off of BiPAP and changed to high flow oxygen at 15 L with 50% FiO2. Patient has been saturating well maintained around 88-92% on this current setting. She has been receiving antibiotics in the form of Zosyn and Levaquin. Patient states that she feels much better compared to yesterday in terms of her difficulty in breathing. But overall she complains of tiredness and fatigue. She has been trying to eat a little. Patient denies having any fevers chills or rigors. No abdominal pain nausea vomiting or diarrhea. No chest pain or palpitations. On 11/03/18 - vision is still in the ICU. As per the nursing staff report, patient has been on BiPAP last night. This morning she is on a high flow oxygen, maintaining her sats in the low 90s. Patient's daughter Alice, is at bedside. She had a brief discussion regarding the CODE STATUS with the patient and they are okay with her being DO NOT RESUSCITATE. Patient states that her breathing is much better compared to couple of days back. She denies having any chest pain or palpitations. No abdominal pain nausea vomiting or diarrhea. No dysuria or hematuria. No swelling of her lower extremities. No headaches blurring of vision, focal weakness. She reports her fatigue is much better. 11/04/2018 Patient is in the ICU and being closely monitored. Patient is currently on the BiPAP. Per nursing staff patient was put on high flow oxygen to give oral medications and patient became very anxious and requesting for the BiPAP mask to be placed on again due to difficulty in breathing. When talking with the patient today she stated that she feels she isn't doing any better as far as her breathing unless she has the BiPAP on. Patient denies any chest pain or palpitations at this time. Patient states that she hasn't eaten anything since Saturday and doesn't have much of an appetite. Pulmonary and cardiology are following closely. Patient appears to be sad due to her recent loss of her spouse 3 months ago and states that she feels she doesn't have much time left here. Patient is afebrile. 11/05/2018 Patient is still being closely monitored in the ICU at this time. Today patient is on the airvo at 60 L and 60% oxygen saturation is currently 93-94% while lying in bed. BiPAP is on standby. Pulmonary is closely following. Patient denies any chest pains or palpitations but is still having shortness of breath with any exertion. Patient did drink her ensure but still has very poor appeti te. Patient continues to be sad and depressed talking about the loss of her 3 months ago. Psychiatric consult was placed for evaluation of depression. Will await report. Patient is afebrile. Per nursing staff, her daughter from [place] is in transit to come here sometime today. Prognosis is poor and guarded at this time. 11/06/2018 Patient is sitting up in bed being closely monitored in the ICU. Patient continues to be on the airvo high flow and is saturating well. Pulmonary is closely following. Patient denies any chest pains, new shortness of breath, or palpitations at this time. Patient is able to converse without becoming winded. Patient is beginning to drink and eat a little more. Psychiatry was consulted and medication recommendations were made. Remeron was added to her daily regimen. Patient is discussing with her daughters about CODE STATUS and her wishes. Patient will be getting up to the chair with physical therapy today and is looking forward to that. Patient's urine output has increased due to IV Lasix therapy. Pulmonary is following closely. Patient denies any nausea or vomiting at this time. Patient has been going to the bathroom with no abdominal discomfort at this time. Guarded prognosis. 11/07/2018 Patient is sitting up in the bed being closely monitored in the ICU in no acute distress. Family is at the bedside. Patient is currently on high flow at 50% oxygen with 57% FiO2 and tolerating well. Patient is hemodynamically stable and breathing much better and is awaiting transfer out of the ICU at this time. Pulmonary is following closely. Patient would like to go home but due to the high flow oxygen patient will continue to be monitored at this time. Patient is having some mild heartburn today and normally uses Pepto-Bismol or Tums at home. tums are being ordered at this time. Patient is eating a little more today and tolerating well. Patient denies any chest pain, palpitations, nausea, or vomiting at this time. She and is afebrile. Patient does have some shortness of breath but states it is getting better. We will continue to monitor closely. Guarded prognosis. 11/08/2018 Patient is currently lying in the bed comfortably. Currently on Avapro. Patient is currently transferred to [facility] unit. Pulmonary is following. Patient is being continued on steroids, breathing treatments and high flow oxygen. No fever no chills. No chest pain. No nausea vomiting or abdominal pain. No diarrhea. 11/09/2089 Patient is currently lying in the bed comfortably. Currently on high flow oxygen with nasal cannula. Continued on breathing treatments steroids and oxygen therapy. Pulmonary is following. Patient wishes to be discharged. Current medications reviewed. Objective - Vital Signs Vital signs: Vital Signs Temp 97.5 F L 11/09/18 15:00 Pulse 94 11/09/18 15:45 Resp 22 11/09/18 15:00 BP 113/64 11/09/18 15:00 Pulse Ox 91 L 11/09/18 15:00 Intake & Output 11/08/18 11/09/18 11/09/18 18:59 06:59 18:59 Intake Total 200 300 Output Total 50 Balance 150 300 Intake: Oral 200 300 Output: Urine 50 Other: Voiding Method Bedside Commode # Voids 2 1 1 # Bowel Movements 1 1 ABP, PAP, CO, CI - Last Documented Arterial Blood Pressure 165/76 - Exam PHYSICAL EXAMINATION: Patient is lying in the bed comfortably, no acute distress, awake alert and oriented.. HEENT: Normocephalic. Neck is supple. Pupils reactive. Nostrils clear. Oral cavity is moist. Ears reveal no drainage. Neck reveals no JVD, carotid bruits, or thyromegaly. CHEST EXAMINATION: Trachea is central. Symmetrical expansion. Bilateral diminished air entry and minimal expiratory wheeze. CARDIAC: Normal S1, S2 with no gallops. No murmurs ABDOMEN: Soft. Bowel sounds normal. No organomegaly. No abdominal bruits. Extremities: reveal no edema. No clubbing or cyanosis Neurologically awake, alert, oriented x3 with well-coordinated movements. No focal deficits noted Skin: No rash or skin lesions. Psychiatric: Coperative. Nonsuicidal Musculoskeletal: No joint swelling or deformity. Normal range of motion. - Labs CBC & Chem 7: 11/07/18 04:51 11/08/18 08:40 Assessment and Plan Assessment: Acute on chronic hypoxic respiratory failure; currently on highflow nasal cannula oxygen. Hypotension, improved Hypokalemia, replacing. Current potassium this morning was 3.1 will continue to monitor Left lower lobe pneumonia Severe COPD History of recurrent pneumonias History of ARDS Fibromyalgia Multiple compression fractures of the thoracic spine Chronic anxiety History of paroxysmal atrial fibrillation Sepsis present on admission Lactic acidosis DNR/DNI status Recommendations and discussion: Recommend to continue current medications, management, and symptomatic treatment. Continue with bronchodilators and IV steroids at this time. Continue with IV antibiotics in the form of Zosyn and oral levaquin. Pulmonary and cardiology are following. Patient is currently on a high flow and tolerating well. Continue to encourage the patient to increase her oral intake. Guarded and poor prognosis. Further recommendations to follow. Time with Patient: Greater than 30
== END 2018-11-10 13:25 | disposition home or self-care (01) | DRG 871 ==
LOC: EC 07:36 → 3SCARD 09:23 → 2SICU 13:52 → 4MS4W 11-07 15:14
PROVIDERS: ADMIT Hospitalist; ATTEND Hospitalist
PROC: 06HM33Z Insertion of Infusion Device into Right Femoral Vein, Percutaneous Approach (ICD-10-PCS; principal; 2018-11-01)
PROC: 04HK33Z Insertion of Infusion Device into Right Femoral Artery, Percutaneous Approach (ICD-10-PCS; 2018-11-01)
PROC: 04HY32Z Insertion of Monitoring Device into Lower Artery, Percutaneous Approach (ICD-10-PCS; 2018-11-01)
PROC: 5A09557 Assistance with Respiratory Ventilation, Greater than 96 Consecutive Hours, Continuous Positive Airway Pressure (ICD-10-PCS; 2018-11-03)
DX: A41.9 Sepsis, unspecified organism (principal); J96.21 Acute and chronic respiratory failure with hypoxia; J18.1 Lobar pneumonia, unspecified organism; J96.22 Acute and chronic respiratory failure with hypercapnia; J44.1 Chronic obstructive pulmonary disease with (acute) exacerbation; M48.54XA Collapsed vertebra, not elsewhere classified, thoracic region, initial encounter for fracture; E87.2 Acidosis; J44.0 Chronic obstructive pulmonary disease with (acute) lower respiratory infection; M19.90 Unspecified osteoarthritis, unspecified site; K21.9 Gastro-esophageal reflux disease without esophagitis; J84.10 Pulmonary fibrosis, unspecified; I48.0 Paroxysmal atrial fibrillation; F41.0 Panic disorder [episodic paroxysmal anxiety]; F41.1 Generalized anxiety disorder; I95.9 Hypotension, unspecified; M79.7 Fibromyalgia; F32.9 Major depressive disorder, single episode, unspecified; Z66 Do not resuscitate; T50.1X5A Adverse effect of loop [high-ceiling] diuretics, initial encounter; E87.70 Fluid overload, unspecified; E03.9 Hypothyroidism, unspecified; E87.6 Hypokalemia; F17.200 Nicotine dependence, unspecified, uncomplicated; Z87.01 Personal history of pneumonia (recurrent); Z79.899 Other long term (current) drug therapy; Z80.0 Family history of malignant neoplasm of digestive organs; Z83.3 Family history of diabetes mellitus; Z90.710 Acquired absence of both cervix and uterus; Z99.81 Dependence on supplemental oxygen; Z88.8 Allergy status to other drugs, medicaments and biological substances; Z91.048 Other nonmedicinal substance allergy status; Z98.890 Other specified postprocedural states; Z81.8 Family history of other mental and behavioral disorders
CPT/HCPCS: 36415; 36600; 71045; 80048; 80053; 81001; 82805; 83605; 83735; 83880; 84132; 84484; 85025; 85610; 85730; 87040; 93005; 94640; 94644; 94660; 94760; 96365; 96375; 99291

== ENCOUNTER 2018-11-15 10:15 | Emergency (ER) | payer MEDICARE, BC ==
[2018-11-15 10:28] VITALS: TEMP 97.3
--- NOTE | 2018-11-15 10:57 | ED ---
General Adult HPI - General Chief complaint: Recheck/Abnormal Lab/Rx Stated complaint: Low potassium Time Seen by Provider: 11/15/18 10:31 Source: patient, family, RN notes reviewed Mode of arrival: wheelchair Limitations: no limitations - History of Present Illness Initial comments: Patient is a pleasant 68-year-old female presenting to the emergency department with concerns regarding low potassium level. Patient was recently discharged from the hospital with COPD/lung infection. Patient complains of some fatigue and nausea. Patient did have routine blood work done yesterday and was called last night stating potassium was low and she should come to the hospital. They did call back this morning and patient was still advised to come to the [facility]. Patient did receive some IV potassium while in the hospital however it burned and was discontinued. Patient does not believe she had oral potassium. - Related Data Home Medications Medication Instructions Recorded Confirmed Sertraline [Zoloft] 200 mg PO DAILY 08/05/13 11/15/18 ALPRAZolam [Xanax] 0.5 mg PO QID PRN 01/30/18 11/15/18 Albuterol Nebulized [Ventolin 2.5 mg INHALATION RT-Q6H PRN 05/29/18 11/15/18 Nebulized] Hydrocodone/Acetaminophen [[place] 1 tab PO Q6H PRN 05/29/18 11/15/18 10-325] Pantoprazole Sodium [Protonix] 40 mg PO DAILY 11/01/18 11/15/18 predniSONE See Taper PO DAILY 11/15/18 11/15/18 Previous Rx's Medication Instructions Recorded Calcium Carbonate [Tums] 1,000 mg PO QID PRN chew 11/10/18 Ipratropium-Albuterol Nebulize 3 ml INHALATION QID #120 ampul.neb 11/10/18 [Duoneb 0.5 mg-3 mg/3 ml Soln] Melatonin 3 mg PO HS #1 tablet 11/10/18 Allergies Allergy/AdvReac Type Severity Reaction Status Date / Time adhesive AdvReac Unknown Verified 11/15/18 10:58 bupropion HCl AdvReac Unknown Verified 11/15/18 10:58 [From Wellbutrin] Review of Systems ROS Statement: Those systems with pertinent positive or pertinent negative responses have been documented in the HPI. ROS Other: All systems not noted in ROS Statement are negative. Constitutional: Denies: fever Eyes: Denies: eye pain ENT: Denies: ear pain Respiratory: Denies: cough, dyspnea Cardiovascular: Denies: chest pain Endocrine: Reports: fatigue Gastrointestinal: Reports: nausea. Denies: abdominal pain Genitourinary: Denies: dysuria Musculoskeletal: Denies: back pain Skin: Denies: rash Neurological: Denies: weakness Past Medical History Past Medical History: Atrial Fibrillation, COPD, Fibromyalgia, GERD/Reflux, Osteoarthritis (OA), Pneumonia, Thyroid Disorder Additional Past Medical History / Comment(s): COPD, chronic hypoxic respiratory failure maintained on oxygen at 3 L per minute nasal cannula, fibromyalgia, acid reflux, hypothyroidism, osteoarthritis, compression fracture of the T-spine, previous kyphoplasty, previous history of recurrent pneumonias requiring decortication for empyema and previous history of ARDS secondary to pneumonia, hiatal hernia, generalized anxiety disorder/depression; intermittent afib History of Any Multi-Drug Resistant Organisms: None Reported Past Surgical History: Back Surgery, Hysterectomy Additional Past Surgical History / Comment(s): X3 BACK SX -FUSIONS( HX FX VERTEBRE), SX TO REMOVE EMPYEMA via a VATS and decortication. She has also had multiple bronchoscopies in the past. She has also received lumbar epidural steroid injection under fluoroscopic guidance. Past Anesthesia/Blood Transfusion Reactions: Motion Sickness Additional Past Anesthesia/Blood Transfusion Reaction / Comment(s): BLOOD TRANSFUSION Past Psychological History: Anxiety, Depression Smoking Status: Current every day smoker Past Alcohol Use History: None Reported Past Drug Use History: None Reported - Past Family History Father Family Medical History: Diabetes Mellitus Additional Family Medical History / Comment(s): AGE 61 THATS ALL PT KNOWS Mother Family Medical History: Cancer, Dementia Additional Family Medical History / Comment(s): AGE 80, RECTAL [place] General Exam Limitations: no limitations General appearance: alert, in no apparent distress Head exam: Present: atraumatic Eye exam: Present: normal appearance, PERRL ENT exam: Present: normal oropharynx Neck exam: Present: normal inspection Respiratory exam: Present: normal lung sounds bilaterally Cardiovascular Exam: Present: regular rate, normal rhythm GI/Abdominal exam: Present: soft. Absent: tenderness Extremities exam: Present: normal inspection. Absent: pedal edema, calf tenderness Neurological exam: Present: alert Psychiatric exam: Present: normal affect, normal mood Skin exam: Present: normal color Course Vital Signs 11/15/18 11/15/18 11/15/18 10:25 13:16 13:18 Temperature 97.3 F L Pulse Rate 83 69 70 Respiratory 18 18 18 Rate Blood Pressure 109/73 122/82 122/82 O2 Sat by Pulse 99 97 96 Oximetry - Reevaluation(s) Reevaluation #1: 11/15/18 13:48 Called in the room earlier with patient and family complaints that IV potassium has not been started. Nurse shortly started after that and then was called and again to stop because of burning. Patient is refusing potassium. Patient has reportedly refused IV potassium on the floor earlier as well. Patient and family are upset stating where trying to force this potassium on her and they do not want to be here and would like to leave. They state they did talk to Dr. Belkis denise who has medication for them. 11/15/18 13:52 Patient and family again updated. Patient will try a little bit more potassium before leaving. Dr. Bar did call in a prescription for them. They state they will are planning on having blood work done on Saturday has arty discussed with Dr. Bar. Medical Decision Making - Lab Data Result diagrams: 11/15/18 10:51 11/15/18 10:51 Lab Results 11/15/18 11/15/18 Range/Units 10:51 10:51 WBC 10.2 (3.8-10.6) k/uL RBC 3.36 L (3.80-5.40) m/uL Hgb 9.9 L (11.4-16.0) gm/dL Hct 29.4 L (34.0-46.0) % MCV 87.6 (80.0-100.0) fL MCH 29.4 (25.0-35.0) pg MCHC 33.5 (31.0-37.0) g/dL RDW 16.5 H (11.5-15.5) % Plt Count 197 (150-450) k/uL Neutrophils % 81 % Lymphocytes % 13 % Monocytes % 5 % Eosinophils % 1 % Basophils % 0 % Neutrophils # 8.2 H (1.3-7.7) k/uL Lymphocytes # 1.3 (1.0-4.8) k/uL Monocytes # 0.5 (0-1.0) k/uL Eosinophils # 0.1 (0-0.7) k/uL Basophils # 0.0 (0-0.2) k/uL Anisocytosis Slight Sodium 139 (137-145) mmol/L Potassium 2.9 L (3.5-5.1) mmol/L Chloride 99 (98-107) mmol/L Carbon Dioxide 33 H (22-30) mmol/L Anion Gap 7 mmol/L BUN 14 (7-17) mg/dL Creatinine 0.59 (0.52-1.04) mg/dL Est GFR (CKD-EPI)AfAm >90 (>60 ml/min/1.73 sqM) Est GFR (CKD-EPI)NonAf >90 (>60 ml/min/1.73 sqM) Glucose 104 H (74-99) mg/dL Calcium 8.2 L (8.4-10.2) mg/dL Magnesium 2.3 (1.6-2.3) mg/dL Disposition Clinical Impression: Hypokalemia Disposition: HOME SELF-CARE Condition: Stable Instructions (If sedation given, give patient instructions): Hypokalemia (ED) Additional Instructions: Please follow-up with primary care physician in the next day or 2 for recheck. You should have your potassium rechecked in the next day, 2 at the most. Return for muscle aches or difficulty walking, vomiting or diarrhea, worsening symptoms or other concerns. Potassium prescription as prescribed by Dr. Bar. Is patient prescribed a controlled substance at d/c from ED?: No Referrals: Neri Bar DO [Primary Care Provider] - 1-2 days Decision Time: 13:50
[2018-11-15 11:18] LABS: Anisocytosis Slight; Basophils % (A) 0 %; Eosinophils # (A) 0.1 k/uL (0-0.7); Eosinophils % (A) 1 %; HCT 29.4 % (34.0-46.0); HGB 9.9 gm/dL (11.4-16.0); Lymphocytes # (A) 1.3 k/uL (1.0-4.8); Lymphocytes % (A) 13 %; MCH 29.4 pg (25.0-35.0); MCHC 33.5 g/dL (31.0-37.0); MCV 87.6 fL (80.0-100.0); Mean Platelet Volume 8.2; Monocytes # (A) 0.5 k/uL (0-1.0); Monocytes % (A) 5 %; Neutrophils # (A) 8.2 k/uL (1.3-7.7); Neutrophils % (A) 81 %; Platelet Count 197 k/uL (150-450); RBC 3.36 m/uL (3.80-5.40); RDW 16.5 % (11.5-15.5); WBC 10.2 k/uL (3.8-10.6)
[2018-11-15 11:25] LABS: African American GFR (CKD) >90 (>60 ml/min/1.73 sqM); Anion Gap 7 mmol/L; Blood Urea Nitrogen 14 mg/dL (7-17); Calcium 8.2 mg/dL (8.4-10.2); Carbon Dioxide 33 mmol/L (22-30); Chloride 99 mmol/L (98-107); Glucose 104 mg/dL (74-99); Magnesium 2.3 mg/dL (1.6-2.3); Potassium 2.9 mmol/L (3.5-5.1); Sodium 139 mmol/L (137-145)
[2018-11-15] MEDS ORDERED: POTASSIUM CHLORIDE ER 20 MEQ TAB.ER PO STA (11:50)
[2018-11-15] MEDS ORDERED: POTASSIUM CHLORIDE 2 MEQ/ML 20 ML VIAL IVPB STA (11:50)
[2018-11-15] MEDS ORDERED: POTASSIUM CHLORIDE 20 MEQ in WATER FOR INJECTION 1 100ML.BAG IVPB STA (11:52)
[2018-11-15 15:30] VITALS: BP 101/57; PULSE 73; RESP 22
== END 2018-11-15 15:28 | disposition home or self-care (01) ==
LOC: EC 10:15
DX: E87.6 Hypokalemia (principal); F17.200 Nicotine dependence, unspecified, uncomplicated; J44.9 Chronic obstructive pulmonary disease, unspecified; F41.1 Generalized anxiety disorder; F32.9 Major depressive disorder, single episode, unspecified; K21.9 Gastro-esophageal reflux disease without esophagitis; J96.11 Chronic respiratory failure with hypoxia; Z79.51 Long term (current) use of inhaled steroids; Z79.52 Long term (current) use of systemic steroids; Z79.899 Other long term (current) drug therapy; Z88.8 Allergy status to other drugs, medicaments and biological substances; Z91.048 Other nonmedicinal substance allergy status; Z99.81 Dependence on supplemental oxygen; Z53.29 Procedure and treatment not carried out because of patient's decision for other reasons
CPT/HCPCS: 36415; 80048; 83735; 85025; 99284; 96365; 96366; J3480

== ENCOUNTER 2019-04-07 03:34 | Inpatient (IN) | payer MEDICARE, BC ==
[2019-04-07] MEDS ORDERED: methylPREDNISolone SOD SUCCI 125 MG/2 ML VIAL IV STA (03:42)
--- NOTE | 2019-04-07 03:58 | ED ---
SOB HPI - General Chief Complaint: Shortness of Breath Stated Complaint: PANTERA Time Seen by Provider: 04/07/19 03:42 Source: EMS, RN notes reviewed, old records reviewed Mode of arrival: EMS Limitations: no limitations - History of Present Illness Initial Comments: This is a 68-year-old female DF for evaluation patient mild to moderate distress coming further severe shortness of breath secondary overbreathing patient currently four-story she has no chest pain no fevers no travel history no sick contacts history of breathing issues and breathing disease. MD Complaint: shortness of breath, cough, anxiety -: hour(s) Severity: severe Severity scale (1-10): 8 Consistency: constant Improves With: oxygen, rest, bronchodilators Worsens With: exertion, movement Known History Of: COPD, asthma Context: recent URI Associated Symptoms: pain with inspiration, cough, sputum production, parasthesias, palpitations Treatments Prior to Arrival: oxygen, bronchodilator - Related Data Home Medications Medication Instructions Recorded Confirmed Sertraline [Zoloft] 200 mg PO DAILY 08/05/13 04/07/19 ALPRAZolam [Xanax] 0.5 mg PO QID PRN 01/30/18 04/07/19 Albuterol Nebulized [Ventolin 2.5 mg INHALATION RT-Q6H PRN 05/29/18 04/07/19 Nebulized] Hydrocodone/Acetaminophen [[place] 1 tab PO Q6H PRN 05/29/18 04/07/19 10-325] Pantoprazole Sodium [Protonix] 40 mg PO DAILY 11/01/18 04/07/19 Budesonide-Formot 160-4.5 Mcg 2 puff INHALATION RT-BID 04/07/19 04/07/19 [Symbicort 160-4.5 Mcg Inhaler] Ferrous Sulfate [Feosol] 325 mg PO DAILY 04/07/19 04/07/19 Multivitamin with Iron 1 tab PO DAILY 04/07/19 04/07/19 [Multivitamins with Iron] Tiotropium [place] [Spiriva] 2 cap INHALATION RT-DAILY 04/07/19 04/07/19 Previous Rx's Medication Instructions Recorded Calcium Carbonate [Tums] 1,000 mg PO QID PRN chew 11/10/18 Melatonin 3 mg PO HS #1 tablet 11/10/18 Allergies Allergy/AdvReac Type Severity Reaction Status Date / Time adhesive AdvReac Unknown Verified 04/07/19 03:46 bupropion HCl AdvReac Unknown Verified 04/07/19 03:46 [From Wellbutrin] tetracycline AdvReac "feel Verified 04/07/19 03:47 crazy." Review of Systems ROS Statement: Those systems with pertinent positive or pertinent negative responses have been documented in the HPI. ROS Other: All systems not noted in ROS Statement are negative. Past Medical History Past Medical History: Atrial Fibrillation, COPD, Fibromyalgia, GERD/Reflux, Osteoarthritis (OA), Pneumonia, Thyroid Disorder Additional Past Medical History / Comment(s): COPD, chronic hypoxic respiratory failure maintained on oxygen at 3 L per minute nasal cannula, fibromyalgia, acid reflux, hypothyroidism, osteoarthritis, compression fracture of the T-spine, previous kyphoplasty, previous history of recurrent pneumonias requiring decortication for empyema and previous history of ARDS secondary to pneumonia, hiatal hernia, generalized anxiety disorder/depression; intermittent afib History of Any Multi-Drug Resistant Organisms: None Reported Past Surgical History: Back Surgery, Hysterectomy Additional Past Surgical History / Comment(s): X3 BACK SX -FUSIONS( HX FX VERTEBRE), SX TO REMOVE EMPYEMA via a VATS and decortication. She has also had multiple bronchoscopies in the past. She has also received lumbar epidural steroid injection under fluoroscopic guidance. Past Anesthesia/Blood Transfusion Reactions: Motion Sickness Additional Past Anesthesia/Blood Transfusion Reaction / Comment(s): BLOOD TRANSFUSION Past Psychological History: Anxiety, Depression Smoking Status: Current every day smoker Past Alcohol Use History: None Reported Past Drug Use History: None Reported - Past Family History Father Family Medical History: Diabetes Mellitus Additional Family Medical History / Comment(s): AGE 61 THATS ALL PT KNOWS Mother Family Medical History: Cancer, Dementia Additional Family Medical History / Comment(s): AGE 80, RECTAL [place] General Exam Limitations: no limitations General appearance: alert, anxious, in distress Head exam: Present: atraumatic, normocephalic, normal inspection Eye exam: Present: normal appearance, PERRL, EOMI. Absent: scleral icterus, conjunctival injection, periorbital swelling ENT exam: Present: normal exam, mucous membranes dry Neck exam: Present: normal inspection. Absent: tenderness, meningismus, lymphadenopathy Respiratory exam: Present: respiratory distress, wheezes, accessory muscle use, decreased breath sounds, prolonged expiratory. Absent: rales, rhonchi, stridor Cardiovascular Exam: Present: normal rhythm, tachycardia, normal heart sounds. Absent: systolic murmur, diastolic murmur, rubs, gallop, clicks GI/Abdominal exam: Present: soft, normal bowel sounds. Absent: distended, tenderness, guarding, rebound, rigid Extremities exam: Present: normal inspection, full ROM, normal capillary refill. Absent: tenderness, pedal edema, joint swelling, calf tenderness Back exam: Present: normal inspection Neurological exam: Present: alert, oriented X3, CN II-XII intact Psychiatric exam: Present: normal affect, normal mood Skin exam: Present: warm, dry, intact, normal color. Absent: rash Course Vital Signs 04/07/19 04/07/19 04/07/19 03:35 04:00 04:30 Temperature 99.7 F H Pulse Rate 120 H 121 H Respiratory 32 H 28 H Rate Blood Pressure 107/78 107/78 94/61 O2 Sat by Pulse 96 98 Oximetry 04/07/19 04/07/19 05:00 05:26 Temperature 99.2 F Pulse Rate 112 H 113 H Respiratory 24 24 Rate Blood Pressure 92/62 103/58 O2 Sat by Pulse 95 95 Oximetry - Reevaluation(s) Reevaluation #1: Medical record is reviewed No significant breathing improvement here in the emergency department Medical Decision Making - Lab Data Result diagrams: 04/09/19 07:17 04/10/19 08:17 Lab Results 04/07/19 04/07/19 04/07/19 Range/Units 03:58 03:58 03:58 WBC 8.4 (3.8-10.6) k/uL RBC 3.63 L (3.80-5.40) m/uL Hgb 9.8 L (11.4-16.0) gm/dL Hct 30.5 L (34.0-46.0) % MCV 84.1 (80.0-100.0) fL MCH 27.0 (25.0-35.0) pg MCHC 32.1 (31.0-37.0) g/dL RDW 16.3 H (11.5-15.5) % Plt Count 137 L (150-450) k/uL Neutrophils % 91 % Lymphocytes % 6 % Monocytes % 2 % Eosinophils % 1 % Basophils % 1 % Neutrophils # 7.6 (1.3-7.7) k/uL Lymphocytes # 0.5 L (1.0-4.8) k/uL Monocytes # 0.1 (0-1.0) k/uL Eosinophils # 0.1 (0-0.7) k/uL Basophils # 0.1 (0-0.2) k/uL Anisocytosis Slight PT (9.0-12.0) sec INR (<1.2) APTT (22.0-30.0) sec Sodium 139 (137-145) mmol/L Potassium 3.9 (3.5-5.1) mmol/L Chloride 105 (98-107) mmol/L Carbon Dioxide 25 (22-30) mmol/L Anion Gap 9 mmol/L BUN 11 (7-17) mg/dL Creatinine 0.73 (0.52-1.04) mg/dL Est GFR (CKD-EPI)AfAm >90 (>60 ml/min/1.73 sqM) Est GFR (CKD-EPI)NonAf 85 (>60 ml/min/1.73 sqM) Glucose 123 H (74-99) mg/dL POC Glucose (mg/dL) (75-99) mg/dL POC Glu [employer]er ID Plasma Lactic Acid [place] (0.7-2.0) mmol/L Calcium 8.4 (8.4-10.2) mg/dL Magnesium 1.8 (1.6-2.3) mg/dL Total Bilirubin 0.5 (0.2-1.3) mg/dL AST 24 (14-36) U/L ALT 11 (4-34) U/L Alkaline Phosphatase 89 (38-126) U/L Creatine Kinase 80 (30-135) U/L Troponin I (0.000-0.034) ng/mL NT-Pro-B Natriuret Pep 236 pg/mL Total Protein 7.0 (6.3-8.2) g/dL Albumin 3.9 (3.5-5.0) g/dL Urine Color Urine Appearance (Clear) Urine pH (5.0-8.0) Ur Specific [place] (1.001-1.035) Urine Protein (Negative) Urine Glucose (UA) (Negative) Urine Ketones (Negative) Urine Blood (Negative) Urine Nitrite (Negative) Urine Bilirubin (Negative) Urine Urobilinogen (<2.0) mg/dL Ur Leukocyte Esterase (Negative) Urine RBC (0-5) /hpf Urine WBC (0-5) /hpf Urine WBC Clumps (None) /hpf Ur Squamous Epith Cells (0-4) /hpf Urine Bacteria (None) /hpf Hyaline Casts (0-2) /lpf Urine Mucus (None) /hpf Influenza Type A RNA (Not Detectd) Influenza Type B (PCR) (Not Detectd) 04/07/19 04/07/19 04/07/19 Range/Units 03:58 03:58 03:58 WBC (3.8-10.6) k/uL RBC (3.80-5.40) m/uL Hgb (11.4-16.0) gm/dL Hct (34.0-46.0) % MCV (80.0-100.0) fL MCH (25.0-35.0) pg MCHC (31.0-37.0) g/dL RDW (11.5-15.5) % Plt Count (150-450) k/uL Neutrophils % % Lymphocytes % % Monocytes % % Eosinophils % % Basophils % % Neutrophils # (1.3-7.7) k/uL Lymphocytes # (1.0-4.8) k/uL Monocytes # (0-1.0) k/uL Eosinophils # (0-0.7) k/uL Basophils # (0-0.2) k/uL Anisocytosis PT 10.3 (9.0-12.0) sec INR 1.0 (<1.2) APTT 25.2 (22.0-30.0) sec Sodium (137-145) mmol/L Potassium (3.5-5.1) mmol/L Chloride (98-107) mmol/L Carbon Dioxide (22-30) mmol/L Anion Gap mmol/L BUN (7-17) mg/dL Creatinine (0.52-1.04) mg/dL Est GFR (CKD-EPI)AfAm (>60 ml/min/1.73 sqM) Est GFR (CKD-EPI)NonAf (>60 ml/min/1.73 sqM) Glucose (74-99) mg/dL POC Glucose (mg/dL) (75-99) mg/dL POC Glu [employer]er ID Plasma Lactic Acid [place] 1.8 (0.7-2.0) mmol/L Calcium (8.4-10.2) mg/dL Magnesium (1.6-2.3) mg/dL Total Bilirubin (0.2-1.3) mg/dL AST (14-36) U/L ALT (4-34) U/L Alkaline Phosphatase (38-126) U/L Creatine Kinase (30-135) U/L Troponin I <0.012 (0.000-0.034) ng/mL NT-Pro-B Natriuret Pep pg/mL Total Protein (6.3-8.2) g/dL Albumin (3.5-5.0) g/dL Urine Color Urine Appearance (Clear) Urine pH (5.0-8.0) Ur Specific [place] (1.001-1.035) Urine Protein (Negative) Urine Glucose (UA) (Negative) Urine Ketones (Negative) Urine Blood (Negative) Urine Nitrite (Negative) Urine Bilirubin (Negative) Urine Urobilinogen (<2.0) mg/dL Ur Leukocyte Esterase (Negative) Urine RBC (0-5) /hpf Urine WBC (0-5) /hpf Urine WBC Clumps (None) /hpf Ur Squamous Epith Cells (0-4) /hpf Urine Bacteria (None) /hpf Hyaline Casts (0-2) /lpf Urine Mucus (None) /hpf Influenza Type A RNA (Not Detectd) Influenza Type B (PCR) (Not Detectd) 04/07/19 04/07/19 04/07/19 Range/Units 03:58 07:04 12:02 WBC (3.8-10.6) k/uL RBC (3.80-5.40) m/uL Hgb (11.4-16.0) gm/dL Hct (34.0-46.0) % MCV (80.0-100.0) fL MCH (25.0-35.0) pg MCHC (31.0-37.0) g/dL RDW (11.5-15.5) % Plt Count (150-450) k/uL Neutrophils % % Lymphocytes % % Monocytes % % Eosinophils % % Basophils % % Neutrophils # (1.3-7.7) k/uL Lymphocytes # (1.0-4.8) k/uL Monocytes # (0-1.0) k/uL Eosinophils # (0-0.7) k/uL Basophils # (0-0.2) k/uL Anisocytosis PT (9.0-12.0) sec INR (<1.2) APTT (22.0-30.0) sec Sodium (137-145) mmol/L Potassium (3.5-5.1) mmol/L Chloride (98-107) mmol/L Carbon Dioxide (22-30) mmol/L Anion Gap mmol/L BUN (7-17) mg/dL Creatinine (0.52-1.04) mg/dL Est GFR (CKD-EPI)AfAm (>60 ml/min/1.73 sqM) Est GFR (CKD-EPI)NonAf (>60 ml/min/1.73 sqM) Glucose (74-99) mg/dL POC Glucose (mg/dL) 168 H 215 H (75-99) mg/dL POC Glu [employer] [facility] Plasma Lactic Acid [place] (0.7-2.0) mmol/L Calcium (8.4-10.2) mg/dL Magnesium (1.6-2.3) mg/dL Total Bilirubin (0.2-1.3) mg/dL AST (14-36) U/L ALT (4-34) U/L Alkaline Phosphatase (38-126) U/L Creatine Kinase (30-135) U/L Troponin I (0.000-0.034) ng/mL NT-Pro-B Natriuret Pep pg/mL Total Protein (6.3-8.2) g/dL Albumin (3.5-5.0) g/dL Urine Color Urine Appearance (Clear) Urine pH (5.0-8.0) Ur Specific [place] (1.001-1.035) Urine Protein (Negative) Urine Glucose (UA) (Negative) Urine Ketones (Negative) Urine Blood (Negative) Urine Nitrite (Negative) Urine Bilirubin (Negative) Urine Urobilinogen (<2.0) mg/dL Ur Leukocyte Esterase (Negative) Urine RBC (0-5) /hpf Urine WBC (0-5) /hpf Urine WBC Clumps (None) /hpf Ur Squamous Epith Cells (0-4) /hpf Urine Bacteria (None) /hpf Hyaline Casts (0-2) /lpf Urine Mucus (None) /hpf Influenza Type A RNA Not Detected (Not Detectd) Influenza Type B (PCR) Not Detected (Not Detectd) 04/07/19 04/07/19 04/08/19 Range/Units 17:11 20:29 06:55 WBC (3.8-10.6) k/uL RBC (3.80-5.40) m/uL Hgb (11.4-16.0) gm/dL Hct (34.0-46.0) % MCV (80.0-100.0) fL MCH (25.0-35.0) pg MCHC (31.0-37.0) g/dL RDW (11.5-15.5) % Plt Count (150-450) k/uL Neutrophils % % Lymphocytes % % Monocytes % % Eosinophils % % Basophils % % Neutrophils # (1.3-7.7) k/uL Lymphocytes # (1.0-4.8) k/uL Monocytes # (0-1.0) k/uL Eosinophils # (0-0.7) k/uL Basophils # (0-0.2) k/uL Anisocytosis PT (9.0-12.0) sec INR (<1.2) APTT (22.0-30.0) sec Sodium (137-145) mmol/L Potassium (3.5-5.1) mmol/L Chloride (98-107) mmol/L Carbon Dioxide (22-30) mmol/L Anion Gap mmol/L BUN (7-17) mg/dL Creatinine (0.52-1.04) mg/dL Est GFR (CKD-EPI)AfAm (>60 ml/min/1.73 sqM) Est GFR (CKD-EPI)NonAf (>60 ml/min/1.73 sqM) Glucose (74-99) mg/dL POC Glucose (mg/dL) 208 H 130 H 145 H (75-99) mg/dL POC Glu [employer] [facility] Plasma Lactic Acid [place] (0.7-2.0) mmol/L Calcium (8.4-10.2) mg/dL Magnesium (1.6-2.3) mg/dL Total Bilirubin (0.2-1.3) mg/dL AST (14-36) U/L ALT (4-34) U/L Alkaline Phosphatase (38-126) U/L Creatine Kinase (30-135) U/L Troponin I (0.000-0.034) ng/mL NT-Pro-B Natriuret Pep pg/mL Total Protein (6.3-8.2) g/dL Albumin (3.5-5.0) g/dL Urine Color Urine Appearance (Clear) Urine pH (5.0-8.0) Ur Specific [place] (1.001-1.035) Urine Protein (Negative) Urine Glucose (UA) (Negative) Urine Ketones (Negative) Urine Blood (Negative) Urine Nitrite (Negative) Urine Bilirubin (Negative) Urine Urobilinogen (<2.0) mg/dL Ur Leukocyte Esterase (Negative) Urine RBC (0-5) /hpf Urine WBC (0-5) /hpf Urine WBC Clumps (None) /hpf Ur Squamous Epith Cells (0-4) /hpf Urine Bacteria (None) /hpf Hyaline Casts (0-2) /lpf Urine Mucus (None) /hpf Influenza Type A RNA (Not Detectd) Influenza Type B (PCR) (Not Detectd) 04/08/19 04/08/19 04/08/19 Range/Units 09:30 11:42 17:08 WBC (3.8-10.6) k/uL RBC (3.80-5.40) m/uL Hgb (11.4-16.0) gm/dL Hct (34.0-46.0) % MCV (80.0-100.0) fL MCH (25.0-35.0) pg MCHC (31.0-37.0) g/dL RDW (11.5-15.5) % Plt Count (150-450) k/uL Neutrophils % % Lymphocytes % % Monocytes % % Eosinophils % % Basophils % % Neutrophils # (1.3-7.7) k/uL Lymphocytes # (1.0-4.8) k/uL Monocytes # (0-1.0) k/uL Eosinophils # (0-0.7) k/uL Basophils # (0-0.2) k/uL Anisocytosis PT (9.0-12.0) sec INR (<1.2) APTT (22.0-30.0) sec Sodium (137-145) mmol/L Potassium (3.5-5.1) mmol/L Chloride (98-107) mmol/L Carbon Dioxide (22-30) mmol/L Anion Gap mmol/L BUN (7-17) mg/dL Creatinine (0.52-1.04) mg/dL Est GFR (CKD-EPI)AfAm (>60 ml/min/1.73 sqM) Est GFR (CKD-EPI)NonAf (>60 ml/min/1.73 sqM) Glucose (74-99) mg/dL POC Glucose (mg/dL) 145 H 142 H (75-99) mg/dL POC Glu [employer]er [facility], [facility], [facility] Plasma Lactic Acid [place] (0.7-2.0) mmol/L Calcium (8.4-10.2) mg/dL Magnesium (1.6-2.3) mg/dL Total Bilirubin (0.2-1.3) mg/dL AST (14-36) U/L ALT (4-34) U/L Alkaline Phosphatase (38-126) U/L Creatine Kinase (30-135) U/L Troponin I (0.000-0.034) ng/mL NT-Pro-B Natriuret Pep pg/mL Total Protein (6.3-8.2) g/dL Albumin (3.5-5.0) g/dL Urine Color Yellow Urine Appearance Cloudy H (Clear) Urine pH 5.5 (5.0-8.0) Ur Specific [place] 1.020 (1.001-1.035) Urine Protein 1+ H (Negative) Urine Glucose (UA) Negative (Negative) Urine Ketones Negative (Negative) Urine Blood Small H (Negative) Urine Nitrite Positive H (Negative) Urine Bilirubin Negative (Negative) Urine Urobilinogen <2.0 (<2.0) mg/dL Ur Leukocyte Esterase Large H (Negative) Urine RBC 13 H (0-5) /hpf Urine WBC >182 H (0-5) /hpf Urine WBC Clumps Few H (None) /hpf Ur Squamous Epith Cells 2 (0-4) /hpf Urine Bacteria Many H (None) /hpf Hyaline Casts 3 H (0-2) /lpf Urine Mucus Few H (None) /hpf Influenza Type A RNA (Not Detectd) Influenza Type B (PCR) (Not Detectd) - EKG Data -: EKG Interpreted by Me (EKG shows sinus tachycardia rate of 125, [place] 160, QRS 82, QTC 435) Critical Care Time Critical Care Time: Yes Total Critical Care Time: 31 Disposition Clinical Impression: Hypoxia, COPD with exacerbation, Acute exacerbation of chronic obstructive airways disease, Dehydration Disposition: ADMITTED IP TO THIS HOSP Condition: Serious Is patient prescribed a controlled substance at d/c from ED?: No
[2019-04-07 04:08] LABS: Anisocytosis Slight; Basophils # (A) 0.1 k/uL (0-0.2); Basophils % (A) 1 %; Eosinophils # (A) 0.1 k/uL (0-0.7); Eosinophils % (A) 1 %; HCT 30.5 % (34.0-46.0); HGB 9.8 gm/dL (11.4-16.0); Lymphocytes # (A) 0.5 k/uL (1.0-4.8); Lymphocytes % (A) 6 %; MCHC 32.1 g/dL (31.0-37.0); MCV 84.1 fL (80.0-100.0); Mean Platelet Volume 8.9; Monocytes # (A) 0.1 k/uL (0-1.0); Monocytes % (A) 2 %; Neutrophils # (A) 7.6 k/uL (1.3-7.7); Neutrophils % (A) 91 %; Platelet Count 137 k/uL (150-450); RBC 3.63 m/uL (3.80-5.40); RDW 16.3 % (11.5-15.5); WBC 8.4 k/uL (3.8-10.6)
[2019-04-07 04:20] LABS: ALT 11 U/L (4-34); AST 24 U/L (14-36); African American GFR (CKD) >90 (>60 ml/min/1.73 sqM); Albumin 3.9 g/dL (3.5-5.0); Alkaline Phosphatase 89 U/L (38-126); Anion Gap 9 mmol/L; Blood Urea Nitrogen 11 mg/dL (7-17); Calcium 8.4 mg/dL (8.4-10.2); Carbon Dioxide 25 mmol/L (22-30); Chloride 105 mmol/L (98-107); Creatine Kinase 80 U/L (30-135); Glucose 123 mg/dL (74-99); Magnesium 1.8 mg/dL (1.6-2.3); Non-African American GFR(CKD) 85 (>60 ml/min/1.73 sqM); Potassium 3.9 mmol/L (3.5-5.1); Sodium 139 mmol/L (137-145); Total Bilirubin 0.5 mg/dL (0.2-1.3)
[2019-04-07 04:21] LABS: Prothrombin Time 10.3 sec (9.0-12.0)
[2019-04-07 04:22] LABS: Partial Thromboplastin Time 25.2 sec (22.0-30.0)
--- NOTE | 2019-04-07 04:38 | XR ---
EXAMINATION TYPE: XR chest 2V DATE OF EXAM: 04/07/2019 COMPARISON: 11/26/2018 HISTORY: Difficulty breathing TECHNIQUE: FINDINGS: There is general coarsening interstitial density throughout the lungs. Heart size is fairly normal. There is no heart failure. Thoracic aorta is atheromatous. There is no pleural effusion. The re is osteopenia parotid type multiple thoracic compression fractures. There is vertebroplasty in the mid thoracic spine. IMPRESSION: Advanced pulmonary fibrosis. Numerous thoracic compression fractures. No heart failure. N o significant change.
[2019-04-07] MEDS ORDERED: IPRATROPIUM-ALBUTEROL 3 ML NEB INHALATION PRN (04:55)
[2019-04-07] MEDS ORDERED: LORazepam 2 MG/ML INJ IV PRN (04:59)
[2019-04-07] MEDS ORDERED: MORPHINE SULFATE 4 MG/ML SYRINGE IVP STA (04:59)
[2019-04-07] MEDS ORDERED: LORazepam 2 MG/ML INJ IV STA (04:59)
[2019-04-07] MEDS ORDERED: MORPHINE SULFATE 4 MG/ML SYRINGE IVP PRN (04:59)
[2019-04-07] MEDS: SODIUM CHLORIDE 0.9% 1,000 ML IV SCH ×2 (05:29→16:29)
[2019-04-07] MEDS: methylPREDNISolone SOD SUCCI 125 MG/2 ML VIAL IV SCH ×4 (06:02→23:59)
[2019-04-07 07:08] LABS: Glucose,Whole Blood 168 mg/dL (75-99)
[2019-04-07] MEDS ORDERED: ALBUTEROL NEBULIZED 2.5 MG/3 ML INHALATION SCH (08:00)
[2019-04-07] MEDS ORDERED: ALBUTEROL NEBULIZED 2.5 MG/3 ML INHALATION PRN (09:46)
[2019-04-07] MEDS: HYDROcodone/APAP 10-325MG 1 EACH TAB PO PRN (11:41)
[2019-04-07] MEDS: ALPRAZolam 0.5 MG TAB PO PRN (11:41)
[2019-04-07] MEDS ORDERED: IPRATROPIUM 0.5 MG/2.5 ML NEBU INHALATION SCH (12:00)
--- NOTE | 2019-04-07 12:02 | CONS ---
CONSULTATION PULMONARY/CRITICAL CARE CONSULTATION: DATE OF SERVICE: 04/07/2019 REASON FOR CONSULTATION: Shortness of breath. This is a 68-year-old female who presented to the emergency department at 3 o'clock in the morning on April 07 for complaints of shortness of breath. She was brought in by EMS. She does have a well-established history of underlying COPD as well as pulmonary fibrosis. The patient also complained of cough and anxiety. The patient states that she has pain with breathing in and also sputum production. She also had palpitations in the chest. Apparently, this has been going on for a couple of days prior to admission. It got much worse a couple hours prior to admission and that is why EMS was called. Currently, the patient feels a bit better today. She is less short of breath. She is coughing a bit. Not producing any phlegm. There is no fever or chills. She denies any nausea or vomiting or diarrhea. No genitourinary complaints. Her pain is primarily pleuritic in nature. No palpitations. HOME MEDICATIONS: Reviewed. She is on Zoloft, Xanax, Ventolin updrafts, [place], Protonix, prednisone, Tums, DuoNeb and melatonin. ALLERGIES: ADHESIVE TAPE, WELLBUTRIN, and TETRACYCLINES. MEDICAL HISTORY: Includes atrial fibrillation, COPD, fibromyalgia, GERD, osteoarthritis, pneumonia, thyroid disease, pulmonary fibrosis, chronic hypoxemic respiratory failure, hypothyroidism, compression fracture, previous empyema requiring decortication, ARDS, hiatal hernia, anxiety and depression. SURGICAL HISTORY: Includes hysterectomy, back surgery, kyphoplasty, decortication, vertebral fusions, multiple bronchoscopies, lumbar epidural steroid injections. SOCIAL HISTORY: Positive for ongoing tobacco use. She has been smoking for a long period of time. No alcohol or illicit drug use. FAMILY HISTORY: Positive for father with diabetes and mother with rectal cancer and dementia. REVIEW OF SYSTEMS: CONSTITUTIONAL: Weakness. NEUROLOGIC: Negative. HEENT: Negative. CARDIOVASCULAR: Palpitations. PULMONARY: Shortness of breath, chest tightness, wheezing, cough, minimal phlegm production, pleuritic chest pain. GI: Negative. : Negative. RHEUMATOLOGIC: Negative. IMMUNOLOGIC: Negative. ENDOCRINOLOGIC: Negative. DERMATOLOGIC: Negative. Current vital signs are reviewed. Temperature is 98.3, heart rate 84, respiratory rate 23, blood pressure 103/67 mean 79, and saturations between 93% and 97% on high-flow oxygen at 9 L. Appears mildly tachypneic and dyspneic. No audible wheezing. No use of accessory muscles. She does appear to be petite. HEENT: Examination is grossly unremarkable. Mucous membranes are moist. NECK: Supple. Full range of motion. No adenopathy. Neck veins are flat. CARDIOVASCULAR: Examination reveals regular rhythm and rate. Heart rate in the mid 80s. S1, S2 normal. Heart sounds are distant. LUNGS: Reveal primarily bibasilar crackles. No wheezes or rhonchi. Breath sounds equal bilaterally. She does not appear to be particularly restricted in her breathing. ABDOMEN: Soft, bowel sounds are heard. EXTREMITIES: Intact. No cyanosis, clubbing, or edema. SKIN: Without rash. NEUROLOGIC: Examination is brief but nonfocal. A chest x-ray done on 04/07 is consistent with pulmonary fibrosis. LAB DATA: Reviewed. White count 8.4, hemoglobin 9.8, hematocrit 30.5, platelet count 137,000. PT, INR, PTT all normal. Electrolytes all normal. Glucose 123. Comprehensive metabolic profile was normal. Troponins negative, N terminal proBNP was normal. Influenza A and B studies were negative. Microbiologic is currently negative. Current medications are reviewed. They will be adjusted accordingly. ASSESSMENT: 1. Shortness of breath, likely multifactorial, in large part related to her underlying pulmonary fibrosis, but to a lesser extent her COPD. 2. History of hypothyroidism. 3. History of intermittent atrial fibrillation. 4. Previous history of empyema requiring decortication. 5. Anxiety/depression. 6. Fibromyalgia. 7. Gastroesophageal reflux disease. 8. Degenerative joint disease. 9. Previous episode of pneumonia. 10.Chronic hypoxemic respiratory failure. 11.Spinal compression fractures. 12.History of acute respiratory distress syndrome. 13.History of hiatal hernia. PLAN: The patient's medications will be adjusted accordingly. Will make sure she is on appropriate medications. Her overall prognosis remains guarded. She will benefit from a short course of oral antibiotics, steroids, long-acting and short-acting beta agonist, short-acting muscarinic antagonist, inhaled corticosteroids. Additional recommendations and suggestions are forthcoming. Please see my recommendations as it relates to medications. MMODL / IJN: [id number] /
[2019-04-07 12:05] LABS: Glucose,Whole Blood 215 mg/dL (75-99)
[2019-04-07] MEDS: IPRATROPIUM-ALBUTEROL 3 ML NEB INHALATION PRN (12:18)
[2019-04-07] MEDS ORDERED: IPRATROPIUM-ALBUTEROL 3 ML NEB INHALATION SCH (16:00)
--- NOTE | 2019-04-07 16:02 | P.HPIM ---
History of Present Illness H&P Date: 04/07/19 Chief Complaint: Short of breath History of presenting complaint: This is a very pleasant 68-year-old patient of Dr. Bar. Chronic stable medical conditions include fibromyalgia, chronic thoracic spine fractures, anxiety, proximal atrial fibrillation, home oxygen. Patient presents with worsening cough thick yellow sputum production chills or wheezing appetite has not been good. Constipated. Quite a bit short of breath at rest admitted for the same. Feeling tired and rundown. Trouble short of breath at rest. Patient uses 6-7 L oxygen at home. Review of systems: GEN.: Weak and tired EYES: None HEENT: Decreased hearing NECK: None RESPIRATORY: As above CARDIOVASCULAR: None GASTROINTESTINAL: None GENITOURINARY: None MUSCULOSKELETAL: Joint pains] LYMPHATICS: None HEMATOLOGICAL: None PSYCHIATRY: Anxious NEUROLOGICAL: None Past medical history to include: -Paroxysmal atrial fibrillation, COPD, fibromyalgia, GERD, osteoarthritis, home oxygen 7-8 L, compression fracture thoracic spine with kyphoplasty, decortication for empyema, hiatal hernia, anxiety depression Social history: This is a daughter. Does use a walker. Smoked about 2 packs a day for more than 50 years. Down to a few cigarettes a day. Physical examination: VITAL SIGNS: 99.7, 120, 32, 107 was 78, 96% on 9 L GENERAL: BMI 23, propped up in bed, short of breath at rest. EYES: Pupils equal. Conjunctiva normal. HEENT: External appearance of nose and ears normal, oral cavity grossly normal. NECK: JVD not raised; masses not palpable. HEART: First and second heart sounds are normal; no edema. LUNGS: Respiratory rate increased, using accessory muscles, not able to speak in full sentences, course crackles on both sides posteriorly. ABDOMEN: Soft, nontender, liver spleen not palpable, no masses palpable. PSYCH: [Alert and oriented x3; mood and affect anxious l. NEUROLOGICAL: Cranial nerves grossly intact; no facial asymmetry, power and sensation grossly intact. LYMPHATICS: No lymph nodes palpable in the axilla and neck INVESTIGATIONS, reviewed in the clinical context: White count 8.4 hemoglobin 9.8 platelets 137 potassium 3.9 creatinine 0.73 Influenza type A and type B both negative EKG tracing personally reviewed by me-shows sinus tachycardia with P pulmonale Chest x-ray film personally reviewed by me-pulmonary fibrosis and infiltrates Assessment: -Pneumonia, suspect gram-negative organism, POA -Bilateral pulmonary fibrosis suggested of the chest x-ray and clinical findings -Acute COPD exacerbation in a smoker -Chronic fibromyalgia -Chronic thoracic spine fractures with history of scar. Last he -Anxiety depression otherwise specified -Paroxysmal atrial fibrillation -Sinus tachycardia -Chronic hypoxic respiratory failure on home oxygen support 7 L -Acute hypoxic respiratory failure, POA Plan: -Patient was put on IV Zithromax. We'll also in IV ceftriaxone. Also on nebulized bronchodilators every 4 hours and IV Solu-Medrol. Also add inhaled steroids. Home medications resumed. Lovenox for DVT prophylaxis. Also add Mucinex and send a sputum for Gram stain and culture. Care was discussed the patient. Questions were answered. Past Medical History Past Medical History: Atrial Fibrillation, COPD, Fibromyalgia, GERD/Reflux, Osteoarthritis (OA), Pneumonia Additional Past Medical History / Comment(s): COPD, chronic hypoxic respiratory failure maintained on oxygen at 7-8 L per nasal cannula, fibromyalgia, acid reflux, osteoarthritis, compression fracture of the T-spine w/previous kyphoplasty, previous history of recurrent pneumonias requiring decortication for empyema and previous history of ARDS secondary to pneumonia, hiatal hernia, generalized anxiety disorder/depression; intermittent afib History of Any Multi-Drug Resistant Organisms: None Reported Past Surgical History: Back Surgery, Hysterectomy Additional Past Surgical History / Comment(s): X3 BACK SX -FUSIONS( HX FX VERTEBRE), SX TO REMOVE EMPYEMA via a VATS and decortication. She has also had multiple bronchoscopies in the past. She has also received lumbar epidural steroid injection under fluoroscopic guidance. Past Anesthesia/Blood Transfusion Reactions: Motion Sickness Additional Past Anesthesia/Blood Transfusion Reaction / Comment(s): BLOOD TRANSFUSION-NO REACTION Past Psychological History: Anxiety, Depression Smoking Status: Current some day smoker Past Alcohol Use History: None Reported Additional Past Alcohol Use History / Comment(s): STARTED SMOKING AT AGE 15. SMOKED UPWARDS TO 2 PPD, NO ETOH OR DRUGS, HAS 02 AT HOME. PT LIVES WITH DAUGHTER, IN [place] Past Drug Use History: None Reported - Past Family History Father Family Medical History: Diabetes Mellitus Additional Family Medical History / Comment(s): AGE 61 THATS ALL PT KNOWS Mother Family Medical History: Cancer, Dementia Additional Family Medical History / Comment(s): AGE 80, RECTAL [place] Medications and Allergies Home Medications Medication Instructions Recorded Confirmed Type Sertraline [Zoloft] 200 mg PO DAILY 08/05/13 04/07/19 History ALPRAZolam [Xanax] 0.5 mg PO QID PRN 01/30/18 04/07/19 History Albuterol Nebulized [Ventolin 2.5 mg INHALATION RT-Q6H PRN 05/29/18 04/07/19 History Nebulized] Hydrocodone/Acetaminophen [[place] 1 tab PO Q6H PRN 05/29/18 04/07/19 History 10-325] Pantoprazole Sodium [Protonix] 40 mg PO DAILY 11/01/18 04/07/19 History Calcium Carbonate [Tums] 1,000 mg PO QID PRN chew 11/10/18 04/07/19 Rx Melatonin 3 mg PO HS #1 tablet 11/10/18 04/07/19 Rx Budesonide-Formot 160-4.5 Mcg 2 puff INHALATION RT-BID 04/07/19 04/07/19 History [Symbicort 160-4.5 Mcg Inhaler] Ferrous Sulfate [Feosol] 325 mg PO DAILY 04/07/19 04/07/19 History Multivitamin with Iron 1 tab PO DAILY 04/07/19 04/07/19 History [Multivitamins with Iron] Tiotropium [place] [Spiriva] 2 cap INHALATION RT-DAILY 04/07/19 04/07/19 History Allergies Allergy/AdvReac Type Severity Reaction Status Date / Time adhesive AdvReac Unknown Verified 04/07/19 03:46 bupropion HCl AdvReac Unknown Verified 04/07/19 03:46 [From Wellbutrin] tetracycline AdvReac "feel Verified 04/07/19 03:47 crazy." Physical Exam Vitals: Vital Signs Temp Pulse Pulse Resp BP BP Pulse Ox 04/07/19 09:15 84 04/07/19 09:02 82 93 L 04/07/19 07:02 98.3 F 87 23 103/67 97 04/07/19 05:26 99.2 F 113 H 24 103/58 95 04/07/19 05:00 112 H 24 92/62 95 04/07/19 04:30 121 H 28 H 94/61 98 04/07/19 04:00 107/78 04/07/19 03:35 99.7 F H 120 H 32 H 107/78 96 Intake and Output 04/06/19 04/07/19 04/07/19 22:59 06:59 14:59 Other: Voiding Method Bedside Commode Weight 53.524 kg 53.524 kg Results CBC & Chem 7: 04/07/19 03:58 04/07/19 03:58 Labs: Abnormal Lab Results - Last 24 Hours (Table) 04/07/19 04/07/19 04/07/19 Range/Units 03:58 03:58 07:04 RBC 3.63 L (3.80-5.40) m/uL Hgb 9.8 L (11.4-16.0) gm/dL Hct 30.5 L (34.0-46.0) % RDW 16.3 H (11.5-15.5) % Plt Count 137 L (150-450) k/uL Lymphocytes # 0.5 L (1.0-4.8) k/uL Glucose 123 H (74-99) mg/dL POC Glucose (mg/dL) 168 H (75-99) mg/dL Thrombosis Risk Factor Assmnt - Choose All That Apply Each Factor Represents 1 point: Abnormal pulmonary function (COPD), Serious lung disease incl. pneumonia (< 1month) Each Risk Factor Represents 2 Points: Patient confined to bed Thrombosis Risk Factor Assessment Total Risk Factor Score: 4 Thrombosis Risk Factor Assessment Level: Moderate Risk
[2019-04-07] MEDS: IPRATROPIUM-ALBUTEROL 3 ML NEB INHALATION SCH ×2 (16:13→19:53)
[2019-04-07] MEDS: guaiFENesin 600 MG TABLET.ER PO SCH ×2 (16:28→20:44)
[2019-04-07] MEDS: LACTATED RINGERS 1,000 ML IV SCH (16:28)
[2019-04-07 17:14] LABS: Glucose,Whole Blood 208 mg/dL (75-99)
[2019-04-07] MEDS: BUDESONIDE 1 MG/2 ML NEBU INHALATION SCH (19:53)
[2019-04-07] MEDS: FORMOTEROL FUMARATE 20 MCG/2 ML NEBU INHALATION SCH (19:53)
[2019-04-07] MEDS ORDERED: SYMBICORT 160-4.5 MCG INHALER INHALATION SCH (20:00)
[2019-04-07 20:31] LABS: Glucose,Whole Blood 130 mg/dL (75-99)
[2019-04-07] MEDS: MELATONIN 3 MG TABLET PO SCH (20:45)
[2019-04-08] MEDS: IPRATROPIUM-ALBUTEROL 3 ML NEB INHALATION SCH ×6 (01:48→20:06)
[2019-04-08] MEDS: ALPRAZolam 0.5 MG TAB PO PRN ×2 (06:18→11:58)
[2019-04-08] MEDS: LACTATED RINGERS 1,000 ML IV SCH ×2 (06:18→19:25)
[2019-04-08] MEDS: methylPREDNISolone SOD SUCCI 125 MG/2 ML VIAL IV SCH ×3 (06:19→17:28)
[2019-04-08 07:00] LABS: Glucose,Whole Blood 145 mg/dL (75-99)
[2019-04-08] MEDS: FORMOTEROL FUMARATE 20 MCG/2 ML NEBU INHALATION SCH ×2 (07:51→20:06)
[2019-04-08] MEDS: BUDESONIDE 1 MG/2 ML NEBU INHALATION SCH ×2 (07:51→20:06)
[2019-04-08] MEDS: SERTRALINE 100 MG TAB PO SCH (08:51)
[2019-04-08] MEDS: guaiFENesin 600 MG TABLET.ER PO SCH ×2 (08:51→20:55)
[2019-04-08] MEDS: AZITHROMYCIN 500 MG TAB PO SCH (08:51)
[2019-04-08] MEDS: FERROUS SULFATE 325 MG TAB PO SCH (08:51)
[2019-04-08] MEDS: PANTOPRAZOLE 40 MG TABLET PO SCH (08:51)
[2019-04-08] MEDS: MULTIVITAMINS, THERA 1 EACH TAB PO SCH (08:52)
[2019-04-08] MEDS: HYDROcodone/APAP 10-325MG 1 EACH TAB PO PRN (08:52)
[2019-04-08] MEDS: IPRATROPIUM-ALBUTEROL 3 ML NEB INHALATION PRN (09:35)
[2019-04-08 10:06] LABS: Appearance,Urine Cloudy (Clear); Bacteria,Urine Many /hpf; Bilirubin,Urine Negative (Negative); Blood,Urine Small (Negative); Color,Urine Yellow; Glucose,Urine (UA) Negative (Negative); Hyaline Casts,Urine 3 /lpf (0-2); Ketones,Urine Negative (Negative); Leukocyte Esterase,Urine Large (Negative); Mucus,Urine Few /hpf; Nitrite,Urine Positive (Negative); PH, Urine 5.5 (5.0-8.0); Protein,Urine 1+ (Negative); RBC,Urine 13 /hpf (0-5); Squamous Epithelial Cell,Urine 2 /hpf (0-4); Urobilinogen,Urine <2.0 mg/dL (<2.0); WBC,Urine >182 /hpf (0-5)
[2019-04-08 11:53] LABS: Glucose,Whole Blood 145 mg/dL (75-99)
[2019-04-08] MEDS: CALCIUM CARBONATE 500 MG CHEWABLE PO PRN (11:57)
--- NOTE | 2019-04-08 12:53 | P.PN ---
Subjective Progress Note Date: 04/08/19 Principal diagnosis: Shortness of breath, multifactorial, related to pulmonary fibrosis, COPD exacerbation On 04/08/2019 patient seen in follow-up on the general medical floor, she states her breathing is about the same, not significantly improved since yesterday, still has a congested cough, lung sounds are positive for diffuse rhonchi, diminished breath sounds with coarse bibasilar crackles, sputum specimen was sent, FiO2 is currently at 9 L, and her pulse ox is 95%, patient is afebrile, hemodynamically patient is stable. So far blood culture is negative. Current antibiotic coverage is with Zithromax, patient has been complaining of urinary symptoms and she thinks she has a urinary tract infection, urinalysis was sent and shows large amount of leuks, white blood cells and many bacteria, urine culture is pending. Objective - Vital Signs Vital signs: Vital Signs Temp 96.5 F L 04/08/19 05:15 Pulse 96 04/08/19 12:05 Resp 18 04/08/19 09:49 BP 99/59 04/08/19 05:15 Pulse Ox 95 04/08/19 09:49 Intake & Output 04/07/19 04/08/19 04/08/19 18:59 06:59 18:59 Intake Total 540 Balance 540 Weight 53.524 kg Intake: Oral 540 Other: Voiding Method Bedside Commode Bedside Commode # Voids 1 1 - Exam GENERAL EXAM: Alert, very pleasant, 68-year-old white female, on 9 L of oxygen, with pulse ox of 95% comfortable in no apparent distress. HEAD: Normocephalic/atraumatic. EYES: Normal reaction of pupils, equal size. Conjunctiva pink, sclera white. NOSE: Clear with pink turbinates. THROAT: No erythema or exudates. NECK: No masses, no JVD, no thyroid enlargement, no adenopathy. CHEST: No chest wall deformity. Symmetrical expansion. LUNGS: Equal air entry with diffuse rhonchi and wheezes CVS: Regular rate and rhythm, normal S1 and S2, no gallops, no murmurs, no rubs ABDOMEN: Soft, nontender. No hepatosplenomegaly, normal bowel sounds, no guarding or rigidity. EXTREMITIES: No clubbing, no edema, no cyanosis, 2+ pulses and upper and lower extremities. MUSCULOSKELETAL: Muscle strength and tone normal. SPINE: No scoliosis or deformity SKIN: No rashes CENTRAL NERVOUS SYSTEM: Alert and oriented -3. No focal deficits, tone is normal in all 4 extremities. PSYCHIATRIC: Alert and oriented -3. Appropriate affect. Intact judgment and insight. - Labs CBC & Chem 7: 04/07/19 03:58 04/07/19 03:58 Labs: Abnormal Lab Results - Last 24 Hours (Table) 04/07/19 04/07/19 04/08/19 Range/Units 17:11 20:29 06:55 POC Glucose (mg/dL) 208 H 130 H 145 H (75-99) mg/dL Urine Appearance (Clear) Urine Protein (Negative) Urine Blood (Negative) Urine Nitrite (Negative) Ur Leukocyte Esterase (Negative) Urine RBC (0-5) /hpf Urine WBC (0-5) /hpf Urine WBC Clumps (None) /hpf Urine Bacteria (None) /hpf Hyaline Casts (0-2) /lpf Urine Mucus (None) /hpf 04/08/19 04/08/19 Range/Units 09:30 11:42 POC Glucose (mg/dL) 145 H (75-99) mg/dL Urine Appearance Cloudy H (Clear) Urine Protein 1+ H (Negative) Urine Blood Small H (Negative) Urine Nitrite Positive H (Negative) Ur Leukocyte Esterase Large H (Negative) Urine RBC 13 H (0-5) /hpf Urine WBC >182 H (0-5) /hpf Urine WBC Clumps Few H (None) /hpf Urine Bacteria Many H (None) /hpf Hyaline Casts 3 H (0-2) /lpf Urine Mucus Few H (None) /hpf Microbiology - Last 24 Hours (Table) 04/07/19 03:58 Blood Culture - Preliminary Blood No Growth after 24 hours Assessment and Plan Plan: Assessment: #1. Shortness of breath, multifactorial, related to underlying history of pulmonary fibrosis, and acute COPD exacerbation #2. Acute urinary tract infection, urine culture is pending #3. History of intermittent atrial fibrillation on Eliquis #4. Previous history of empyema requiring decortication #5. Anxiety/depression #6. Fibromyalgia #7. GERD/reflux #8. DJD #9. Previous episode of pneumonia #10. Chronic hypoxemic respiratory failure related to history of IPF and COPD #11. Spinal compression fractures #12. History of acute respiratory distress syndrome #13. History of hiatal hernia Plan: Continue current treatment, continue same dose IV steroids antibiotics, sputum culture is pending, patient is afebrile, still congestive bronchospastic, FiO2 is currently at 9 L, still dyspneic, will continue current medical treatment, will follow I performed a history & physical examination of the patient and discussed their management with my nurse practitioner, Daphne Flower. I reviewed the nurse practitioner's note and agree with the documented findings and plan of care. Lung sounds are positive for diffuse wheezes and rhonchi. The findings and the impression was discussed with the patient. I attest to the documentation by the nurse practitioner. Time with Patient: Less than 30
[2019-04-08 17:10] LABS: Glucose,Whole Blood 142 mg/dL (75-99)
[2019-04-08] MEDS: PIPERACILLIN-TAZOBACTAM 3.375 GM in SODIUM CHLORIDE 0.9% 100 ML IVPB SCH (17:28)
[2019-04-08 20:43] LABS: Glucose,Whole Blood 182 mg/dL (75-99)
[2019-04-08] MEDS: MELATONIN 3 MG TABLET PO SCH (20:56)
--- NOTE | 2019-04-08 23:00 | P.CONS ---
History of Present Illness - Reason for Consult Consult date: 04/08/19 bacteremia Requesting physician: Kranthi Dinero - Chief Complaint weakness and urine burning x days - History of Present Illness Patient is a 68-year female presenting to the ER at [facility] on 04/07/2019 with a chief complaints of increasing shortness of breath and not feeling well along with weakness patient denies having any URI symptoms no chest pain she did have a cough which has been chronic for her with no recent worsening or more purulent sputum production no nausea no vomiting no abdominal pain no diarrhea and the patient has not had any burning and frequency but no suprapubic or flank pain patient on arrival to the hospital did have low-grade fever of 99.7 patient had did have a normal white count initially and her kidney function has been normal liver exams were normal patient did have influenza serology that was negative chest x-ray was done which shows what was pulmonary fibrosis immunosuppressive compression fracture no heart failure and no significant change patient has been treated with Zosyn blood cultures were obt ained and are coming back positive with gram-negative bacilli that prompted this infectious disease consultation he UA was sent this morning did show large leukocyte esterase and many WBCs cultures currently pending. Review of Systems Positive point has been mentioned in HPI rest of the systems are negative Past Medical History Past Medical History: Atrial Fibrillation, COPD, Fibromyalgia, GERD/Reflux, Osteoarthritis (OA), Pneumonia Additional Past Medical History / Comment(s): COPD, chronic hypoxic respiratory failure maintained on oxygen at 7-8 L per nasal cannula, fibromyalgia, acid reflux, osteoarthritis, compression fracture of the T-spine w/previous kyphoplasty, previous history of recurrent pneumonias requiring decortication for empyema and previous history of ARDS secondary to pneumonia, hiatal hernia, generalized anxiety disorder/depression; intermittent afib History of Any Multi-Drug Resistant Organisms: None Reported Past Surgical History: Back Surgery, Hysterectomy Additional Past Surgical History / Comment(s): X3 BACK SX -FUSIONS( HX FX VERTEBRE), SX TO REMOVE EMPYEMA via a VATS and decortication. She has also had multiple bronchoscopies in the past. She has also received lumbar epidural steroid injection under fluoroscopic guidance. Past Anesthesia/Blood Transfusion Reactions: Motion Sickness Additional Past Anesthesia/Blood Transfusion Reaction / Comm: BLOOD TRANSFUSION- NO REACTION Past Psychological History: Anxiety, Depression Smoking Status: Current some day smoker Past Alcohol Use History: None Reported Additional Past Alcohol Use History / Comment(s): STARTED SMOKING AT AGE 15. SMOKED UPWARDS TO 2 PPD, NO ETOH OR DRUGS, HAS 02 AT HOME. PT LIVES WITH DAUGHTER, [place] Past Drug Use History: None Reported - Past Family History Father Family Medical History: Diabetes Mellitus Additional Family Medical History / Comment(s): AGE 61 THATS ALL PT KNOWS Mother Family Medical History: Cancer, Dementia Additional Family Medical History / Comment(s): AGE 80, RECTAL [place] Medications and Allergies Home Medications Medication Instructions Recorded Confirmed Type Sertraline [Zoloft] 200 mg PO DAILY 08/05/13 04/07/19 History ALPRAZolam [Xanax] 0.5 mg PO QID PRN 01/30/18 04/07/19 History Albuterol Nebulized [Ventolin 2.5 mg INHALATION RT-Q6H PRN 05/29/18 04/07/19 History Nebulized] Hydrocodone/Acetaminophen [[place] 1 tab PO Q6H PRN 05/29/18 04/07/19 History 10-325] Pantoprazole Sodium [Protonix] 40 mg PO DAILY 11/01/18 04/07/19 History Calcium Carbonate [Tums] 1,000 mg PO QID PRN chew 11/10/18 04/07/19 Rx Melatonin 3 mg PO HS #1 tablet 11/10/18 04/07/19 Rx Budesonide-Formot 160-4.5 Mcg 2 puff INHALATION RT-BID 04/07/19 04/07/19 History [Symbicort 160-4.5 Mcg Inhaler] Ferrous Sulfate [Feosol] 325 mg PO DAILY 04/07/19 04/07/19 History Multivitamin with Iron 1 tab PO DAILY 04/07/19 04/07/19 History [Multivitamins with Iron] Tiotropium Ney [Spiriva] 2 cap INHALATION RT-DAILY 04/07/19 04/07/19 History Allergies Allergy/AdvReac Type Severity Reaction Status Date / Time adhesive AdvReac Unknown Verified 04/07/19 03:46 bupropion HCl AdvReac Unknown Verified 04/07/19 03:46 [From Wellbutrin] tetracycline AdvReac "feel Verified 04/07/19 03:47 crazy." Physical Exam Vitals: Vital Signs Temp Pulse Pulse Resp BP Pulse Ox 04/08/19 13:56 98.1 F 92 18 94/56 98 04/08/19 12:05 96 04/08/19 11:54 94 04/08/19 09:49 18 95 04/08/19 09:47 82 04/08/19 09:40 22 87 L 04/08/19 09:35 80 04/08/19 08:09 70 04/08/19 08:02 68 04/08/19 07:53 64 04/08/19 05:26 68 04/08/19 05:16 68 04/08/19 05:15 96.5 F L 86 18 99/59 96 04/08/19 02:05 70 04/08/19 01:49 70 97 04/07/19 20:30 97.5 F L 80 20 97/60 92 L 04/07/19 20:08 78 04/07/19 20:01 78 04/07/19 19:53 78 Intake and Output 04/08/19 04/08/19 04/08/19 06:59 14:59 22:59 Intake Total 450 Balance 450 Intake: Oral 450 Other: # Voids 1 2 GENERAL DESCRIPTION: Elderly female lying in bed, no distress. No tachypnea or accessory muscle of respiration use. HEENT: Shows Pallor , no scleral icterus. Oral mucous membrane is dry. NECK: Trachea central, no thyromegaly. LUNGS: Unlabored breathing. Decreased decrease intensity of breath sounds. No wheeze or crackle. HEART: S1, S2, regular rate and rhythm. ABDOMEN: Soft, no tenderness , guarding or rigidity EXTREMITIES: No edema of feet. SKIN: No rash, no masses palpable. NEUROLOGICAL: The patient is awake, alert, oriented x3, mood and affect normal. Results CBC & Chem 7: 04/07/19 03:58 04/07/19 03:58 Labs: Abnormal Lab Results - Last 24 Hours (Table) 04/07/19 04/07/19 04/08/19 Range/Units 17:11 20:29 06:55 POC Glucose (mg/dL) 208 H 130 H 145 H (75-99) mg/dL Urine Appearance (Clear) Urine Protein (Negative) Urine Blood (Negative) Urine Nitrite (Negative) Ur Leukocyte Esterase (Negative) Urine RBC (0-5) /hpf Urine WBC (0-5) /hpf Urine WBC Clumps (None) /hpf Urine Bacteria (None) /hpf Hyaline Casts (0-2) /lpf Urine Mucus (None) /hpf 04/08/19 04/08/19 Range/Units 09:30 11:42 POC Glucose (mg/dL) 145 H (75-99) mg/dL Urine Appearance Cloudy H (Clear) Urine Protein 1+ H (Negative) Urine Blood Small H (Negative) Urine Nitrite Positive H (Negative) Ur Leukocyte Esterase Large H (Negative) Urine RBC 13 H (0-5) /hpf Urine WBC >182 H (0-5) /hpf Urine WBC Clumps Few H (None) /hpf Urine Bacteria Many H (None) /hpf Hyaline Casts 3 H (0-2) /lpf Urine Mucus Few H (None) /hpf Microbiology - Last 24 Hours (Table) 04/07/19 03:58 Blood Culture Gram Stain - Preliminary Blood 04/07/19 03:58 Blood Culture - Preliminary Blood 04/08/19 09:30 Urine Culture - Preliminary Urine,Voided 04/08/19 08:00 Sputum Culture - Preliminary Sputum Assessment and Plan Assessment: patient with gram-negative bacteremia in this patient presented hospital with generalized weakness primary did have a low-grade fever and a urinary symptom likely secondary to urinary tract infection patient abdominal soft and clinical examination and no abdominal symptoms and chest x-ray has been negative for any consolidation (1) UTI (urinary tract infection) Current Visit: Yes Status: Acute Code(s): N39.0 - URINARY TRACT INFECTION, SITE NOT SPECIFIED SNOMED Code(s): 94650020 (2) Gram-negative bacteremia Current Visit: Yes Status: Acute Code(s): R78.81 - BACTEREMIA SNOMED Code(s): 204817914105 Plan: 1-blood cultures repeated document clearance of bacteremia 2-patient continue Zosyn 3.75 g every 8 hourly while waiting for the ID sensitive to this pathogen 3-gentle IV fluid We will follow on clinical condition and cultures to further adjust medication if needed Thank you for this consultation we will follow the patient along with you Time with Patient: Greater than 30
[2019-04-09] MEDS: methylPREDNISolone SOD SUCCI 125 MG/2 ML VIAL IV SCH (00:03)
[2019-04-09] MEDS: PIPERACILLIN-TAZOBACTAM 3.375 GM in SODIUM CHLORIDE 0.9% 100 ML IVPB SCH ×4 (00:04→23:23)
--- NOTE | 2019-04-09 00:24 | P.PN ---
Progress Note - Text Progress Note Date: 04/08/19 Chief Complaint: Short of breath History of presenting complaint: This is a very pleasant 68-year-old patient of Dr. Bar. Chronic stable medical conditions include fibromyalgia, chronic thoracic spine fractures, anxiety, proximal atrial fibrillation, home oxygen. Patient presents with worsening cough thick yellow sputum production chills or wheezing appetite has not been good. Constipated. Quite a bit short of breath at rest admitted for the same. Feeling tired and rundown. short of breath at rest. Patient uses 6- 7 L oxygen at home. Hospital course: Admitted with pneumonia, bilateral pulmonary fibrosis, acute COPD exacerbation. Started on nebulized bronchodilators, steroids, Today-slightly short of breath. Less cough. Did tolerate some diet. Blood culture positive for E. coli. Review of systems: Was done for constitutional, cardiovascular, GI, pulmonary. relevant finding as above Active Medications Hydrocodone Bitart/Acetaminophen ([place] 10) 1 each PO Q6H PRN PRN Reason: Pain Last Admin: 04/08/19 08:52 Dose: 1 each Documented by: Albuterol/Ipratropium (Duoneb 0.5 Mg-3 Mg/3 Ml Soln) 3 ml INHALATION RT-Q2H PRN PRN Reason: Shortness Of Breath Or Wheezing Last Admin: 04/08/19 09:35 Dose: 3 ml Documented by: Albuterol/Ipratropium (Duoneb 0.5 Mg-3 Mg/3 Ml Soln) 3 ml INHALATION RT-Q4H MICHI Last Admin: 04/08/19 20:06 Dose: 3 ml Documented by: Alprazolam (Xanax) 0.5 mg PO QID PRN PRN Reason: Anxiety Last Admin: 04/08/19 11:58 Dose: 0.5 mg Documented by: Azithromycin (Zithromax) 500 mg PO DAILY MICHI Last Admin: 04/08/19 08:51 Dose: 500 mg Documented by: Budesonide (Pulmicort) 1 mg INHALATION RT-BID MICHI Last Admin: 04/08/19 20:06 Dose: 1 mg Documented by: Calcium Carbonate/Glycine (Tums) 1,000 mg PO QID PRN PRN Reason: Heartburn Last Admin: 04/08/19 11:57 Dose: 1,000 mg Documented by: Ferrous Sulfate (Feosol) 325 mg PO DAILY [facility] Last Admin: 04/08/19 08:51 Dose: 325 mg Documented by: Formoterol Fumarate (Perforomist) 20 mcg INHALATION RT-BID [facility] Last Admin: 04/08/19 20:06 Dose: 20 mcg Documented by: Guaifenesin (Mucinex) 1,200 mg PO Q12HR [facility] Last Admin: 04/08/19 20:55 Dose: 1,200 mg Documented by: Lactated Ringer's (Lactated Ringers) 1,000 mls @ 75 mls/hr IV .[id number] [facility] Last Admin: 04/08/19 19:25 Dose: 75 mls/hr Documented by: Piperacillin Sod/Tazobactam (Sod 3.375 gm/ Sodium Chloride) 100 mls @ 25 mls/hr IVPB Q8HR [facility] Last Admin: 04/09/19 00:04 Dose: 25 mls/hr Documented by: Lorazepam (Ativan) 1 mg IV Q4HR PRN PRN Reason: Anxiety Last Admin: 04/08/19 09:42 Dose: 1 mg Documented by: Melatonin (Melatonin) 3 mg PO HS [facility] Last Admin: 04/08/19 20:56 Dose: 3 mg Documented by: Methylprednisolone Sodium Succinate (Solu-Medrol) 60 mg IV Q6HR [facility] Last Admin: 04/09/19 00:03 Dose: 60 mg Documented by: Morphine Sulfate (Morphine Sulfate (Inj)) 4 mg IVP Q4HR PRN PRN Reason: Pain Multivitamins (Theragran) 1 each PO DAILY [facility] Last Admin: 04/08/19 08:52 Dose: 1 each Documented by: Pantoprazole Sodium (Protonix) 40 mg PO AC-BRKFST [facility] Last Admin: 04/08/19 08:51 Dose: 40 mg Documented by: Sertraline HCl (Zoloft) 200 mg PO DAILY [facility] Last Admin: 04/08/19 08:51 Dose: 200 mg Documented by: Physical examination: VITAL SIGNS: 98.1, surgical, 18, 94/56, 98% on 9 L GENERAL: Laying bed, tired short of breath at rest. EYES: Pupils equal. Conjunctiva normal. HEENT: External appearance of nose and ears normal, oral cavity grossly normal. NECK: JVD not raised; masses not palpable. HEART: First and second heart sounds are normal; no edema. LUNGS: Respiratory rate increased, decreased breath sounds, coarse crackles bilaterally wheezing ABDOMEN: Soft, nontender, liver spleen not palpable, no masses palpable. PSYCH: [Alert and oriented x3; mood and affect anxious l. INVESTIGATIONS, reviewed in the clinical context: Blood culture positive for-E. coli. UA positive Previous testing White count 8.4 hemoglobin 9.8 platelets 137 potassium 3.9 creatinine 0.73 Influenza type A and type B both negative EKG tracing personally reviewed by me-shows sinus tachycardia with P pulmonale Chest x-ray film personally reviewed by me-pulmonary fibrosis and infiltrates Assessment: -Pneumonia, suspect gram-negative organism, POA -Bilateral pulmonary fibrosis, slow to respond -Acute UTI from cystitis causing Sepsis with positive blood cultures E. coli- -Acute COPD exacerbation in a smoker, slow to respond -Chronic fibromyalgia -Chronic thoracic spine fractures with history of scar. Last he -Anxiety depression otherwise specified -Paroxysmal atrial fibrillation -Sinus tachycardia -Chronic hypoxic respiratory failure on home oxygen support 7 L -Acute on chronic hypoxic respiratory failure, POA Plan: Patient and the right hip was switched over to IV Zosyn. ID was consulted. Continue with bronchodilators, IV steroids,. Patient's appetite is better. Cut back IV steroids. Care discussed with the patient.
[2019-04-09] MEDS: IPRATROPIUM-ALBUTEROL 3 ML NEB INHALATION SCH ×7 (00:37→23:40)
[2019-04-09 07:14] LABS: Glucose,Whole Blood 146 mg/dL (75-99)
[2019-04-09] MEDS: SERTRALINE 100 MG TAB PO SCH (07:47)
[2019-04-09] MEDS: PANTOPRAZOLE 40 MG TABLET PO SCH (07:47)
[2019-04-09] MEDS: FERROUS SULFATE 325 MG TAB PO SCH (07:47)
[2019-04-09] MEDS: CALCIUM CARBONATE 500 MG CHEWABLE PO PRN (07:47)
[2019-04-09] MEDS: MULTIVITAMINS, THERA 1 EACH TAB PO SCH (07:47)
[2019-04-09] MEDS: ALPRAZolam 0.5 MG TAB PO PRN ×3 (07:47→19:57)
[2019-04-09] MEDS: guaiFENesin 600 MG TABLET.ER PO SCH ×2 (07:47→19:57)
[2019-04-09] MEDS: AZITHROMYCIN 500 MG TAB PO SCH (07:48)
[2019-04-09] MEDS: HYDROcodone/APAP 10-325MG 1 EACH TAB PO PRN ×2 (07:48→17:07)
[2019-04-09] MEDS: methylPREDNISolone SOD SUCCI 40 MG/ML 1 ML VIAL IV SCH ×3 (07:48→23:23)
[2019-04-09] MEDS: LACTATED RINGERS 1,000 ML IV SCH ×2 (07:49→19:57)
[2019-04-09 08:08] LABS: African American GFR (CKD) >90 (>60 ml/min/1.73 sqM); Anion Gap 9 mmol/L; Blood Urea Nitrogen 26 mg/dL (7-17); Calcium 8.4 mg/dL (8.4-10.2); Carbon Dioxide 26 mmol/L (22-30); Chloride 109 mmol/L (98-107); Glucose 112 mg/dL (74-99); Non-African American GFR(CKD) >90 (>60 ml/min/1.73 sqM); Potassium 3.7 mmol/L (3.5-5.1); Sodium 144 mmol/L (137-145)
[2019-04-09 08:16] LABS: Anisocytosis Slight; Basophils % (A) 0 %; Eosinophils % (A) 0 %; HCT 25.3 % (34.0-46.0); Hypochromasia Slight; Lymphocytes # (A) 0.3 k/uL (1.0-4.8); Lymphocytes % (A) 4 %; MCH 27.2 pg (25.0-35.0); MCHC 31.4 g/dL (31.0-37.0); MCV 86.6 fL (80.0-100.0); Mean Platelet Volume 10.1; Monocytes # (A) 0.2 k/uL (0-1.0); Monocytes % (A) 2 %; Neutrophils # (A) 8.3 k/uL (1.3-7.7); Neutrophils % (A) 93 %; Platelet Count 142 k/uL (150-450); RBC 2.93 m/uL (3.80-5.40); RDW 17.4 % (11.5-15.5); WBC 8.9 k/uL (3.8-10.6)
[2019-04-09] MEDS: BUDESONIDE 1 MG/2 ML NEBU INHALATION SCH ×2 (08:42→20:24)
[2019-04-09] MEDS: FORMOTEROL FUMARATE 20 MCG/2 ML NEBU INHALATION SCH ×2 (08:42→20:24)
--- NOTE | 2019-04-09 11:50 | P.PN ---
Subjective Progress Note Date: 04/09/19 Principal diagnosis: Shortness of breath, multifactorial, related to pulmonary fibrosis, COPD exacerbation On 04/08/2019 patient seen in follow-up on the general medical floor, she states her breathing is about the same, not significantly improved since yesterday, still has a congested cough, lung sounds are positive for diffuse rhonchi, diminished breath sounds with coarse bibasilar crackles, sputum specimen was sent, FiO2 is currently at 9 L, and her pulse ox is 95%, patient is afebrile, hemodynamically patient is stable. So far blood culture is negative. Current antibiotic coverage is with Zithromax, patient has been complaining of urinary symptoms and she thinks she has a urinary tract infection, urinalysis was sent and shows large amount of leuks, white blood cells and many bacteria, urine culture is pending. On 04/09/2019 patient seen in follow-up on general medical floor, breathing slightly improved, FiO2 is currently at 8 L, her pulse ox is 92-94%, she is afebrile, still dyspneic and bronchospastic, she is bringing up thick colored yellow sputum, sputum culture was sent yesterday, culture is pending, blood culture showed E. coli, final culture and sensitivity is pending, patient was started on IV Zosyn, it is likely the E. coli bacteremia is from the urinary tract infection. Patient has been afebrile. Today's labs have been reviewed, showing white blood cell count of 8.9, hemoglobin of 8.0, sodium is 144, potassium is 3.7, chloride is 109, CO2 is 26, BUN is 26 and creatinine 0.63. Objective - Vital Signs Vital signs: Vital Signs Temp 97.9 F 04/09/19 04:55 Pulse 76 04/09/19 11:45 Resp 24 04/09/19 04:55 BP 110/64 04/09/19 04:55 Pulse Ox 93 L 04/09/19 04:55 Intake & Output 04/08/19 04/09/19 04/09/19 18:59 06:59 18:59 Intake Total 450 240 Balance 450 240 Intake: Oral 450 240 Other: Voiding Method Bedside Commode Toilet Bedside Commode # Voids 2 1 - Exam GENERAL EXAM: Alert, very pleasant, 68-year-old white female, on 8 L of oxygen, with pulse ox of 95% comfortable in no apparent distress. HEAD: Normocephalic/atraumatic. EYES: Normal reaction of pupils, equal size. Conjunctiva pink, sclera white. NOSE: Clear with pink turbinates. THROAT: No erythema or exudates. NECK: No masses, no JVD, no thyroid enlargement, no adenopathy. CHEST: No chest wall deformity. Symmetrical expansion. LUNGS: Equal air entry with diffuse rhonchi and wheezes CVS: Regular rate and rhythm, normal S1 and S2, no gallops, no murmurs, no rubs ABDOMEN: Soft, nontender. No hepatosplenomegaly, normal bowel sounds, no guarding or rigidity. EXTREMITIES: No clubbing, no edema, no cyanosis, 2+ pulses and upper and lower extremities. MUSCULOSKELETAL: Muscle strength and tone normal. SPINE: No scoliosis or deformity SKIN: No rashes CENTRAL NERVOUS SYSTEM: Alert and oriented -3. No focal deficits, tone is normal in all 4 extremities. PSYCHIATRIC: Alert and oriented -3. Appropriate affect. Intact judgment and insight. - Labs CBC & Chem 7: 04/09/19 07:17 04/09/19 07:17 Labs: Abnormal Lab Results - Last 24 Hours (Table) 04/08/19 04/08/19 04/08/19 Range/Units 11:42 17:08 20:26 RBC (3.80-5.40) m/uL Hgb (11.4-16.0) gm/dL Hct (34.0-46.0) % RDW (11.5-15.5) % Plt Count (150-450) k/uL Neutrophils # (1.3-7.7) k/uL Lymphocytes # (1.0-4.8) k/uL Chloride (98-107) mmol/L BUN (7-17) mg/dL Glucose (74-99) mg/dL POC Glucose (mg/dL) 145 H 142 H 182 H (75-99) mg/dL 04/09/19 04/09/19 04/09/19 Range/Units 07:12 07:17 07:17 RBC 2.93 L (3.80-5.40) m/uL Hgb 8.0 L D (11.4-16.0) gm/dL Hct 25.3 L (34.0-46.0) % RDW 17.4 H (11.5-15.5) % Plt Count 142 L (150-450) k/uL Neutrophils # 8.3 H (1.3-7.7) k/uL Lymphocytes # 0.3 L (1.0-4.8) k/uL Chloride 109 H (98-107) mmol/L BUN 26 H (7-17) mg/dL Glucose 112 H (74-99) mg/dL POC Glucose (mg/dL) 146 H (75-99) mg/dL Microbiology - Last 24 Hours (Table) 04/07/19 03:58 Blood Culture - Final Blood 04/08/19 08:00 Gram Stain - Preliminary Sputum Sputum Culture - Preliminary 04/07/19 03:58 Blood Culture Gram Stain - Preliminary Blood Blood Culture - Preliminary Escherichia coli 04/08/19 09:30 Urine Culture - Preliminary Urine,Voided Assessment and Plan Plan: Assessment: #1. Shortness of breath, multifactorial, related to underlying history of pulmonary fibrosis, and acute COPD exacerbation #2. Acute urinary tract infection, urine culture is pending #3. E. coli bacteremia likely stemming from a acute urinary tract infection #4. History of intermittent atrial fibrillation on Eliquis #5. Previous history of empyema requiring decortication #6. Anxiety/depression #7. Fibromyalgia #8. GERD/reflux #9. DJD #10. Previous episode of pneumonia #11. Chronic hypoxemic respiratory failure related to history of IPF and COPD #12. Spinal compression fractures #13. History of acute respiratory distress syndrome #14. History of hiatal hernia Plan: Continue current medical treatment, patient has been started on Zosyn for E. coli bacteremia, we'll stop the Zithromax, continue nebulized bronchodilators and steroids, continue Mucinex, Pulmicort and Perforomist, continue weaning FiO2 , pulmonary toileting, will continue to follow I performed a history & physical examination of the patient and discussed their management with my nurse practitioner, Daphne Flower. I reviewed the nurse practitioner's note and agree with the documented findings and plan of care. Lung sounds are positive for diffuse wheezes and rhonchi. The findings and the impression was discussed with the patient. I attest to the documentation by the nurse practitioner. Time with Patient: Less than 30
[2019-04-09 12:02] LABS: Glucose,Whole Blood 128 mg/dL (75-99)
--- NOTE | 2019-04-09 15:18 | US ---
EXAMINATION TYPE: US kidneys/renal and bladder DATE OF EXAM: 04/09/2019 COMPARISON: NONE CLINICAL HISTORY: uti, bacteremia. UTI exam limitations due to patient having a hard time breathing u nable to hold breath. EXAM MEASUREMENTS: Right Kidney: 9.2 x 4.0 x 3.4 cm Left Kidney: 10.4 x 4.7 x 4.1 cm Right Kidney: No hydronephrosis or masses seen Left Kidney: No hydronephrosis or masses seen Bladder: Anechoic Bilateral Jets seen: No right jet only. There is no evidence for hydronephrosis at this point in time. No nephrolithiasis is seen. No rogerio s are identified. The urinary bladder is anechoic. IMPRESSION: Unremarkable study
[2019-04-09 17:05] LABS: Glucose,Whole Blood 130 mg/dL (75-99)
[2019-04-09] MEDS: MELATONIN 3 MG TABLET PO SCH (19:57)
--- NOTE | 2019-04-09 21:08 | PN ---
PROGRESS NOTE DATE OF SERVICE: 04/09/2019 REASON FOR FOLLOWUP: E coli bacteremia. INTERVAL HISTORY: The patient is currently afebrile. She seems to be breathing comfortably. The patient denies having any chest pain or shortness of breath. Her cough is baseline. No nausea. No vomiting. No abdominal pain. No diarrhea. PHYSICAL EXAMINATION: Blood pressure 110/65 with a pulse of 88, temperature 97.6. She is 90% on 8 L high-flow oxygen. General description is an elderly female lying in bed in no distress. RESPIRATORY SYSTEM: Unlabored breathing. Clear to auscultation. Decreased intensity of breath sounds. No wheeze. HEART: S1, S2. Regular rate and rhythm. ABDOMEN: Soft. No tenderness. LABS: Hemoglobin 8, white count 8.9. BUN of 26, creatinine 0.63. Blood cultures from 04/08 are positive as well, preliminary showing Pseudomonas species. DIAGNOSTIC IMPRESSION AND PLAN: Patient with an Escherichia coli bacteremia, source is likely urinary and this patient is also showing Pseudomonas in the sputum but no definite consolidation was seen on the chest x-ray. We will go ahead and obtain ultrasound of the kidney to make sure no evidence of any obstructive uropathy. Navid to continue and monitor clinical course closely. MMODL / IJN: [id number] /
[2019-04-09 21:17] LABS: Glucose,Whole Blood 134 mg/dL (75-99)
[2019-04-10] MEDS: IPRATROPIUM-ALBUTEROL 3 ML NEB INHALATION SCH ×6 (04:38→23:29)
[2019-04-10 06:55] LABS: Glucose,Whole Blood 124 mg/dL (75-99)
[2019-04-10] MEDS: ALPRAZolam 0.5 MG TAB PO PRN ×3 (07:11→20:51)
[2019-04-10] MEDS: PANTOPRAZOLE 40 MG TABLET PO SCH (07:11)
[2019-04-10] MEDS: guaiFENesin 600 MG TABLET.ER PO SCH ×2 (07:11→19:25)
[2019-04-10] MEDS: MULTIVITAMINS, THERA 1 EACH TAB PO SCH (07:11)
[2019-04-10] MEDS: FERROUS SULFATE 325 MG TAB PO SCH (07:11)
[2019-04-10] MEDS: SERTRALINE 100 MG TAB PO SCH (07:11)
[2019-04-10] MEDS: methylPREDNISolone SOD SUCCI 40 MG/ML 1 ML VIAL IV SCH ×3 (07:12→23:56)
[2019-04-10] MEDS: PIPERACILLIN-TAZOBACTAM 3.375 GM in SODIUM CHLORIDE 0.9% 100 ML IVPB SCH ×3 (07:12→23:56)
[2019-04-10] MEDS: HYDROcodone/APAP 10-325MG 1 EACH TAB PO PRN (07:12)
[2019-04-10] MEDS: LACTATED RINGERS 1,000 ML IV SCH (07:13)
[2019-04-10] MEDS: FORMOTEROL FUMARATE 20 MCG/2 ML NEBU INHALATION SCH ×2 (08:41→19:44)
[2019-04-10] MEDS: BUDESONIDE 1 MG/2 ML NEBU INHALATION SCH ×2 (08:41→19:44)
[2019-04-10 08:49] LABS: African American GFR (CKD) >90 (>60 ml/min/1.73 sqM); Anion Gap 7 mmol/L; Blood Urea Nitrogen 22 mg/dL (7-17); Calcium 8.2 mg/dL (8.4-10.2); Carbon Dioxide 29 mmol/L (22-30); Chloride 107 mmol/L (98-107); Glucose 100 mg/dL (74-99); Non-African American GFR(CKD) >90 (>60 ml/min/1.73 sqM); Potassium 4.1 mmol/L (3.5-5.1); Sodium 143 mmol/L (137-145)
--- NOTE | 2019-04-10 11:27 | P.PN ---
Progress Note - Text Progress Note Date: 04/09/19 Chief Complaint: Short of breath History of presenting complaint: This is a very pleasant 68-year-old patient of Dr. Bar. Chronic stable medical conditions include fibromyalgia, chronic thoracic spine fractures, anxiety, proximal atrial fibrillation, home oxygen. Patient presents with worsening cough thick yellow sputum production chills or wheezing appetite has not been good. Constipated. Quite a bit short of breath at rest admitted for the same. Feeling tired and rundown. short of breath at rest. Patient uses 6- 7 L oxygen at home. Hospital course: Admitted with pneumonia, bilateral pulmonary fibrosis, acute COPD exacerbation. Started on nebulized bronchodilators, steroids,. Blood culture positive for E. coli and urine culture positive for E. coli. Sputum culture positive for pseudomonas aeruginosa Today-congested cough. Tolerating a diet. Tired. Short of breath. Bringing up some phlegm. Review of systems: Was done for constitutional, cardiovascular, GI, pulmonary. relevant finding as above Active Medications Hydrocodone Bitart/Acetaminophen ([place] 10) 1 each PO Q6H PRN PRN Reason: Pain Last Admin: 04/10/19 07:12 Dose: 1 each Documented by: Albuterol/Ipratropium (Duoneb 0.5 Mg-3 Mg/3 Ml Soln) 3 ml INHALATION RT-Q2H PRN PRN Reason: Shortness Of Breath Or Wheezing Last Admin: 04/08/19 09:35 Dose: 3 ml Documented by: Albuterol/Ipratropium (Duoneb 0.5 Mg-3 Mg/3 Ml Soln) 3 ml INHALATION RT-Q4H MICHI Last Admin: 04/10/19 08:41 Dose: 3 ml Documented by: Alprazolam (Xanax) 0.5 mg PO QID PRN PRN Reason: Anxiety Last Admin: 04/10/19 07:11 Dose: 0.5 mg Documented by: Bisacodyl (Dulcolax) 5 mg PO DAILY PRN PRN Reason: Constipation Budesonide (Pulmicort) 1 mg INHALATION RT-BID MICHI Last Admin: 04/10/19 08:41 Dose: Not Given Documented by: Calcium Carbonate/Glycine (Tums) 1,000 mg PO QID PRN PRN Reason: Heartburn Last Admin: 04/09/19 07:47 Dose: 1,000 mg Documented by: Ferrous Sulfate (Feosol) 325 mg PO DAILY [facility] Last Admin: 04/10/19 07:11 Dose: 325 mg Documented by: Formoterol Fumarate (Perforomist) 20 mcg INHALATION RT-BID [facility] Last Admin: 04/10/19 08:41 Dose: 20 mcg Documented by: Guaifenesin (Mucinex) 1,200 mg PO Q12HR [facility] Last Admin: 04/10/19 07:11 Dose: 1,200 mg Documented by: Lactated Ringer's (Lactated Ringers) 1,000 mls @ 75 mls/hr IV .[id number] [facility] Last Admin: 04/10/19 07:13 Dose: 75 mls/hr Documented by: Piperacillin Sod/Tazobactam (Sod 3.375 gm/ Sodium Chloride) 100 mls @ 25 mls/hr IVPB Q8HR [facility] Last Admin: 04/10/19 07:12 Dose: 25 mls/hr Documented by: Lorazepam (Ativan) 1 mg IV Q4HR PRN PRN Reason: Anxiety Last Admin: 04/08/19 09:42 Dose: 1 mg Documented by: Melatonin (Melatonin) 3 mg PO HS [facility] Last Admin: 04/09/19 19:57 Dose: 3 mg Documented by: Methylprednisolone Sodium Succinate (Solu-Medrol) 40 mg IV Q8HR [facility] Last Admin: 04/10/19 07:12 Dose: 40 mg Documented by: Morphine Sulfate (Morphine Sulfate (Inj)) 4 mg IVP Q4HR PRN PRN Reason: Pain Multivitamins (Theragran) 1 each PO DAILY [facility] Last Admin: 04/10/19 07:11 Dose: 1 each Documented by: Pantoprazole Sodium (Protonix) 40 mg PO AC-BRKFST [facility] Last Admin: 04/10/19 07:11 Dose: 40 mg Documented by: Sertraline HCl (Zoloft) 200 mg PO DAILY [facility] Last Admin: 04/10/19 07:11 Dose: 200 mg Documented by: Physical examination: VITAL SIGNS: 97.6, 88, 18, 110/65, 90% on 8 L GENERAL: Laying bed, tired short of breath at rest. EYES: Pupils equal. Conjunctiva normal. HEENT: External appearance of nose and ears normal, oral cavity grossly normal. NECK: JVD not raised; masses not palpable. HEART: First and second heart sounds are normal; no edema. LUNGS: Respiratory rate increased, decreased breath sounds, decreased at coarse crackles bilaterally wheezing ABDOMEN: Soft, nontender, liver spleen not palpable, no masses palpable. PSYCH: Alert and oriented x3; mood and affect anxious INVESTIGATIONS, reviewed in the clinical context: White count 8.9 hemoglobin 8 potassium 3.7 creatinine 0.63. Cultures as noted Previous testing White count 8.4 hemoglobin 9.8 platelets 137 potassium 3.9 creatinine 0.73 Influenza type A and type B both negative EKG tracing personally reviewed by me-shows sinus tachycardia with P pulmonale Chest x-ray film personally reviewed by me-pulmonary fibrosis and infiltrates Blood culture positive for-E. coli. Urine culture positive for E. coli Sputum culture positive for pseudomonas aeruginosa Assessment: -Pneumonia, from pseudomonas aeruginosa, slow to respond POA -Bilateral pulmonary fibrosis, slow to respond -Acute UTI from cystitis causing Sepsis with positive blood cultures -E. coli- -Acute COPD exacerbation in a smoker, slow to respond -Chronic fibromyalgia -Chronic thoracic spine fractures -Anxiety depression otherwise specified -Paroxysmal atrial fibrillation -Sinus tachycardia -Chronic hypoxic respiratory failure on home oxygen support 7 L -Acute on chronic hypoxic respiratory failure, POA, slow to respond Plan: Continue with DuoNeb, IV Solu-Medrol, IV Zosyn. Care was discussed with the patient. She wanted to go home. Told her she is not safe and ready to go home. She understands the same. Expected with hospital for at least 2 more days.
[2019-04-10 11:48] LABS: Glucose,Whole Blood 112 mg/dL (75-99)
--- NOTE | 2019-04-10 13:59 | PN ---
PROGRESS NOTE DATE OF SERVICE: 04/10/2019. REASON FOR FOLLOWUP: E coli bacteremia, source likely urinary. INTERVAL HISTORY: The patient is currently afebrile. Patient already is feeling much better and wants to go home. Denies having any chest pain or shortness of breath. Minimal cough. No nausea, no vomiting. No abdominal pain. No diarrhea. PHYSICAL EXAMINATION: Blood pressure 138/75 with a pulse of 68, temperature 97.5. She is 99% on 8 L high- flow oxygen. General description is an elderly female, lying in bed in no distress. RESPIRATORY SYSTEM: Unlabored breathing, with decreased intensity breath sounds. No wheeze. HEART: S1, S2. Regular rate and rhythm. ABDOMEN: Soft, no tenderness. LABS: BUN of 22, creatinine 0.62. Blood cultures on 04/08 were positive as well. Abdominal bladder ultrasound was unremarkable. DIAGNOSTIC IMPRESSION AND PLAN: 1. Patient with an Escherichia coli bacteremia source is unlikely as she is growing the same pathogen in the urine. The patient ultrasound was negative for any structural abnormality. If the follow-up blood culture negative, she will be able to finish therapy with oral Cipro 500 mg b.i.d. for another 10 days. 2. the sputum culture with Pseudomonas, more likely colonization as the patient did not have any worsening respiratory symptoms and x-ray were negative for pneumonia. MMODL / IJN: [id number] /
[2019-04-10] MEDS: BISACODYL 5 MG TABLET.DR PO SCH (14:32)
--- NOTE | 2019-04-10 14:43 | P.PN ---
Subjective Progress Note Date: 04/10/19 Principal diagnosis: Shortness of breath, multifactorial, related to pulmonary fibrosis, COPD exacerbation The patient is seen today 04/10/2019 in follow-up on the regular medical floor. She is awake and alert in no acute distress. She is still requiring 8 L high flow nasal cannula to maintain O2 saturation low 90s. This is her home oxygen setting. She is feeling quite a bit better and is anxious to go home today. Sputum cultures positive for pseudomonas aeruginosa, urine cultures positive for Serratia E. coli, blood cultures positive for Serratia E. coli. Sodium 143. Potassium 4.1. Creatinine 0.62. She is continued on DuoNeb inhalations, Pulmicort and Perforomist inhalations, IV Solu-Medrol. Antibiotics in the form of Zosyn. Objective - Vital Signs Vital signs: Vital Signs Temp 98.1 F 04/10/19 14:17 Pulse 90 04/10/19 14:17 Resp 18 04/10/19 14:17 BP 113/69 04/10/19 14:17 Pulse Ox 99 04/10/19 14:17 Intake & Output 04/09/19 04/10/19 04/10/19 18:59 06:59 18:59 Intake Total 530 120 480 Balance 530 120 480 Intake: Oral 530 120 480 Other: Voiding Method Toilet Toilet Toilet Bedside Commode Bedside Commode Bedside Commode # Voids 1 1 2 - Exam GENERAL EXAM: Alert, very pleasant, 68-year-old female patient, on 8 L of oxygen, with pulse ox of 97% comfortable in no apparent distress. HEAD: Normocephalic/atraumatic. EYES: Normal reaction of pupils, equal size. Conjunctiva pink, sclera white. NOSE: Clear with pink turbinates. THROAT: No erythema or exudates. NECK: No masses, no JVD, no thyroid enlargement, no adenopathy. CHEST: No chest wall deformity. Symmetrical expansion. LUNGS: Equal air entry with diffuse rhonchi and wheezes, coarse crackles in the posterior bases CVS: Regular rate and rhythm, normal S1 and S2, no gallops, no murmurs, no rubs ABDOMEN: Soft, nontender. No hepatosplenomegaly, normal bowel sounds, no guarding or rigidity. EXTREMITIES: No clubbing, no edema, no cyanosis, 2+ pulses and upper and lower extremities. MUSCULOSKELETAL: Muscle strength and tone normal. SPINE: No scoliosis or deformity SKIN: No rashes CENTRAL NERVOUS SYSTEM: No focal deficits, tone is normal in all 4 extremities. PSYCHIATRIC: Alert and oriented -3. Appropriate affect. Intact judgment and insight. - Labs CBC & Chem 7: 04/09/19 07:17 04/10/19 08:17 Labs: Abnormal Lab Results - Last 24 Hours (Table) 04/09/19 04/09/19 04/10/19 Range/Units 17:03 21:09 06:54 BUN (7-17) mg/dL Glucose (74-99) mg/dL POC Glucose (mg/dL) 130 H 134 H 124 H (75-99) mg/dL Calcium (8.4-10.2) mg/dL 04/10/19 04/10/19 Range/Units 08:17 11:47 BUN 22 H (7-17) mg/dL Glucose 100 H (74-99) mg/dL POC Glucose (mg/dL) 112 H (75-99) mg/dL Calcium 8.2 L (8.4-10.2) mg/dL Microbiology - Last 24 Hours (Table) 04/08/19 08:00 Gram Stain - Final Sputum Sputum Culture - Final Pseudomonas aeruginosa Pseudomonas aeruginosa#2 04/08/19 09:30 Urine Culture - Final Urine,Voided Escherichia coli 04/08/19 16:10 Blood Culture Gram Stain - Preliminary Blood Blood Culture - Preliminary Gram Neg Bacilli 04/07/19 03:58 Blood Culture Gram Stain - Final Blood Blood Culture - Final Escherichia coli 04/08/19 16:10 Blood Culture - Final Blood 04/07/19 03:58 Blood Culture - Final Blood Assessment and Plan Assessment: #1. Shortness of breath, multifactorial, related to underlying history of pulmonary fibrosis, and acute COPD exacerbation. Sputum positive for pseudomonas aeruginosa, sensitive to Zosyn #2. Acute urinary tract infection secondary to E. coli #3. E. coli bacteremia likely stemming from a acute urinary tract infection #4. History of intermittent atrial fibrillation on Eliquis #5. Previous history of empyema requiring decortication #6. Anxiety/depression #7. Fibromyalgia #8. GERD/reflux #9. DJD #10. Previous episode of pneumonia #11. Chronic hypoxemic respiratory failure related to history of IPF and COPD #12. Spinal compression fractures #13. History of acute respiratory distress syndrome #14. History of hiatal hernia Plan: The patient was seen and evaluated by Dr. Dr. Gordon. She is currently stable from the pulmonary standpoint. Asking to go home. She is on 8 L high flow nasal cannula the outpatient setting. She could complete her course of antibiotics, continue prednisone taper. Current continue her home pulmonary medications. Cleared for discharge once cleared medically. Follow up with Dr. Charity williamson as scheduled. I, the cosigning physician, performed a history & physical examination of the patient. Lungs sounds coarse rhonchi, end expiratory wheeze, crackles in the posterior bases Maintaining good O2 saturations in the 90s on 8 L high flow nasal cannula. I discussed the assessment and plan of care with my nurse practitioner, Kendra Kamara. I attest to the above note as dictated by her.
[2019-04-10] MEDS ORDERED: BISACODYL 5 MG TABLET.DR PO PRN (16:00)
[2019-04-10 16:54] LABS: Glucose,Whole Blood 119 mg/dL (75-99)
[2019-04-10] MEDS: MELATONIN 3 MG TABLET PO SCH ×2 (19:25→19:27)
[2019-04-10 20:50] LABS: Glucose,Whole Blood 117 mg/dL (75-99)
[2019-04-11] MEDS: LACTATED RINGERS 1,000 ML IV SCH (00:32)
[2019-04-11] MEDS: IPRATROPIUM-ALBUTEROL 3 ML NEB INHALATION SCH ×3 (04:01→11:27)
[2019-04-11] MEDS: ALPRAZolam 0.5 MG TAB PO PRN ×2 (05:58→13:50)
[2019-04-11 06:28] VITALS: BP 165/77; RESP 20; TEMP 97.9
[2019-04-11] MEDS: FORMOTEROL FUMARATE 20 MCG/2 ML NEBU INHALATION SCH (07:30)
[2019-04-11] MEDS: BUDESONIDE 1 MG/2 ML NEBU INHALATION SCH (07:30)
[2019-04-11 08:15] LABS: African American GFR (CKD) >90 (>60 ml/min/1.73 sqM); Anion Gap 4 mmol/L; Blood Urea Nitrogen 17 mg/dL (7-17); Calcium 8.1 mg/dL (8.4-10.2); Carbon Dioxide 31 mmol/L (22-30); Chloride 105 mmol/L (98-107); Glucose 88 mg/dL (74-99); Non-African American GFR(CKD) >90 (>60 ml/min/1.73 sqM); Potassium 3.6 mmol/L (3.5-5.1); Sodium 140 mmol/L (137-145)
[2019-04-11] MEDS: PIPERACILLIN-TAZOBACTAM 3.375 GM in SODIUM CHLORIDE 0.9% 100 ML IVPB SCH (08:56)
[2019-04-11] MEDS: FERROUS SULFATE 325 MG TAB PO SCH (08:57)
[2019-04-11] MEDS: SERTRALINE 100 MG TAB PO SCH (08:57)
[2019-04-11] MEDS: MULTIVITAMINS, THERA 1 EACH TAB PO SCH (08:57)
[2019-04-11] MEDS: methylPREDNISolone SOD SUCCI 40 MG/ML 1 ML VIAL IV SCH (08:57)
[2019-04-11] MEDS: PANTOPRAZOLE 40 MG TABLET PO SCH (08:57)
[2019-04-11] MEDS: guaiFENesin 600 MG TABLET.ER PO SCH (08:57)
[2019-04-11] MEDS: BISACODYL 5 MG TABLET.DR PO SCH (08:57)
[2019-04-11 11:41] VITALS: PULSE 84
--- NOTE | 2019-04-11 12:46 | P.PN ---
Subjective Progress Note Date: 04/10/19 Principal diagnosis: Shortness of breath, multifactorial, related to pulmonary fibrosis, COPD exacerbation 04/10/2019 Patient is evaluated in follow-up on the regular medical floor. She is awake and alert in no acute distress. She is still requiring 8 L high flow nasal cannula to maintain O2 saturation low 90s. This is her home oxygen setting. She is feeling quite a bit better and is anxious to go home today. Sputum cultures positive for pseudomonas aeruginosa, urine cultures positive for Serratia E. coli, blood cultures positive for Serratia E. coli. Sodium 143. Potassium 4.1. Creatinine 0.62. She is continued on DuoNeb inhalations, Pulm icort and Perforomist inhalations, IV Solu-Medrol. Antibiotics in the form of Zosyn. Objective - Vital Signs Vital signs: Vital Signs Temp 97.5 F L 04/10/19 06:48 Pulse 76 04/10/19 11:45 Resp 17 04/10/19 06:48 BP 138/75 04/10/19 06:48 Pulse Ox 99 04/10/19 06:48 Intake & Output 04/09/19 04/10/19 04/10/19 18:59 06:59 18:59 Intake Total 530 120 240 Balance 530 120 240 Intake: Oral 530 120 240 Other: Voiding Method Toilet Toilet Toilet Bedside Commode Bedside Commode Bedside Commode # Voids 1 1 - Exam GENERAL EXAM: Alert, very pleasant, 68-year-old female patient, on 8 L of oxygen, with pulse ox of 97% comfortable in no apparent distress. HEAD: Normocephalic/atraumatic. EYES: Normal reaction of pupils, equal size. Conjunctiva pink, sclera white. NOSE: Clear with pink turbinates. THROAT: No erythema or exudates. NECK: No masses, no JVD, no thyroid enlargement, no adenopathy. CHEST: No chest wall deformity. Symmetrical expansion. LUNGS: Equal air entry with diffuse rhonchi and wheezes, coarse crackles in the posterior bases CVS: Regular rate and rhythm, normal S1 and S2, no gallops, no murmurs, no rubs ABDOMEN: Soft, nontender. No hepatosplenomegaly, normal bowel sounds, no guarding or rigidity. EXTREMITIES: No clubbing, no edema, no cyanosis, 2+ pulses and upper and lower extremities. - Labs CBC & Chem 7: 04/09/19 07:17 04/11/19 07:22 Labs: Abnormal Lab Results - Last 24 Hours (Table) 04/09/19 04/09/19 04/10/19 Range/Units 17:03 21:09 06:54 BUN (7-17) mg/dL Glucose (74-99) mg/dL POC Glucose (mg/dL) 130 H 134 H 124 H (75-99) mg/dL Calcium (8.4-10.2) mg/dL 04/10/19 04/10/19 Range/Units 08:17 11:47 BUN 22 H (7-17) mg/dL Glucose 100 H (74-99) mg/dL POC Glucose (mg/dL) 112 H (75-99) mg/dL Calcium 8.2 L (8.4-10.2) mg/dL Microbiology - Last 24 Hours (Table) 04/08/19 08:00 Gram Stain - Final Sputum Sputum Culture - Final Pseudomonas aeruginosa Pseudomonas aeruginosa#2 04/08/19 09:30 Urine Culture - Final Urine,Voided Escherichia coli 04/08/19 16:10 Blood Culture Gram Stain - Preliminary Blood Blood Culture - Preliminary Gram Neg Bacilli 04/07/19 03:58 Blood Culture Gram Stain - Final Blood Blood Culture - Final Escherichia coli 04/08/19 16:10 Blood Culture - Final Blood 04/07/19 03:58 Blood Culture - Final Blood Assessment and Plan Plan: -Pneumonia, from pseudomonas aeruginosa, slow to respond POA -Bilateral pulmonary fibrosis, slow to respond -Acute UTI from cystitis causing Sepsis with positive blood cultures -E. coli- -Acute COPD exacerbation in a smoker, slow to respond -Chronic fibromyalgia -Chronic thoracic spine fractures -Anxiety depression otherwise specified -Paroxysmal atrial fibrillation -Sinus tachycardia -Chronic hypoxic respiratory failure on home oxygen support 7 L -Acute on chronic hypoxic respiratory failure, POA, slow to respond Plan: Continue with DuoNeb, IV Solu-Medrol, IV Zosyn. Care was discussed with the patient. She wanted to go home. Patient has E. coli bacteremia and UTI; renal ultrasound is unremarkable; patient was discussed with ID in great detail and recommendations are possible discharge on oral Cipro a few repeat blood cultures done on 04/09 and 04/10/2019 are negative.
--- NOTE | 2019-04-11 13:09 | P.PN ---
Subjective Progress Note Date: 04/11/19 Principal diagnosis: Shortness of breath, multifactorial, related to pulmonary fibrosis, COPD exacerbation The patient is seen today 04/10/2019 in follow-up on the regular medical floor. She is awake and alert in no acute distress. She is still requiring 8 L high flow nasal cannula to maintain O2 saturation low 90s. This is her home oxygen setting. She is feeling quite a bit better and is anxious to go home today. Sputum cultures positive for pseudomonas aeruginosa, urine cultures positive for Serratia E. coli, blood cultures positive for Serratia E. coli. Sodium 143. Potassium 4.1. Creatinine 0.62. She is continued on DuoNeb inhalations, Pulmicort and Perforomist inhalations, IV Solu-Medrol. Antibiotics in the form of Zosyn. Patient is seen today 04/11/2019 in follow-up on the regular medical floor. She is awake and alert in no acute distress. Resting quite comfortably in bed. Less dyspnea on exertion. No dyspnea on conversation. She is down to 8 L high flow nasal cannula. No worsening shortness of breath, cough or congestion. Blood and urine cultures were positive for E. coli. Sputum culture positive for pseudomonas aeruginosa. Follow-up blood cultures reveal no growth. Sodium 140. Potassium 3.6. Creatinine 0.60. She is continued on bronchodilators, steroids and Zosyn. Objective - Vital Signs Vital signs: Vital Signs Temp 97.9 F 04/11/19 05:43 Pulse 84 04/11/19 11:41 Resp 20 04/11/19 05:43 BP 165/77 04/11/19 05:43 Pulse Ox 91 L 04/11/19 05:43 Intake & Output 04/10/19 04/11/19 04/11/19 18:59 06:59 18:59 Intake Total 480 Balance 480 Intake: Oral 480 Other: Voiding Method Toilet Toilet Bedside Commode Bedside Commode # Voids 2 2 - Exam GENERAL EXAM: Alert, very pleasant, 68-year-old female patient, on 8 L of oxygen, comfortable in no apparent distress. HEAD: Normocephalic/atraumatic. EYES: Normal reaction of pupils, equal size. Conjunctiva pink, sclera white. NOSE: Clear with pink turbinates. THROAT: No erythema or exudates. NECK: No masses, no JVD, no thyroid enlargement, no adenopathy. CHEST: No chest wall deformity. Symmetrical expansion. LUNGS: Equal air entry with diffuse rhonchi and wheezes, coarse crackles in the posterior bases CVS: Regular rate and rhythm, normal S1 and S2, no gallops, no murmurs, no rubs ABDOMEN: Soft, nontender. No hepatosplenomegaly, normal bowel sounds, no guarding or rigidity. EXTREMITIES: No clubbing, no edema, no cyanosis, 2+ pulses and upper and lower extremities. MUSCULOSKELETAL: Muscle strength and tone normal. SPINE: No scoliosis or deformity SKIN: No rashes CENTRAL NERVOUS SYSTEM: No focal deficits, tone is normal in all 4 extremities. PSYCHIATRIC: Alert and oriented -3. Appropriate affect. Intact judgment and insight. - Labs CBC & Chem 7: 04/09/19 07:17 04/11/19 07:22 Labs: Abnormal Lab Results - Last 24 Hours (Table) 04/10/19 04/10/19 04/11/19 Range/Units 16:52 20:42 07:22 Carbon Dioxide 31 H (22-30) mmol/L POC Glucose (mg/dL) 119 H 117 H (75-99) mg/dL Calcium 8.1 L (8.4-10.2) mg/dL Microbiology - Last 24 Hours (Table) 04/10/19 08:17 Blood Culture - Preliminary Blood No Growth after 24 hours 04/08/19 16:10 Blood Culture Gram Stain - Final Blood Blood Culture - Final Escherichia coli 04/09/19 14:38 Blood Culture - Preliminary Blood No Growth after 24 hours 04/08/19 08:00 Gram Stain - Final Sputum Sputum Culture - Final Pseudomonas aeruginosa Pseudomonas aeruginosa#2 04/08/19 09:30 Urine Culture - Final Urine,Voided Escherichia coli Assessment and Plan Assessment: #1. Shortness of breath, multifactorial, related to underlying history of pulmonary fibrosis, and acute COPD exacerbation. Sputum positive for pseudomonas aeruginosa, sensitive to Zosyn #2. Acute urinary tract infection secondary to E. coli #3. E. coli bacteremia likely stemming from a acute urinary tract infection #4. History of intermittent atrial fibrillation on Eliquis #5. Previous history of empyema requiring decortication #6. Anxiety/depression #7. Fibromyalgia #8. GERD/reflux #9. DJD #10. Previous episode of pneumonia #11. Chronic hypoxemic respiratory failure related to history of IPF and COPD #12. Spinal compression fractures #13. History of acute respiratory distress syndrome #14. History of hiatal hernia Plan: The patient was seen and evaluated by Dr. Gordon. She is on 8 L high flow nasal cannula the outpatient setting. Follow-up blood cultures are revealing no growth. She could complete her course of antibiotics in the form of Cipro as recommended by ID, continue prednisone taper. Follow up with Dr. Sierra as scheduled. I, the cosigning physician, performed a history & physical examination of the patient. Lungs sounds coarse rhonchi, end expiratory wheeze, crackles in the posterior bases Maintaining good O2 saturations in the 90s on 8 L high flow nasal cannula. I discussed the assessment and plan of care with my nurse practitioner, Kendra Kamara. I attest to the above note as dictated by her.
== END 2019-04-11 14:05 | disposition home or self-care (01) | DRG 871 ==
LOC: EC 03:34 → 6NMEDSUR 04:55 → OBSVTOIN 04-08 17:20
PROVIDERS: ADMIT Hospitalist; ATTEND Hospitalist
DX: A41.51 Sepsis due to Escherichia coli [E. coli] (principal); J96.21 Acute and chronic respiratory failure with hypoxia; J15.1 Pneumonia due to Pseudomonas; J44.0 Chronic obstructive pulmonary disease with (acute) lower respiratory infection; J44.1 Chronic obstructive pulmonary disease with (acute) exacerbation; M48.54XA Collapsed vertebra, not elsewhere classified, thoracic region, initial encounter for fracture; N30.90 Cystitis, unspecified without hematuria; R65.20 Severe sepsis without septic shock; F17.210 Nicotine dependence, cigarettes, uncomplicated; E03.9 Hypothyroidism, unspecified; E86.0 Dehydration; F41.1 Generalized anxiety disorder; I48.0 Paroxysmal atrial fibrillation; J84.10 Pulmonary fibrosis, unspecified; K21.9 Gastro-esophageal reflux disease without esophagitis; K59.00 Constipation, unspecified; M19.90 Unspecified osteoarthritis, unspecified site; M79.7 Fibromyalgia; Z79.01 Long term (current) use of anticoagulants; Z79.51 Long term (current) use of inhaled steroids; Z79.899 Other long term (current) drug therapy; Z80.0 Family history of malignant neoplasm of digestive organs; Z83.3 Family history of diabetes mellitus; Z87.01 Personal history of pneumonia (recurrent); Z90.710 Acquired absence of both cervix and uterus; Z99.81 Dependence on supplemental oxygen; Z82.0 Family history of epilepsy and other diseases of the nervous system; Z88.1 Allergy status to other antibiotic agents; Z88.8 Allergy status to other drugs, medicaments and biological substances; Z98.1 Arthrodesis status
CPT/HCPCS: 36415; 71046; 76770; 80048; 80053; 81001; 82550; 83605; 83735; 83880; 84484; 85025; 85610; 85730; 87040; 87070; 87077; 87086; 87186; 87205; 87502; 93005; 94640; 94760; 96361; 96374; 99291